=== PATIENT | female | born 1935 | race Caucasian/White ===

== ENCOUNTER → 2018-01-28 17:01 | Outpatient (REF) | payer SELFPAY | DX: R50.9 Fever, unspecified (principal); R05 Cough; R53.83 Other fatigue | CPT/HCPCS: 87804 ==

== ENCOUNTER → 2018-05-12 14:31 | Outpatient (REF) | payer SELFPAY | PROVIDERS: Visit Provider Family Medicine | DX: R19.7 Diarrhea, unspecified (principal) | CPT/HCPCS: 87177; 87209 ==

== ENCOUNTER → 2018-05-22 09:10 | Outpatient (REF) | payer SELFPAY ==
[2018-05-22 11:59] LABS: Color, Urine Yellow (Yellow); Glucose, Dipstick Normal (Normal); Ketone-Dipstick 5 mg/dl (Negative); Leukocyte Esterase-Dipstick 25 /ul (Negative); Nitrite-Dipstick Negative (Negative); Occult Blood-Urine Negative /ul (Negative); Protein-Dipstick 30 mg/dl (Negative); Urine Bilirubin Dipstick Negative (Negative); Urine Clarity Sl. Cloudy (Clear); Urine Urobilinogen Normal (Normal)
== END ==
PROVIDERS: Visit Provider Family Medicine
DX: N39.0 Urinary tract infection, site not specified (principal)
CPT/HCPCS: 81002; 87086; 87088

== ENCOUNTER → 2018-06-14 08:56 | Outpatient (CLI) | payer MEDICARE, SELFPAY ==
--- NOTE | 2018-06-14 09:01 | CT_ITS ---
STUDY: CT ABDOMEN AND PELVIS WITHOUT CONTRAST REASON FOR EXAM: Female, 82 years old. Urinary incontinence, which is worsening. History of kidney stones, urinary frequency, left breast cancer treated with lumpectomy and radiation therapy, hypertension, KIMBERLY/BSO. RADIATION DOSAGE (If Supplied By Facility): CTDIvol = ( 8.62 ) mGy, DLP = ( 357.58 ) mGycm TECHNIQUE: Transaxial images were obtained from the dome of the diaphragm to the symphysis pubis without oral contrast, and without intravenous contrast. Sagittal and coronal images were reconstructed. Individualized dose optimization techniques were used for this CT. COMPARISON: None. FINDINGS: There is a calcified pulmonary granuloma in the visualized right middle lobe. The visualized portions of the heart are within normal limits. There are calcified granulomas in the liver. There were a few small liver cysts. Normal gallbladder and extrahepatic biliary system. There calcified granulomas spleen. There is mild splenomegaly. Normal pancreas. Normal bilateral adrenal glands. Normal right kidney. There is a 6 cm left upper pole renal cyst as well as smaller cysts. Otherwise normal left kidney. Normal visualized stomach. Normal small intestine. There are multiple colonic diverticula consistent with diverticulosis. The appendix is visualized on axial images 94-110 and it appears normal.. There is diffuse atherosclerotic calcification of the abdominal aorta with elongation and tortuosity, but without a demonstrated aneurysm. Normal inferior vena cava. Normal retroperitoneum. Normal urinary bladder. Urinary bladder was nearly empty at the time of this exam. There is absence of the uterus consistent with a prior hysterectomy. Normal abdominal wall. There are diffuse degenerative changes of the visualized lumbar spine as well as levoscoliosis.. CT/Abdomen/Pelvis without Cont IMPRESSION: Colonic diverticulosis, without evidence for acute diverticulitis. Mild splenomegaly. Old granulomatous disease. Cysts in the left kidney and in the liver. Atherosclerosis. Previous hysterectomy. No evidence for acute pathology. No demonstrated urinary calculi or hydronephrosis. Electronically Signed: Ernesto Rajan MD at 4:01 EDT , Service support ,
== END ==
PROVIDERS: Family Provider Family Medicine; PCP Family Medicine; Visit Provider Nurse Practitioner Adult Health
DX: R35.0 Frequency of micturition (principal); R39.15 Urgency of urination; Z87.442 Personal history of urinary calculi
CPT/HCPCS: 74176

== ENCOUNTER 2018-10-04 01:42 | Inpatient (IN) | payer MEDICARE, SELFPAY ==
[2018-10-04] VITALS (15 sets, daily range): BP systolic 133–216; BP diastolic 55–118; PULSE 71–83; RESP 16–18; TEMP 36.6–37.6; O2SAT 92–99; BMI 29.0; BMI 26.2; BMI 26.6
--- NOTE | 2018-10-04 02:21 | CT_ITS ---
STUDY: CT ABDOMEN AND PELVIS WITHOUT CONTRAST REASON FOR EXAM: Female, 83 years old. Abdominal pain RADIATION DOSAGE (If Supplied By Facility): CTDIvol = ( 19.23 ) mGy, DLP = ( 965.83 ) mGycm TECHNIQUE: Transaxial images were obtained from the dome of the diaphragm to the symphysis pubis without oral contrast, and without intravenous contrast. Sagittal and coronal images were reconstructed. Individualized dose optimization techniques were used for this CT. COMPARISON: None. FINDINGS: Chronic changes in the lung bases.2 The liver is normal. No dilated intrahepatic biliary radicles. The gallbladder is normal with no calcifications within it. There is no pericholecystic fluid collection or streakiness A single benign calcification in the spleen The pancreas is normal. Both adrenals are normal. A 5.3 cm cyst in the upper pole of the left kidney. No hydronephrosis and no abnormal calcifications in both kidneys. The stomach is normal. There is no bowel distention, acute appendicitis or diverticulitis. No constricting lesions are seen in large bowel. The abdominal wall is intact with no hernias. There is no ascites or any free intraperitoneal air. No indication of epiploic appendagitis The vascular structures in the retroperitoneum are normal. There is no retrocrural, retroperitoneal or mesenteric adenopathy. There is a lumbar scoliosis with convexity to the left. There are also multilevel degenerative changes of the lumbosacral spine. The urinary bladder is normal.--. There is no inguinal or pelvic adenopathy. There is no inguinal hernia. . CT/Abdomen/Pelvis without Cont IMPRESSION: No acute findings in the abdomen and pelvis. Specifically there is no acute appendicitis or diverticulitis. A large 5.3 cm left renal cyst. Degenerative changes of the lumbosacral spine. A lumbar scoliosis with convexity to the left Electronically Signed: Ilia Moreno MD at 5:07 EST Tel , Service support ,
--- NOTE | 2018-10-04 02:30 | ED.RN ---
IN TO TAKE PATIENT OFF OF BED SNEED AND PATIENT APHASIC AND INCOHERENT. UNABLE TO SPEAK IN SENTENCES. DR. CHANDLER AWARE AND AT BEDSIDE TO ASSESS PATIENT. WILL CONTINUE TO MONITOR.
[2018-10-04] MEDS: Ondansetron 4 MG/2 ML Vial IV (02:38)
[2018-10-04] MEDS: 0.9% Normal Saline 1,000 ML 125 ML IV (02:38)
[2018-10-04 02:42] LABS: Absolute Lymphocyte Count 0.96 X10^3/ul (0.83-4.51); Absolute Neutrophil Count 9.4 X10^3/uL (2.0-7.7); Basophil# 0.03 X10^3/uL; Basophil% 0.3 % (0-1); Eosinophil# 0.02 X10^3/uL; Eosinophils% 0.2 % (0-5); Hematocrit 41.9 % (37-47); Hemoglobin 14.2 g/dl (12.0-15.0); Lymphocyte # 0.96 X10^3/ul (4.0); Lymphocyte % 8.8 % (19-41); Mean Corp Hgb Conc 33.9 g/gl (32-36); Mean Corpuscular Hgb 28.6 pg (27.0-32.0); Mean Corpuscular Volume 84.3 fL (81-99); Mean Platelet Vol. 9.6 fl (6.2-12.0); Monocyte# 0.41 X10^3/uL; Monocyte% 3.8 % (0-10); Neutrophil # 9.44 X10^3/uL (2.7-7.7); Neutrophil % 86.8 % (47-70); POSITIVE COUNT NO; POSITIVE DIFFERENTIAL NO; POSITIVE MORPHOLOGY NO; Platelet Count 169 K/mm3 (150-450); RBC Distribution Width CV 12.7 % (11.6-14.6); RBC Distribution Width SD 38.5 fl (35.1-43.9); Red Blood Count 4.97 M/mm3 (4.2-5.4); White Blood Count 10.9 K/mm3 (4.4-11.0)
[2018-10-04] MEDS: fentaNYL 100 MCG/2 ML Ampul 50 MCG IV (02:42)
[2018-10-04 02:54] LABS: ALB/GLOB Ratio 1.3 RATIO (0.9-2.4); AST(SGOT) 13 U/L (15-37); Alanine Aminotransfer ALT/SGPT 15 U/L (13-56); Albumin, Serum 4.2 g/dL (3.2-5.0); Alkaline Phosphatase 116 U/L (45-117); Anion Gap 9 (5-15); BUN 13 mg/dL (7-18); BUN/Creat Ratio 18.1 RATIO (10-20); Bilirubin, Direct 0.15 mg/dL (0.00-0.30); Calcium,Total 8.9 mg/dL (8.5-10.1); Chloride 100 mmol/L (98-107); Creatinine, Serum 0.72 mg/dL (0.55-1.02); EST Glomerular Filtration Rate 83 mL/min (>60); Est Glom Filt Rate - Afr Amer 100 mL/min (>60); Globulin 3.2 g/dL (2.2-4.2); Glucose 141 mg/dL (74-106); Potassium 3.2 mmol/L (3.5-5.1); Protein, Total 7.4 g/dL (6.4-8.2); Sodium Level 138 mmol/L (136-145)
--- NOTE | 2018-10-04 02:55 | ED.VIS.GEN ---
History of Present Illness Chief Complaint: Abd Pain Informant: Patient Onset: Hours - 3 Context: Sudden Onset Timing: Continuous Quality: pain, followed by vomiting Location: epigastric Current Severity: Moderate Maximum Severity: Moderate Worsened by: vomiting Relieved by: nothing Associated Symptoms: nonbilious nonbloody emesis Narrative: Patient has never had this before. Pain does not radiate into her back or up into her chest, denies any thoracic symptoms. Had remote total hysterectomy but no other abdominal surgeries. States she has bowel movements that wavered between loose and constipation, and that has been unchanged. She urinates frequently because of difficulty with bladder control and states that has been no different and denies any other urinary symptoms. No fevers or recent illness or recent travel. No suspicious food ingestions such as raw seafood or undercooked meats. No sick contacts that she knows of. States that she was anaphylactic to codeine, but does not remember how it was given to her and does not remember if she has taken morphine or not in the past. - Past Medical History (1) Breast cancer Status: Chronic (2) HTN (hypertension) Status: Chronic Past Medical History - Allergies and Home Meds Allergies/Adverse Reactions: Allergies amlodipine Allergy (Verified 10/04/18 01:52) Anaphylaxis codeine Allergy (Verified 10/04/18 01:52) Anaphylaxis fentanyl Allergy (Verified 10/04/18 06:48) Other gabapentin Allergy (Verified 10/04/18 01:52) Anaphylaxis lisinopril Allergy (Verified 10/04/18 01:52) Anaphylaxis niacin Allergy (Verified 10/04/18 01:52) Anaphylaxis primidone Allergy (Verified 10/04/18 01:52) Anaphylaxis proparacaine Allergy (Verified 10/04/18 01:52) Anaphylaxis tamoxifen Allergy (Verified 10/04/18 01:52) Anaphylaxis Past Medical History: - - cannot remember all her problems right now Surgical History: hysterectomy, tonsillectomy, - - breast Smoking Status: Never smoker Alcohol: None - Family History Maternal Family History: Family History (Last Updated 10/04/18 @ 06:33 by Maxx Hanks MD) Mother Hypertension CVA (cerebral vascular accident) Review of Systems General: Reports: Malaise. Denies: Chills, Fever, Sweats Eyes: Denies: Visual changes - bilaterally, Diplopia ENT: Denies: Sore throat Cardiovascular: Denies: Chest pain, Palpitations Respiratory: Denies: Dyspnea, Cough, Dyspnea on exertion Gastrointestinal: Reports: Abdominal pain, Nausea, Vomiting, Diarrhea. Denies: Melena, Hematochezia Genitourinary: Reports: Frequency. Denies: Dysuria, Hematuria Musculoskeletal: Denies: Back pain, Swelling, Extremity Pain Skin: Denies: Rash, Abscess Neurological: Denies: Headache, Weakness, Numbness Endocrine: Denies: Polyuria, Polydipsia, Heat intolerance, Cold intolerance Physical Exam Vital Signs/Narrative: Vital Signs Temp Pulse Resp BP Pulse Ox 10/04/18 01:43 98.1 F 71 16 202/94 H 93 Inital Vital Signs reviewed: Yes General: Well nourished, Well developed, - - ill-appearing, nad Head: Normocephalic, Atraumatic Eyes: Perrl, EOMI ENT: Moist mucous membranes, No rhinorrhea Neck: Supple, Nontender Cardiovascular: Regular rate, Regular rhythm, No murmurs Respiratory: No distress, CTA bilaterally, Chest nontender Abdomen: Soft, Tender - diffusely mildly, but moderately tender LLQ and suprapubic areas; minimally tender upper abd, Hypoactive bowel sounds, - - distended. Negative for: Guarding, Rebound tenderness, Pulsatile mass, Hou's sign Back: Nontender, Normal Inspection. Negative for: CVA tenderness Extremities: Nontender, No edema Skin: Normal color, No rash Neurological: Alert, Oriented x3, Cranial nerves II-XII grossly intact, Normal Strength, Normal Sensation Psychological: Normal affect Diagnostic/Tx/Re-eval Laboratory Tests 10/04/18 10/04/18 10/04/18 Range/Units 03:54 02:30 02:30 WBC 10.9 (4.4-11.0) K/mm3 RBC 4.97 (4.2-5.4) M/mm3 Hgb 14.2 (12.0-15.0) g/dl Hct 41.9 (37-47) % MCV 84.3 (81-99) fL MCH 28.6 (27.0-32.0) pg MCHC 33.9 (32-36) g/gl RDW 12.7 (11.6-14.6) % RDW Differential 38.5 (35.1-43.9) fl Plt Count 169 (150-450) K/mm3 MPV 9.6 (6.2-12.0) fl Immature Gran % (Auto) 0.100 (0.0-0.9) % Neut % (Auto) 86.8 H (47-70) % Lymph % (Auto) 8.8 L (19-41) % [place] % (Auto) 3.8 (0-10) % Eos % (Auto) 0.2 (0-5) % Baso % (Auto) 0.3 (0-1) % Absolute Neuts (auto) 9.4 H (2.0-7.7) X10^3/uL Absolute Lymphs (auto) 0.96 (0.83-4.51) X10^3/ul Total Counted Not Reportable Sodium 138 (136-145) mmol/L Potassium 3.2 L (3.5-5.1) mmol/L Chloride 100 (98-107) mmol/L Carbon Dioxide 29.0 (21.0-32.0) mmol/L Anion Gap 9 (5-15) BUN 13 (7-18) mg/dL Creatinine 0.72 (0.55-1.02) mg/dL Estim Creat Clear Calc 36.50 ml/min Est GFR (MDRD) Af Amer 100 (>60) mL/min Est GFR (MDRD) Non-Af 83 (>60) mL/min BUN/Creatinine Ratio 18.1 (10-20) RATIO Glucose 141 H (74-106) mg/dL Calcium 8.9 (8.5-10.1) mg/dL Total Bilirubin 0.40 (0.20-1.00) mg/dL Direct Bilirubin 0.15 (0.00-0.30) mg/dL AST 13 L (15-37) U/L ALT 15 (13-56) U/L Alkaline Phosphatase 116 (45-117) U/L Total Protein 7.4 (6.4-8.2) g/dL Albumin 4.2 (3.2-5.0) g/dL Globulin 3.2 (2.2-4.2) g/dL Albumin/Globulin Ratio 1.3 (0.9-2.4) RATIO Urine Color Straw (Yellow) Urine Clarity Clear (Clear) Urine pH 8.0 (5.0 - 8.0) Ur Specific [place] 1.010 (1.002-1.030) Urine Protein 100 H (Negative) mg/dl Urine Glucose (UA) Normal (Normal) mg/dl Urine Ketones Negative (Negative) mg/dl Urine Occult Blood Negative (Negative) /ul Urine Nitrite Negative (Negative) Urine Bilirubin Negative (Negative) mg/dL Urine Urobilinogen Normal (Normal) mg/dl Ur Leukocyte Esterase Negative (Negative) /ul Urine RBC 0 SEEN (0-5) /hpf Urine WBC 0 SEEN (0-5) /hpf Ur Squamous Epith Cells 0-5 SEEN (5-10) /hpf Urine Bacteria RARE (None Seen) /hpf Urine Mucus 0 SEEN (<or=2+) /hpf Clinical Impression(s) from Imaging Studies Abdomen/Pelvis CT 10/04/18 02:21 IMPRESSION: No acute findings in the abdomen and pelvis. Specifically there is no acute appendicitis or diverticulitis. A large 5.3 cm left renal cyst. Degenerative changes of the lumbosacral spine. A lumbar scoliosis with convexity to the left Electronically Signed: Ilia Moreno MD at 5:07 EST Tel , Service support , Brain CT 10/04/18 04:29 IMPRESSION: No acute findings in the brain Electronically Signed: Ilia Moreno MD at 5:00 EST Tel , Service support , Chest X-Ray 10/04/18 04:50 IMPRESSION: Mild cardiomegaly with central vascular congestive changes and bibasilar platelike atelectatic change Electronically Signed: Ilia Moreno MD at 5:11 EST Tel , Service support , Head CTA 10/04/18 05:27 IMPRESSION: Normal [place] without a demonstrated aneurysm or hemodynamically significant stenosis. Electronically Signed: Ilia Moreno MD at 7:06 EST Tel , Service support , Neck CTA 10/04/18 05:27 IMPRESSION: No evidence of a hemodynamically significant stenosis in either carotid system. Calcific atherosclerotic changes involving the right carotid bulb. The vertebrobasilar circulation is normal Electronically Signed: Ilia Moreno MD at 7:04 EST Tel , Service support , - Rhythm Strip Rhythm Strip: Sinus Rhythm Rate: 80 Ectopy: None - EKG Initial EKG Interpretation: Sinus Rhythm, No Acute Injury Pattern, Non-Specific ST Changes - laterally, - - long QTc. nml axis. - Medical Decision Making After initial evaluation, workup was ordered including CT abdomen, IV fluids, Zofran, and fentanyl so as to not cause any type of allergic reaction that she might have developed with morphine because of her prior anaphylaxis to codeine, as the patient was in quite a bit of discomfort and we discussed the pain medicine prior to giving it. Sometime after receiving the fentanyl, she became very confused and disoriented, she was unable to follow commands or move her extremities on command. It was presumed this was due to the fentanyl since all of her vitals were unremarkable and unchanged, with the exception of her blood pressure which was over 200 when she got here but during my exam it was 173 systolic and remained similar to that. Daughter states that it is not uncommon for her to spike blood pressures in response to stress. I reevaluated her periodically, and during 1 of my reevaluation's, she suddenly rolled her eyes back in her head and had a tonic-clonic grand mal seizure, that lasted for about a minute, and as it stopped, she did not breathing quickly became cyanotic and her pulse ox dropped to around 75%. The daughter quickly stated that she was DNR but was okay with us giving her rescue breathing, so we quickly set up a bag valve mask, and assisted her own breathing that had started by then. At this time as we were starting to bag her, she became bradycardic in the 30s. This quickly resolved, and she developed a heart rate in the low 100s. We stopped bagging her and gave her blow-by, and as her breathing picked up, she was maintained on a 5 L nasal cannula, keeping her saturations at 95%. She is not gone to CT yet for her abdomen/pelvis, I am adding cardiac testing and a CT head, she will be taken over with a nurse on a monitor. She is postictal at this time. CT images performed, I have reviewed them. She does not appear to have acute cerebral hemorrhage and her abdominal CT shows no free air, AAA, or free fluid. I am ordering nitroprusside, she has a documented allergy to amlodipine, in order to control her blood pressure, since that is more likely to have resulted in the seizure than anything else at this time. I think an acute ischemic stroke is much less likely, given the seizure activity. We will continue to monitor closely, CT results pending. CT head and abdomen/pelvis both resulted fairly quickly, both are negative. Prior to starting any medications, her blood pressure is in the 130s. Nitroprusside is canceled. Clinically, she is alerting to voice, she responds to questions by looking at the person asking, however, she does not follow commands, she is localizing to pain in all 4 extremities, causing her to move all 4 extremities, her toes are downgoing, reflexes normal, there is no clonus. She moans, but does not speak. She does not close her eyes when asked to. I discussed with Dr. Lanier with neurology, he advises CT angiography, which is ordered and pending. CT angiography results are all unremarkable, no aneurysms or stenotic vessels. Discussed again with Dr. Lanier, who does not recommend antiseizure medications at this time, he recommends an MRI, admission, consultation to neurology and further monitoring. Discussed with hospitalist. Procedures Critical care time (excluding procedures): 30-74 minutes - 35 min ED Disposition - Plan for ED Patient: Disposition: Acute Care [facility] Chief Complaint: Abd Pain Diagnosis: Accelerated hypertension, Delirium, Seizure
--- NOTE | 2018-10-04 02:59 | ED.DCSUM_ITS ---
History of Present Illness Chief Complaint: Abd Pain Informant: Patient Onset: Hours - 3 Context: Sudden Onset Timing: Continuous Quality: pain, followed by vomiting Location: epigastric Current Severity: Moderate Maximum Severity: Moderate Worsened by: vomiting Relieved by: nothing Associated Symptoms: nonbilious nonbloody emesis Narrative: Patient has never had this before. Pain does not radiate into her back or up into her chest, denies any thoracic symptoms. Had remote total hysterectomy but no other abdominal surgeries. States she has bowel movements that wavered between loose and constipation, and that has been unchanged. She urinates frequently because of difficulty with bladder control and states that has been no different and denies any other urinary symptoms. No fevers or recent illness or recent travel. No suspicious food ingestions such as raw seafood or undercooked meats. No sick contacts that she knows of. States that she was anaphylactic to codeine, but does not remember how it was given to her and does not remember if she has taken morphine or not in the past. - Past Medical History (1) Breast cancer Status: Chronic (2) HTN (hypertension) Status: Chronic Past Medical History - Allergies and Home Meds Allergies/Adverse Reactions: Allergies amlodipine Allergy (Verified 10/04/18 01:52) Anaphylaxis codeine Allergy (Verified 10/04/18 01:52) Anaphylaxis fentanyl Allergy (Verified 10/04/18 06:48) Other gabapentin Allergy (Verified 10/04/18 01:52) Anaphylaxis lisinopril Allergy (Verified 10/04/18 01:52) Anaphylaxis niacin Allergy (Verified 10/04/18 01:52) Anaphylaxis primidone Allergy (Verified 10/04/18 01:52) Anaphylaxis proparacaine Allergy (Verified 10/04/18 01:52) Anaphylaxis tamoxifen Allergy (Verified 10/04/18 01:52) Anaphylaxis Past Medical History: - - cannot remember all her problems right now Surgical History: hysterectomy, tonsillectomy, - - breast Smoking Status: Never smoker Alcohol: None - Family History Maternal Family History: Family History (Last Updated 10/04/18 @ 06:33 by Maxx Hanks MD) Mother Hypertension CVA (cerebral vascular accident) Review of Systems General: Reports: Malaise. Denies: Chills, Fever, Sweats Eyes: Denies: Visual changes - bilaterally, Diplopia ENT: Denies: Sore throat Cardiovascular: Denies: Chest pain, Palpitations Respiratory: Denies: Dyspnea, Cough, Dyspnea on exertion Gastrointestinal: Reports: Abdominal pain, Nausea, Vomiting, Diarrhea. Denies: Melena, Hematochezia Genitourinary: Reports: Frequency. Denies: Dysuria, Hematuria Musculoskeletal: Denies: Back pain, Swelling, Extremity Pain Skin: Denies: Rash, Abscess Neurological: Denies: Headache, Weakness, Numbness Endocrine: Denies: Polyuria, Polydipsia, Heat intolerance, Cold intolerance Physical Exam Vital Signs/Narrative: Vital Signs Temp Pulse Resp BP Pulse Ox 10/04/18 01:43 98.1 F 71 16 202/94 H 93 Inital Vital Signs reviewed: Yes General: Well nourished, Well developed, - - ill-appearing, nad Head: Normocephalic, Atraumatic Eyes: Perrl, EOMI ENT: Moist mucous membranes, No rhinorrhea Neck: Supple, Nontender Cardiovascular: Regular rate, Regular rhythm, No murmurs Respiratory: No distress, CTA bilaterally, Chest nontender Abdomen: Soft, Tender - diffusely mildly, but moderately tender LLQ and suprapu bic areas; minimally tender upper abd, Hypoactive bowel sounds, - - distended. Negative for: Guarding, Rebound tenderness, Pulsatile mass, Hou's sign Back: Nontender, Normal Inspection. Negative for: CVA tenderness Extremities: Nontender, No edema Skin: Normal color, No rash Neurological: Alert, Oriented x3, Cranial nerves II-XII grossly intact, Normal Strength, Normal Sensation Psychological: Normal affect Diagnostic/Tx/Re-eval Laboratory Tests 10/04/18 10/04/18 10/04/18 Range/Units 03:54 02:30 02:30 WBC 10.9 (4.4-11.0) K/mm3 RBC 4.97 (4.2-5.4) M/mm3 Hgb 14.2 (12.0-15.0) g/dl Hct 41.9 (37-47) % MCV 84.3 (81-99) fL MCH 28.6 (27.0-32.0) pg MCHC 33.9 (32-36) g/gl RDW 12.7 (11.6-14.6) % RDW Differential 38.5 (35.1-43.9) fl Plt Count 169 (150-450) K/mm3 MPV 9.6 (6.2-12.0) fl Immature Gran % (Auto) 0.100 (0.0-0.9) % Neut % (Auto) 86.8 H (47-70) % Lymph % (Auto) 8.8 L (19-41) % [place] % (Auto) 3.8 (0-10) % Eos % (Auto) 0.2 (0-5) % Baso % (Auto) 0.3 (0-1) % Absolute Neuts (auto) 9.4 H (2.0-7.7) X10^3/uL Absolute Lymphs (auto) 0.96 (0.83-4.51) X10^3/ul Total Counted Not Reportable Sodium 138 (136-145) mmol/L Potassium 3.2 L (3.5-5.1) mmol/L Chloride 100 (98-107) mmol/L Carbon Dioxide 29.0 (21.0-32.0) mmol/L Anion Gap 9 (5-15) BUN 13 (7-18) mg/dL Creatinine 0.72 (0.55-1.02) mg/dL Estim Creat Clear Calc 36.50 ml/min Est GFR (MDRD) Af Amer 100 (>60) mL/min Est GFR (MDRD) Non-Af 83 (>60) mL/min BUN/Creatinine Ratio 18.1 (10-20) RATIO Glucose 141 H (74-106) mg/dL Calcium 8.9 (8.5-10.1) mg/dL Total Bilirubin 0.40 (0.20-1.00) mg/dL Direct Bilirubin 0.15 (0.00-0.30) mg/dL AST 13 L (15-37) U/L ALT 15 (13-56) U/L Alkaline Phosphatase 116 (45-117) U/L Total Protein 7.4 (6.4-8.2) g/dL Albumin 4.2 (3.2-5.0) g/dL Globulin 3.2 (2.2-4.2) g/dL Albumin/Globulin Ratio 1.3 (0.9-2.4) RATIO Urine Color Straw (Yellow) Urine Clarity Clear (Clear) Urine pH 8.0 (5.0 - 8.0) Ur Specific [place] 1.010 (1.002-1.030) Urine Protein 100 H (Negative) mg/dl Urine Glucose (UA) Normal (Normal) mg/dl Urine Ketones Negative (Negative) mg/dl Urine Occult Blood Negative (Negative) /ul Urine Nitrite Negative (Negative) Urine Bilirubin Negative (Negative) mg/dL Urine Urobilinogen Normal (Normal) mg/dl Ur Leukocyte Esterase Negative (Negative) /ul Urine RBC 0 SEEN (0-5) /hpf Urine WBC 0 SEEN (0-5) /hpf Ur Squamous Epith Cells 0-5 SEEN (5-10) /hpf Urine Bacteria RARE (None Seen) /hpf Urine Mucus 0 SEEN (<or=2+) /hpf Clinical Impression(s) from Imaging Studies Abdomen/Pelvis CT 10/04/18 02:21 IMPRESSION: No acute findings in the abdomen and pelvis. Specifically there is no acute appendicitis or diverticulitis. A large 5.3 cm left renal cyst. Degenerative changes of the lumbosacral spine. A lumbar scoliosis with convexity to the left Electronically Signed: Ilia Moreno MD at 5:07 EST Tel , Service support , Brain CT 10/04/18 04:29 IMPRESSION: No acute findings in the brain Electronically Signed: Ilia Moreno MD at 5:00 EST Tel , Service support , Chest X-Ray 10/04/18 04:50 IMPRESSION: Mild cardiomegaly with central vascular congestive changes and bibasilar platelike atelectatic change Electronically Signed: Ilia Moreno MD at 5:11 EST Tel , Service support , Head CTA 10/04/18 05:27 IMPRESSION: Normal [place] without a demonstrated aneurysm or hemodynamically significant stenosis. Electronically Signed: Ilia Moreno MD at 7:06 EST Tel , Service support , Neck CTA 10/04/18 05:27 IMPRESSION: No evidence of a hemodynamically significant stenosis in either carotid system. Calcific atherosclerotic changes involving the right carotid bulb. The vertebrobasilar circulation is normal Electronically Signed: Ilia Moreno MD at 7:04 EST Tel , Service support , - Rhythm Strip Rhythm Strip: Sinus Rhythm Rate: 80 Ectopy: None - EKG Initial EKG Interpretation: Sinus Rhythm, No Acute Injury Pattern, Non-Specific ST Changes - laterally, - - long QTc. nml axis. - Medical Decision Making After initial evaluation, workup was ordered including CT abdomen, IV fluids, Zofran, and fentanyl so as to not cause any type of allergic reaction that she might have developed with morphine because of her prior anaphylaxis to codeine, as the patient was in quite a bit of discomfort and we discussed the pain medicine prior to giving it. Sometime after receiving the fentanyl, she became very confused and disoriented, she was unable to follow commands or move her extremities on command. It was presumed this was due to the fentanyl since all of her vitals were unremarkable and unchanged, with the exception of her blood pressure which was over 200 when she got here but during my exam it was 173 systolic and remained similar to that. Daughter states that it is not uncommon for her to spike blood pressures in response to stress. I reevaluated her periodically, and during 1 of my reevaluation's, she suddenly rolled her eyes back in her head and had a tonic-clonic grand mal seizure, that lasted for about a minute, and as it stopped, she did not breathing quickly became cyanotic and her pulse ox dropped to around 75%. The daughter quickly stated that she was DNR but was okay with us giving her rescue breathing, so we quickly set up a bag valve mask, and assisted her own breathing that had started by then. At this time as we were starting to bag her, she became bradycardic in the 30s. This quickly resolved, and she developed a heart rate in the low 100s. We stopped bagging her and gave her blow-by, and as her breathing picked up, she was maintained on a 5 L nasal cannula, keeping her saturations at 95%. She is not gone to CT yet for her abdomen/pelvis, I am adding cardiac testing and a CT head, she will be taken over with a nurse on a monitor. She is postictal at this time. CT images performed, I have reviewed them. She does not appear to have acute cerebral hemorrhage and her abdominal CT shows no free air, AAA, or free fluid. I am ordering nitroprusside, she has a documented allergy to amlodipine, in order to control her blood pressure, since that is more likely to have resulted in the seizure than anything else at this time. I think an acute ischemic stroke is much less likely, given the seizure activity. We will continue to monitor closely, CT results pending. CT head and abdomen/pelvis both resulted fairly quickly, both are negative. Prior to starting any medications, her blood pressure is in the 130s. Nitroprusside is canceled. Clinically, she is alerting to voice, she responds to questions by looking at the person asking, however, she does not follow commands, she is localizing to pain in all 4 extremities, causing her to move all 4 extremities, her toes are downgoing, reflexes normal, there is no clonus. She moans, but does not speak. She does not close her eyes when asked to. I discussed with Dr. Lanier with neurology, he advises CT angiography, which is ordered and pending. CT angiography results are all unremarkable, no aneurysms or stenotic vessels. Discussed again with Dr. Lanier, who does not recommend antiseizure medications at this time, he recommends an MRI, admission, consultation to neurology and further monitoring. Discussed with hospitalist. Procedures Critical care time (excluding procedures): 30-74 minutes - 35 min ED Disposition - Plan for ED Patient: Disposition: Acute Care Hospital [facility] Chief Complaint: Abd Pain Diagnosis: Accelerated hypertension, Delirium, Seizure
[2018-10-04 04:01] LABS: Mucous, Urine 0 SEEN /hpf (<or=2+); Red Blood Cells-Urine 0 SEEN /hpf (0-5); White Blood Cells 0 SEEN /hpf (0-5)
[2018-10-04 04:05] LABS: Color, Urine Straw (Yellow); Glucose, Dipstick Normal (Normal); Ketone-Dipstick Negative (Negative); Leukocyte Esterase-Dipstick Negative /ul (Negative); Nitrite-Dipstick Negative (Negative); Occult Blood-Urine Negative /ul (Negative); Protein-Dipstick 100 mg/dl (Negative); Urine Bilirubin Dipstick Negative (Negative); Urine Clarity Clear (Clear); Urine Urobilinogen Normal (Normal)
[2018-10-04 04:08] LABS: Bacteria RARE /hpf (None Seen); Squamous Epithelial Cells - UA 0-5 SEEN /hpf (5-10)
--- NOTE | 2018-10-04 04:29 | CT_ITS ---
STUDY: CT BRAIN WITHOUT CONTRAST REASON FOR EXAM: Female, 83 years old. Seizure RADIATION DOSAGE (If Supplied By Facility): CTDIvol = ( 44.99 ) mGy, DLP = ( 796.11 ) mGycm TECHNIQUE: Transaxial CT imaging of the brain was performed without administration of intravenous contrast material. Individualized dose optimization techniques were used for this CT. COMPARISON: None. FINDINGS: No scalp hematoma and no calvarial fractures. There is also no intra or extra-axial hemorrhage or tumor mass and no indication of acute infarction. Nonspecific microangiopathic changes in both hemispheres. The ventricles, basal cisterns and cortical sulci are normal. The orbits, paranasal sinuses and mastoid air cells are normal.. CT/Brain/Head without Contrast IMPRESSION: No acute findings in the brain Electronically Signed: Ilia Moreno MD at 5:00 EST Tel , Service support ,
--- NOTE | 2018-10-04 04:30 | EKG12_ITS ---
Test Reason : BRADYCARDIA Blood Pressure : / mmHG Vent. Rate : 088 BPM Atrial Rate : 088 BPM P-R Int : 160 ms QRS Dur : 102 ms QT Int : 408 ms P-R-T Axes : 068 020 229 degrees QTc Int : 493 ms Normal sinus rhythm Possible Left atrial enlargement Left ventricular hypertrophy with repolarization abnormality Prolonged QT Abnormal ECG Confirmed by SHAUNA JONES, PAUL ([id number]), editorial director DOUGLAS HOOKS ([id number] on 10/07/2018 2:05:20 PM Referred By: RAMESH Confirmed By:PAUL VILLATORO MD
--- NOTE | 2018-10-04 04:33 | ED.RN ---
THIS RN AT BEDSIDE WITH PATIENT. SONOROUS RESPIRATIONS BUT VITAL SIGNS STABLE. HR: 88, SPO2: 97%, RR:22, BP: 172/71. DAUGHTER ALSO AT BEDSIDE
--- NOTE | 2018-10-04 04:50 | RAD_ITS ---
STUDY: X-RAY CHEST REASON FOR EXAM: Female, 83 years old. Chest pain TECHNIQUE: 1 view COMPARISON: None. FINDINGS: Mild cardiomegaly with mild central vascular congestion and atelectatic changes in the lung bases. No pleural effusions.. Degenerative changes of the thoracic spine.. Normal visualized ribs, clavicles, and shoulders. There is no demonstrated abnormality of the visualized soft tissue structures of the upper abdomen. RAD/Chest 1 View IMPRESSION: Mild cardiomegaly with central vascular congestive changes and bibasilar platelike atelectatic change Electronically Signed: Ilia Moreno MD at 5:11 EST Tel , Service support ,
--- NOTE | 2018-10-04 05:13 | PCM.HP.STD ---
Problem List (1) Gastritis Status: Acute (2) Seizure Status: Acute (3) Hypertensive emergency Status: Acute History of Present Illness Date of Admission: 10/04/18 Chief Complaint: nausea, vomiting and abdominal pain History was taken from ED doctor and Patient's daughter since patient is lethargic and incoherent. The patient is a 83 year old F with a significant history of IBS; hypertension; breast cancer status post lumpectomy with axillary node dissection and radiation with subsequent anaphylaxis after tamoxifen administration; hyperlipidemia; osteoarthritis; who presented from the assisted intermediate because of nausea, vomiting and abdominal pain. ED doctor reported that patient's pain was at the epigastric region but patient was tender in the lower abdominal region. At my examination the characteristics of patient's pain could not be obtained since patient is lethargic and incoherent. Her daughter reported that she had a conversation with patient at the intermediate at about 10pm the day before patient's admission. Patient reported same symptoms stated above to her daughter during the phone conversation. At that time, daughter reported that patient was coherent. Moreover at about 7pm of the day before her admission; her daughter and her son-in-law (same daughter's ) went to a care meeting at the [facility] where patient lives. Patient was coherent when daughter and son in law was at the intermediate. When patient was brought to the emergency department patient was given IV fluids, Zofran and 50 mg of fentanyl. Because of multiple anaphylactic reactions to medications, the emergency department doctor avoided morphine and other narcotics and chose fentanyl because of less tendency of getting advice reaction from fentanyl. Of note her daughter reports that patient has hyperemesis from codeine. Of note patient had extremely elevated blood at the emergency department. Her highest documented systolic blood pressure was 218. The highest documented diastolic blood pressure was 118. After patient received IV fluids, Zofran and fentanyl, ED doctor reported that patient became incoherent and very lethargic. Her daughter confirmed that she talked to patient over the phone at 1 AM while patient was at the emergency department and patient sounded incoherent. Patient had a precipitous drop in her oxygen saturation and although she was a DNR and her daughter who was present and allowed Ambu bag him. She responded to the antibiotic with increase in her oxygen saturation and was maintained on nasal cannula oxygenation. Later at emergency department' her daughter witnessed patient having a tonic clonic seizure. CT of patient abdomen/pelvis as well as CT of the head was unremarkable. ED doctor talked to neurologist Dr. Lanier. Per Dr. Lanier's recommendation oCTA of patient's head and neck was ordered by the ED doctor. Past Medical History Past Medical History (Chronic Problems): Chronic Problems Breast cancer (Chronic) HTN (hypertension) (Chronic) Allergies amlodipine Allergy (Verified 10/04/18 01:52) Anaphylaxis codeine Allergy (Verified 10/04/18 01:52) Anaphylaxis gabapentin Allergy (Verified 10/04/18 01:52) Anaphylaxis lisinopril Allergy (Verified 10/04/18 01:52) Anaphylaxis niacin Allergy (Verified 10/04/18 01:52) Anaphylaxis primidone Allergy (Verified 10/04/18 01:52) Anaphylaxis proparacaine Allergy (Verified 10/04/18 01:52) Anaphylaxis tamoxifen Allergy (Verified 10/04/18 01:52) Anaphylaxis Home Medications: Ambulatory Orders Medication Instructions Recorded Acetaminophen 650 mg PO Q4H PRN PRN 10/04/18 Aspirin 81 mg PO DAILY 10/04/18 Biotin 5,000 mcg PO DAILY 10/04/18 Calcium Carbonate [Tums] 1,000 mg PO Q4H PRN PRN 10/04/18 Cholecalciferol (Vitamin D3) 1,000 unit PO DAILY 10/04/18 [Vitamin D3] Cyanocobalamin (Vitamin B-12) 1,000 mcg PO DAILY 10/04/18 [Vitamin B-12] Dicyclomine HCl 10 mg PO ACHS 10/04/18 Guaifenesin/Dextromethorphan 1 each PO Q12H PRN PRN 10/04/18 [Mucinex Dm ER 600-30 mg Tablet] Hydroxyzine HCl 25 mg PO Q6H PRN PRN 10/04/18 Lactobacillus Acidophilus 1 each PO DAILY 10/04/18 [Acidophilus] Levothyroxine [Synthroid] 25 mcg PO DAILY 10/04/18 Lorazepam [Ativan] 0.5 mg PO DAILY PRN 10/04/18 Magnesium 250 mg PO DAILY 10/04/18 Metoprolol Tartrate 25 mg PO BID 10/04/18 Mirabegron [Myrbetriq] 50 mg PO DAILY 10/04/18 Nystatin Powder [Mycostatin Powder] 1 applic TOPICAL DAILY 10/04/18 Omeprazole [Prilosec] 20 mg PO BID 10/04/18 Psyllium Husk [Metamucil] 0.52 gm PO DAILY 10/04/18 Rosuvastatin Calcium 5 mg PO DAILY 10/04/18 Vit C/E/Zn/Coppr/Lutein/Zeaxan 1 each PO BID 10/04/18 [Preservision Areds 2 Softgel] traZODone [Desyrel] 25 mg PO QHS 10/04/18 Surgical History: hysterectomy, tonsillectomy, - - lumpectomy with axillary nodes dissection; Facial surgery after facial laceration post fall Lives: Intermediate Smoking Status: Never smoker Alcohol: None - *Family History Maternal Family History: Family History (Last Updated 10/04/18 @ 06:33 by Maxx Hanks MD) Mother Hypertension CVA (cerebral vascular accident) Review of Systems Unable to obtain accurate/complete ROS d/t: altered mental status after observed seizure. VTE Information - Inpt Only VTE Present on Admission: No VTE Mechan Device Prophylaxis: SCD's VTE Pharm Prophylaxis ordered?: No Patient Problems: Active and Suspected Problems Hypertensive emergency (Acute) Gastritis (Acute) Seizure (Acute) Hypertensive emergency (Acute) - Physical Exam General: Lethargic HEENT: Atraumatic, Normocephalic Neck: Trachea Midline Lungs: Clear to auscultation, Normal air movement Cardiovascular: Regular rate, No murmurs Abdomen: Bowel Sounds Present, Tender Extremities: No edema, Capillary Refill Less than 3 Seconds Skin: No rashes, No breakdown Musculoskeletal: No Muscle Wasting Neurological: - - Patient is lethargic and not following many commands. She mentioned her name sluggishly. Psych/Mental Status: - - Patient is lethargic. Vital Signs Temp Pulse Resp BP Pulse Ox 98.1 F 80 16 134/70 H 96 10/04/18 01:43 10/04/18 05:05 10/04/18 05:05 10/04/18 05:05 10/04/18 05:05 Oxygen Flow Rate (L/min) 2 Oxygen Delivery Method Nasal Cannula Weight: 74.2 kg Body Mass Index (BMI) 29.0 Laboratory Tests Past 24 Hrs 10/04/18 10/04/18 10/04/18 02:30 02:30 03:54 WBC 10.9 RBC 4.97 Hgb 14.2 Hct 41.9 MCV 84.3 MCH 28.6 MCHC 33.9 RDW 12.7 RDW Differential 38.5 Plt Count 169 MPV 9.6 Immature Gran % (Auto) 0.100 Neut % (Auto) 86.8 H Lymph % (Auto) 8.8 L [place] % (Auto) 3.8 Eos % (Auto) 0.2 Baso % (Auto) 0.3 Absolute Neuts (auto) 9.4 H Absolute Lymphs (auto) 0.96 Total Counted Not Reportable Sodium 138 Potassium 3.2 L Chloride 100 Carbon Dioxide 29.0 Anion Gap 9 BUN 13 Creatinine 0.72 Estim Creat Clear Calc 36.50 Est GFR (MDRD) Af Amer 100 Est GFR (MDRD) Non-Af 83 BUN/Creatinine Ratio 18.1 Glucose 141 H Calcium 8.9 Total Bilirubin 0.40 Direct Bilirubin 0.15 AST 13 L ALT 15 Alkaline Phosphatase 116 Troponin I Total Protein 7.4 Albumin 4.2 Globulin 3.2 Albumin/Globulin Ratio 1.3 Urine Color Straw Urine Clarity Clear Urine pH 8.0 Ur Specific [place] 1.010 Urine Protein 100 H Urine Glucose (UA) Normal Urine Ketones Negative Urine Occult Blood Negative Urine Nitrite Negative Urine Bilirubin Negative Urine Urobilinogen Normal Ur Leukocyte Esterase Negative Urine RBC 0 SEEN Urine WBC 0 SEEN Ur Squamous Epith Cells 0-5 SEEN Urine Bacteria RARE Urine Mucus 0 SEEN 10/04/18 05:00 WBC RBC Hgb Hct MCV MCH MCHC RDW RDW Differential Plt Count MPV Immature Gran % (Auto) Neut % (Auto) Lymph % (Auto) [place] % (Auto) Eos % (Auto) Baso % (Auto) Absolute Neuts (auto) Absolute Lymphs (auto) Total Counted Sodium Potassium Chloride Carbon Dioxide Anion Gap BUN Creatinine Estim Creat Clear Calc Est GFR (MDRD) Af Amer Est GFR (MDRD) Non-Af BUN/Creatinine Ratio Glucose Calcium Total Bilirubin Direct Bilirubin AST ALT Alkaline Phosphatase Troponin I Pending Total Protein Albumin Globulin Albumin/Globulin Ratio Urine Color Urine Clarity Urine pH Ur Specific [place] Urine Protein Urine Glucose (UA) Urine Ketones Urine Occult Blood Urine Nitrite Urine Bilirubin Urine Urobilinogen Ur Leukocyte Esterase Urine RBC Urine WBC Ur Squamous Epith Cells Urine Bacteria Urine Mucus Assessment/Plan All Active Problems Hypertensive emergency (Acute) Gastritis (Acute) Seizure (Acute) Hypertensive emergency (Acute) The patient is a 83 year old F with a significant history of IBS; hypertension; breast cancer status post lumpectomy with axillary node dissection and radiation with subsequent anaphylaxis after tamoxifen administration; hyperlipidemia; osteoarthritis; who presented from the assisted intermediate because of nausea, vomiting and abdominal pain; and found to have severely elevated blood pressure; and also had a witnessed seizure at the emergency department after administration of IV fluids; Zofran and fentanyl. Seizure Examination patient appeared lethargic; and answered only a few questions representing likely post ictal stage. Etiology of her seizures includes adverse medication reaction from likely fentanyl; hypertensive emergency or other CT of head unremarkable CT of head and neck unremarkable. MRI of brain ordered. EEG ordered. Ativan as needed for seizures Seizure precautions ordered. Probable hypertensive emergency. Patient with systolic blood pressure of 218; and diastolic blood pressure of 118. Etiology of anesthesia was from adverse reaction from fentanyl; or hypertensive emergency as stated above. Patient has allergy to amlodipine, Cardene not ordered at this time. Patient has anaphylactic reaction to e proparacaine; same ingredients in labetalol and hydralazine Hydralazine as needed ordered. Home metoprolol p.o. not ordered because patient is lethargic and at risk of aspiration. IV metoprolol as needed ordered. Gastritis With her symptoms of nausea, abdominal pain and vomiting patient likely has inflammation of her stomach. No reported diarrhea. Of note patient has a history of IBS. Likely viral in etiology. Supportive treatment with IV fluids; IV antiemetics; and IV Toradol. Of note patient has allergy reaction to narcotics. Her daughter reports that patient can take Vicodin. Vicodin not ordered because patient is lethargic and likely cannot tolerate p.o. DVT prophylaxis SCD ordered. Heparin not ordered because of e proparacaine ingredient. Code Status Patient is a DNR CC. At the emergency department patient was back. However this time her daughter who is the POA states that patient is a DNR-CC with no chest compression; pressors or bagging. Code Visit Inpatient E&M: 95949 Init Hosp L3
--- NOTE | 2018-10-04 05:27 | CT_ITS ---
STUDY: CTA OF THE NECK REASON FOR EXAM: Female, 83 years old. Altered mental status. RADIATION DOSAGE (If Supplied By Facility): CTDIvol = ( 20.97 ) mGy, DLP = ( 612.59 ) mGycm TECHNIQUE: CT angiography was performed with a multi-detector CT scanner. Data acquisition was obtained from the skull base through the vertex following intravenous administration of ml of . MIP images were reconstructed from the axial data set. Post-processing of the angiographic images was performed, with multiplanar reformation and 3D reconstruction. Individualized dose optimization techniques were used for this CT. COMPARISON: None. FINDINGS: Normal takeoff of the left subclavian artery, left common carotid artery and brachiocephalic artery from the arch of aorta. The left common carotid artery, the left carotid bulb and the left internal and external carotid arteries are normal and demonstrate no hemodynamically significant stenosis. The right common carotid artery is normal. There is focal calcific atherosclerotic changes involving the right carotid bulb but no demonstration of a hemodynamically significant stenosis. The right internal and external carotid arteries are normal. The vertebrobasilar circulation is normal. CT/CTA Neck W/WO Contrast IMPRESSION: No evidence of a hemodynamically significant stenosis in either carotid system. Calcific atherosclerotic changes involving the right carotid bulb. The vertebrobasilar circulation is normal Electronically Signed: Ilia Moreno MD at 7:04 EST Tel , Service support ,
--- NOTE | 2018-10-04 05:27 | CT_ITS ---
STUDY: CTA OF THE BRAIN REASON FOR EXAM: Female, 83 years old. Altered mental status. RADIATION DOSAGE (If Supplied By Facility): CTDIvol = ( 20.97 ) mGy, DLP = ( 612.59 ) mGycm TECHNIQUE: CT angiography was performed with a multi-detector CT scanner. Data acquisition was obtained from the skull base through the vertex following intravenous administration of ml of . MIP images were reconstructed from the axial data set. Post-processing of the angiographic images was performed, with multiplanar reformation and 3D reconstruction. Individualized dose optimization techniques were used for this CT. COMPARISON: None. FINDINGS: Normal bilateral petrous carotid arteries. Normal right cavernous carotid artery with a normal supraclinoid bifurcation. Normal left cavernous carotid artery with a normal supraclinoid bifurcation. Normal right A1 segments of the anterior cerebral artery. Normal left A1 segments of the anterior cerebral artery. Normal intact anterior communicating artery (ACOM). Normal bilateral A2 segments of the anterior cerebral arteries. Normal right M1 and M2 segments of the middle cerebral arteries, with a normal M1 bifurcation. Normal left M1 and M2 segments of the middle cerebral arteries, with a normal M1 bifurcation. Normal right posterior communicating artery (PCOM). Normal left posterior communicating artery (PCOM). Normal bilateral vertebral arteries. Normal basilar artery with a normal basilar bifurcation. The visualized bilateral superior cerebellar (SCA) arteries are normal. Normal bilateral P1, P2 and visualized P3 segments of the posterior cerebral arteries. There is no demonstrated aneurysm of the [place] of [place]. There is no demonstrated abnormality of the visualized brain. CT/CTA Head W/WO Contrast IMPRESSION: Normal [place] of [place] without a demonstrated aneurysm or hemodynamically significant stenosis. Electronically Signed: Ilia Moreno MD at 7:06 EST Tel , Service support ,
--- NOTE | 2018-10-04 06:59 | ED.RN ---
PATIENT TALKING. ALERT AND ORIENTED TO SELF. PATIENT REMEMBERS CONVERSATIONS FROM EARLIER IN THE EVENING AND REMEMBERS SHE CAME IN FOR NAUSEA AND VOMITING. WILL CONTINUE TO MONITOR.
[2018-10-04] MEDS: 0.9% Normal Saline 1,000 ML 75 ML IV (08:00)
--- NOTE | 2018-10-04 08:14 | MRI_ITS ---
STUDY: MRI BRAIN WITH AND WITHOUT CONTRAST REASON FOR EXAM: Female, 83 years old. new onset seizure. TECHNIQUE: Standardized multiplanar fat and water weighted pulse sequences were obtained. 7 ml of Gadavist contrast material was administered intravenously for the contrast portion of the examination. COMPARISON: October 04, 2018 FINDINGS: There is mild cerebral atrophy with widening of the extra-axial spaces and ventricular dilatation. There are multiple white matter hyperintensities, distributed throughout the deep white matter tracts of the cerebral hemispheres, consistent with moderate chronic white matter ischemic changes. Normal bilateral basal ganglia. Normal thalami. There is no extra-axial fluid accumulation. Normal flow voids within the major intracranial circulation suggesting patency by spin echo criteria. Normal venous enhancement. There is no enhancing intra-axial or extra-axial abnormality. Normal sella turcica, pituitary gland, infundibular stalk, optic chiasm and hypothalamus. Normal tectal plate and pineal gland. Normal midbrain, radha and medulla. Normal cerebellum. Normal basal cisterns. Normal bilateral temporal bones. Normal bilateral internal auditory canals. MRI/Brain W/WO Contrast IMPRESSION: No acute intracranial abnormality. Moderate chronic microvascular ischemic changes. Electronically Signed: Kavya Lopez MD at 12:26 EST Tel , Service support ,
--- NOTE | 2018-10-04 08:20 | PN_ITS ---
Progress Note 83-year-old female with past medical history of IBS, hypertension, resident in a half-way who comes in with complaints of nausea, vomiting, abdominal pain. Patient was seen in the ED, medicated with IV fentanyl because of multiple allergies. She has subsequently had a seizure disorder associated with disorientation soon after being given fentanyl. CT scan of the brain as well as CT of the head and neck was negative for any acute intracranial process. Daughter, who is a power of divorce attorney for healthcare was at the bedside. Patient is easily arousable, oriented to self place and time. She complains of mild abdominal discomfort mostly in the lower abdomen Vitals were reviewed: Current temperature is 97.9 F, heart rate is 83, blood pressure is 167/88, respiratory 16, SPO2 is 96% on room air Physical exam: GEN: Alert oriented x3, not pale, no jaundice, comfortable, lying in bed CVS:HS 1 and 2, present, normal, no murmurs RESP: Clinically clear to auscultation ABD: There is a very low abdominal wall in the left lower quadrant, with mild guarding, no rebound tenderness, bowel sounds present EXT: No bilateral pedal edema PHYSICIAN COMPENSATION ANALYST: Grossly intact a/p: 1. Seizure disorder, likely medication related, in seizure precautions, MRI of the brain pending, neurology consulted 2. Hypertensive emergency, blood pressure better 3. Gastritis 4. Hypokalemia 5. IBS 6. DVT PPX- SCDs Gentle IV fluids Follow-up on MRI PT/OT/ST evaluations Replace potassium, recheck in am PPI bid
[2018-10-04] MEDS: Metoprolol Tartrate 5 MG/5 ML Vial IV (08:25)
[2018-10-04] MEDS: Ketorolac 15 MG/ML Vial IV (11:05)
--- NOTE | 2018-10-04 12:10 | CASEMGMT ---
JOSELUIS spoke w/pt and daughter in room in regard to discharge plan. Pt states is not feeling well today. Daughter and pt confirm that pt is at [place], and the plan is for pt to return when ready. Daughter states pt has been there since December and is thriving. Daughter states pt walks two miles/day, does her own laundry, does alterations. Pt is independent w/ADL's, though does have the AL organize her medications. Pt's PCP is Dr. Richardson, gets scripts through [facility]. Pt uses no DME. It is anticipated pt will be able to return to [place] at discharge. Daughter states as long as pt is able to get into the car, she would take pt back to [place] at discharge. Daughter confirmed is POA and had POA papers, SW copied and placed a copy on the chart. JOSELUIS called [facility], spoke w/RN, updates faxed. JOSELUIS placed green sheet on the chart in the event pt can go back to [place] on the weekend. PATTI Britton, BUMPER AND PAINTER
--- NOTE | 2018-10-04 12:34 | CASEMGMT ---
Daughter had POA papers, SW copied and placed copy on chart. PATTI Britton, THRESHER [employer]CORN
--- NOTE | 2018-10-04 21:59 | EEG ---
- Electroencephalogram Date of service 10/04/2018 History EEG is being done in this 83 yr F to rule out seizures EEG Description: This is an 18 channel EEG with 10-20 lead placement system. Bipolar montages, Referential and Circumferential montages were reviewed. Photic stimulation and Hyperventilation were performed. The posterior dominant rhythm is 8-9 HZ synchronous, symmetric, reacting to eye opening and closing. Photo stimulation elicited normal driving response but no abnormal photoparoxysmal response, Hyperventilation did not elicit any abnormal photoparoxysmal response. Sleep was identified. There is no abnormal background slowing noted. There was no epileptiform discharges or electrographic seizures noted during this recording. EEG Interpretation This is a normal awake and asleep EEG. There is no epileptiform discharges or electrographic seizures noted during the record.
--- NOTE | 2018-10-04 22:03 | PCM.CONS.GEN ---
Problem List (1) Hypertensive emergency Status: Acute (2) Seizure Status: Acute Reason for Consult Date of Consultation: 10/04/18 Reason for Consultation: Seizure History of Present Illness: The patient is a 83 year old CF with PMH HTN, HLD, hypothyroidism, H/O breast cancer admitted with abdominal pain and vomiting. History is obtained from medical records and documentation. Due to multiple allergies she was given fentanyl in the ED, following which she became confused and developed AMS, later had witnessed GTCs lasting for about a min per ED documentation, patient was unaware of the event, denies any tongue bite, had urinary incontinence, on admission her SBP was > 200, per patient she lives in an assisted living, does not use cane or walker to ambulate, does not drive, denies any falls. Denies any H/O seizures in the past, at present is alert and oriented and denies any ROGER, visual disturbances, speech disturbances, focal motor weakness or sensory loss. MRI brain done on admission reported nothing acute. CTA head/neck was done to rule out posterior circulation event on admission which did not report any hemodynamically significant stenosis or occlusion. EEG was normal following the event. On admission K+ was 3.2, UA was negative. [] Past Medical History Past Medical History (Chronic Problems): Chronic Problems Breast cancer (Chronic) HTN (hypertension) (Chronic) Allergies amlodipine Allergy (Verified 10/04/18 01:52) Anaphylaxis codeine Allergy (Verified 10/04/18 01:52) Anaphylaxis fentanyl Allergy (Verified 10/04/18 06:48) Other gabapentin Allergy (Verified 10/04/18 01:52) Anaphylaxis lisinopril Allergy (Verified 10/04/18 01:52) Anaphylaxis niacin Allergy (Verified 10/04/18 01:52) Anaphylaxis primidone Allergy (Verified 10/04/18 01:52) Anaphylaxis proparacaine Allergy (Verified 10/04/18 01:52) Anaphylaxis tamoxifen Allergy (Verified 10/04/18 01:52) Anaphylaxis Home Medications: Ambulatory Orders Medication Instructions Recorded Acetaminophen 650 mg PO Q4H PRN PRN 10/04/18 Aspirin 81 mg PO DAILY 10/04/18 Biotin 5,000 mcg PO DAILY 10/04/18 Calcium Carbonate [Tums] 1,000 mg PO Q4H PRN PRN 10/04/18 Cholecalciferol (Vitamin D3) 1,000 unit PO DAILY 10/04/18 [Vitamin D3] Cyanocobalamin (Vitamin B-12) 1,000 mcg PO DAILY 10/04/18 [Vitamin B-12] Dicyclomine HCl 10 mg PO ACHS 10/04/18 Guaifenesin/Dextromethorphan 1 each PO Q12H PRN PRN 10/04/18 [Mucinex Dm ER 600-30 mg Tablet] Hydroxyzine HCl 25 mg PO Q6H PRN PRN 10/04/18 Levothyroxine [Synthroid] 25 mcg PO DAILY 10/04/18 Lorazepam [Ativan] 0.5 mg PO DAILY PRN 10/04/18 Magnesium 250 mg PO DAILY 10/04/18 Metoprolol Tartrate 25 mg PO BID 10/04/18 Mirabegron [Myrbetriq] 50 mg PO DAILY 10/04/18 Nystatin Powder [Mycostatin Powder] 1 applic TOPICAL DAILY 10/04/18 Omeprazole [Prilosec] 20 mg PO BID 10/04/18 Psyllium Husk [Metamucil] 0.52 gm PO DAILY 10/04/18 Rosuvastatin Calcium 5 mg PO DAILY 10/04/18 Vit C/E/Zn/Coppr/Lutein/Zeaxan 1 each PO BID 10/04/18 [Preservision Areds 2 Softgel] traZODone [Desyrel] 25 mg PO QHS 10/04/18 Surgical History: hysterectomy, tonsillectomy, - - lumpectomy with axillary nodes dissection; Facial surgery after facial laceration post fall Lives: - - Lives in Assisted living per patient. Smoking Status: Never smoker Alcohol: None - *Family History Maternal Family History: Family History (Last Updated 10/04/18 @ 06:33 by Maxx Hanks MD) Mother Hypertension CVA (cerebral vascular accident) Review of Systems Constitutional: Reports: - - complete ROS negative except as documented in HPI Patient Problems: Active and Suspected Problems Hypertensive emergency (Acute) Gastritis (Acute) Seizure (Acute) Hypertensive emergency (Acute) - Physical Exam General: Alert, Oriented x3 HEENT: Normocephalic Neck: Supple Lungs: Normal air movement Cardiovascular: Normal S1, Normal S2 Abdomen: Bowel Sounds Present Extremities: No cyanosis Neurological: - - consious, alert, AoAx3, CN 2-12 grossly intact at present, power 5/5 all 4 extremities, no sensory loss, no cerebellar signs, Reflexes + B/L B/S/T/K/A, gait deferred Psych/Mental Status: Normal Affect Vital Signs Temp Pulse Resp BP Pulse Ox 99.5 F H 76 16 133/55 H 94 10/04/18 19:52 10/04/18 19:52 10/04/18 19:52 10/04/18 19:52 10/04/18 19:52 Oxygen Flow Rate (L/min) 2 Oxygen Delivery Method Room Air Weight: 67 kg Body Mass Index (BMI) 26.2 Intake and Output for Last 24 Hours 10/02/18 10/03/18 10/04/18 23:59 23:59 23:59 Intake Total 1219.4 / 1219.4 Output Total 225 / 225 Balance 994.4 / 994.4 Laboratory Tests Past 24 Hrs 10/04/18 10/04/18 10/04/18 02:30 02:30 03:54 WBC 10.9 RBC 4.97 Hgb 14.2 Hct 41.9 MCV 84.3 MCH 28.6 MCHC 33.9 RDW 12.7 RDW Differential 38.5 Plt Count 169 MPV 9.6 Immature Gran % (Auto) 0.100 Neut % (Auto) 86.8 H Lymph % (Auto) 8.8 L [place] % (Auto) 3.8 Eos % (Auto) 0.2 Baso % (Auto) 0.3 Absolute Neuts (auto) 9.4 H Absolute Lymphs (auto) 0.96 Total Counted Not Reportable Sodium 138 Potassium 3.2 L Chloride 100 Carbon Dioxide 29.0 Anion Gap 9 BUN 13 Creatinine 0.72 Estim Creat Clear Calc 36.50 Est GFR (MDRD) Af Amer 100 Est GFR (MDRD) Non-Af 83 BUN/Creatinine Ratio 18.1 Glucose 141 H Calcium 8.9 Total Bilirubin 0.40 Direct Bilirubin 0.15 AST 13 L ALT 15 Alkaline Phosphatase 116 Troponin I Total Protein 7.4 Albumin 4.2 Globulin 3.2 Albumin/Globulin Ratio 1.3 Urine Color Straw Urine Clarity Clear Urine pH 8.0 Ur Specific [place] 1.010 Urine Protein 100 H Urine Glucose (UA) Normal Urine Ketones Negative Urine Occult Blood Negative Urine Nitrite Negative Urine Bilirubin Negative Urine Urobilinogen Normal Ur Leukocyte Esterase Negative Urine RBC 0 SEEN Urine WBC 0 SEEN Ur Squamous Epith Cells 0-5 SEEN Urine Bacteria RARE Urine Mucus 0 SEEN 10/04/18 05:00 WBC RBC Hgb Hct MCV MCH MCHC RDW RDW Differential Plt Count MPV Immature Gran % (Auto) Neut % (Auto) Lymph % (Auto) [place] % (Auto) Eos % (Auto) Baso % (Auto) Absolute Neuts (auto) Absolute Lymphs (auto) Total Counted Sodium Potassium Chloride Carbon Dioxide Anion Gap BUN Creatinine Estim Creat Clear Calc Est GFR (MDRD) Af Amer Est GFR (MDRD) Non-Af BUN/Creatinine Ratio Glucose Calcium Total Bilirubin Direct Bilirubin AST ALT Alkaline Phosphatase Troponin I < 0.015 Total Protein Albumin Globulin Albumin/Globulin Ratio Urine Color Urine Clarity Urine pH Ur Specific [place] Urine Protein Urine Glucose (UA) Urine Ketones Urine Occult Blood Urine Nitrite Urine Bilirubin Urine Urobilinogen Ur Leukocyte Esterase Urine RBC Urine WBC Ur Squamous Epith Cells Urine Bacteria Urine Mucus Assessment/Plan All Active Problems Hypertensive emergency (Acute) Gastritis (Acute) Seizure (Acute) Hypertensive emergency (Acute) The patient is a 83 year old CF with PMH HTN, HLD, hypothyroidism, H/O breast cancer admitted with abdominal pain and vomiting. History is obtained from medical records and documentation. Due to multiple allergies she was given fentanyl in the ED, following which she became confused and developed AMS, later had witnessed GTCs lasting for about a min per ED documentation, patient was unaware of the event, denies any tongue bite, had urinary incontinence, on admission her SBP was > 200, per patient she lives in an assisted living, does not use cane or walker to ambulate, does not drive, denies any falls. Denies any H/O seizures in the past, at present is alert and oriented and denies any ROGER, visual disturbances, speech disturbances, focal motor weakness or sensory loss. MRI brain done on admission reported nothing acute. CTA head/neck was done to rule out posterior circulation event on admission which did not report any hemodynamically significant stenosis or occlusion. EEG was normal following the event. On admission K+ was 3.2, UA was negative. Impression Hypertensive emergency Seizure-only one time event- likely medication induced vs secondary to Hypertensive urgency vs hypokalemia Plan -MRI brain and CTA head/neck reviewed -Patient is on ASA and Rosuvastatin at baseline, will defer restarting home medications to primary team -EEG normal -At present given this is a first time event, will hold off on AEDs, with normal MRI brain and EEG. and since the event happened after giving pain medication fentanyl, patient presented with SBP > 200 and had hypokalemia on admission with K=3.2. May need AED if has recurrent episode. -Seizure precautions discussed in detail. Patient counseled not to drive for 6 months but per patient she does not drive at baseline -PT/OT -GI/DVT prophylaxis -Further medical management per primary team. -Fall precautions -Better BP control, goal < 130/80 mmHg, will defer to primary team. Patient counseled to keep a BP log -Follow up with Neurology as outpatient in 6 weeks -Please call with questions if any -Thank you for allowing us to participate in patient's care and management Code Visit Inpatient E&M: 31005 Init Hosp L3
[2018-10-05] VITALS (11 sets, daily range): BP systolic 151–175; BP diastolic 71–82; PULSE 62–85; RESP 16–18; TEMP 36.5–36.9; O2SAT 93–98
[2018-10-05] MEDS: 0.9% NaCl Peripheral Flush Adult/Peds IV (00:09)
[2018-10-05] MEDS: Metoprolol Tartrate 5 MG/5 ML Vial IV (00:09)
[2018-10-05 06:03] LABS: Albumin, Serum 3.3 g/dL (3.2-5.0); BUN 13 mg/dL (7-18); BUN/Creat Ratio 13.9 RATIO (10-20); Calcium,Total 8.8 mg/dL (8.5-10.1); Chloride 105 mmol/L (98-107); Creatinine, Serum 0.93 mg/dL (0.55-1.02); EST Glomerular Filtration Rate 61 mL/min (>60); Est Glom Filt Rate - Afr Amer 74 mL/min (>60); Estimated Creatinine Clearance 39.25 ml/min; Glucose 88 mg/dL (74-106); Phosphorus 3.9 mg/dL (2.5-4.9); Potassium 4.1 mmol/L (3.5-5.1); Sodium Level 141 mmol/L (136-145)
--- NOTE | 2018-10-05 07:39 | PCM.PN.HOSP ---
Patient Problems: Active and Suspected Problems Hypertensive emergency (Acute) Gastritis (Acute) Seizure (Acute) Hypertensive emergency (Acute) Vitals/I&O's: Vital Signs Temp Pulse Resp BP Pulse Ox 97.7 F L 62 16 151/71 H 98 10/05/18 07:28 10/05/18 07:28 10/05/18 07:28 10/05/18 07:28 10/05/18 07:28 Oxygen Flow Rate (L/min) 2 Oxygen Delivery Method Room Air Weight: 67 kg Body Mass Index (BMI) 26.2 Intake and Output for Last 24 Hours 10/03/18 10/04/18 10/05/18 23:59 23:59 23:59 Intake Total 1469.4 / 1469.4 Output Total 325 / 325 50 / 50 Balance 1144.4 / 1144.4 -50 / -50 Laboratory Results 10/05/18 04:50: Sodium 141, Potassium 4.1, Chloride 105, Carbon Dioxide 29.0, BUN 13, Creatinine 0.93, Estim Creat Clear Calc 39.25, Est GFR (MDRD) Af Amer 74, Est GFR (MDRD) Non-Af 61, BUN/Creatinine Ratio 13.9, Glucose 88, Calcium 8.8, Phosphorus 3.9, Albumin 3.3 Current Medications Pantoprazole Sodium 40 mg/ (Sodium Chloride) 110 mls @ 330 mls/hr IV Q12 ISABELLA Last Admin: 10/04/18 20:59 Dose: 330 mls/hr Ketorolac Tromethamine (Toradol) 15 mg IV Q6H PRN PRN PRN Reason: PAIN Stop: 10/09/18 08:14 Last Admin: 10/04/18 11:05 Dose: 15 mg Lorazepam (Ativan) 1 mg IV PRN PRN PRN Reason: SEIZURE ACTIVITY Magnesium Hydroxide (Milk Of Magnesia) 30 ml PO DAILY PRN PRN Reason: Constipation Metoprolol Tartrate (Lopressor (Beta Vu)) 5 mg IV Q6H PRN PRN PRN Reason: SBP > 160 Last Admin: 10/05/18 00:09 Dose: 5 mg Nystatin (Mycostatin Powder) 1 applic TOPICAL DAILY ISABELLA; Protocol Last Admin: 10/04/18 08:25 Dose: Not Given Ondansetron HCl (Zofran) 4 mg IV Q6H PRN PRN PRN Reason: NAUSEA/VOMITING Sodium Chloride () 5 - 15 ml IV UD PRN PRN Reason: SALINE FLUSH Last Admin: 10/05/18 00:09 Dose: 10 ml Medical Necessity - Tobacco Use Smoking Status: Never smoker Assessment/Plan All Active Problems Hypertensive emergency (Acute) Gastritis (Acute) Seizure (Acute) Hypertensive emergency (Acute)
--- NOTE | 2018-10-05 11:12 | DCINST_ITS ---
- Discharge Diagnoses Current Active Problems: Current Active and Chronic Problems Breast cancer (Chronic) HTN (hypertension) (Chronic) Hypertensive emergency (Acute) Gastritis (Acute) Seizure (Acute) Hypertensive emergency (Acute) Reason(s) for Visit for Discharge Instructions: Abdominal pain You will use the following diet at home:: Cardiac Your food should be the consistency of: Regular, Soft (bite-sized & easy to chew/swallow) Discharge Activity: Return to Normal Activity Additional Instructions: Keep a log of your blood pressure. Continue on all your medications. Allergies/Adverse Reactions: Allergies amlodipine Allergy (Verified 10/04/18 01:52) Anaphylaxis codeine Allergy (Verified 10/04/18 01:52) Anaphylaxis fentanyl Allergy (Verified 10/04/18 06:48) Other gabapentin Allergy (Verified 10/04/18 01:52) Anaphylaxis lisinopril Allergy (Verified 10/04/18 01:52) Anaphylaxis niacin Allergy (Verified 10/04/18 01:52) Anaphylaxis primidone Allergy (Verified 10/04/18 01:52) Anaphylaxis proparacaine Allergy (Verified 10/04/18 01:52) Anaphylaxis tamoxifen Allergy (Verified 10/04/18 01:52) Anaphylaxis Medications to take at Discharge Acetaminophen 650 mg PO Q4H PRN PRN 10/04/18 Aspirin 81 mg PO DAILY 10/04/18 Biotin 5,000 mcg PO DAILY 10/04/18 Calcium Carbonate [Tums] 1,000 mg PO Q4H PRN PRN 10/04/18 Cholecalciferol (Vitamin D3) [Vitamin D3] 1,000 unit PO DAILY 10/04/18 Cyanocobalamin (Vitamin B-12) [Vitamin B-12] 1,000 mcg PO DAILY 10/04/18 Dicyclomine HCl 10 mg PO ACHS 10/04/18 Guaifenesin/Dextromethorphan [Mucinex Dm ER 600-30 mg Tablet] 1 each PO Q12H PRN PRN 10/04/18 Hydroxyzine HCl 25 mg PO Q6H PRN PRN 10/04/18 Levothyroxine [Synthroid] 25 mcg PO DAILY 10/04/18 Lorazepam [Ativan] 0.5 mg PO DAILY PRN 10/04/18 Magnesium 250 mg PO DAILY 10/04/18 Metoprolol Tartrate 25 mg PO BID 10/04/18 Mirabegron [Myrbetriq] 50 mg PO DAILY 10/04/18 Nystatin Powder [Mycostatin Powder] 1 applic TOPICAL DAILY 10/04/18 Omeprazole [Prilosec] 20 mg PO BID 10/04/18 Psyllium Husk [Metamucil] 0.52 gm PO DAILY 10/04/18 Rosuvastatin Calcium 5 mg PO DAILY 10/04/18 Vit C/E/Zn/Coppr/Lutein/Zeaxan [Preservision Areds 2 Softgel] 1 each PO BID 10/04/18 traZODone [Desyrel] 25 mg PO QHS 10/04/18 proCHLORPERazine suppository [Compazine suppository] 25 mg RECTAL BID PRN PRN #10 suppos. 10/05/18 Orders to be completed after discharge: Basic Metabolic Profile (BMP) Time Frame: 1 Week, Location: Laboratory Primary Care Physician: Gianni Richardson MD [Primary Care Provider] - Please follow up with your Primary Care Physician in: within 1-2 weeks Test Results: Test results from this visit will be discussed in further detail at your follow- up appointment, if applicable. Proposed Discharge Date: 10/05/18
--- NOTE | 2018-10-05 11:26 | PCM.DC.SUM ---
Discharge Date and Diagnosis Date of Admission: 10/04/18 Date of Discharge: 10/05/18 - Primary Discharge Diagnosis Active and Suspected Problems Hypertensive emergency (Acute) Gastritis (Acute) Seizure (Acute) Hypertensive emergency (Acute) Hypokalemia - Secondary Discharge Diagnosis Chronic Problems Breast cancer (Chronic) HTN (hypertension) (Chronic) Hospital Course and Treatment Imaging Results: Clinical Impression(s) from Imaging Studies Abdomen/Pelvis CT 10/04/18 02:21 IMPRESSION: No acute findings in the abdomen and pelvis. Specifically there is no acute appendicitis or diverticulitis. A large 5.3 cm left renal cyst. Degenerative changes of the lumbosacral spine. A lumbar scoliosis with convexity to the left Electronically Signed: Ilia Moreno MD at 5:07 EST Tel , Service support , Brain CT 10/04/18 04:29 IMPRESSION: No acute findings in the brain Electronically Signed: Ilia Moreno MD at 5:00 EST Tel , Service support , Chest X-Ray 10/04/18 04:50 IMPRESSION: Mild cardiomegaly with central vascular congestive changes and bibasilar platelike atelectatic change Electronically Signed: Ilia Moreno MD at 5:11 EST Tel , Service support , Head CTA 10/04/18 05:27 IMPRESSION: Normal [place] without a demonstrated aneurysm or hemodynamically significant stenosis. Electronically Signed: Ilia Moreno MD at 7:06 EST Tel , Service support , Neck CTA 10/04/18 05:27 IMPRESSION: No evidence of a hemodynamically significant stenosis in either carotid system. Calcific atherosclerotic changes involving the right carotid bulb. The vertebrobasilar circulation is normal Electronically Signed: Ilia Moreno MD at 7:04 EST Tel , Service support , Brain MRI 10/04/18 08:14 IMPRESSION: No acute intracranial abnormality. Moderate chronic microvascular ischemic changes. Electronically Signed: Kavya Lopez MD at 12:26 EST Tel , Service support , Neurology Summary of Care Provided: 83-year-old female with past medical history of IBS, hypertension, resident in a [facility] who comes in with complaints of nausea, vomiting, abdominal pain. Patient was brought to the ED, was found to be in pain, her SBP>200. She was medicated with IV fentanyl because of history of multiple allergies. Soon after she was given the IV fentanyl, she had a generalised tonic clonic seizure associated with disorientation. CT scan of the brain, CTA of the head and neck and subsequently MRI of brain were negative for any acute intracranial process. Her blood work was significant for hypokalemia which was replaced. Patient was admitted to a monitored bed, monitored on telemetry with no acute events. She was kept on gentle IV fluids and IV PPI for gastritis. She was seen by neurology and speech therapy. She did not require anti-seizure meds because it was a single episode. Patient passed her dysphagia screen. She was back to her baseline the next morning without any issues. She was discharged back to the assisted living in a stable improved state. Subjective: On the day of discharge, patient was awake, alert, oriented x 3. Denied any abdominal pain, nausea, vomiting. Objective: Physical exam: GEN: Alert oriented x3, not pale, no jaundice, comfortable, sitting in a chair CVS:HS 1 and II, present, normal, no murmurs RESP: Clinically clear to auscultation ABD: BS present and normal, soft, nontender, no rebound tenderness. 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 - Physical Exam Vital Signs Temp Pulse Resp BP Pulse Ox 97.7 F L 66 16 151/71 H 98 10/05/18 07:28 10/05/18 11:07 10/05/18 07:28 10/05/18 07:28 10/05/18 07:28 Oxygen Flow Rate (L/min) 2 Oxygen Delivery Method Room Air Weight: 67 kg Body Mass Index (BMI) 26.2 Intake and Output for Last 24 Hours 10/03/18 10/04/18 10/05/18 23:59 23:59 23:59 Intake Total 1469.4 / 1469.4 Output Total 325 / 325 50 / 50 Balance 1144.4 / 1144.4 -50 / -50 Laboratory Tests Past 24 Hrs 10/05/18 04:50 Sodium 141 Potassium 4.1 Chloride 105 Carbon Dioxide 29.0 BUN 13 Creatinine 0.93 Estim Creat Clear Calc 39.25 Est GFR (MDRD) Af Amer 74 Est GFR (MDRD) Non-Af 61 BUN/Creatinine Ratio 13.9 Glucose 88 Calcium 8.8 Phosphorus 3.9 Albumin 3.3 Discharge Diet: Low fat/ Low Cholesterol, 2000 mg Sodium Diet Discharge Activity: Return to Normal Activity Home Medications: Medications to take at Discharge Acetaminophen 650 mg PO Q4H PRN PRN 10/04/18 Aspirin 81 mg PO DAILY 10/04/18 Biotin 5,000 mcg PO DAILY 10/04/18 Calcium Carbonate [Tums] 1,000 mg PO Q4H PRN PRN 10/04/18 Cholecalciferol (Vitamin D3) [Vitamin D3] 1,000 unit PO DAILY 10/04/18 Cyanocobalamin (Vitamin B-12) [Vitamin B-12] 1,000 mcg PO DAILY 10/04/18 Dicyclomine HCl 10 mg PO ACHS 10/04/18 Guaifenesin/Dextromethorphan [Mucinex Dm ER 600-30 mg Tablet] 1 each PO Q12H PRN PRN 10/04/18 Hydroxyzine HCl 25 mg PO Q6H PRN PRN 10/04/18 Levothyroxine [Synthroid] 25 mcg PO DAILY 10/04/18 Lorazepam [Ativan] 0.5 mg PO DAILY PRN 10/04/18 Magnesium 250 mg PO DAILY 10/04/18 Metoprolol Tartrate 25 mg PO BID 10/04/18 Mirabegron [Myrbetriq] 50 mg PO DAILY 10/04/18 Nystatin Powder [Mycostatin Powder] 1 applic TOPICAL DAILY 10/04/18 Omeprazole [Prilosec] 20 mg PO BID 10/04/18 Psyllium Husk [Metamucil] 0.52 gm PO DAILY 10/04/18 Rosuvastatin Calcium 5 mg PO DAILY 10/04/18 Vit C/E/Zn/Coppr/Lutein/Zeaxan [Preservision Areds 2 Softgel] 1 each PO BID 10/04/18 traZODone [Desyrel] 25 mg PO QHS 10/04/18 proCHLORPERazine suppository [Compazine suppository] 25 mg RECTAL BID PRN PRN #10 suppos. 10/05/18 Following Prescrptions Were Given to Patient: proCHLORPERazine suppository [Compazine suppository] 25 mg RECTAL BID PRN PRN #10 suppos. PRN Reason: Nausea/Vomiting Other Amb Orders: Basic Metabolic Profile (BMP) Time Frame: 1 Week, Location: Laboratory Primary Care Physician: Gianni Richardson MD [Primary Care Provider] - Please follow up with your Primary Care Physician in: within 1-2 weeks Please Follow Up With: Ngozi Lanier MD When: in 6 weeks Disposition: [facility] Minutes spent on discharge:: 40 Patient Condition:: Stable Medical Necessity - Tobacco Use Smoking Status: Never smoker Tobacco Use: Non-smoker Meaningful Use Info Meaningful Use Diagnoses (Choose all that apply): None applicable Code Visit Inpatient E&M: 47244 Disch Hosp
--- NOTE | 2018-10-05 12:37 | NURSING ---
Report called to Jessie HOBSON; Report given to Nadine GONZALES.
[2018-10-05] MEDS: Metoprolol Tartrate 25 MG Tablet PO (13:09)
[2018-10-05] MEDS: Levothyroxine 25 MCG TABLET PO (13:09)
[2018-10-05] MEDS: Cyanocobalamin 500 MCG Tablet 1000 MCG PO (13:09)
[2018-10-05] MEDS: Aspirin 81 MG TAB.CHEW PO (13:09)
--- NOTE | 2018-10-05 13:17 | NURSING ---
Reviewed and agreed on all charting with Julienne Montoya RN
--- OUTSIDE RECORDS SUMMARY | 2018-11-28 18:11 | XMS RPT_ITS ---
:1935 Author Organization OH[facility] Care Team Providers Name Role Phone Win Ying Attending Unavailable PROVIDER, UNKNOWN Referring Unavailable Win Ying Primary Care Unavailable Win Ying Attending Unavailable PROVIDER, UNKNOWN Referring Unavailable Win Ying Primary Care Unavailable PROVIDER, UNKNOWN Referring Unavailable Win Ying Primary Care Unavailable Lorenzo Nelson Attending Unavailable Win Ying Attending Unavailable [facility] Attending Unavailable Win Ying Attending Unavailable Win Ying Attending Unavailable Susan Ballesteros Attending Unavailable Win Ying Primary Care Unavailable Susan Ballesteros Referring Unavailable Win Ying Primary Care Unavailable Maxx Hanks Admitting Unavailable Gonzales, Risingsun Attending Unavailable Ngozi Lanier Consulting Unavailable Maxx Hanks Admitting Unavailable Maxx Hanks Attending Unavailable Stepan Win Primary Care Unavailable Paintsil, Risingsun Consulting Unavailable Maxx Hanks Admitting Unavailable Paintsil, Risings[place] Attending Unavailable Stepan, Win Primary Care Unavailable Ngozi Lanier Consulting Unavailable Paintsil, [place]ings[place] Consulting Unavailable Stepan Win Attending Unavailable PROBLEMS PROBLEMS DATE TYPE CONDITION / CODE ATTENDING STATUS SOURCE 2018 Unknown R35.0 - Frequency of Lesli, Active Winnie micturition / Susan [facility] R35.0(ICD-10) Hospital Repository 07/11/2018 Unknown N39.0 - Urinary Stepan, Active Winnie tract infection, [facility] site not specified / Hospital N39.0(ICD-10) Repository 07/16/2018 Unknown R19.7 - Diarrhea, Stepan, Active Barnhart unspecified / [facility] R19.7(ICD-10) Hospital Repository 12/27/2017 Admitting Other signs and [facility] [employer] [facility] Diagnosis symptoms in breast / System N64.59(ICD-10) Repository 12/27/2017 Admitting Gastro-esophageal [facility] Diagnosis reflux disease System without esophagitis Repository / K21.9(ICD-10) 12/27/2017 Admitting Soto's esophagus [facility] Diagnosis without dysplasia / System K22.70(ICD-10) Repository 12/27/2017 Admitting Unspecified chronic [facility] [employer] [facility] Diagnosis gastritis without System bleeding / Repository K29.50(ICD-10) 12/27/2017 Admitting Abnormal weight loss [facility] [employer] [facility] Diagnosis / R63.4(ICD-10) System Repository 12/27/2017 Ad[facility] encephalopathy / System G93.41(ICD-10) Repository 12/27/2017 Admitting Oth disorders of [facility] Diagnosis electrolyte and System fluid balance, NEC / Repository E87.8(ICD-10) 12/27/2017 Admitting Essential (primary) [facility] [employer] [facility] Diagnosis hypertension / System I10(ICD-10) Repository 12/27/2017 Admitting 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 / System D12.0(ICD-10) Repository 12/27/2017 Admitting Diaphragmatic hernia [employer] Diagnosis without obstruction System or gangrene / Repository K44.9(ICD-10) 12/27/2017 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 w/o bleeding Repository / K57.30(ICD-10) 12/27/2017 Admitting Noninfective [employer] Diagnosis gastroenteritis and System colitis, unspecified Repository / K52.9(ICD-10) 12/27/2017 Admitting Hyperlipidemia, [employer] Diagnosis unspecified / System E78.5(ICD-10) Repository 12/27/2017 Admitting Unspecified [employer] Diagnosis osteoarthritis, System unspecified site / Repository M19.90(ICD-10) 12/27/2017 Admitting Unspecified urinary [employer] Diagnosis incontinence / System R32(ICD-10) Repository 12/27/2017 Admitting Dorsalgia, [employer] Diagnosis unspecified / System M54.9(ICD-10) Repository 12/27/2017 Admitting Other chronic pain / [employer] Diagnosis G89.29(ICD-10) System Repository 12/27/2017 Admitting Unspecified injury [employer] Diagnosis of face, initial System encounter / Repository S09.93XA(ICD-10) 12/27/2017 Admitting Neuralgia and [employer] Diagnosis neuritis, System unspecified / Repository M79.2(ICD-10) 12/27/2017 Admitting Other muscle spasm / [employer] Diagnosis M62.838(ICD-10) System Repository 12/27/2017 Admitting Other fatigue / [employer] Diagnosis R53.83(ICD-10) System Repository 12/27/2017 Admitting Nausea with [employer] Diagnosis vomiting, System unspecified / Repository R11.2(ICD-10) 12/27/2017 Admitting Anxiety disorder, [employer] Diagnosis unspecified / System F41.9(ICD-10) Repository 12/27/2017 Admitting Major depressive [employer] Diagnosis disorder, single System episode, unspecified Repository / F32.9(ICD-10) 12/27/2017 Admitting Disorientation, Lorenzo Nelson Active [facility] Diagnosis unspecified / System R41.0(ICD-10) Repository 12/27/2017 Admitting Personal history of Lorenzo Nelson Active [facility] 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 breast / Repository Z86.000(ICD-10) 12/27/2017 Admitting Unspecified fall, Lorenzo Nelson Active [facility] Diagnosis initial encounter / System W19.XXXA(ICD-10) Repository 12/27/2017 Admitting Encounter for Lorenzo Nelson Active [facility] Diagnosis immunization / System Z23(ICD-10) Repository 12/27/2017 Admitting Altered mental Lorenzo Nelson Active [facility] [employer] Diagnosis status, unspecified System / R41.82(ICD-10) Repository 12/26/2017 Admitting Other diseases of Stepan, Active [facility] Diagnosis spleen / Win System D73.89(ICD-10) Repository 12/26/2017 Admitting Liver disease, Stepan, Active [facility] Diagnosis unspecified / Win System K76.9(ICD-10) Repository 11/14/2017 Admitting Personal history of Stepan, Active [facility] Diagnosis malignant neoplasm Win System of breast / Repository Z85.3(ICD-10) 11/14/2017 Admitting Asymptomatic Stepan, Active [facility] Diagnosis menopausal state / Win System Z78.0(ICD-10) Repository PROCEDURES PROCEDURES No Procedure Records FoundRESULTS RESULTS ELECTROENCEPHALOGRAM Observed: 10/21/2018 Status: F Source: [place] 1:04 PM [facility] REPOSITORY [facility] Pulmonary Services/Neurology [address] [place] [address] MR#: [id number] Acct: [id number] Name: JAYCEE CAUSEY Rep #: [id number] : 1935 83 From: Ngozi Lanier MD Referring Dr: Maryana Rolon MD Status: DIS IN Ordering Dr: Date: Location: [facility] [id number] Sex: F C - Electroencephalogram Date of service 10/04/2018 History EEG is being done in this 83 yr F to rule out seizures EEG Description: This is an 18 channel EEG with 10-20 lead placement system. Bipolar montages, Referential and Circumferential montages were reviewed. Photic stimulation and Hyperventilation were performed. The posterior dominant rhythm is 8-9 HZ synchronous, symmetric, reacting to eye opening and closing. Photo stimulation elicited normal driving response but no abnormal photoparoxysmal response, Hyperventilation did not elicit any abnormal photoparoxysmal response. Sleep was identified. There is no abnormal background slowing noted. There was no epileptiform discharges or electrographic seizures noted during this recording. EEG Interpretation This is a normal awake and asleep EEG. There is no epileptiform discharges or electrographic seizures noted during the record. 10/21/18 1304 <Electronically signed by Ngozi Lanier MD> Date Ngozi Lanier MD CC: Nathan Lanier MD; Maryana Rolon MD; Win Ying MD Date Dictated: 10/04/182158 Date Transcribed: 10/04/182158 Nursing Center Tutor: RSR Signed CONSULTATION Observed: 10/21/2018 Status: F Source: [place] 1:04 PM [facility] REPOSITORY [facility] Medical Records Department [address] [place] [id number] Consultation 10/04/182202 MR#: [id number] Acct: [id number] Name: JAYCEE CAUSEY Rep #: [id number] : 1935 83 From: Ngozi Lanier MD PCP: Win Ying MD Status: DIS IN Y Location: [facility] [id number] Problem List (1) Hypertensive emergency Status: Acute (2) Seizure Status: Acute Reason for Consult Date of Consultation: 10/04/18 Reason for Consultation: Seizure History of Present Illness: The patient is a 83 year old CF with PMH HTN, HLD, hypothyroidism, H/O breast cancer admitted with abdominal pain and vomiting. History is obtained from medical records and documentation. Due to multiple allergies she was given fentanyl in the ED, following which she became confused and developed AMS, later had witnessed GTCs lasting for about a min per ED documentation, patient was unaware of the event, denies any tongue bite, had urinary incontinence, on admission her SBP was > 200, per patient she lives in an assisted living, does not use cane or walker to ambulate, does not drive, denies any falls. Denies any H/O seizures in the past, at present is alert and oriented and denies any ROGER, visual disturbances, speech disturbances, focal motor weakness or sensory loss. MRI brain done on admission reported nothing acute. CTA head/neck was done to rule out posterior circulation event on admission which did not report any hemodynamically significant stenosis or occlusion. EEG was normal following the event. On admission K+ was 3.2, UA was negative. [] Past Medical History Past Medical History (Chronic Problems): Chronic Problems Breast cancer (Chronic) HTN (hypertension) (Chronic) Allergies amlodipine Allergy (Verified 10/04/18 01:52) Anaphylaxis codeine Allergy (Verified 10/04/18 01:52) Anaphylaxis fentanyl Allergy (Verified 10/04/18 06:48) Other gabapentin Allergy (Verified 10/04/18 01:52) Anaphylaxis lisinopril Allergy (Verified 10/04/18 01:52) Anaphylaxis niacin Allergy (Verified 10/04/18 01:52) Anaphylaxis primidone Allergy (Verified 10/04/18 01:52) Anaphylaxis proparacaine Allergy (Verified 10/04/18 01:52) Anaphylaxis tamoxifen Allergy (Verified 10/04/18 01:52) Anaphylaxis Home Medications: Ambulatory Orders Medication Instructions Recorded Acetaminophen 650 mg PO Q4H PRN PRN 10/04/18 Aspirin 81 mg PO DAILY 10/04/18 Biotin 5,000 mcg PO DAILY 10/04/18 Surgical History: hysterectomy, tonsillectomy, - - lumpectomy with axillary nodes dissection; Facial surgery after facial laceration post fall Lives: - - Lives in Assisted living per patient. Smoking Status: Never smoker Alcohol: None - *Family History Maternal Family History: Family History (Last Updated 10/04/18 @ 06:33 by Maxx Hanks MD) Mother Hypertension CVA (cerebral vascular accident) Review of Systems Constitutional: Reports: - - complete ROS negative except as documented in HPI Patient Problems: Active and Suspected Problems Hypertensive emergency (Acute) Gastritis (Acute) Seizure (Acute) Hypertensive emergency (Acute) - Physical Exam General: Alert, Oriented x3 HEENT: Normocephalic Neck: Supple Lungs: Normal air movement Cardiovascular: Normal S1, Normal S2 Abdomen: Bowel Sounds Present Extremities: No cyanosis Neurological: - - consious, alert, AoAx3, CN 2-12 grossly intact at present, power 5/5 all 4 extremities, no sensory loss, no cerebellar signs, Reflexes + B/L B/S/T/K/A, gait deferred Psych/Mental Status: Normal Affect Vital Signs Temp Pulse Resp BP Pulse Ox 99.5 F H 76 16 133/55 H 94 10/04/18 19:52 10/04/18 19:52 10/04/18 19:52 10/04/18 19:52 10/04/18 19:52 Oxygen Flow Rate (L/min) 2 Oxygen Delivery Method Room Air Weight: 67 kg Body Mass Index (BMI) 26.2 Intake and Output for Last 24 Hours Intake Total 1219.4 / 1219.4 Output Total 225 / 225 Balance 994.4 / 994.4 Laboratory Tests Past 24 Hrs WBC 10.9 WBC RBC Hgb Hct MCV MCH MCHC RDW RDW Differential Plt Count MPV Immature Gran % (Auto) Neut % (Auto) Lymph % (Auto) [place] % (Auto) Assessment/Plan All Active Problems Hypertensive emergency (Acute) Gastritis (Acute) Seizure (Acute) Hypertensive emergency (Acute) The patient is a 83 year old CF with PMH HTN, HLD, hypothyroidism, H/O breast cancer admitted with abdominal pain and vomiting. History is obtained from medical records and documentation. Due to multiple allergies she was given fentanyl in the ED, following which she became confused and developed AMS, later had witnessed GTCs lasting for about a min per ED documentation, patient was unaware of the event, denies any tongue bite, had urinary incontinence, on admission her SBP was > 200, per patient she lives in an assisted living, does not use cane or walker to ambulate, does not drive, denies any falls. Denies any H/O seizures in the past, at present is alert and oriented and denies any ROGER, visual disturbances, speech disturbances, focal motor weakness or sensory loss. MRI brain done on admission reported nothing acute. CTA head/neck was done to rule out posterior circulation event on admission which did not report any hemodynamically significant stenosis or occlusion. EEG was normal following the event. On admission K+ was 3.2, UA was negative. Impression Hypertensive emergency Seizure-only one time event- likely medication induced vs secondary to Hypertensive urgency vs hypokalemia Plan -MRI brain and CTA head/neck reviewed -Patient is on ASA and Rosuvastatin at baseline, will defer restarting home medications to primary team -EEG normal -At present given this is a first time event, will hold off on AEDs, with normal MRI brain and EEG. and since the event happened after giving pain medication fentanyl, patient presented with SBP > 200 and had hypokalemia on admission with K=3.2. May need AED if has recurrent episode. -Seizure precautions discussed in detail. Patient counseled not to drive for 6 months but per patient she does not drive at baseline -PT/OT -GI/DVT prophylaxis -Further medical management per primary team. -Fall precautions -Better BP control, goal < 130/80 mmHg, will defer to primary team. Patient counseled to keep a BP log -Follow up with Neurology as outpatient in 6 weeks -Please call with questions if any -Thank you for allowing us to participate in patient's care and management Code Visit Inpatient E AND M: [id number] Init Hosp L3 10/21/18 1304 <Electronically signed by Ngozi Lanier MD> Date Ngozi Lanier MD Cosigner Signature (if applicable): Date CC: Nathan Lanier MD; Win Ying MD Signed CBC-COMPLETE BLOOD CNT Collected: 10/21/2018 Status: F Source: [place] NO DIFF 10:20 AM [facility] REPOSITORY Order Comment: 202 TYPE CODE TESTS RESULT OUT OF RANGE REFERENCE UNITS LAB L100.1000 4.4-11.0 K/mm3 Normal WBC 7.5 LAB L100.1200 4.2-5.4 M/mm3 Normal RBC 5.19 LAB L100.1300 12.0-15.0 g/dl High HGB 15.2 LAB L100.1400 37-47 % Normal HCT 43.9 LAB L100.1500 81-99 fL Normal MCV 84.6 LAB L100.1600 27.0-32.0 pg Normal MCH 29.3 LAB L100.1700 32-36 g/gl Normal MCHC 34.6 LAB L100.1810 11.6-14.6 % Normal RDW CV 12.8 LAB L100.1820 35.1-43.9 fl Normal RDW SD 38.9 LAB L100.1900 150-450 K/mm3 Normal PLT 174 LAB L100.2000 6.2-12.0 fl Normal MPV 10.7 Performed By: #### L100.0500 #### [facility] [address] [place], [address] BASIC METABOLIC Collected: 10/21/2018 Status: F Source: [place] PROFILE (BMP) 10:20 AM [facility] REPOSITORY Order Comment: 202 TYPE CODE TESTS RESULT OUT OF RANGE REFERENCE UNITS LAB L501.0100 74-106 mg/dL High GLU 148 Result Comment: Fasting Glucose result greater than or equal to 126 mg/dL suggests DIABETES MELLITUS per A.D.A. criteria. Please note revised GLUCOSE reference range effective 2017. LAB L501.1000 7-18 mg/dL Normal BUN 15 LAB L501.1100 0.55-1.02 mg/dL Normal CREAT,SERUM 0.77 Result Comment: The validity of the calculated GFR AND GFRAA in patients over 70 years has not been determined. Clinical correlation is essential. LAB L501.1110 >60 mL/min Normal EST GFR 76 Result Comment: Non- GFR Calc LAB L501.1115 >60 mL/min Normal EST GFR - AA 92 Result Comment: GFR Calc LAB L501.1300 10-20 RATIO Normal BUN/CRE 19.4 LAB L501.2200 8.5-10.1 mg/dL CA Normal 8.5 LAB L501.5300 136-145 mmol/L Low NA 132 LAB L501.5600 3.5-5.1 mmol/L Low K 3.4 Result Comment: Slight Hemolysis, Result may be falsely increased. LAB L501.5900 98-107 mmol/L Low CL 95 LAB L501.6100 21.0-32.0 mmol/L Normal CO2 26.0 LAB L501.6200 5-15 Normal GAP 11 Performed By: #### L500.2500 #### [facility] [address], [address] BASIC METABOLIC Collected: 10/13/2018 Status: F Source: [place] PROFILE (BMP) 12:10 PM [facility] REPOSITORY Order Comment: 201 TYPE CODE TESTS RESULT OUT OF RANGE REFERENCE UNITS LAB L501.0100 74-106 mg/dL High GLU 139 Result Comment: Fasting Glucose result greater than or equal to 126 mg/dL suggests DIABETES MELLITUS per A.D.A. criteria. Please note revised GLUCOSE reference range effective 2017. LAB L501.1000 7-18 mg/dL Normal BUN 11 LAB L501.1100 0.55-1.02 mg/dL Normal CREAT,SERUM 0.73 Result Comment: The validity of the calculated GFR AND GFRAA in patients over 70 years has not been determined. Clinical correlation is essential. LAB L501.1110 >60 mL/min Normal EST GFR 82 Result Comment: Non- GFR Calc LAB L501.1115 >60 mL/min Normal EST GFR - AA 99 Result Comment: GFR Calc LAB L501.1300 10-20 RATIO Normal BUN/CRE 15.1 LAB L501.2200 8.5-10.1 mg/dL Low CA 8.3 LAB L501.5300 136-145 mmol/L NA Normal 137 LAB L501.5600 3.5-5.1 mmol/L K Normal 3.6 LAB L501.5900 98-107 mmol/L CL Normal 100 LAB L501.6100 21.0-32.0 mmol/L Normal CO2 32.0 LAB L501.6200 5-15 Normal GAP 5 Performed By: #### L500.2500 #### [facility] [address], [address] 12 LEAD ELECTROCARDIOGRAM Observed: 10/07/2018 Status: F Source: [place] 2:05 PM [facility] REPOSITORY [facility] Cardiovascular Services [address] [address] 12 Lead EKG 10/04/18 0451 MR#: [id number] Acct: [id number] Name: JAYCEE CAUSEY Rep #: [id number] : 1935 83 From: Qasim Mistry MD Attending Dr: Maryana Rolon MD Status: DIS IN Ordering Dr: Khalida Chandler MD Date: 10/04/18 Location: [facility] Sex: F C Admitted: 10/04/18 Test Reason : BRADYCARDIA Blood Pressure : / mmHG Vent. Rate : 088 BPM Atrial Rate : 088 BPM P-R Int : 160 ms QRS Dur : 102 ms QT Int : 408 ms P-R-T Axes : 068 020 229 degrees QTc Int : 493 ms Normal sinus rhythm Possible Left atrial enlargement Left ventricular hypertrophy with repolarization abnormality Prolonged QT Abnormal ECG Confirmed by SHAUNA JONES, QASIM ([id number]), publishing editor DOUGLAS HOOKS ([id number]) on 10/07/2018 2:05:20 PM Referred By: RAMESH Confirmed By:QASIM MISTRY MD 10/07/18 1405 Date Qasim Mistry MD CC: Maryana Rolon MD; KHALIDA CHANDLER MD; Win Ying MD Signed DISCHARGE SUMMARY Observed: 10/07/2018 Status: F Source: [place] 12:47 PM [facility] REPOSITORY [facility] Medical Records Department [address] [place] [address] Discharge Summary 10/05/18 1126 MR#: [id number] Acct: [id number] Name: JAYCEE CAUSEY Rep #: [id number] : 1935 83 From: Maryana Rolon MD PCP: Win Ying MD Status: DIS IN Y Location: [place] [address] Discharge Date and Diagnosis Date of Admission: 10/04/18 Date of Discharge: 10/05/18 - Primary Discharge Diagnosis Active and Suspected Problems Hypertensive emergency (Acute) Gastritis (Acute) Seizure (Acute) Hypertensive emergency (Acute) Hypokalemia - Secondary Discharge Diagnosis Chronic Problems Breast cancer (Chronic) HTN (hypertension) (Chronic) Hospital Course and Treatment Imaging Results: Clinical Impression(s) from Imaging Studies Abdomen/Pelvis CT 10/04/18 02:21 IMPRESSION: No acute findings in the abdomen and pelvis. Specifically there is no acute appendicitis or diverticulitis. A large 5.3 cm left renal cyst. Degenerative changes of the lumbosacral spine. A lumbar scoliosis with convexity to the left Electronically Signed: Ilia Moreno MD at 5:07 EST Tel , Service support , Brain CT 10/04/18 04:29 IMPRESSION: No acute findings in the brain Electronically Signed: Ilia Moreno MD at 5:00 EST Tel , Service support , Chest X-Ray 10/04/18 04:50 IMPRESSION: Mild cardiomegaly with central vascular congestive changes and bibasilar platelike atelectatic change Electronically Signed: Ilia Moreno MD at 5:11 EST Tel , Service support , Head CTA 10/04/18 05:27 IMPRESSION: Normal resighini of [place] without a demonstrated aneurysm or hemodynamically significant stenosis. Electronically Signed: Ilia Moreno MD at 7:06 EST Tel , Service support , Neck CTA 10/04/18 05:27 IMPRESSION: No evidence of a hemodynamically significant stenosis in either carotid system. Calcific atherosclerotic changes involving the right carotid bulb. The vertebrobasilar circulation is normal Electronically Signed: Ilia Moreno MD at 7:04 EST Tel , Service support , Brain MRI 10/04/18 08:14 IMPRESSION: No acute intracranial abnormality. Moderate chronic microvascular ischemic changes. Electronically Signed: Kavya Lopez MD at 12:26 EST Tel , Service support , Neurology Summary of Care Provided: 83-year-old female with past medical history of IBS, hypertension, resident in a senior living who comes in with complaints of nausea, vomiting, abdominal pain. Patient was brought to the ED, was found to be in pain, her SBP>200. She was medicated with IV fentanyl because of history of multiple allergies. Soon after she was given the IV fentanyl, she had a generalised tonic clonic seizure associated with disorientation. CT scan of the brain, CTA of the head and neck and subsequently MRI of brain were negative for any acute intracranial process. Her blood work was significant for hypokalemia which was replaced. Patient was admitted to a monitored bed, monitored on telemetry with no acute events. She was kept on gentle IV fluids and IV PPI for gastritis. She was seen by neurology and speech therapy. She did not require anti-seizure meds because it was a single episode. Patient passed her dysphagia screen. She was back to her baseline the next morning without any issues. She was discharged back to the assisted living in a stable improved state. Subjective: On the day of discharge, patient was awake, alert, oriented x 3. Denied any abdominal pain, nausea, vomiting. Objective: Physical exam: GEN: Alert oriented x3, not pale, no jaundice, comfortable, sitting in a chair CVS:HS 1 and II, present, normal, no murmurs RESP: Clinically clear to auscultation ABD: BS present and normal, soft, nontender, no rebound tenderness. EXT: No bilateral pedal edema PROCESS CONTROL OPERATOR: Grossly intact - Physical Exam Vital Signs Temp Pulse Resp BP Pulse Ox 97.7 F L 66 16 151/71 H 98 10/05/18 07:28 10/05/18 11:07 10/05/18 07:28 10/05/18 07:28 10/05/18 07:28 Oxygen Flow Rate (L/min) 2 Oxygen Delivery Method Room Air Weight: 67 kg Body Mass Index (BMI) 26.2 Intake and Output for Last 24 Hours Intake Total 1469.4 / 1469.4 Output Total 325 / 325 50 / 50 Balance 1144.4 / 1144.4 -50 / -50 Laboratory Tests Past 24 Hrs Sodium 141 Potassium 4.1 Chloride 105 Carbon Dioxide 29.0 BUN 13 Discharge Diet: Low fat/ Low Cholesterol, 2000 mg Sodium Diet Discharge Activity: Return to Normal Activity Home Medications: Medications to take at Discharge Acetaminophen 650 mg PO Q4H PRN PRN 10/04/18 Aspirin 81 mg PO DAILY 10/04/18 Biotin 5,000 mcg PO DAILY 10/04/18 Calcium Carbonate [Tums] 1,000 mg PO Q4H PRN PRN 10/04/18 Cholecalciferol (Vitamin D3) [Vitamin D3] 1,000 unit PO DAILY 10/04/18 Cyanocobalamin (Vitamin B-12) [Vitamin B-12] 1,000 mcg PO DAILY 10/04/18 Dicyclomine HCl 10 mg PO ACHS 10/04/18 Guaifenesin/Dextromethorphan [Mucinex Dm ER 600-30 mg Tablet] 1 each PO Q12H PRN PRN 10/04/18 Hydroxyzine HCl 25 mg PO Q6H PRN PRN 10/04/18 Levothyroxine [Synthroid] 25 mcg PO DAILY 10/04/18 Lorazepam [Ativan] 0.5 mg PO DAILY PRN 10/04/18 Magnesium 250 mg PO DAILY 10/04/18 Metoprolol Tartrate 25 mg PO BID 10/04/18 Mirabegron [Myrbetriq] 50 mg PO DAILY 10/04/18 Nystatin Powder [Mycostatin Powder] 1 applic TOPICAL DAILY 10/04/18 Omeprazole [Prilosec] 20 mg PO BID 10/04/18 Psyllium Husk [Metamucil] 0.52 gm PO DAILY 10/04/18 Rosuvastatin Calcium 5 mg PO DAILY 10/04/18 Vit C/E/Zn/Coppr/Lutein/Zeaxan [Preservision Areds 2 Softgel] 1 each PO BID 10/04/18 traZODone [Desyrel] 25 mg PO QHS 10/04/18 proCHLORPERazine suppository [Compazine suppository] 25 mg RECTAL BID PRN PRN #10 suppos. 10/05/18 Following Prescrptions Were Given to Patient: proCHLORPERazine suppository [Compazine suppository] 25 mg RECTAL BID PRN PRN #10 suppos. PRN Reason: Nausea/Vomiting Other Amb Orders: Basic Metabolic Profile (BMP) Time Frame: 1 Week, Location: Laboratory Primary Care Physician: Win Ying MD [Primary Care Provider] - Please follow up with your Primary Care Physician in: within 1-2 weeks Please Follow Up With: Ngozi Lanier MD When: in 6 weeks Disposition: Asstd Living/Non-Skill NH Minutes spent on discharge:: 40 Patient Condition:: Stable Medical Necessity - Tobacco Use Smoking Status: Never smoker Tobacco Use: Non-smoker Meaningful Use Info Meaningful Use Diagnoses (Choose all that apply): None applicable Code Visit Inpatient E AND M: [id number] Disch Hosp 10/07/18 1247 <Electronically signed by Maryana Rolon MD> Date Maryana Rolon MD Cosigner Signature (if applicable): Date CC: Maryana Rolon MD; Win Ying MD Signed DISCHARGE INSTRUCTION Observed: 10/05/2018 Status: F Source: [facility] 11:26 [facility] REPOSITORY [facility] Medical Records Department [address] [place] [id number] Instructions for Home/Discharge Instructions 10/05/18 1112 MR#: [id number] Acct: [id number] Name: JAYCEE CAUSEY Rep #: [id number] : 1935 83 From: Maryana Rolon MD PCP: Win Ying MD Status: ADM IN - Discharge Diagnoses Current Active Problems: Current Active and Chronic Problems Breast cancer (Chronic) HTN (hypertension) (Chronic) Hypertensive emergency (Acute) Gastritis (Acute) Seizure (Acute) Hypertensive emergency (Acute) Reason(s) for Visit for Discharge Instructions: Abdominal pain You will use the following diet at home:: Cardiac Your food should be the consistency of: Regular, Soft (bite- sized AND easy to chew/swallow) Discharge Activity: Return to Normal Activity Additional Instructions: Keep a log of your blood pressure. Continue on all your medications. Allergies/Adverse Reactions: Allergies amlodipine Allergy (Verified 10/04/18 01:52) Anaphylaxis codeine Allergy (Verified 10/04/18 01:52) Anaphylaxis fentanyl Allergy (Verified 10/04/18 06:48) Other gabapentin Allergy (Verified 10/04/18 01:52) Anaphylaxis lisinopril Allergy (Verified 10/04/18 01:52) Anaphylaxis niacin Allergy (Verified 10/04/18 01:52) Anaphylaxis primidone Allergy (Verified 10/04/18 01:52) Anaphylaxis proparacaine Allergy (Verified 10/04/18 01:52) Anaphylaxis tamoxifen Allergy (Verified 10/04/18 01:52) Anaphylaxis Medications to take at Discharge Acetaminophen 650 mg PO Q4H PRN PRN 10/04/18 Aspirin 81 mg PO DAILY 10/04/18 Biotin 5,000 mcg PO DAILY 10/04/18 Calcium Carbonate [Tums] 1,000 mg PO Q4H PRN PRN 10/04/18 Cholecalciferol (Vitamin D3) [Vitamin D3] 1,000 unit PO DAILY 10/04/18 Cyanocobalamin (Vitamin B-12) [Vitamin B-12] 1,000 mcg PO DAILY 10/04/18 Dicyclomine HCl 10 mg PO ACHS 10/04/18 Guaifenesin/Dextromethorphan [Mucinex Dm ER 600-30 mg Tablet] 1 each PO Q12H PRN PRN 10/04/18 Hydroxyzine HCl 25 mg PO Q6H PRN PRN 10/04/18 Levothyroxine [Synthroid] 25 mcg PO DAILY 10/04/18 Lorazepam [Ativan] 0.5 mg PO DAILY PRN 10/04/18 Magnesium 250 mg PO DAILY 10/04/18 Metoprolol Tartrate 25 mg PO BID 10/04/18 Mirabegron [Myrbetriq] 50 mg PO DAILY 10/04/18 Nystatin Powder [Mycostatin Powder] 1 applic TOPICAL DAILY 10/04/18 Omeprazole [Prilosec] 20 mg PO BID 10/04/18 Psyllium Husk [Metamucil] 0.52 gm PO DAILY 10/04/18 Rosuvastatin Calcium 5 mg PO DAILY 10/04/18 Vit C/E/Zn/Coppr/Lutein/Zeaxan [Preservision Areds 2 Softgel] 1 each PO BID 10/04/18 traZODone [Desyrel] 25 mg PO QHS 10/04/18 proCHLORPERazine suppository [Compazine suppository] 25 mg RECTAL BID PRN PRN #10 suppos. 10/05/18 Orders to be completed after discharge: Basic Metabolic Profile (BMP) Time Frame: 1 Week, Location: Laboratory Primary Care Physician: Win Ying MD [Primary Care Provider] - Please follow up with your Primary Care Physician in: within 1-2 weeks Test Results: Test results from this visit will be discussed in further detail at your follow-up appointment, if applicable. Proposed Discharge Date: 10/05/18 10/05/18 1126 <Electronically signed by Maryana Rolon MD> Date Maryana Rolon MD CC: Nathan Lanier MD; Win Ying MD RENAL PROFILE Collected: 10/05/2018 Status: F Source: [facility] 4:50 AM [facility] REPOSITORY TYPE CODE TESTS RESULT OUT OF RANGE REFERENCE UNITS LAB L501.0100 74-106 mg/dL Normal GLU 88 Result Comment: Please note revised GLUCOSE reference range effective 2017. LAB L501.1000 7-18 mg/dL Normal BUN 13 LAB L501.1100 0.55-1.02 mg/dL Normal CREAT,SERUM 0.93 Result Comment: The validity of the calculated GFR AND GFRAA in patients over 70 years has not been determined. Clinical correlation is essential. LAB L501.1110 >60 mL/min Normal EST GFR 61 Result Comment: Non- GFR Calc LAB L501.1115 >60 mL/min Normal EST GFR - AA 74 Result Comment: GFR Calc LAB L501.1255 ml/min Normal Estimated CRCL 39.25 LAB L501.1300 10-20 RATIO Normal BUN/CRE 13.9 LAB L501.1800 3.2-5. g/dL Normal 0 ALB 3.3 LAB L501.2200 8.5-10 mg/dL Normal .1 CA 8.8 LAB L501.2300 2.5-4. mg/dL Normal 9 PHOS 3.9 LAB L501.5300 136-14 mmol/L Normal 5 NA 141 LAB L501.5600 3.5-5. mmol/L Normal 1 K 4.1 LAB L501.5900 98-107 mmol/L Normal CL 105 LAB L501.6100 21.0-3 mmol/L Normal 2.0 CO2 29.0 Performed By: #### L500.3600 #### [facility] [address] [place], [address] HISTORY AND PHYSICAL Observed: 10/04/2018 Status: F Source: [facility] EXAM 8:15 AM [facility] REPOSITORY [facility] Medical Records Department [address] [place] [address] History and Physical 10/04/18 0513 MR#: [id number] Acct: [id number] Name: JAYCEE CAUSEY Rep #: [id number] : 1935 83 From: Maxx Hanks MD PCP: Win Ying MD Status: ADM IN Y Location: [place] [address] Problem List (1) Gastritis Status: Acute (2) Seizure Status: Acute (3) Hypertensive emergency Status: Acute History of Present Illness Date of Admission: 10/04/18 Chief Complaint: nausea, vomiting and abdominal pain History was taken from ED doctor and Patient's daughter since patient is lethargic and incoherent. The patient is a 83 year old F with a significant history of IBS; hypertension; breast cancer status post lumpectomy with axillary node dissection and radiation with subsequent anaphylaxis after tamoxifen administration; hyperlipidemia; osteoarthritis; who presented from the assisted senior living because of nausea, vomiting and abdominal pain. ED doctor reported that patient's pain was at the epigastric region but patient was tender in the lower abdominal region. At my examination the characteristics of patient's pain could not be obtained since patient is lethargic and incoherent. Her daughter reported that she had a conversation with patient at the senior living at about 10pm the day before patient's admission. Patient reported same symptoms stated above to her daughter during the phone conversation. At that time, daughter reported that patient was coherent. Moreover at about 7pm of the day before her admission; her daughter and her son-in-law (same daughter's ) went to a care meeting at the assisted living where patient lives. Patient was coherent when daughter and son in law was at the senior living. When patient was brought to the emergency department patient was given IV fluids, Zofran and 50 mg of fentanyl. Because of multiple anaphylactic reactions to medications, the emergency department doctor avoided morphine and other narcotics and chose fentanyl because of less tendency of getting advice reaction from fentanyl. Of note her daughter reports that patient has hyperemesis from codeine. Of note patient had extremely elevated blood at the emergency department. Her highest documented systolic blood pressure was 218. The highest documented diastolic blood pressure was 118. After patient received IV fluids, Zofran and fentanyl, ED doctor reported that patient became incoherent and very lethargic. Her daughter confirmed that she talked to patient over the phone at 1 AM while patient was at the emergency department and patient sounded incoherent. Patient had a precipitous drop in her oxygen saturation and although she was a DNR and her daughter who was present and allowed Ambu bag him. She responded to the antibiotic with increase in her oxygen saturation and was maintained on nasal cannula oxygenation. Later at emergency department' her daughter witnessed patient having a tonic clonic seizure. CT of patient abdomen/pelvis as well as CT of the head was unremarkable. ED doctor talked to neurologist Dr. Lanier. Per Dr. Lanier's recommendation oCTA of patient's head and neck was ordered by the ED doctor. Past Medical History Past Medical History (Chronic Problems): Chronic Problems Breast cancer (Chronic) HTN (hypertension) (Chronic) Allergies amlodipine Allergy (Verified 10/04/18 01:52) Anaphylaxis codeine Allergy (Verified 10/04/18 01:52) Anaphylaxis gabapentin Allergy (Verified 10/04/18 01:52) Anaphylaxis lisinopril Allergy (Verified 10/04/18 01:52) Anaphylaxis niacin Allergy (Verified 10/04/18 01:52) Anaphylaxis primidone Allergy (Verified 10/04/18 01:52) Anaphylaxis proparacaine Allergy (Verified 10/04/18 01:52) Anaphylaxis tamoxifen Allergy (Verified 10/04/18 01:52) Anaphylaxis Home Medications: Ambulatory Orders Medication Instructions Recorded Surgical History: hysterectomy, tonsillectomy, - - lumpectomy with axillary nodes dissection; Facial surgery after facial laceration post fall Lives: Long-Term Smoking Status: Never smoker Alcohol: None - *Family History Maternal Family History: Family History (Last Updated 10/04/18 @ 06:33 by Maxx Hanks MD) Mother Hypertension CVA (cerebral vascular accident) Review of Systems Unable to obtain accurate/complete ROS d/t: altered mental status after observed seizure. VTE Information - Inpt Only VTE Present on Admission: No VTE Mechan Device Prophylaxis: SCD's VTE Pharm Prophylaxis ordered?: No Patient Problems: Active and Suspected Problems Hypertensive emergency (Acute) Gastritis (Acute) Seizure (Acute) Hypertensive emergency (Acute) - Physical Exam General: Lethargic HEENT: Atraumatic, Normocephalic Neck: Trachea Midline Lungs: Clear to auscultation, Normal air movement Cardiovascular: Regular rate, No murmurs Abdomen: Bowel Sounds Present, Tender Extremities: No edema, Capillary Refill Less than 3 Seconds Skin: No rashes, No breakdown Musculoskeletal: No Muscle Wasting Neurological: - - Patient is lethargic and not following many commands. She mentioned her name sluggishly. Psych/Mental Status: - - Patient is lethargic. Vital Signs Temp Pulse Resp BP Pulse Ox 98.1 F 80 16 134/70 H 96 10/04/18 01:43 10/04/18 05:05 10/04/18 05:05 10/04/18 05:05 10/04/18 05:05 Oxygen Flow Rate (L/min) 2 Oxygen Delivery Method Nasal Cannula Weight: 74.2 kg Body Mass Index (BMI) 29.0 Laboratory Tests Past 24 Hrs WBC 10.9 WBC RBC Hgb Hct MCV MCH MCHC RDW RDW Differential Plt Count MPV Immature Gran % (Auto) Neut % (Auto) Lymph % (Auto) [place] % (Auto) Assessment/Plan All Active Problems Hypertensive emergency (Acute) Gastritis (Acute) Seizure (Acute) Hypertensive emergency (Acute) The patient is a 83 year old F with a significant history of IBS; hypertension; breast cancer status post lumpectomy with axillary node dissection and radiation with subsequent anaphylaxis after tamoxifen administration; hyperlipidemia; osteoarthritis; who presented from the assisted senior living because of nausea, vomiting and abdominal pain; and found to have severely elevated blood pressure; and also had a witnessed seizure at the emergency department after administration of IV fluids; Zofran and fentanyl. Seizure Examination patient appeared lethargic; and answered only a few questions representing likely post ictal stage. Etiology of her seizures includes adverse medication reaction from likely fentanyl; hypertensive emergency or other CT of head unremarkable CT of head and neck unremarkable. MRI of brain ordered. EEG ordered. Ativan as needed for seizures Seizure precautions ordered. Probable hypertensive emergency. Patient with systolic blood pressure of 218; and diastolic blood pressure of 118. Etiology of anesthesia was from adverse reaction from fentanyl; or hypertensive emergency as stated above. Patient has allergy to amlodipine, Cardene not ordered at this time. Patient has anaphylactic reaction to e proparacaine; same ingredients in labetalol and hydralazine Hydralazine as needed ordered. Home metoprolol p.o. not ordered because patient is lethargic and at risk of aspiration. IV metoprolol as needed ordered. Gastritis With her symptoms of nausea, abdominal pain and vomiting patient likely has inflammation of her stomach. No reported diarrhea. Of note patient has a history of IBS. Likely viral in etiology. Supportive treatment with IV fluids; IV antiemetics; and IV Toradol. Of note patient has allergy reaction to narcotics. Her daughter reports that patient can take Vicodin. Vicodin not ordered because patient is lethargic and likely cannot tolerate p.o. DVT prophylaxis SCD ordered. Heparin not ordered because of e proparacaine ingredient. Code Status Patient is a DNR CC. At the emergency department patient was back. However this time her daughter who is the POA states that patient is a DNR-CC with no chest compression; pressors or bagging. Code Visit Inpatient E AND M: [id number] Init Hosp 10/04/18 0815 <Electronically signed by Maxx Hanks MD> Date Maxx Hanks MD Cosigner Signature: Date (if applicable) CC: Win Ying MD; Maxx Hanks MD Signed BRAIN W/WO CONTRAST Observed: 10/04/2018 Status: F Source: [facility] 8:14 AM [facility] REPOSITORY [facility] Imaging Services [address] [address] Brain W/WO Contrast MR#: [id number] Acct: [id number] Name: JAYCEE CAUSEY Rep #: [id number] : 1935 F 83 From: Kavya Lopez PCP: Win Ying MD Status: ADM IN Study: Brain W/WO Contrast Date of Exam: 10/04/18 Exam# [id number] Ordering Dr: Maxx Hanks MD STUDY: MRI BRAIN WITH AND WITHOUT CONTRAST REASON FOR EXAM: Female, 83 years old. new onset seizure. TECHNIQUE: Standardized multiplanar fat and water weighted pulse sequences were obtained. 7 ml of Gadavist contrast material was administered intravenously for the contrast portion of the examination. COMPARISON: October 04, 2018 FINDINGS: There is mild cerebral atrophy with widening of the extra- axial spaces and ventricular dilatation. There are multiple white matter hyperintensities, distributed throughout the deep white matter tracts of the cerebral hemispheres, consistent with moderate chronic white matter ischemic changes. Normal bilateral basal ganglia. Normal thalami. There is no extra-axial fluid accumulation. Normal flow voids within the major intracranial circulation suggesting patency by spin echo criteria. Normal venous enhancement. There is no enhancing intra-axial or extra-axial abnormality. Normal sella turcica, pituitary gland, infundibular stalk, optic chiasm and hypothalamus. Normal tectal plate and pineal gland. Normal midbrain, radha and medulla. Normal cerebellum. Normal basal cisterns. Normal bilateral temporal bones. Normal bilateral internal auditory canals. MRI/Brain W/WO Contrast IMPRESSION: No acute intracranial abnormality. Moderate chronic microvascular ischemic changes. Electronically Signed: Kavya Lopez MD at 12:26 EST Tel , Service support , CC: Win Ying MD; Maxx Hanks MD Nursing Center Tutor: Signed EMERGENCY DEPARTMENT Observed: 10/04/2018 Status: F Source: [facility] SUMMARY 7:42 AM [facility] REPOSITORY [facility] Medical Records Department [address] [place] [address] Emergency Department Summary 10/04/18 0255 MR#: [id number] Acct: [id number] Name: JAYCEE CAUSEY Rep #: [id number] : 1935 83 From: Khalida Chandler MD PCP: Win Ying MD Status: ADM IN History of Present Illness Chief Complaint: Abd Pain Informant: Patient Onset: Hours - 3 Context: Sudden Onset Timing: Continuous Quality: pain, followed by vomiting Location: epigastric Current Severity: Moderate Maximum Severity: Moderate Worsened by: vomiting Relieved by: nothing Associated Symptoms: nonbilious nonbloody emesis Narrative: Patient has never had this before. Pain does not radiate into her back or up into her chest, denies any thoracic symptoms. Had remote total hysterectomy but no other abdominal surgeries. States she has bowel movements that wavered between loose and constipation, and that has been unchanged. She urinates frequently because of difficulty with bladder control and states that has been no different and denies any other urinary symptoms. No fevers or recent illness or recent travel. No suspicious food ingestions such as raw seafood or undercooked meats. No sick contacts that she knows of. States that she was anaphylactic to codeine, but does not remember how it was given to her and does not remember if she has taken morphine or not in the past. - Past Medical History (1) Breast cancer Status: Chronic (2) HTN (hypertension) Status: Chronic Past Medical History - Allergies and Home Meds Allergies/Adverse Reactions: Allergies amlodipine Allergy (Verified 10/04/18 01:52) Anaphylaxis codeine Allergy (Verified 10/04/18 01:52) Anaphylaxis fentanyl Allergy (Verified 10/04/18 06:48) Other gabapentin Allergy (Verified 10/04/18 01:52) Anaphylaxis lisinopril Allergy (Verified 10/04/18 01:52) Anaphylaxis niacin Allergy (Verified 10/04/18 01:52) Anaphylaxis primidone Allergy (Verified 10/04/18 01:52) Anaphylaxis proparacaine Allergy (Verified 10/04/18 01:52) Anaphylaxis tamoxifen Allergy (Verified 10/04/18 01:52) Anaphylaxis Past Medical History: - - cannot remember all her problems right now Surgical History: hysterectomy, tonsillectomy, - - breast Smoking Status: Never smoker Alcohol: None - Family History Maternal Family History: Family History (Last Updated 10/04/18 @ 06:33 by aMxx Hanks MD) Mother Hypertension CVA (cerebral vascular accident) Review of Systems General: Reports: Malaise. Denies: Chills, Fever, Sweats Eyes: Denies: Visual changes - bilaterally, Diplopia ENT: Denies: Sore throat Cardiovascular: Denies: Chest pain, Palpitations Respiratory: Denies: Dyspnea, Cough, Dyspnea on exertion Gastrointestinal: Reports: Abdominal pain, Nausea, Vomiting, Diarrhea. Denies: Melena, Hematochezia Genitourinary: Reports: Frequency. Denies: Dysuria, Hematuria Musculoskeletal: Denies: Back pain, Swelling, Extremity Pain Skin: Denies: Rash, Abscess Neurological: Denies: Headache, Weakness, Numbness Endocrine: Denies: Polyuria, Polydipsia, Heat intolerance, Cold intolerance Physical Exam Vital Signs/Narrative: Vital Signs 10/04/18 01:43 98.1 F 71 16 202/94 H 93 Inital Vital Signs reviewed: Yes General: Well nourished, Well developed, - - ill-appearing, nad Head: Normocephalic, Atraumatic Eyes: Perrl, EOMI ENT: Moist mucous membranes, No rhinorrhea Neck: Supple, Nontender Cardiovascular: Regular rate, Regular rhythm, No murmurs Respiratory: No distress, CTA bilaterally, Chest nontender Abdomen: Soft, Tender - diffusely mildly, but moderately tender LLQ and suprapubic areas; minimally tender upper abd, Hypoactive bowel sounds, - - distended. Negative for: Guarding, Rebound tenderness, Pulsatile mass, Hou's sign Back: Nontender, Normal Inspection. Negative for: CVA tenderness Extremities: Nontender, No edema Skin: Normal color, No rash Neurological: Alert, Oriented x3, Cranial nerves II-XII grossly intact, Normal Strength, Normal Sensation Psychological: Normal affect Diagnostic/Tx/Re-eval Laboratory Tests WBC 10.9 (4.4-11.0) K/mm3 RBC 4.97 (4.2-5.4) M/mm3 Hgb 14.2 (12.0-15.0) g/dl Hct 41.9 (37-47) % Clinical Impression(s) from Imaging Studies Abdomen/Pelvis CT 10/04/18 02:21 IMPRESSION: No acute findings in the abdomen and pelvis. Specifically there is no acute appendicitis or diverticulitis. A large 5.3 cm left renal cyst. Degenerative changes of the lumbosacral spine. A lumbar scoliosis with convexity to the left Electronically Signed: Ilia Moreno MD at 5:07 EST Tel , Service support , Brain CT 10/04/18 04:29 IMPRESSION: No acute findings in the brain Electronically Signed: Ilia Moreno MD at 5:00 EST Tel , Service support , Chest X-Ray 10/04/18 04:50 IMPRESSION: Mild cardiomegaly with central vascular congestive changes and bibasilar platelike atelectatic change Electronically Signed: Ilia Moreno MD at 5:11 EST Tel , Service support , Head CTA 10/04/18 05:27 IMPRESSION: Normal resighini of [place] without a demonstrated aneurysm or hemodynamically significant stenosis. Electronically Signed: Ilia Moreno MD at 7:06 EST Tel , Service support , Neck CTA 10/04/18 05:27 IMPRESSION: No evidence of a hemodynamically significant stenosis in either carotid system. Calcific atherosclerotic changes involving the right carotid bulb. The vertebrobasilar circulation is normal Electronically Signed: Ilia Moreno MD at 7:04 EST Tel , Service support , - Rhythm Strip Rhythm Strip: Sinus Rhythm Rate: 80 Ectopy: None - EKG Initial EKG Interpretation: Sinus Rhythm, No Acute Injury Pattern, Non- Specific ST Changes - laterally, - - long QTc. nml axis. - Medical Decision Making After initial evaluation, workup was ordered including CT abdomen, IV fluids, Zofran, and fentanyl so as to not cause any type of allergic reaction that she might have developed with morphine because of her prior anaphylaxis to codeine, as the patient was in quite a bit of discomfort and we discussed the pain medicine prior to giving it. Sometime after receiving the fentanyl, she became very confused and disoriented, she was unable to follow commands or move her extremities on command. It was presumed this was due to the fentanyl since all of her vitals were unremarkable and unchanged, with the exception of her blood pressure which was over 200 when she got here but during my exam it was 173 systolic and remained similar to that. Daughter states that it is not uncommon for her to spike blood pressures in response to stress. I reevaluated her periodically, and during 1 of my reevaluation's, she suddenly rolled her eyes back in her head and had a tonic-clonic grand mal seizure, that lasted for about a minute, and as it stopped, she did not breathing quickly became cyanotic and her pulse ox dropped to around 75%. The daughter quickly stated that she was DNR but was okay with us giving her rescue breathing, so we quickly set up a bag valve mask, and assisted her own breathing that had started by then. At this time as we were starting to bag her, she became bradycardic in the 30s. This quickly resolved, and she developed a heart rate in the low 100s. We stopped bagging her and gave her blow-by, and as her breathing picked up, she was maintained on a 5 L nasal cannula, keeping her saturations at 95%. She is not gone to CT yet for her abdomen/pelvis, I am adding cardiac testing and a CT head, she will be taken over with a nurse on a monitor. She is postictal at this time. CT images performed, I have reviewed them. She does not appear to have acute cerebral hemorrhage and her abdominal CT shows no free air, AAA, or free fluid. I am ordering nitroprusside, she has a documented allergy to amlodipine, in order to control her blood pressure, since that is more likely to have resulted in the seizure than anything else at this time. I think an acute ischemic stroke is much less likely, given the seizure activity. We will continue to monitor closely, CT results pending. CT head and abdomen/pelvis both resulted fairly quickly, both are negative. Prior to starting any medications, her blood pressure is in the 130s. Nitroprusside is canceled. Clinically, she is alerting to voice, she responds to questions by looking at the person asking, however, she does not follow commands, she is localizing to pain in all 4 extremities, causing her to move all 4 extremities, her toes are downgoing, reflexes normal, there is no clonus. She moans, but does not speak. She does not close her eyes when asked to. I discussed with Dr. Lanier with neurology, he advises CT angiography, which is ordered and pending. CT angiography results are all unremarkable, no aneurysms or stenotic vessels. Discussed again with Dr. Lanier, who does not recommend antiseizure medications at this time, he recommends an MRI, admission, consultation to neurology and further monitoring. Discussed with hospitalist. Procedures Critical care time (excluding procedures): 30-74 minutes - 35 min ED Disposition - Plan for ED Patient: Disposition: Acute Care Hospital [facility] Chief Complaint: Abd Pain Diagnosis: Accelerated hypertension, Delirium, Seizure What to do if you have Problems For any increased pain, shortness of breath, bleeding, nausea or vomiting, chest pain, or any unexpected problems, contact your Primary Care Provider. Call [facility] ([phone]) or report to the closest Emergency Room. Call 911 if necessary. 10/04/18 0742 <Electronically signed by Khalida Chandler MD> Date Khalida Chandler MD Cosigner Signature (If Indicated): Date CC: Win Ying MD CTA NECK W/WO Observed: 10/04/2018 Status: F Source: [place] CONTRAST 5:29 AM [facility] REPOSITORY [facility] Imaging Services [address] [place] [address] CTA Neck W/WO Contrast MR#: [id number] Acct: [id number] Name: JAYCEE CAUSEY Rep #: [id number] : 1935 F 83 From: Ilia Moreno MD PCP: Win Ying MD Status: ADM IN Study: CTA Neck W/WO Contrast Date of Exam: 10/04/18 Exam# [id number] Ordering Dr: Khalida Chandler MD STUDY: CTA OF THE NECK REASON FOR EXAM: Female, 83 years old. Altered mental status. RADIATION DOSAGE (If Supplied By Facility): CTDIvol = ( 20.97 ) mGy, DLP = ( 612.59 ) mGycm TECHNIQUE: CT angiography was performed with a multi-detector CT scanner. Data acquisition was obtained from the skull base through the vertex following intravenous administration of ml of . MIP images were reconstructed from the axial data set. Post-processing of the angiographic images was performed, with multiplanar reformation and 3D reconstruction. Individualized dose optimization techniques were used for this CT. COMPARISON: None. FINDINGS: Normal takeoff of the left subclavian artery, left common carotid artery and brachiocephalic artery from the arch of aorta. The left common carotid artery, the left carotid bulb and the left internal and external carotid arteries are normal and demonstrate no hemodynamically significant stenosis. The right common carotid artery is normal. There is focal calcific atherosclerotic changes involving the right carotid bulb but no demonstration of a hemodynamically significant stenosis. The right internal and external carotid arteries are normal. The vertebrobasilar circulation is normal. CT/CTA Neck W/WO Contrast IMPRESSION: No evidence of a hemodynamically significant stenosis in either carotid system. Calcific atherosclerotic changes involving the right carotid bulb. The vertebrobasilar circulation is normal Electronically Signed: Ilia Moreno MD at 7:04 EST Tel , Service support , CC: KHALIDA CHANDLER MD; Win Ying MD [facility] Tutor: Signed CTA HEAD W/WO Observed: 10/04/2018 Status: F Source: [place] CONTRAST 5:29 AM [facility] REPOSITORY [facility] Imaging Services [address] [place] [address] CTA Head W/WO Contrast MR#: [id number] Acct: [id number] Name: JAYCEE CAUSEY Rep #: [id number] : 1935 F 83 From: Ilia Moreno MD PCP: Win Ying MD Status: ADM IN Study: CTA Head W/WO Contrast Date of Exam: 10/04/18 Exam# [id number] Ordering Dr: Khalida Chandler MD STUDY: CTA OF THE BRAIN REASON FOR EXAM: Female, 83 years old. Altered mental status. RADIATION DOSAGE (If Supplied By Facility): CTDIvol = ( 20.97 ) mGy, DLP = ( 612.59 ) mGycm TECHNIQUE: CT angiography was performed with a multi-detector CT scanner. Data acquisition was obtained from the skull base through the vertex following intravenous administration of ml of . MIP images were reconstructed from the axial data set. Post-processing of the angiographic images was performed, with multiplanar reformation and 3D reconstruction. Individualized dose optimization techniques were used for this CT. COMPARISON: None. FINDINGS: Normal bilateral petrous carotid arteries. Normal right cavernous carotid artery with a normal supraclinoid bifurcation. Normal left cavernous carotid artery with a normal supraclinoid bifurcation. Normal right A1 segments of the anterior cerebral artery. Normal left A1 segments of the anterior cerebral artery. Normal intact anterior communicating artery (ACOM). Normal bilateral A2 segments of the anterior cerebral arteries. Normal right M1 and M2 segments of the middle cerebral arteries, with a normal M1 bifurcation. Normal left M1 and M2 segments of the middle cerebral arteries, with a normal M1 bifurcation. Normal right posterior communicating artery (PCOM). Normal left posterior communicating artery (PCOM). Normal bilateral vertebral arteries. Normal basilar artery with a normal basilar bifurcation. The visualized bilateral superior cerebellar (SCA) arteries are normal. Normal bilateral P1, P2 and visualized P3 segments of the posterior cerebral arteries. There is no demonstrated aneurysm of the resighini of Pollock. There is no demonstrated abnormality of the visualized brain. CT/CTA Head W/WO Contrast IMPRESSION: Normal resighini of Pollock without a demonstrated aneurysm or hemodynamically significant stenosis. Electronically Signed: Ilia Moreno MD at 7:06 EST Tel , Service support , CC: KHALIDA CHANDLER MD; Win Ying MD [facility] Tutor: Signed TROPONIN-I Collected: 10/04/2018 Status: F Source: [place] 5:00 AM [facility] REPOSITORY Order Comment: 'TROP' Serial specimen #1, #2 or #3: 1 TYPE CODE TESTS RESULT OUT OF RANGE REFERENCE UNITS LAB L501.4010 <0.045 ng/mL Normal < 0.015 TROPONIN-I Result Comment: TROPONIN-I EXPECTED VALUES <0.045 Negative 0.045 - 0.590 Consistent with Cardiac Damage > OR = 0.600 Critical Value Not every elevated troponin is indicative of NE. These values should be used with clinical judgement in examining the patient's clinical picture for diagnosis. To establish a diagnosis of NE versus myocardial injury, there must be a demonstrated rise and/or fall in the troponin values, in addition to ischemic symptoms, EKG changes, new regional wall motion abnormality, and/or angiographical evidence. PLEASE NOTE: REFERENCE RANGES EDITED 18 Performed By: #### L501.4010 #### [facility] [address] [place], [address] CHEST 1 VIEW Observed: 10/04/2018 Status: F Source: [place] 4:37 AM [facility] Imaging Services [address] [place] [address] Chest 1 View MR#: [id number] Acct: [id number] Name: JAYCEE CAUSEY Rep #: [id number] : 1935 F 83 From: Ilia Moreno MD PCP: Win Ying MD Status: REG ER Study: Chest 1 View Date of Exam: 10/04/18 Exam# [id number] Ordering Dr: Khalida Chandelr MD STUDY: X-RAY CHEST REASON FOR EXAM: Female, 83 years old. Chest pain TECHNIQUE: 1 view COMPARISON: None. FINDINGS: Mild cardiomegaly with mild central vascular congestion and atelectatic changes in the lung bases. No pleural effusions.. Degenerative changes of the thoracic spine.. Normal visualized ribs, clavicles, and shoulders. There is no demonstrated abnormality of the visualized soft tissue structures of the upper abdomen. RAD/Chest 1 View IMPRESSION: Mild cardiomegaly with central vascular congestive changes and bibasilar platelike atelectatic change Electronically Signed: Ilia Moreno MD at 5:11 EST Tel , Service support , CC: KHALIDA CHANDLER MD; Win Ying MD [facility] Tutor: Signed BRAIN/HEAD WITHOUT Observed: 10/04/2018 Status: F Source: [place] CONTRAST 4:30 AM [facility] REPOSITORY [facility] Imaging Services [address] [place] [address] Brain/Head without Contrast MR#: [id number] Acct: [id number] Name: JAYCEE CAUSEY Rep #: [id number] : 1935 F 83 From: Ilia Moreno MD PCP: Win Ying MD Status: REG ER Study: Brain/Head without Contrast Date of Exam: 10/04/18 Exam# [id number] Ordering Dr: Khalida Chandler MD STUDY: CT BRAIN WITHOUT CONTRAST REASON FOR EXAM: Female, 83 years old. Seizure RADIATION DOSAGE (If Supplied By Facility): CTDIvol = ( 44.99 ) mGy, DLP = ( 796.11 ) mGycm TECHNIQUE: Transaxial CT imaging of the brain was performed without administration of intravenous contrast material. Individualized dose optimization techniques were used for this CT. COMPARISON: None. FINDINGS: No scalp hematoma and no calvarial fractures. There is also no intra or extra-axial hemorrhage or tumor mass and no indication of acute infarction. Nonspecific microangiopathic changes in both hemispheres. The ventricles, basal cisterns and cortical sulci are normal. The orbits, paranasal sinuses and mastoid air cells are normal.. CT/Brain/Head without Contrast IMPRESSION: No acute findings in the brain Electronically Signed: Ilia Moreno MD at 5:00 EST Tel , Service support , CC: KHALIDA CHANDLER MD; Win Ying MD [facility] Tutor: Signed URINALYSIS, COMPLETE Collected: 10/04/2018 Status: F Source: [place] 3:54 AM [facility] REPOSITORY Order Comment: Order Date: 10/04/18 How was Urine Obtained? NET FINISHER TO SPECIFY TYPE CODE TESTS RESULT OUT OF RANGE REFERENCE UNITS LAB L400.3000 Yellow COLOR Normal Straw LAB L400.3050 Clear Normal CLARITY Clear LAB L400.3200 Normal mg/dl Normal GLUCOSE, UR Normal LAB L400.3300 Negative mg/dL Normal BILIRUBIN URINE Negative LAB L400.3400 Negative mg/dl Normal KETONE UR Negative LAB L400.3465 1.002-1.030 Normal SP.GR. DIPSTX 1.010 LAB L400.3550 5.0 - 8.0 pH UR Normal 8.0 LAB L400.3600 Negative mg/dl High PROT DIPSTX 100 LAB L400.3700 Normal mg/dl Normal UROBILI Normal LAB L400.3750 Negative Normal NITRITE UR Negative LAB L400.3780 Negative /ul Normal OCCULT BLOOD-UR Negative LAB L400.3800 Negative /ul LEUK Normal ESTERASE Negative LAB L400.4050 0-5 /hpf WBC 0 Normal SEEN LAB L400.4100 0-5 /hpf 0 Normal RBC-UA SEEN LAB L400.4150 5-10 /hpf SQUAM Normal EPI 0-5 SEEN LAB L400.4300 None Seen /hpf Normal BACTERIA RARE LAB L400.4350 <or=2+ /hpf 0 Normal MUCUS, URINE SEEN Performed By: #### L400.0001 #### [facility] [address] [place], [place], [address] CBC W/DIFF, AUTOMATED Collected: 10/04/2018 Status: F Source: [place] 2:30 AM [facility] REPOSITORY TYPE CODE TESTS RESULT OUT OF RANGE REFERENCE UNITS LAB L100.1000 4.4-11.0 K/mm3 Normal WBC 10.9 LAB L100.1200 4.2-5.4 M/mm3 Normal RBC 4.97 LAB L100.1300 12.0-15.0 g/dl Normal HGB 14.2 LAB L100.1400 37-47 % Normal HCT 41.9 LAB L100.1500 81-99 fL Normal MCV 84.3 LAB L100.1600 27.0-32.0 pg Normal MCH 28.6 LAB L100.1700 32-36 g/gl Normal MCHC 33.9 LAB L100.1810 11.6-14.6 % Normal RDW CV 12.7 LAB L100.1820 35.1-43.9 fl Normal RDW SD 38.5 LAB L100.1900 150-450 K/mm3 Normal PLT 169 LAB L100.2000 6.2-12.0 fl Normal MPV 9.6 LAB L100.2100 47-70 % High NEUT% 86.8 LAB L100.2200 19-41 % Low LY% 8.8 LAB L100.2300 0-10 % Normal MONO% 3.8 LAB L100.2400 0-5 % Normal EO% 0.2 LAB L100.2500 0-1 % Normal BASO% 0.3 LAB L100.2550 0.0-0.9 % Normal IM GRAN % 0.100 Result Comment: IG% - Immature Granulocytes (promyelocytes, myelocytes and metamyelocytes) > 1% indicates that a LEFT SHIFT is Present. LAB L100.2620 2.0-7.7 X10 3/uL High Absolute Neut 9.4 LAB L100.2720 0.83-4.51 X10 3/ul Normal Absolute Lymph 0.96 Performed By: #### L100.0100 #### [facility] [address] [place], [address] LIVER PROFILE Collected: 10/04/2018 Status: F Source: [place] 2:30 AM [facility] REPOSITORY TYPE CODE TESTS RESULT OUT OF RANGE REFERENCE UNITS LAB L501.1500 6.4-8.2 g/dL Normal T PROT 7.4 LAB L501.1800 3.2-5.0 g/dL Normal ALB 4.2 LAB L501.1950 2.2-4.2 g/dL Normal GLOB 3.2 LAB L501.4100 15-37 U/L Low AST 13 LAB L501.4305 45-117 U/L Normal ALK P 116 LAB L501.4405 13-56 U/L Normal ALT 15 LAB L501.4600 0.20-1.00 mg/dL Normal T BILI 0.40 LAB L501.4700 0.00-0.30 mg/dL Normal D BILI 0.15 Performed By: #### L500.3400, L500.4050 #### [facility] [address] [place], [address] COMPREHENSIVE METABOLIC Collected: 10/04/2018 Status: F Source: [facility] 2:30 AM [facility] REPOSITORY TYPE CODE TESTS RESULT OUT OF RANGE REFERENCE UNITS LAB L501.0100 74-106 mg/dL High GLU 141 Result Comment: Fasting Glucose result greater than or equal to 126 mg/dL suggests DIABETES MELLITUS per A.D.A. criteria. Please note revised GLUCOSE reference range effective 2017. LAB L501.1000 7-18 mg/dL Normal BUN 13 LAB L501.1100 0.55-1.02 mg/dL Normal CREAT,SERUM 0.72 Result Comment: The validity of the calculated GFR AND GFRAA in patients over 70 years has not been determined. Clinical correlation is essential. LAB L501.1110 >60 mL/min Normal EST GFR 83 Result Comment: Non- GFR Calc LAB L501.1115 >60 mL/min Normal EST GFR - AA 100 Result Comment: GFR Calc LAB L501.1255 ml/min Normal Estimated CRCL 36.50 LAB L501.1300 10-20 RATIO Normal BUN/CRE 18.1 LAB L501.2000 0.9-2. RATIO Normal 4 A/G 1.3 LAB L501.2200 8.5-10 mg/dL Normal .1 CA 8.9 LAB L501.5300 136-14 mmol/L Normal 5 NA 138 LAB L501.5600 3.5-5. mmol/L Low 1 K 3.2 LAB L501.5900 98-107 mmol/L Normal CL 100 LAB L501.6100 21.0-3 mmol/L Normal 2.0 CO2 29.0 LAB L501.6200 5-15 Normal GAP 9 Performed By: #### L500.3400, L500.4050 #### [facility] [address] [place], [address] ABDOMEN/PELVIS WITHOUT Observed: 10/04/2018 Status: F Source: [place] CONT 2:23 AM [facility] REPOSITORY [facility] Imaging Services [address] [place] [address] Abdomen/Pelvis without Cont MR#: [id number] Acct: [id number] Name: JAYCEE CAUSEY Rep #: [id number] : 1935 F 83 From: Ilia Moreno MD PCP: Win Ying MD Status: REG ER Study: Abdomen/Pelvis without Cont Date of Exam: 10/04/18 Exam# [id number] Ordering Dr: Khalida Chandler MD STUDY: CT ABDOMEN AND PELVIS WITHOUT CONTRAST REASON FOR EXAM: Female, 83 years old. Abdominal pain RADIATION DOSAGE (If Supplied By Facility): CTDIvol = ( 19.23 ) mGy, DLP = ( 965.83 ) mGycm TECHNIQUE: Transaxial images were obtained from the dome of the diaphragm to the symphysis pubis without oral contrast, and without intravenous contrast. Sagittal and coronal images were reconstructed. Individualized dose optimization techniques were used for this CT. COMPARISON: None. FINDINGS: Chronic changes in the lung bases.2 The liver is normal. No dilated intrahepatic biliary radicles. The gallbladder is normal with no calcifications within it. There is no pericholecystic fluid collection or streakiness A single benign calcification in the spleen The pancreas is normal. Both adrenals are normal. A 5.3 cm cyst in the upper pole of the left kidney. No hydronephrosis and no abnormal calcifications in both kidneys. The stomach is normal. There is no bowel distention, acute appendicitis or diverticulitis. No constricting lesions are seen in large bowel. The abdominal wall is intact with no hernias. There is no ascites or any free intraperitoneal air. No indication of epiploic appendagitis The vascular structures in the retroperitoneum are normal. There is no retrocrural, retroperitoneal or mesenteric adenopathy. There is a lumbar scoliosis with convexity to the left. There are also multilevel degenerative changes of the lumbosacral spine. The urinary bladder is normal.--. There is no inguinal or pelvic adenopathy. There is no inguinal hernia. . CT/Abdomen/Pelvis without Cont IMPRESSION: No acute findings in the abdomen and pelvis. Specifically there is no acute appendicitis or diverticulitis. A large 5.3 cm left renal cyst. Degenerative changes of the lumbosacral spine. A lumbar scoliosis with convexity to the left Electronically Signed: Ilia Moreno MD at 5:07 EST Tel , Service support , CC: KHALIDA CHANDLER MD; Win Ying MD [facility] Tutor: Signed ABDOMEN/PELVIS WITHOUT Observed: 06/14/2018 Status: F Source: [place] CONT 9:01 AM [facility] REPOSITORY [facility] Imaging Services [address] [place] [address] Abdomen/Pelvis without Cont MR#: [id number] Acct: [id number] Name: JAYCEE CAUSEY Rep #: [id number] : 1935 F 82 From: Ernesto Rajan MD PCP: Win Ying MD Status: REG CLI Study: Abdomen/Pelvis without Cont Date of Exam: 06/14/18 Exam# [id number] Ordering Dr: Susan Ballesteros [employer]-C STUDY: CT ABDOMEN AND PELVIS WITHOUT CONTRAST REASON FOR EXAM: Female, 82 years old. Urinary incontinence, which is worsening. History of kidney stones, urinary frequency, left breast cancer treated with lumpectomy and radiation therapy, hypertension, KIMBERLY/BSO. RADIATION DOSAGE (If Supplied By Facility): CTDIvol = ( 8.62 ) mGy, DLP = ( 357.58 ) mGycm TECHNIQUE: Transaxial images were obtained from the dome of the diaphragm to the symphysis pubis without oral contrast, and without intravenous contrast. Sagittal and coronal images were reconstructed. Individualized dose optimization techniques were used for this CT. COMPARISON: None. FINDINGS: There is a calcified pulmonary granuloma in the visualized right middle lobe. The visualized portions of the heart are within normal limits. There are calcified granulomas in the liver. There were a few small liver cysts. Normal gallbladder and extrahepatic biliary system. There calcified granulomas spleen. There is mild splenomegaly. Normal pancreas. Normal bilateral adrenal glands. Normal right kidney. There is a 6 cm left upper pole renal cyst as well as smaller cysts. Otherwise normal left kidney. Normal visualized stomach. Normal small intestine. There are multiple colonic diverticula consistent with diverticulosis. The appendix is visualized on axial images 94-110 and it appears normal.. There is diffuse atherosclerotic calcification of the abdominal aorta with elongation and tortuosity, but without a demonstrated aneurysm. Normal inferior vena cava. Normal retroperitoneum. Normal urinary bladder. Urinary bladder was nearly empty at the time of this exam. There is absence of the uterus consistent with a prior hysterectomy. Normal abdominal wall. There are diffuse degenerative changes of the visualized lumbar spine as well as levoscoliosis.. CT/Abdomen/Pelvis without Cont IMPRESSION: Colonic diverticulosis, without evidence for acute diverticulitis. Mild splenomegaly. Old granulomatous disease. Cysts in the left kidney and in the liver. Atherosclerosis. Previous hysterectomy. No evidence for acute pathology. No demonstrated urinary calculi or hydronephrosis. Electronically Signed: Ernesto Rajan MD at 4:01 EDT , Service support , CC: Win Ying MD; Susan Ballesteros NP Nursing Center Tutor: Signed URINALYSIS, ROUTINE Collected: 05/22/2018 Status: F Source: [place] (DIPSTICK) 9:10 AM [facility] REPOSITORY Order Comment: How was Urine Obtained? Urine, Random TYPE CODE TESTS RESULT OUT OF RANGE REFERENCE UNITS LAB L400.3000 Yellow COLOR Normal Yellow LAB L400.3050 Clear Normal CLARITY Sl. Cloudy LAB L400.3200 Normal mg/dl Normal GLUCOSE, UR Normal LAB L400.3300 Negative mg/dL Normal BILIRUBIN URINE Negative LAB L400.3400 Negative mg/dl High 5 KETONE UR LAB L400.3465 1.002-1.030 Normal SP.GR. DIPSTX 1.020 LAB L400.3550 5.0 - 8.0 pH UR Normal 6.0 LAB L400.3600 Negative mg/dl High PROT 30 DIPSTX LAB L400.3700 Normal mg/dl Normal UROBILI Normal LAB L400.3750 Negative Normal NITRITE UR Negative LAB L400.3780 Negative /ul Normal OCCULT BLOOD-UR Negative LAB L400.3800 Negative /ul High LEUK 25 ESTERASE Performed By: #### L400.2010 #### [facility] [address] [place], [address] Observed: 05/22/2018 Status: F Source: [place] CULTURE, URINE 9:10 AM [facility] REPOSITORY Urine Culture Below infection level. ORGANISM 1: Mixed Gram Pos AND Gram Neg Org Stanford Count 1000-10,000 Performed By: #### M100.0650 #### [facility] [address] [place] [address]. [place], [address] Observed: 05/12/2018 Status: F Source: [place] OVA AND PARASITES 2:31 PM [facility] REPOSITORY O + P OVA AND PARASITES EXAM, ROUTINE These results were obtained using wet preparation(s) and trichrome stained smear. This test does not include testing for Crytosporidium parvum, Cyclospora, or Microsporidia. TESTING PERFORMED AT [facility]. ORIGINAL REPORT ON FILE IN LAB CONTAINS ADDITIONAL TEST SITE INFORMATION. Ova/Parasite Exam NO OVA, CYSTS, OR PARASITES FOUND. Performed By: #### M600.5000 #### [facility] [address] [place] [address]. [place], [place], [address] Observed: 01/28/2018 Status: F Source: [place] INFLUENZA A+B (RAPID 12:00 AM [facility]) REPOSITORY FLU A/B Rapid Negative test results should be confirmed by culture. Order Rapid Viral Culture for Influenzae A+B (318786) if clinically indicated. Influenza Ag, Direct Presumptive NEGATIVE for Influenza A/B Antigen (See Note) Performed By: #### M101.0101 #### [facility] [address] [place], [place], [address] CT HEAD OR BRAIN W/O Observed: 12/27/2017 Status: F Source: [facility] CONTRAST 11:25 AM SYSTEM REPOSITORY Patient Name: JAYCEE CAUSEY CT Exam Date/Time 12/27/2017 11:23:[address] Head or Brain w/o Contrast Ordering Physician DO NELSON GEORGE E Accession Number [id number] CPT4 Codes 81550 () Reason For Exam mental status change Report CLINICAL INDICATION: mental status change COMPARISON: None Technique: Unenhanced [address] images were obtained from skull base to vertex. Images were reformatted in coronal and sagittal projections. Findings: Ventricles: Appropriate in size for the patient's age. Brain Parenchyma There is no CT evidence of an acute intracranial hemorrhage, territorial infarction, midline shift, mass effect, or extra-axial collection. The arroyo-white differentiation remains preserved and the basal cisterns are patent. Periventricular hypoattenuation is present consistent with severe chronic small vessel ischemic disease. Bones: The osseous structures are unremarkable without evidence of a fracture. The paranasal sinuses and mastoid air cells remain well aerated. IMPRESSION: No acute intracranial abnormality. Severe chronic small vessel ischemic disease. Report Dictated on Final Dictating Physician: MD MICHAEL, MICHELLE COLVIN Signed Date and Time: 12/27/2017 11:30 am Signed by: MD RODRIGUEZ YUN ROBERT Transcribed Date and Time: 12/27/2017 11:31 CT ABDOMEN/PELVIS W/ Observed: 12/27/2017 Status: F Source: [employer] CONTRAST 6:15 AM SYSTEM REPOSITORY Patient Name: JYACEE CAUSEY CT Exam Date/Time 12/27/2017 05:51:[address] Abdomen/Pelvis w/ IV Contrast (IV Onl Ordering Physician MD ACEVEDO DEVINA D. Accession Number [id number] CPT4 Codes 44291 (CT Abdomen/Pelvis w/ IV Contrast (IV Onl), Q9967 () Reason For Exam abdominal pain, vomiting, tender throughout. Report Clinical indications: Abdominal pain and vomiting, diffuse tenderness Technique: A multislice, volume acquisition was obtained from the hemidiaphragms to the proximal femurs, with images reconstructed in 3 mm intervals. 75 cc of Optiray 350 were utilized for IV contrast. Oral contrast was not administered for the exam. FINDINGS: Comparison is made with a previous study from 04/06/2014. There are chronic fibrotic changes in the lung bases and atherosclerosis of the thoracic aorta is noted. The liver contains small granulomata and several circumscribed low- attenuation lesions under a centimeter. There is one larger lesion in the left lobe measuring approximately 1.3 x 0.7 cm. These are not changed in the interval between exams. The larger lesion likely represents an incidental cyst. The smaller lesions are too small to further characterize. There is no intrahepatic biliary duct dilation. The gallbladder is within normal limits. The adrenal glands and pancreas are also unremarkable. The spleen contains multiple granulomata but is otherwise within normal limits. A large cyst is again identified arising from the superior pole of the left kidney, unchanged. A small lateral cortical cyst arising from the midpole left kidney is redemonstrated on series 2, image 57. It now measures approximately 1.2 cm in diameter where it previously measured 0.7 cm. The right kidney remains unremarkable. The retroperitoneal and mesenteric fat are normal in appearance. There is moderately extensive aortoiliac and visceral atherosclerosis. No aneurysm or dissection is appreciated. Large and small bowel are difficult to evaluate due to lack of enteric contrast, but show no definite acute findings. There are scattered sigmoid diverticula. The appendix and terminal ileum are visualized and appear normal. In the pelvis, the bladder and rectum are unremarkable. The uterus and adnexa are surgically absent. IMPRESSION: There is colonic diverticulosis without evidence of diverticulitis. Extensive atherosclerosis as noted above. Two left renal cysts are redemonstrated. The smaller of the two cysts has increased slightly in size compared to the prior exam, as detailed above. Multiple low-attenuation lesions are again noted in the liver, unchanged and likely to represent incidental cysts. Report Dictated on Workstation: [id number] Final Dictating Physician: MD MCDOWELL RUSSELL Signed Date and Time: 12/27/2017 6:23 am Signed by: MD MCDOWELL RUSSELL Transcribed Date and Time: 12/27/2017 6:24 CR CHEST PORTABLE Observed: 12/27/2017 Status: F Source: [facility] 4:23 AM SYSTEM REPOSITORY Patient Name: JAYCEE CAUSEY Diagnostic Radiology Exam Date/Time 12/27/2017 04:18:23 EST Exam CR Chest Portable Ordering Physician MD ACEVEDO DEVINA D. Accession Number [id number] CPT4 Codes 26319 () Reason For Exam altered Report Clinical Indications: Views: 1 Comparisons: none Heart: Size within normal limits. Mediastinum: Unremarkable. Lungs: No evidence of infiltrate, effusion or acute interstitial process. Osseous and soft tissue structures: Generally intact. Impression: No radiographic evidence of active cardiopulmonary process. . Report Dictated on Workstation: [email or web address] Final Dictating Physician: MD MCDOWELL RUSSELL Signed Date and Time: 12/27/2017 4:24 am Signed by: MD MCDOWELL RUSSELL Transcribed Date and Time: 12/27/2017 4:25 US ABDOMEN COMPLETE Observed: 12/26/2017 Status: F Source: [facility] 3:31 PM SYSTEM REPOSITORY Patient Name: JAYCEE CAUSEY Ultrasound Exam Date/Time 12/26/2017 13:10:00 EST Exam US Abdomen Complete Ordering Physician MD YING DARRELL LEROY Accession Number [id number] CPT4 Codes 96501 () Reason For Exam chronic nausea Report ULTRASOUND ABDOMEN COMPLETE EXAM DATE AND TIME: 12/26/2017 1:10 PM EST INDICATION: 82 years Female with nausea COMPARISON: 11/14/2015 TECHNIQUE: Complete ultrasound of abdomen FINDINGS: Liver: Normal echogenicity, size and contours. Small calcifications are seen in both hepatic lobes. No other liver lesion is seen.. Gallbladder: Normal. Per the rad technologist, the sonographic Hou's sign was negative. Bile ducts: No intrahepatic and extrahepatic biliary dilatation Common bile duct: 5 mm \X09\\X09\ Pancreas: The visualized portions of the pancreatic head and body are unremarkable. The remainder of the pancreas is obscured by bowel gas Right kidney: Normal size measuring 9.7 cm. Normal parenchymal echogenicity without solid mass or hydronephrosis. . Left kidney: Normal size measuring 11.6 cm. Normal parenchymal echogenicity without solid mass or hydronephrosis. Two cysts are seen, the larger is in the superior pole measuring 5.7 cm. Spleen: Normal size measuring 13.8 x 4.6 x 6.7 cm. Normal echogenicity. Small calcifications are seen. Aorta and Inferior vena cava: Visualized portions are normal Ascites: None IMPRESSION: 1. No acute process. 2. 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 Report Dictated on Final Dictating Physician: MD MATAMOROS NICHOLAS Signed Date and Time: 12/26/2017 3:33 pm Signed by: MD MATAMOROS NICHOLAS Transcribed Date and Time: 12/26/2017 3:34 MG BREAST TOMOSYNTHESIS Observed: 11/14/2017 Status: F Source: [facility] 12:00 AM SYSTEM REPOSITORY Patient Name: JAYCEE CAUSEY Mammography Exam Date/Time 11/14/2017 14:18:05 EST Exam MG Breast Tomosynthesis BI Ordering Physician MD STEPAN, WIN MIMS Accession Number [id number] CPT4 Codes 00750 (MG Breast Tomosynthesis BI), 29104 (MG MAMMO 2D DIAG BILAT) Reason For Exam Inversion of nipple N64.59, 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 Family history of breast cancer at age 90 in maternal aunt. Malignant lumpectomy of the left breast, 1986. Radiation therapy of the left breast, 1986. Took estrogen for 7 years beginning at age 44. Patient has never smoked. Patient's BMI is 26.6. TIME SINCE LAST MAMMOGRAM: Last mammogram was performed 5 years ago. REASON FOR EXAM: clinical finding. INDICATED PROBLEM: Indicated problem(s): left breast nipple abnormality for 1 weeks. PROCEDURE: MG BREAST TOMOSYNTHESIS BL: NOVEMBER 14, 2017 - 2D/3D Procedure 3D Bilateral CC and MLO view(s) were taken. 2D Bilateral CC and MLO view(s) were taken. Prior study comparison: November 28, 2012, bilateral screening mammogram, performed at [facility]. November 27, 2011, bilateral screening mammogram, performed at [facility]. There are scattered fibroglandular densities. This is an 82-year-old who presents with left nipple inversion for a one week timeframe. The patient was diagnosed with left breast malignancy in 1986 and is status post malignant left breast lumpectomy with radiation therapy at that time. The last bilateral mammogram was performed in 2012. Today's exam coincides with the patient's bilateral annual exam. DIAGNOSTIC BILATERAL BREAST MAMMOGRAM: Stable left breast postsurgical scarring is present in the deep central lateral aspect with an overlying linear scar marker. Bilateral vascular calcifications are present. No discrete mass or parenchymal distortion present posterior to the left nipple. The left nipple appears flattened compared to the contralateral side. No mammographic evidence of malignancy in either breast. TARGETED LEFT BREAST ULTRASOUND: A targeted left breast ultrasound was performed of the retroareolar aspect to further evaluate for the left nipple inversion. Imaging of the retroareolar aspect demonstrates no suspicious mass and no intraductal mass. The nipple appears flattened. Markings on images: BB's = Nipples; skin lesions Open resighini = Palpable Line = Scar US BREAST LIMITED LEFT: NOVEMBER 14, 2017 - 2D digital mammography and tomosynthesis imaging were performed and reviewed with CAD. ASSESSMENT: Category 2 Benign (Overall) MG Abner Diag-Bl: . 1. No mammographic evidence of malignancy in either breast. 2. No targeted sonographic evidence of malignancy in the left breast. 3. There is no imaging finding to explain the patient's left nipple inversion/flattening. Clinical correlation is recommended. RECOMMENDATION: Clinical correlation of the left breast. Routine screening mammogram of both breasts in 1 year. Final Signed Date and Time: 11/14/2017 3:12 pm Signed by: MD GALVAN JENNIFER R US BREAST LIMITED Observed: 11/14/2017 Status: F Source: [facility] 12:00 AM SYSTEM REPOSITORY Patient Name: JAYCEE CAUSEY Ultrasound Exam Date/Time 11/14/2017 14:31:29 EST Exam US Breast Limited Left Ordering Physician MD STEPAN, WIN MIMS Accession Number [id number] CPT4 Codes 57243 () Reason For Exam inversion of left nipple Report PATIENT HISTORY: Patient is postmenopausal and has history of cancer in the left breast at age 51. Family history of breast cancer at age 90 in maternal aunt. Malignant lumpectomy of the left breast, 1986. Radiation therapy of the left breast, 1986. Took estrogen for 7 years beginning at age 44. Patient has never smoked. Patient's BMI is 26.6. TIME SINCE LAST MAMMOGRAM: Last mammogram was performed 5 years ago. REASON FOR EXAM: clinical finding. INDICATED PROBLEM: Indicated problem(s): left breast nipple abnormality for 1 weeks. PROCEDURE: MG BREAST TOMOSYNTHESIS BL: NOVEMBER 14, 2017 - 2D/3D Procedure 3D Bilateral CC and MLO view(s) were taken. 2D Bilateral CC and MLO view(s) were taken. Prior study comparison: November 28, 2012, bilateral screening mammogram, performed at [facility]. November 27, 2011, bilateral screening mammogram, performed at [facility]. There are scattered fibroglandular densities. This is an 82-year-old who presents with left nipple inversion for a one week timeframe. The patient was diagnosed with left breast malignancy in 1986 and is status post malignant left breast lumpectomy with radiation therapy at that time. The last bilateral mammogram was performed in 2012. Today's exam coincides with the patient's bilateral annual exam. DIAGNOSTIC BILATERAL BREAST MAMMOGRAM: Stable left breast postsurgical scarring is present in the deep central lateral aspect with an overlying linear scar marker. Bilateral vascular calcifications are present. No discrete mass or parenchymal distortion present posterior to the left nipple. The left nipple appears flattened compared to the contralateral side. No mammographic evidence of malignancy in either breast. TARGETED LEFT BREAST ULTRASOUND: A targeted left breast ultrasound was performed of the retroareolar aspect to further evaluate for the left nipple inversion. Imaging of the retroareolar aspect demonstrates no suspicious mass and no intraductal mass. The nipple appears flattened. Markings on images: BB's = Nipples; skin lesions Open resighini = Palpable Line = Scar US BREAST LIMITED LEFT: NOVEMBER 14, 2017 - 2D digital mammography and tomosynthesis imaging were performed and reviewed with CAD. ASSESSMENT: Category 2 Benign (Overall) MG Abner Diag-Bl: . 1. No mammographic evidence of malignancy in either breast. 2. No targeted sonographic evidence of malignancy in the left breast. 3. There is no imaging finding to explain the patient's left nipple inversion/flattening. Clinical correlation is recommended. RECOMMENDATION: Clinical correlation of the left breast. Routine screening mammogram of both breasts in 1 year. Final Signed Date and Time: 11/14/2017 3:12 pm Signed by: MD GALVAN JENNIFER R ALLERGIES ALLERGIES DATE TYPE / CODE NAME / CODE REACTION SEVERITY SOURCE 10/04/2018 Drug lisinopril/ Anaphylaxis Unknown [facility]160 [id number]( Hospital 06959(SNOMED RXNORM) Repository CT) 10/04/2018 Drug niacin/F006 Anaphylaxis Unknown [facility]/4160 398198(RXNO Hospital 18055(SNOMED RM) Repository CT) 10/04/2018 Drug codeine/F00 Anaphylaxis Unknown [facility]/4160 4820930(RXN Hospital 01430(SNOMED ORM) Repository CT) 10/04/2018 Drug primidone/F Anaphylaxis Unknown [facility] All[facility]/4160 [id number](R Hospital 75636(SNOMED XNORM) Repository CT) 10/04/2018 Drug fentanyl/F0 Other Unknown [facility] Allergy/4160 32219964(RX Hospital 21093(SNOMED NORM) Repository CT) 10/04/2018 Drug amlodipine/ Anaphylaxis Unknown [facility] Allergy/4160 [id number]( Hospital [facility](SNOMED RXNORM) Repository CT) 10/04/2018 Drug gabapentin/ Anaphylaxis Unknown [facility] Allergy/4160 [id number]( Hospital 11962(SNOMED RXNORM) Repository CT) 10/04/2018 Drug proparacain Anaphylaxis Unknown [facility] Allergy/4160 e/[id number] Hospital [facility](SNOMED 2(RXNORM) Repository CT) 10/04/2018 Drug tamoxifen/F Anaphylaxis Unknown [facility] Allergy/4160 [id number](R Hospital [facility](SNOMED XNORM) Repository CT) ENCOUNTERS ENCOUNTERS ADMIT/DISCHARGE ACCOUNT NUMBER ADMITTING ENCOUNTER LOCATION SOURCE CLASS 10/21/2018 [id number] Ambulatory [facility] ding:OLS.BRO Repository [place] 10/13/2018 [id number] Ambulatory [facility] ding:OLS.BRO Repository [place] 10/04/2018/10/05/20 [id number] Agyepong, Inpatient Winnie Winnie 18 Maxx Encounter [facility] ding:PCURoom Repository : JOP247Khu: 1 10/04/2018 [id number] Agyepong, Ambulatory BMSBuilding: [facility]x [facility] Repository 10/04/2018 [id number] Agyepong, Ambulatory BMSBuilding: [facility] BMS.[facility] Repository 06/14/2018 [id number] Ambulatory [facility] ding:CT Repository 05/22/2018 [id number] Ambulatory [facility] ding:ABRIL.BRO Repository [place] 05/12/2018 [id number] Ambulatory [facility] ding:OLS.BRO Repository [place] 01/28/2018 [id number] Ambulatory [facility] ding:OLS.BRO Repository [place] 12/27/2017 [id number] [address]ulatory [facility] [address] System [id number]: Repository [id number] 12/26/[id number] [facility] Repository 11/14/[id number] [facility] Repository PAYERS PAYERS ENCOUNTER GUARANTOR PAYER SUBSCRIBER SOURCE 10/21/2018 JAYCEE Savage Primary JAYCEE E [place]ie [id number] [place] Insurance:[facility] HOFACREDOB: [place] [id number] Hospital [address]Nxg: (330) Number: Repository [phone] [id number] Date:[id number] [address]MJ: 10/21/2018 Secondary NOT GIVENUNK Winnie Insurance:SELF PAY [facility] Number: Effective Repository Date:2018-10-21 10/13/2018 JAYCEE Savage Primary JAYCEE E [place] [id number] [place] Insurance:[facility] HOFACREDOB: [place] MED[place] [id number] Hospital [address]Leo: (330) Number: Repository [phone] () [id number] Date:3675-25-50VG [address] [facility] [address]DB: 10/13/2018 Secondary NOT GIVENUNK [place] Insurance:SELF PAY [facility] Number: Effective Repository Date:2018-10-13 10/04/2018 JAYCEE E Primary JAYCEE E [place] [id number] [place] Insurance:[facility] HOFACREDOB: [place] [id number] Hospital [address]Eiw: (330) Number: Repository [phone] () [id number] Date:[id number] [address] [place] [address]PO: 10/04/2018 Secondary NOT GIVENUNK [place] Insurance:SELF PAY [facility] Number: Effective Repository Date:2018-10-04 10/04/2018 JAYCEE E Primary JAYCEE E Winn[place] [id number] [place] Insurance:[facility] HOFACREDOB: [place] [id number] Hospital [address]Nhj: (330) Number: Repository [phone] () [id number] Date:2737-32-92DQ [address] [place] [address]US: 10/04/2018 Secondary NOT GIVENUNK Winn[place] Insurance:SELF PAY [facility] Number: Effective Repository Date:2018-10-04 10/04/2018 JAYCEE E Primary JAYCEE E [place] [id number] [place] Insurance:[facility] [place]FACREDOB: [place] [id number] Hospital [address]Pgk: (330) Number: Repository [phone] () [id number] Date:[id number] [address] [place] [address]HX: 10/04/2018 Secondary NOT GIVENUNK [place] Insurance:SELF PAY [facility] Number: Effective Repository Date:2018-10-04 06/14/2018 JAYCEE E Primary JAYCEE E [place] [id number] [place] Insurance:[facility] [employer] HOFACREDOB: [place] [id number] Hospital [address]Pkz: (330) Number: Repository [phone] (HP) [id number] Date:[id number] [address]VY: 06/14/2018 Secondary NOT GIVENUNK [place] Insurance:SELF PAY [facility] Number: Effective Repository Date:2018-06-09 05/22/2018 JAYCEE E Primary NOT GIVENUNK [place] [id number] [place] Insurance:SELF PAY [facility] [address]Sju: (330) Number: Effective Repository [phone] () Date:2018-05-22 05/12/2018 JAYCEE E Primary NOT GIVENUNK [place] [id number] [place] Insurance:SELF PAY [facility] [address]Gcn: (330) Number: Effective Repository [phone] () Date:2018-05-12 01/28/2018 Jaycee Primary NOT GIVENUNK Winnie [id number] Insurance:SELF PAY [facility] [address] Number: Effective Repository SENIOR Date:2018-01-28 [place], [place] [address]Kxu: (HP) 12/27/2017 Jaycee E [facility] [place] System licy Number: [id number] Repository [place] Effective Date: [place], [place] [address]Tdr: (HP) 12/26/2017 Jaycee E Primary [facility] [place]: System licy Number: [id number] Repository [place] Effective Date: [place], [place] [address]Msw: () 11/14/2017 [facility] [id number] licy Number: [id number] Repository [place] Effective Date: [place], [place] [address]Tux: ()
== END 2018-10-05 13:17 | disposition home or self-care (01) | DRG 101 ==
LOC: ED 04:35 → PCU 06:23
PROVIDERS: Admitting Provider Hospitalist; Emergency Provider Emergency Medicine; Family Provider Family Medicine; PCP Family Medicine; Visit Provider Internal Medicine
DX: R56.9 Unspecified convulsions (principal); I16.1 Hypertensive emergency; E87.6 Hypokalemia; K58.9 Irritable bowel syndrome, unspecified; E03.9 Hypothyroidism, unspecified; E78.5 Hyperlipidemia, unspecified; Z66 Do not resuscitate; Z85.3 Personal history of malignant neoplasm of breast; I10 Essential (primary) hypertension; K29.70 Gastritis, unspecified, without bleeding
CPT/HCPCS: 36415; 70450; 70496; 70498; 70553; 71045; 74176; 80053; 80069; 80076; 81001; 84484; 85025; 92526; 93005; 95819; 99251; 99284; A9585; J7030; J7040; Q9967; A4216; G0463; J2405

== ENCOUNTER → 2018-10-13 11:30 | Outpatient (REF) | payer MEDICARE, SELFPAY ==
[2018-10-04 07:57] VITALS: BMI 26.2
[2018-10-13 12:51] LABS: Anion Gap 5 (5-15); BUN 11 mg/dL (7-18); BUN/Creat Ratio 15.1 RATIO (10-20); Calcium,Total 8.3 mg/dL (8.5-10.1); Chloride 100 mmol/L (98-107); Creatinine, Serum 0.73 mg/dL (0.55-1.02); EST Glomerular Filtration Rate 82 mL/min (>60); Est Glom Filt Rate - Afr Amer 99 mL/min (>60); Glucose 139 mg/dL (74-106); Potassium 3.6 mmol/L (3.5-5.1); Sodium Level 137 mmol/L (136-145)
== END ==
PROVIDERS: Visit Provider Family Medicine
DX: Z79.899 Other long term (current) drug therapy (principal); E87.6 Hypokalemia
CPT/HCPCS: 36415; 80048

== ENCOUNTER → 2018-10-21 10:00 | Outpatient (REF) | payer MEDICARE, SELFPAY ==
[2018-10-04 07:57] VITALS: BMI 26.2
[2018-10-21 12:05] LABS: Hematocrit 43.9 % (37-47); Hemoglobin 15.2 g/dl (12.0-15.0); Mean Corp Hgb Conc 34.6 g/gl (32-36); Mean Corpuscular Hgb 29.3 pg (27.0-32.0); Mean Corpuscular Volume 84.6 fL (81-99); Mean Platelet Vol. 10.7 fl (6.2-12.0); Platelet Count 174 K/mm3 (150-450); RBC Distribution Width CV 12.8 % (11.6-14.6); RBC Distribution Width SD 38.9 fl (35.1-43.9); Red Blood Count 5.19 M/mm3 (4.2-5.4); White Blood Count 7.5 K/mm3 (4.4-11.0)
[2018-10-21 12:06] LABS: Scan Indicated on CBC? Y/N NO
[2018-10-21 12:09] LABS: Anion Gap 11 (5-15); BUN 15 mg/dL (7-18); BUN/Creat Ratio 19.4 RATIO (10-20); Calcium,Total 8.5 mg/dL (8.5-10.1); Chloride 95 mmol/L (98-107); Creatinine, Serum 0.77 mg/dL (0.55-1.02); EST Glomerular Filtration Rate 76 mL/min (>60); Est Glom Filt Rate - Afr Amer 92 mL/min (>60); Glucose 148 mg/dL (74-106); Potassium 3.4 mmol/L (3.5-5.1); Sodium Level 132 mmol/L (136-145)
--- OUTSIDE RECORDS SUMMARY | 2019-01-22 15:50 | XMS RPT_ITS ---
:1935 Author Organization OHIP Support Name Relationship Address Phone R Unavailable Unavailable Unavailable ROSENBURG, SHELLI Unavailable [address] + [place] [address] R Unavailable Unavailable Unavailable ROSENBURG, SHELLI Unavailable [address] + [place] [address] R Unavailable Unavailable Unavailable ROSENBURG, SHELLI Unavailable [address] + [place] [address] R Unavailable Unavailable Unavailable ROSENBURG, SHELLI Unavailable [address] + [place] [address] R Unavailable Unavailable Unavailable ROSENBURG, SHELLI Unavailable [address] + [place] [address] R Unavailable Unavailable Unavailable Rosenburg, Shelli Unavailable [address] + [place] [address] R Unavailable Unavailable Unavailable Rosenburg, Shelli Unavailable [address] + [place] [address] R Unavailable Unavailable Unavailable Rosenburg, Shelli Unavailable [address] + [place] [address] R Unavailable Unavailable Unavailable ROSENBURG, SHELLI Unavailable [address] + [place] [address] R Unavailable Unavailable Unavailable ROSENBURG, SHELLI Unavailable [address] + [place] [address] R Unavailable Unavailable Unavailable ROSENBURG, SHELLI Unavailable [address] + [place] [address] R Unavailable Unavailable Unavailable ROSENBURG, SHELLI Unavailable Unavailable + [place] [address] R Unavailable Unavailable Unavailable R Unavailable Unavailable Unavailable Rosenburg, Shelli Unavailable Unavailable + Rosenburg, Shelli Unavailable Unavailable + Care Team Providers Name Role Phone Stepan, Win Attending Unavailable PROVIDER, UNKNOWN Referring Unavailable Stepan, Win Primary Care Unavailable PROVIDER, UNKNOWN Referring Unavailable Stepan, Win Primary Care Unavailable Lorenzo Nelson Attending Unavailable Stepan, Win Attending Unavailable Stepan, Win Attending Unavailable Stepan, Win Attending Unavailable Stepan, Win Primary Care Unavailable Wilfredo Pitt Admitting Unavailable Brenna, Josh Consulting Unavailable Tereletsky, Mehdi Attending Unavailable Pitt, Wilfredo Attending Unavailable Stepan, Win Primary Care Unavailable Wilfredo Pitt Admitting Unavailable Tereletsky, Mehdi Attending Unavailable Stepan, Win Primary Care Unavailable Brenna, Josh Consulting Unavailable Tereletsky, Mehdi Consulting Unavailable [facility], Jessie Attending Unavailable Stepan, Win Attending Unavailable Stepan, Win Attending Unavailable Susan Ballesteros Attending Unavailable Stepan, Win Primary Care Unavailable Susan Ballesteros Referring Unavailable Stepan, Win Primary Care Unavailable [employer] woo Admitting Unavailable [place], [place] Attending Unavailable Yannick, Ngozi S. Consulting Unavailable [employer] woo Admitting Unavailable [employer] Attending Unavailable Stepan, Win Primary Care Unavailable [place], [place] Consulting Unavailable [employer] Admitting Unavailable [place], [place] Attending Unavailable Stepan, Win Primary Care Unavailable Yannick, Ngozi S. Consulting Unavailable [place], [place] Consulting Unavailable Wilfredo [place] Admitting Unavailable Tereletsky, Mehdi Attending Unavailable Stepan, Win Primary Care Unavailable Brenna, Josh Consulting Unavailable Tereletsky, Mehdi Consulting Unavailable Stepan, Win Attending Unavailable PROBLEMS PROBLEMS DATE TYPE CONDITION / CODE ATTENDING STATUS SOURCE 11/24/2018 Unknown R11.2 - Nausea with Stepan, Active [place] vomiting, [facility] unspecified / Hospital R11.2(ICD-10) Repository 11/06/2018 Unknown Z79.899 - Other long Stepan, Active [place] term (current) drug [facility] therapy / Hospital Z79.899(ICD-10) Repository 11/06/2018 Unknown I50.9 - Heart Stepan, Active [place] failure, unspecified [facility] / I50.9(ICD-10) Hospital Repository 10/29/2018 Unknown E87.6 - Hypokalemia Stepan, Active [place] / E87.6(ICD-10) [facility] Hospital Repository 2018 Unknown R35.0 - Frequency of Lesli, Active [place] micturition / [facility] R35.0(ICD-10) Hospital Repository 07/11/2018 Unknown N39.0 - Urinary Stepan, Active [place] tract infection, [facility] site not specified / Hospital N39.0(ICD-10) Repository 07/16/2018 Unknown R19.7 - Diarrhea, Stepan, Active [place] unspecified / [facility] R19.7(ICD-10) Hospital Repository 12/27/2017 Admitting Gastro-esophageal [employer], [employer] [facility] Diagnosis reflux disease System without esophagitis Repository / K21.9(ICD-10) 12/27/2017 Admitting Soto's esophagus [employer], [employer] [address] [facility] Diagnosis without dysplasia / System K22.70(ICD-10) Repository 12/27/2017 Admitting Unspecified chronic [employer]sh[employer], [employer] [address] [facility] Diagnosis gastritis without System bleeding / Repository K29.50(ICD-10) 12/27/2017 Admitting Abnormal weight loss 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 / System D12.0(ICD-10) Repository 12/27/2017 Admitting Diaphragmatic hernia [employer] [address] [facility] Diagnosis without obstruction System or gangrene / Repository K44.9(ICD-10) 12/27/2017 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[employer], [employer] [address] [facility] Diagnosis w/o perforation or System abscess w/o bleeding Repository / K57.30(ICD-10) 12/27/2017 Admitting Noninfective [employer] [address] [facility] Diagnosis gastroenteritis and System colitis, unspecified Repository / K52.9(ICD-10) 12/27/2017 Admitting Hyperlipidemia, [employer]deep [employer] [facility] Diagnosis unspecified / System E78.5(ICD-10) Repository 12/27/2017 Admitting Unspecified [employer] [employer] [facility] Diagnosis osteoarthritis, System unspecified site / Repository M19.90(ICD-10) 12/27/2017 Admitting Unspecified urinary [employer] Diagnosis incontinence / System R32(ICD-10) Repository 12/27/2017 Admitting Dorsalgia, [employer]deep [employer] [facility] Diagnosis unspecified / System M54.9(ICD-10) Repository 12/27/2017 Admitting Other chronic pain / [employer] Diagnosis G89.29(ICD-10) System Repository 12/27/2017 Admitting Unspecified injury [employer] Diagnosis of face, initial System encounter / Repository S09.93XA(ICD-10) 12/27/2017 Admitting Neuralgia and [employer] Diagnosis neuritis, System unspecified / Repository M79.2(ICD-10) 12/27/2017 Admitting Other muscle spasm / [employer] Diagnosis M62.838(ICD-10) System Repository 12/27/2017 Admitting Other fatigue / [employer] Diagnosis R53.83(ICD-10) System Repository 12/27/2017 Admitting Other signs and [employer] Diagnosis symptoms in breast / System N64.59(ICD-10) Repository 12/27/2017 Admitting Nausea with [employer] [facility] Diagnosis vomiting, System unspecified / Repository R11.2(ICD-10) 12/27/2017 Admitting Anxiety disorder, [employer] Diagnosis unspecified / System F41.9(ICD-10) Repository 12/27/2017 Admitting Major depressive [employer] Diagnosis disorder, single System episode, unspecified Repository / F32.9(ICD-10) 12/27/2017 Admitting Disorientation, [employer] Diagnosis unspecified / System R41.0(ICD-10) Repository 12/27/2017 Admitting Personal history of [employer] 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 breast / Repository Z86.000(ICD-10) 12/27/2017 Admitting Unspecified fall, Lorenzo Nelson [employer] [facility] Diagnosis initial encounter / System W19.XXXA(ICD-10) Repository 12/27/2017 Admitting Encounter for Lorenzo Nelson [facility] Diagnosis immunization / System Z23(ICD-10) Repository 12/27/2017 Admitting Altered mental Lorenzo Nelson [employer] [facility] Diagnosis status, unspecified System / R41.82(ICD-10) Repository 12/26/2017 Admitting Other diseases of [facility] Diagnosis spleen / Win System D73.89(ICD-10) Repository 12/26/2017 Admitting Liver disease, Stepan Active [facility] [employer] [facility] Diagnosis unspecified / Win System K76.9(ICD-10) Repository PROCEDURES PROCEDURES No Procedure Records FoundRESULTS RESULTS DISCHARGE SUMMARY Observed: 11/19/2018 Status: F Source: [place] 9:33 PM [facility] REPOSITORY [facility] Medical Records Department [address] [place] [address] Discharge Summary 11/19/182127 MR#: [id number] Acct: [id number] Name: JAYCEE CAUSEY Rep #: [id number] : 1935 83 From: Mehdi Rodriguez DO PCP: Win Richardson MD Status: DIS ALFIE Y Location: [place] [address]-1 Discharge Date and Diagnosis Date of Admission: 11/17/18 Date of Discharge: 11/19/18 - Primary Discharge Diagnosis 1 Abdominal pain with nausea and vomiting-secondary to gastritis and duodenitis #2 gastritis #3 duodenitis #4 uncontrolled hypertension- #5 Hypokalemia- #6 debility #7 major depression - Secondary Discharge Diagnosis Chronic Problems Breast cancer (Chronic) HTN (hypertension) (Chronic) Hospital Course and Treatment Operations: None Procedures: EGD Summary of Care Provided: The patient is a 83 year old F who was seen in the emergency room at [facility] with chief complaint of generalized pain. She recently had a workup for nausea vomiting and diarrhea by her PCP who did a stool sample which was positive for H. pylori, she was started on a Prevpac but she was unable to tolerate the antibiotics and the Prevpac secondary to nausea. Workup in the emergency room included a CBC which was unremarkable, chemistry showed a potassium of 3, liver enzymes were unremarkable, lipase was 289. CT of the abdomen and pelvis showed no acute process, patient was placed and observation status on MedSurg 3 and given IV fluids and potassium replacement, she was also given antiemetics. She was seen in consultation by general surgery who performed an EGD which showed gastritis and duodenitis. Biopsy for H. pylori was noted to be negative. Patient appeared fatigued and lethargic the afternoon of the EGD and she was felt to need a PT and OT evaluation before she returned to assisted living. Conversation was carried out with the patient's daughter who stated the patient had recently been placed on antidepressant. PT and OT saw the patient the following day and the patient appeared stable for discharge back to her assisted living facility. On 11/19/18, patient was seen and examined: On examination she appeared in good health and spirits. Vital signs as documented. Skin warm and dry and without overt rashes. Neck without JVD. Lungs clear. Heart exam notable for regular rhythm, normal sounds and absence of murmurs, rubs or gallops. Abdomen unremarkable and without evidence of organomegaly, masses, or abdominal aortic enlargement. Extremities nonedematous. Neuro: Cranial nerves II through XII are grossly intact, no focal motor deficits were noted, sensation to light touch and pinprick is intact. Psych: Patient is alert and oriented x3, she appears to have a flat affect and be depressed On 11/19/18, patient was seen and examined and felt to be in stable condition for transfer back to assisted living. - Physical Exam Vital Signs Temp Pulse Resp BP Pulse Ox 97.6 F L 66 18 194/83 H 95 11/19/18 13:34 11/19/18 13:34 11/19/18 13:34 11/19/18 13:34 11/19/18 13:34 Oxygen Delivery Method Room Air Weight: 63.7 kg Body Mass Index (BMI) 24.8 Intake and Output for Last 24 Hours Intake Total 178 / 178 3076 / 3076 1451 / 1451 Balance 178 / 178 3076 / 3076 1451 / 1451 Discharge Activity: Return to Normal Activity Weight Bearing Status: Full weight bearing Home Medications: Medications to take at Discharge Acetaminophen 650 mg PO Q4H PRN PRN 10/04/18 Aspirin 81 mg PO DAILY 10/04/18 Levothyroxine [Synthroid] 25 mcg PO DAILY 10/04/18 Nystatin Powder [Mycostatin Powder] 1 applic TOPICAL BID PRN PRN 10/04/18 Rosuvastatin Calcium 5 mg PO DAILY 10/04/18 Vit C/E/Zn/Coppr/Lutein/Zeaxan [Preservision Areds 2 Softgel] 1 each PO BID 10/04/18 Loperamide HCl [Anti-Diarrhea] 2 mg PO PRN PRN 11/18/18 Methyl Salicylate/Menthol [Icy Hot Cream] 35.4 gm TP Q6H PRN PRN 11/18/18 Metoprolol Tartrate 50 mg PO BID 11/18/18 Oxybutynin Chloride [Oxybutynin Chloride ER] 15 mg PO DAILY 11/18/18 Peg 400/Hypromellose/Glycerin [Artificial Tears] 15 ml OP PRN PRN 11/18/18 Pantoprazole Sodium [Protonix] 40 mg PO BID #60 tab 11/19/18 Sertraline HCl [Zoloft] 50 mg PO DAILY #60 tab 11/19/18 Valsartan [Diovan] 320 mg PO DAILY #30 tab 11/19/18 Following Prescrptions Were Given to Patient: Sertraline HCl [Zoloft] 50 mg PO DAILY #60 tab Valsartan [Diovan] 320 mg PO DAILY #30 tab Pantoprazole Sodium [Protonix] 40 mg PO BID #60 tab Primary Care Physician: Win Richardson MD [Primary Care Provider] - Please follow up with your Primary Care Physician in: in 2 weeks Disposition: Asstd Living/Non-Skill [place] Minutes spent on discharge:: 32 Patient Condition:: Stable Medical Necessity - Tobacco Use Smoking Status: Never smoker Meaningful Use Info Meaningful Use Diagnoses (Choose all that apply): None applicable Code Visit OBSV E AND M: 42831 Observation care discharge 11/19/182132 <Electronically signed by Mehdi Rodriguez DO> Date Mehdi Rodriguez DO Cosigner Signature (if applicable): Date CC: Win Richardson MD; Mehdi Rodriguez DO Signed PROGRESS Observed: 11/19/2018 Status: COMPLETED Source: [place] 7:03 PM [facility] REPOSITORY HNO ID: [id number] Author: Josh Cervantes Service: (none) Author Type: Physician Type: Progress Notes Filed: 11/19/2018 7:06 PM Note Text: OPERATIVE NOTATION FOR [facility] SURGICAL PROCEDURE. November 18, 2018 Jaycee Causey 1935 [id number] female PROCEDURE: EGD WITH BIOPSY - [id number] SURGEON: Angel Cervantes M.D. FACS GEOSPATIAL ENGINEER: None DEPT: W PROVIDER: [id number] Cervantes MD POS: [id number] DIAGNOSIS: (R10.13) Epigastric pain (primary encounter diagnosis) ASA CLASS: 3 - Severe FINDINGS: gastric ulcer COMPLICATIONS: None PMHx - PAST MEDICAL HISTORY Diagnosis Date - Breast cancer surgery and RT - now cured - 1987 - HTN (hypertension) - Hyperlipidemia COMORBIDITIES - HTN Post Op Occurrences - None Wound Classification - Clean Contaminated Operative note dictated in the [facility] dictation system. Josh Cervantes MD DISCHARGE INSTRUCTION Observed: 11/19/2018 Status: F Source: [place] 11:16 AM [facility] REPOSITORY [facility] Medical Records Department [address] [place] [address] Instructions for Home/Discharge Instructions 11/19/18 1113 MR#: [id number] Acct: [id number] Name: JAYCEE CAUSEY Rep #: [id number] : 1935 83 From: Mehdi Rodriguez DO PCP: Win Richardson MD Status: ADM ALFIE ADDENDUM by Mehdi Rodriguez DO on 11/19/18 at 1116 additional medicine: Diovan 320 mg daily 11/19/18 1116 Date Mehdi Rodriguez DO cc: Win Richardson MD; Josh Cervantes MD * Signed - Discharge Diagnoses Current Active Problems: Current Active and Chronic Problems Intractable nausea and vomiting (Acute) You will use the following diet at home:: No restrictions Your food should be the consistency of: Regular Your liquids should be the consistency of: Regular/Thin Discharge Activity: Return to Normal Activity Weight Bearing Status: Full weight bearing Allergies/Adverse Reactions: Allergies fentanyl Allergy (Verified 11/17/18 15:51) Other tamoxifen Allergy (Verified 11/17/18 15:51) Anaphylaxis amlodipine Adverse Reaction (Verified 11/17/18 15:51) Upset Stomach codeine Adverse Reaction (Verified 11/17/18 15:51) Upset Stomach gabapentin Adverse Reaction (Verified 11/17/18 15:51) Upset Stomach lisinopril Adverse Reaction (Verified 11/17/18 15:51) Upset Stomach niacin Adverse Reaction (Verified 11/17/18 15:51) Upset Stomach primidone Adverse Reaction (Verified 11/17/18 15:51) Upset Stomach proparacaine Adverse Reaction (Verified 11/17/18 15:51) Upset Stomach Medications to take at Discharge Acetaminophen 650 mg PO Q4H PRN PRN 10/04/18 Aspirin 81 mg PO DAILY 10/04/18 Levothyroxine [Synthroid] 25 mcg PO DAILY 10/04/18 Nystatin Powder [Mycostatin Powder] 1 applic TOPICAL BID PRN PRN 10/04/18 Rosuvastatin Calcium 5 mg PO DAILY 10/04/18 Vit C/E/Zn/Coppr/Lutein/Zeaxan [Preservision Areds 2 Softgel] 1 each PO BID 10/04/18 Loperamide HCl [Anti-Diarrhea] 2 mg PO PRN PRN 11/18/18 Methyl Salicylate/Menthol [Icy Hot Cream] 35.4 gm TP Q6H PRN PRN 11/18/18 Metoprolol Tartrate 50 mg PO BID 11/18/18 Oxybutynin Chloride [Oxybutynin Chloride ER] 15 mg PO DAILY 11/18/18 Peg 400/Hypromellose/Glycerin [Artificial Tears] 15 ml OP PRN PRN 11/18/18 Pantoprazole Sodium [Protonix] 40 mg PO BID #60 tab 11/19/18 Sertraline HCl [Zoloft] 50 mg PO DAILY #60 tab 11/19/18 The following prescriptions were given: Sertraline HCl [Zoloft] 50 mg PO DAILY #60 tab Pantoprazole Sodium [Protonix] 40 mg PO BID #60 tab Primary Care Physician: Win Richardson MD [Primary Care Provider] - Please follow up with your Primary Care Physician in: in 2 weeks Test Results: Test results from this visit will be discussed in further detail at your follow-up appointment, if applicable. 11/19/18 1113 <Electronically signed by Mehdi Rodriguez DO> Date Mehdi Rodriguez DO CC: Win Richardson MD; Josh Cervantes MD Signed OPERATIVE REPORT - Observed: 11/18/2018 Status: F Source: [place] [facility] 11:53 AM [facility] Medical Records Department [address] [place] [address] Operative Report - Endoscopy MR#: [id number] Acct: [id number] Name: JAYCEE CAUSEY Rep #: [id number] : 1935 83 From: Josh Cervantes MD PCP: Win Richardson MD Status: ADM ALFIE Patient Name: Jaycee Causey Procedure Date: 11/18/2018 11:17 AM Date of : 1935 Age: 83 Procedure: Upper GI endoscopy Indications: Epigastric abdominal pain, Nausea with vomiting Providers: Josh Cervantes MD Medicines: Monitored Anesthesia Care Patient Profile: This is an 83 year old female. Refer to note in patient chart for documentation of history and physical. Complications: No immediate complications. Procedure: Pre-Anesthesia Assessment: - Prior to the procedure, a History and Physical was performed, and patient medications and allergies were reviewed. The patient is competent. The risks and benefits of the procedure and the sedation options and risks were discussed with the patient. All questions were answered and informed consent was obtained. Patient identification and proposed procedure were verified by the physician, the nurse and the sales review clerk in the procedure room. Mental Status Examination: alert and oriented. Airway Examination: normal oropharyngeal airway and neck mobility. Respiratory Examination: clear to auscultation. CV Examination: normal. Prophylactic Antibiotics: The patient does not require prophylactic antibiotics. Prior Anticoagulants: The patient has taken no previous anticoagulant or antiplatelet agents. ASA Grade Assessment: III - A patient with severe systemic disease. After reviewing the risks and benefits, the patient was deemed in satisfactory condition to undergo the procedure. The anesthesia plan was to use monitored anesthesia care (MAC). Immediately prior to administration of medications, the patient was re-assessed for adequacy to receive sedatives. The heart rate, respiratory rate, oxygen saturations, blood pressure, adequacy of pulmonary ventilation, and response to care were monitored throughout the procedure. The physical status of the patient was re-assessed after the procedure. After obtaining informed consent, the endoscope was passed under direct vision. Throughout the procedure, the patient's blood pressure, pulse, and oxygen saturations were monitored continuously. The gastroscope was introduced through the mouth, and advanced to the jejunum. The upper GI endoscopy was accomplished without difficulty. The patient tolerated the procedure well. Scope In: 11:42:09 AM Scope Out: 11:48:18 AM Total Procedure Duration Time 0 hours 6 minutes 9 seconds Findings: The examined jejunum was normal. Biopsies for histology were taken with a cold forceps for evaluation of celiac disease. Patchy mildly erythematous mucosa without active bleeding and with no stigmata of bleeding was found in the duodenal bulb. Biopsies were taken with a cold forceps for histology. Scattered mild inflammation characterized by erosions, erythema and friability was found in the gastric antrum. Biopsies were taken with a cold forceps for Helicobacter pylori testing using PyloriTek test. Biopsies were taken with a cold forceps for histology. A single papule (nodule) with no bleeding and stigmata of recent bleeding was found on the greater curvature of the stomach. Biopsies were taken with a cold forceps for histology. A small hiatal hernia was present. The lower third of the esophagus was normal. Biopsies were taken with a cold forceps for histology. The middle third of the esophagus was normal. Biopsies were taken with a cold forceps for histology. Impression: - Normal examined jejunum. Biopsied. - Erythematous duodenopathy. Biopsied. - Gastritis. Biopsied. - A single papule (nodule) found in the stomach. Biopsied. - Small hiatal hernia. - Normal lower third of esophagus. Biopsied. - Normal middle third of esophagus. Biopsied. Recommendation: - Await pathology results. - Return patient to [facility] for [facility] care. - Continue present medications. Procedure Code(s): --- Professional --- 88163, Esophagogastroduodenoscopy, flexible, transoral; with biopsy, single or multiple CPT copyright 2017 [employer]. All rights reserved. The codes documented in this report are preliminary and upon cultured marble products maker review may be revised to meet current compliance requirements. Josh Cervantes MD 11/18/2018 11:52:42 AM This report has been signed electronically. Number of Addenda: 0 Note Initiated On: 11/18/2018 11:17 AM 11/18/18 1152 Date Josh Cervantes MD Cosigner Signature: Date (if indicated) CC: Win Richardson MD; Mehdi Rodriguez DO; Josh Cervantes MD Date Dictated: 11/18/181116 Date Transcribed: Federal Mediation Commissioner: [place] Signed IMMUNOHISTOCHEMISTRY Observed: 11/18/2018 Status: F Source: [place] 11:15 AM [facility] REPOSITORY Patient: JAYCEE CAUSEY : 1935 (83/F) Acct Num: [id number] Phys: Mehdi Rodriguez DO Unit Num: [id number] Loc: MS3 [id number] Specimen: [id number] Received: 11/18/18 - 1534 Spec Type: IMMUNO TISSUES 1 TISSUES: C. Stomach, NOS SPECIMEN INFORMATION: Tissue Source: C - Gastric antrum biopsy, D - Healing ulcer greater curvature, biopsy Clinical Info: Abdominal pain; stool test positive for H. pylori; gastritis with vomiting Specimen Number: [id number] C AND D CPT code: 28670 x2 METHODOLOGY: Deparaffinized sections of prefer/formalin-fixed tissue or PAP/DQ stained slides are incubated with monoclonal/polyclonal antibodies/oligonucleotide probes. Localization is made via biotin free immunoperoxidase method. Appropriate controls are performed and reacted as expected. Results on target cell population are indicated in the following table: RESULTS: ANTIBODY / CLONE RESULT Block C H Pylori (polyclonal) negative Block D H Pylori (polyclonal) negative These tests were developed and their performance characteristics determined by [facility]. They may not have been cleared or approved by the U.S. Food and Drug Administration. The FDA has determined that such clearance or approval is not necessary. INTERPRETATION: C. Gastric antrum, biopsy: Negative for Helicobacter pylori organisms. D. Healing ulcer greater curvature, biopsy: Negative for Helicobacter pylori organisms. SJ:balbina 11/19/18 PHYSICIAN AND INSTITUTION [address] [address] Signed Ed Medina MD 11/19/18 <signature on file> Performed By: #### PIMM #### [facility] [address] [place] [address]. [place], [address] CONSULTATION Observed: 11/18/2018 Status: F Source: [place] 10:40 AM [facility] REPOSITORY [facility] Medical Records Department [address] [place] [address] Consultation 11/18/18 1038 MR#: [id number] Acct: [id number] Name: JACYEE CAUSEY Rep #: [id number] : 1935 83 From: Josh Cervantes MD PCP: Win Richardson MD Status: ADM ALFIE Y Location: [place] [address] Reason for Consult Date of Consultation: 11/18/18 History of Present Illness: The patient is a 83 year old F with a one-month complaint of upper abdominal pain. She had 2 emergency department visits for these complaints. The patient has not had previous upper endoscopy. she did have a stool test which was positive for H. pylori. She had presumed gastritis as the cause of her symptomatology. The patient was started on antibiotic eradication and has been vomiting ever since. The patient denies blood in her vomitus. She was admitted for IV antibiotic treatment for her presumed H. pylori infection and vomiting. I was consulted due to vomiting for upper endoscopy. The patient denies previous upper or lower endoscopy. Past Medical History Past Medical History (Chronic Problems): Chronic Problems Breast cancer (Chronic) HTN (hypertension) (Chronic) Allergies fentanyl Allergy (Verified 11/17/18 15:51) Other tamoxifen Allergy (Verified 11/17/18 15:51) Anaphylaxis amlodipine Adverse Reaction (Verified 11/17/18 15:51) Upset Stomach codeine Adverse Reaction (Verified 11/17/18 15:51) Upset Stomach gabapentin Adverse Reaction (Verified 11/17/18 15:51) Upset Stomach lisinopril Adverse Reaction (Verified 11/17/18 15:51) Upset Stomach niacin Adverse Reaction (Verified 11/17/18 15:51) Upset Stomach primidone Adverse Reaction (Verified 11/17/18 15:51) Upset Stomach proparacaine Adverse Reaction (Verified 11/17/18 15:51) Upset Stomach Home Medications: Ambulatory Orders Medication Instructions Recorded Acetaminophen 650 mg PO Q4H PRN PRN 10/04/18 Aspirin 81 mg PO DAILY 10/04/18 Guaifenesin/Dextromethorphan 1 each PO Q12H PRN PRN 10/04/18 Surgical History: hysterectomy, tonsillectomy, - - lumpectomy with axillary nodes dissection; Facial surgery after facial laceration post fall Smoking Status: Never smoker - *Family History Maternal Family History: Family History (Last Updated 10/04/18 @ 06:33 by Maxx Hanks MD) Mother Hypertension CVA (cerebral vascular accident) History Items: No pertinent history Review of Systems Constitutional: Reports: Fatigue. Denies: Chills, Fever, Weight Change HEENT: Reports: Sore Throat. Denies: Head Aches, Sinus Congestion, Sinus Drainage Cardiovascular: Denies: Chest Pain, Palpitations Respiratory: Denies: Cough, Shortness of breath at rest, Sputum production Gastrointestinal: Reports: Nausea, Vomiting. Denies: Abdominal Pain Genitourinary: Denies: Dysuria Musculoskeletal: Denies: Joint Pain, Joint Tenderness Skin: Denies: Rash, Wounds Neurological: Denies: Numbness, Tingling, Focal weakness Psychiatric: Denies: Anxiety, Depression, Homicidal Ideations, Suicidal Ideations Hematologic/ Lymphatic: Denies: Easy Bruising, Easy Bleeding Patient Problems: Active and Suspected Problems Intractable nausea and vomiting (Acute) - Physical Exam General: Alert, Oriented x3, Cooperative HEENT: Atraumatic, PERRLA, EOMI, Normocephalic Neck: Supple, No JVD, Negative Carotid Bruits Lungs: Clear to auscultation, Normal air movement Cardiovascular: Regular rate, No murmurs Abdomen: Bowel Sounds Present, Soft, Non Tender Extremities: No edema, Capillary Refill Less than 3 Seconds Skin: No rashes, No breakdown Musculoskeletal: No Tenderness to Palpation of Joints or Extremities Neurological: Cranial nerves II-XII grossly intact Psych/Mental Status: Normal Affect, Appropriate Vital Signs Temp Pulse Resp BP Pulse Ox 98.0 F 70 18 161/82 H 97 11/18/18 09:15 11/18/18 09:15 11/18/18 09:15 11/18/18 09:15 11/18/18 09:15 Oxygen Delivery Method Room Air Weight: 63.7 kg Body Mass Index (BMI) 24.8 Intake and Output for Last 24 Hours Intake Total 178 / 178 632 / 632 Balance 178 / 178 632 / 632 Laboratory Tests Past 24 Hrs WBC 7.4 RBC 4.67 Hgb 13.7 Hct 39.8 MCV 85.2 Assessment/Plan All Active Problems Hypertensive emergency (Acute) Gastritis (Acute) Seizure (Acute) Hypertensive emergency (Acute) Intractable nausea and vomiting (Acute) epigastric pain for 1 month, presumed H. pylori infection. Now vomiting I plan to perform upper endoscopy. The patient stands the risks, benefits, complications and possible alternatives to endoscopy and consents to the procedure. 11/18/18 1040 <Electronically signed by Josh Cervantes MD> Date Josh Cervantes MD Cosigner Signature (if applicable): Date CC: Win Richardson MD; Josh Cervantes MD Signed CBC W/DIFF, AUTOMATED Collected: 11/18/2018 Status: F Source: [place] 5:18 AM [facility] REPOSITORY TYPE CODE TESTS RESULT OUT OF RANGE REFERENCE UNITS LAB L100.1000 4.4-11.0 K/mm3 Normal WBC 7.4 LAB L100.1200 4.2-5.4 M/mm3 Normal RBC 4.67 LAB L100.1300 12.0-15.0 g/dl Normal HGB 13.7 LAB L100.1400 37-47 % Normal HCT 39.8 LAB L100.1500 81-99 fL Normal MCV 85.2 LAB L100.1600 27.0-32.0 pg Normal MCH 29.3 LAB L100.1700 32-36 g/gl Normal MCHC 34.4 LAB L100.1810 11.6-14.6 % Normal RDW CV 13.3 LAB L100.1820 35.1-43.9 fl Normal RDW SD 40.9 LAB L100.1900 150-450 K/mm3 Normal PLT 155 LAB L100.2000 6.2-12.0 fl Normal MPV 10.8 LAB L100.2100 47-70 % Normal NEUT% 60.4 LAB L100.2200 19-41 % Normal LY% 26.9 LAB L100.2300 0-10 % High MONO% 10.6 LAB L100.2400 0-5 % Normal EO% 1.1 LAB L100.2500 0-1 % Normal BASO% 0.7 LAB L100.2550 0.0-0.9 % Normal IM GRAN % 0.300 Result Comment: IG% - Immature Granulocytes (promyelocytes, myelocytes and metamyelocytes) > 1% indicates that a LEFT SHIFT is Present. LAB L100.2620 2.0-7.7 X10 3/uL Normal Absolute Neut 4.5 LAB L100.2720 0.83-4.51 X10 3/ul Normal Absolute Lymph 1.99 Performed By: #### L100.0100 #### [facility] [address] [place], [place], [address] COMPREHENSIVE METABOLIC Collected: 11/18/2018 Status: F Source: [facility] 5:18 AM [facility] REPOSITORY TYPE CODE TESTS RESULT OUT OF RANGE REFERENCE UNITS LAB L501.0100 74-106 mg/dL High GLU 118 Result Comment: Fasting Glucose result from 100 to 125 mg/dL suggests IMPAIRED HOMEOSTASIS per A.D.A. criteria. Please note revised GLUCOSE reference range effective 2017. LAB L501.1000 7-18 mg/dL Normal BUN 8 LAB L501.1100 0.55-1.02 mg/dL Normal CREAT,SERUM 0.66 Result Comment: The validity of the calculated GFR AND GFRAA in patients over 70 years has not been determined. Clinical correlation is essential. LAB L501.1110 >60 mL/min Normal EST GFR 91 Result Comment: Non- GFR Calc LAB L501.1115 >60 mL/min Normal EST GFR - AA 110 Result Comment: GFR Calc LAB L501.1255 ml/min Normal Estimated CRCL 36.50 LAB L501.1300 10-20 RATIO Normal BUN/CRE 12.1 LAB L501.1500 6.4-8. g/dL Low 2 T PROT 5.9 LAB L501.1800 3.2-5. g/dL Normal 0 ALB 3.3 LAB L501.1950 2.2-4. g/dL Normal 2 GLOB 2.6 LAB L501.2000 0.9-2. RATIO Normal 4 A/G 1.3 LAB L501.2200 8.5-10 mg/dL Low .1 CA 8.3 LAB L501.4100 15-37 U/L Low AST 14 LAB L501.4305 45-117 U/L Normal ALK P 83 LAB L501.4405 13-56 U/L Normal ALT 15 LAB L501.4600 0.20-1 mg/dL Normal .00 T BILI 0.40 LAB L501.5300 136-14 mmol/L Normal 5 NA 142 LAB L501.5600 3.5-5. mmol/L Low 1 K 3.2 LAB L501.5900 98-107 mmol/L Normal CL 105 LAB L501.6100 21.0-3 mmol/L Normal 2.0 CO2 28.0 LAB L501.6200 5-15 Normal GAP 9 Performed By: #### L500.4050 #### [facility] [address] [place], [place], [address] THYROID STIM HORMONE Collected: 11/18/2018 Status: F Source: [place] ([facility]) 5:18 AM [facility] REPOSITORY Order Comment: Comments: pre op TYPE CODE TESTS RESULT OUT OF RANGE REFERENCE UNITS LAB L501.9520 0.358-3.74 uIU/mL Normal TSH 3.68 Performed By: #### L501.9520 #### [facility] [address] [place], [address] EMERGENCY DEPARTMENT Observed: 11/18/2018 Status: F Source: [place] SUMMARY 1:31 AM [facility] REPOSITORY [facility] Medical Records Department [address] [place] [address] Emergency Department Summary 11/17/18 1616 MR#: [id number] Acct: [id number] Name: JAYCEE CAUSEY Rep #: [id number] : 1935 83 From: Fara Carter MD PCP: Win Richardson MD Status: ADM ALFIE - ER Visit Summary Date of Service: 11/17/18 Chief Complaint: Abdominal pain History of Present Illness: The patient is a 83 F presenting with abdominal pain. Patient has been having problems with abdominal pain for the past month. She was admitted in October. During that admission she had a reaction to fentanyl and experienced a seizure. She had a negative workup after the seizure. Family states she was doing well for 2 weeks after her discharge. She then again started having abdominal pain, generalized weakness. She has been having nausea, vomiting, diarrhea with intermittent constipation. Denies blood in her stool. Denies chest pain or shortness of breath. She was diagnosed with H. pylori a week ago. She was started on antibiotics. She is unable to tolerate these antibiotics secondary to nausea. She was taken off of Zofran secondary to prolonged QT. She was seen by her primary care physician today and was sent to the ED for concern of right lower quadrant pain. Physical Examination: Vitals are stable. Patient is afebrile. Alert no acute distress. HEENT exam dry mucous membranes Neck is supple. Lungs are clear and equal bilaterally. Heart is regular rate and rhythm. Abdomen is soft diffuse tenderness with no rebound or guarding Extremities are unremarkable. Skin is warm and dry. No focal neurologic deficit. Remainder of exam is unremarkable. Emergency Department Course and Treatment: Patient given IV fluids, Phenergan. CBC unremarkable. Chemistries show potassium 3.0. Liver enzymes are unremarkable. Lipase 289. CT abdomen pelvis shows no acute process. Patient continues to have nausea and abdominal pain in the ED. Discussed with the hospitalist for observation. Disposition: Observation Impression: Abdominal pain, intractable nausea This note was generated with [employer] dictation software. It may contain incorrect words, spelling, and punctuation that were not noted in review of the chart prior to signing ED Disposition - Plan for ED Patient: Disposition: Acute Care Hospital [facility] Chief Complaint: Abd Pain What to do if you have Problems For any increased pain, shortness of breath, bleeding, nausea or vomiting, chest pain, or any unexpected problems, contact your Primary Care Provider. Call [facility] ([phone]) or report to the closest Emergency Room. Call 911 if necessary. 11/18/18 0131 <Electronically signed by Fara Carter MD> Date Fara Carter MD Cosigner Signature (If Indicated): Date CC: Win Richardson MD CNOP Observed: 11/18/2018 Status: COMPLETED Source: [place] 12:00 AM [facility] REPOSITORY Operative Note (Enc) (GENSWS) Progress Notes: Josh Cervantes MD 11/19/2018 7:06 PM Signed OPERATIVE NOTATION FOR [facility] SURGICAL PROCEDURE. November 18, 2018 Jaycee Causey 1935 [id number] female PROCEDURE: EGD WITH BIOPSY - [id number] SURGEON: Angel Cervantes M.D. FACS GEOSPATIAL ENGINEER: None DEPT: W PROVIDER: [id number] Cervantes MD POS: [id number] DIAGNOSIS: (R10.13) Epigastric pain (primary encounter diagnosis) ASA CLASS: 3 - Severe FINDINGS: gastric ulcer COMPLICATIONS: None PMHx - PAST MEDICAL HISTORY Diagnosis Date - Breast cancer surgery and RT - now cured - 1987 - HTN (hypertension) - Hyperlipidemia COMORBIDITIES - HTN Post Op Occurrences - None Wound Classification - Clean Contaminated Operative note dictated in the [facility] dictation system. Josh Cervantes MD Encounter Status:Closed by JOSH CERVANTES MD on 11/19/18 EGD ([facility] S[facility]) Observed: 11/18/2018 Status: F Source: [place] 12:00 AM [facility] REPOSITORY Patient: JAYCEE CAUSEY : 1935 (83/F) Acct Num: [id number] Phys: Mehdi Rodriguez DO Unit Num: [id number] Loc: MS3 [id number] Specimen: [id number] Received: 11/18/18 - 1332 Spec Type: EGD BIOPSY TISSUES 1 TISSUES: A. Jejunum, NOS B. Duodenum, NOS C. Gastric mucous membrane D. Gastric mucous membrane E. Gastric mucous membrane F. Esophagus, NOS COMMENT C. The results of immunohistochemistry for Helicobacter pylori will be reported separately ([id number]). D. The results of immunohistochemistry for Helicobacter pylori will be reported separately ([id number]). GROSS DESCRIPTION A - Received in fixative is one container labeled with the patient's name and designated biopsy jejunum. The specimen consists of one irregular fragment of light mcgraw soft tissue that measures 0.4 x 0.3 x 0.1 cm. The specimen is totally submitted in one cassette. B - Received in fixative is one container labeled with the patient's name and designated biopsy duodenum. The specimen consists of one irregular fragment of light mcgraw soft tissue that measures 0.3 x 0.2 x 0.1 cm. The specimen is totally submitted in one cassette. C - Received in fixative is one container labeled with the patient's name and designated biopsy gastric antrum. The specimen consists of one irregular fragment of light mcgraw soft tissue that measures 0.7 x 0.2 x 0.1 cm. The specimen is totally submitted in one cassette. D - Received in fixative is one container labeled with the patient's name and designated biopsy ulcer greater curvature. The specimen consists of one irregular fragment of light mcgraw soft tissue that measures 0.3 x 0.3 x 0.1 cm. The specimen is totally submitted in one cassette. E - Received in fixative is one container labeled with the patient's name and designated biopsy GE junction. The specimen consists of multiple irregular fragments of light mcgraw soft tissue that in aggregate measure 0.5 x 0.3 x 0.1 cm. The specimen is totally submitted in one cassette. F - Received in fixative is one container labeled with the patient's name and designated biopsy mid esophagus. The specimen consists of one irregular fragment of light mcgraw soft tissue that measures 0.3 x 0.3 x 0.1 cm. The specimen is totally submitted in one cassette. / MEEK:balbina 11/18/18 TC: CPT: 98669 x6, 97165 x2 HEADER OPERATION: [place] PRE-OP DIAGNOSIS: Abdominal pain; stool test positive for H. pylori; gastritis with vomiting TISSUE SUBMITTED: A - Biopsy jejunum, B - Biopsy duodenum, C - Biopsy gastric antrum, H. pylori and path, D - Biopsy healing ulcer greater curvature, E - Biopsy GE junction, F - Biopsy mid esophagus MICROSCOPIC DESCRIPTION Slides are reviewed. C. The specimen shows fragments of gastric mucosa with chronic inflammatory cell infiltrates in the lamina propria consisting of lymphocytes and plasma cells, consistent with mild chronic gastritis. MICROSCOPIC DIAGNOSIS A. Jejunum, biopsy: A fragment of small intestinal mucosa, no pathologic diagnosis. B. Duodenum, biopsy: A fragment of duodenal mucosa, no pathologic diagnosis. C. Gastric antrum, biopsy: Mild gastritis. See microscopic description and comment. D. Healing ulcer greater curvature, biopsy: A fragment of gastric mucosa with ulceration and associated acute and chronic inflammation. Reactive epithelial changes. See comment. E. Gastroesophageal junction, biopsy: Fragments of squamous epithelium with changes consistent with gastroesophageal reflux disease and acute and chronic inflammation. Special stain for fungi is negative for organisms; matched control is appropriate. F. Mid esophagus, biopsy: Fragments of squamous epithelium with changes consistent with gastroesophageal reflux disease and acute and chronic inflammation. Special stain for fungi is negative for organisms; matched control is appropriate. SJ:balbina 11/19/18 Signed Ed Medina MD 11/19/18 <signature on file> Performed By: #### PEGValeri #### [facility] [address] [place], [address] HISTORY AND PHYSICAL Observed: 11/17/2018 Status: F Source: [place] EXAM 8:04 PM [facility] REPOSITORY [facility] Medical Records Department [address] [place] [address] History and Physical 11/17/181952 MR#: [id number] Acct: [id number] Name: JAYCEE CAUSEY Rep #: [id number] : 1935 83 From: Wilfredo Pitt MD PCP: Win Richardson MD Status: REG ER Y Location: ED Problem List (1) Intractable nausea and vomiting Status: Acute (2) HTN (hypertension) Status: Chronic (3) Gastritis Status: Acute Qualifiers: Gastritis type: unspecified gastritis Chronicity: acute Gastritis bleeding: presence of bleeding unspecified Qualified Code(s): K29.00 - Acute gastritis without bleeding History of Present Illness Date of Admission: 11/17/18 Chief Complaint: abdominal pain , nausea and vomiting The patient is a 83 year old female patient with a history of hypertension and mild cognitive impairment presents to the ER with abdominal pain. This is her second visit in one month for the same complaint. At previous visit she received fentanyl and subsequently had altered mental status and a seizure. She was diagnosed positive for H. Pylori by fecal sample. Since then she was unable to tolerate her antibiotic treatment (daughter unable to tell me at this time which medication that was). She was discontinued on Zofran and Trazodone for concern of QT prolongation after an episode of slow heart beat during physical therapy. A nurse practitioner stared her on liquid Zofran at 40mg PO q day started 3 days ago for concern of depressive symptoms. Today her abdominal pain is worse and she has little if any PO intake along with nausea and vomiting. She will be admitted for observation and Dr Cervantes has agreed to do inpatient EGD. Past Medical History Past Medical History (Chronic Problems): Chronic Problems Breast cancer (Chronic) HTN (hypertension) (Chronic) Allergies fentanyl Allergy (Verified 11/17/18 15:51) Other tamoxifen Allergy (Verified 11/17/18 15:51) Anaphylaxis amlodipine Adverse Reaction (Verified 11/17/18 15:51) Upset Stomach codeine Adverse Reaction (Verified 11/17/18 15:51) Upset Stomach gabapentin Adverse Reaction (Verified 11/17/18 15:51) Upset Stomach lisinopril Adverse Reaction (Verified 11/17/18 15:51) Upset Stomach niacin Adverse Reaction (Verified 11/17/18 15:51) Upset Stomach primidone Adverse Reaction (Verified 11/17/18 15:51) Upset Stomach proparacaine Adverse Reaction (Verified 11/17/18 15:51) Upset Stomach Home Medications: Ambulatory Orders Medication Instructions Recorded Acetaminophen 650 mg PO Q4H PRN PRN 10/04/18 Surgical History: hysterectomy, tonsillectomy, - - lumpectomy with axillary nodes dissection; Facial surgery after facial laceration post fall Smoking Status: Never smoker - *Family History Maternal Family History: Family History (Last Updated 10/04/18 @ 06:33 by Maxx Hanks MD) Mother Hypertension CVA (cerebral vascular accident) History Items: No pertinent history Review of Systems Constitutional: Denies: Chills, Fever, Weight Change HEENT: Denies: Head Aches, Sinus Congestion, Sinus Drainage Cardiovascular: Denies: Chest Pain, Palpitations Respiratory: Denies: Cough, Shortness of breath at rest, Sputum production Gastrointestinal: Reports: Abdominal Pain, Nausea, Vomiting Genitourinary: Denies: Dysuria Musculoskeletal: Denies: Joint Pain, Joint Tenderness Skin: Denies: Rash, Wounds Neurological: Denies: Numbness, Tingling, Focal weakness Psychiatric: Reports: Depression. Denies: Anxiety, Homicidal Ideations, Suicidal Ideations Hematologic/ Lymphatic: Denies: Easy Bruising, Easy Bleeding VTE Information - Inpt Only VTE Present on Admission: No VTE Mechan Device Prophylaxis: None VTE Pharm Prophylaxis ordered?: Yes Patient Problems: Active and Suspected Problems Intractable nausea and vomiting (Acute) - Physical Exam General: Alert, Cooperative, Confused HEENT: Atraumatic, Normocephalic Neck: Supple Lungs: Clear to auscultation, Normal air movement, No rhonchi, No wheeze, No rales Cardiovascular: Regular rate, Regular Rhythm, Normal S1, Normal S2, No murmurs Abdomen: Bowel Sounds Present, Rebound Tenderness, Tender Extremities: No edema Skin: No rashes Musculoskeletal: No Tenderness to Palpation of Joints or Extremities Neurological: Neuro grossly intact Psych/Mental Status: Normal Affect, Appropriate Vital Signs Temp Pulse Resp BP Pulse Ox 97.8 F 72 18 159/89 H 93 11/17/18 17:50 11/17/18 19:22 11/17/18 19:22 11/17/18 19:22 11/17/18 19:22 Oxygen Delivery Method Room Air Weight: 150 lb Body Mass Index (BMI) 26.5 Laboratory Tests Past 24 Hrs Assessment/Plan All Active Problems Hypertensive emergency (Acute) Gastritis (Acute) Seizure (Acute) Hypertensive emergency (Acute) Intractable nausea and vomiting (Acute) Plan 1. Abdominal Pain / Nausea and Vomiting- admit to general medical floor for observation. D51/2NS with 20meq of KCl at 100cc/hour, morphine 1-2mg IV q 2 hrs prn pain, Phenergan 12.5 mg IV q 6hrs prn nausea. CBC, CMP in am. Consult Dr Cervantes. NPO at midnight pending EGD. 2. Depression - SSRI has been started continue at discharge 3.DVT prophylaxis- LMWH Hold other routine medications at this time. To be re-evaluated in AM following EGD workup. Code Visit OBSV E AND M: 11184 Initial observation care L2 11/17/182003 <Electronically signed by Wilfredo Pitt MD> Date Wilfredo Pitt MD Cosigner Signature: Date (if applicable) CC: Win Richardson MD; Wilfredo Pitt MD Signed URINALYSIS, COMPLETE Collected: 11/17/2018 Status: F Source: [place] 5:40 PM [facility] REPOSITORY Order Comment: How was Urine Obtained? CLEAN CATCH TYPE CODE TESTS RESULT OUT OF RANGE REFERENCE UNITS LAB L400.3000 Yellow COLOR Normal Straw LAB L400.3050 Clear Normal CLARITY Clear LAB L400.3200 Normal mg/dl Normal GLUCOSE, UR Normal LAB L400.3300 Negative mg/dL Normal BILIRUBIN URINE Negative LAB L400.3400 Negative mg/dl Normal KETONE UR Negative LAB L400.3465 1.002-1.030 Normal SP.GR. DIPSTX 1.010 LAB L400.3550 5.0 - 8.0 pH UR Normal 7.0 LAB L400.3600 Negative mg/dl PROT Normal DIPSTX Negative LAB L400.3700 Normal mg/dl Normal UROBILI Normal LAB L400.3750 Negative Normal NITRITE UR Negative LAB L400.3780 Negative /ul Normal OCCULT BLOOD-UR Negative LAB L400.3800 Negative /ul LEUK Normal ESTERASE Negative LAB L400.4050 0-5 /hpf WBC Normal 0-5 SEEN LAB L400.4100 0-5 /hpf 0 Normal RBC-UA SEEN LAB L400.4150 5-10 /hpf SQUAM Normal EPI 0-5 SEEN LAB L400.4300 None Seen /hpf 0 Normal BACTERIA SEEN LAB L400.4350 <or=2+ /hpf 0 Normal MUCUS, URINE SEEN Performed By: #### L400.0001 #### [facility] [address] [place], [address] CBC W/DIFF, AUTOMATED Collected: 11/17/2018 Status: F Source: [place] 4:23 PM [facility] REPOSITORY TYPE CODE TESTS RESULT OUT OF RANGE REFERENCE UNITS LAB L100.1000 4.4-11.0 K/mm3 Normal WBC 8.5 LAB L100.1200 4.2-5.4 M/mm3 Normal RBC 5.35 LAB L100.1300 12.0-15.0 g/dl High HGB 15.7 LAB L100.1400 37-47 % Normal HCT 45.4 LAB L100.1500 81-99 fL Normal MCV 84.9 LAB L100.1600 27.0-32.0 pg Normal MCH 29.3 LAB L100.1700 32-36 g/gl Normal MCHC 34.6 LAB L100.1810 11.6-14.6 % Normal RDW CV 13.3 LAB L100.1820 35.1-43.9 fl Normal RDW SD 40.5 LAB L100.1900 150-450 K/mm3 Normal PLT 152 LAB L100.2000 6.2-12.0 fl Normal MPV 10.5 LAB L100.2100 47-70 % High NEUT% 73.6 LAB L100.2200 19-41 % Low LY% 17.5 LAB L100.2300 0-10 % Normal MONO% 7.8 LAB L100.2400 0-5 % Normal EO% 0.6 LAB L100.2500 0-1 % Normal BASO% 0.4 LAB L100.2550 0.0-0.9 % Normal IM GRAN % 0.100 Result Comment: IG% - Immature Granulocytes (promyelocytes, myelocytes and metamyelocytes) > 1% indicates that a LEFT SHIFT is Present. LAB L100.2620 2.0-7.7 X10 3/uL Normal Absolute Neut 6.3 LAB L100.2720 0.83-4.51 X10 3/ul Normal Absolute Lymph 1.48 Performed By: #### L100.0100 #### [facility] [address] [place], [address] COMPREHENSIVE METABOLIC Collected: 11/17/2018 Status: F Source: [facility] 4:23 PM [facility] REPOSITORY TYPE CODE TESTS RESULT OUT OF RANGE REFERENCE UNITS LAB L501.0100 74-106 mg/dL Normal GLU 95 Result Comment: Please note revised GLUCOSE reference range effective 2017. LAB L501.1000 7-18 mg/dL Normal BUN 9 LAB L501.1100 0.55-1.02 mg/dL Normal CREAT,SERUM 0.70 Result Comment: The validity of the calculated GFR AND GFRAA in patients over 70 years has not been determined. Clinical correlation is essential. LAB L501.1110 >60 mL/min Normal EST GFR 85 Result Comment: Non- GFR Calc LAB L501.1115 >60 mL/min Normal EST GFR - AA 103 Result Comment: GFR Calc LAB L501.1255 ml/min Normal Estimated CRCL 36.50 LAB L501.1300 10-20 RATIO Normal BUN/CRE 12.8 LAB L501.1500 6.4-8. g/dL Normal 2 T PROT 7.0 LAB L501.1800 3.2-5. g/dL Normal 0 ALB 3.9 LAB L501.1950 2.2-4. g/dL Normal 2 GLOB 3.1 LAB L501.2000 0.9-2. RATIO Normal 4 A/G 1.3 LAB L501.2200 8.5-10 mg/dL Normal .1 CA 8.8 LAB L501.4100 15-37 U/L Low AST 14 LAB L501.4305 45-117 U/L Normal ALK P 102 LAB L501.4405 13-56 U/L Normal ALT 15 LAB L501.4600 0.20-1 mg/dL Normal .00 T BILI 0.70 LAB L501.5300 136-14 mmol/L Normal 5 NA 138 LAB L501.5600 3.5-5. mmol/L Low 1 K 3.0 LAB L501.5900 98-107 mmol/L Normal CL 102 LAB L501.6100 21.0-3 mmol/L Normal 2.0 CO2 27.0 LAB L501.6200 5-15 Normal GAP 9 Performed By: #### L500.4050, L501.2450 #### [facility] [address] [facility] [place], [address] LIPASE Collected: 11/17/2018 Status: F Source: [place] 4:23 PM [facility] REPOSITORY TYPE CODE TESTS RESULT OUT OF RANGE REFERENCE UNITS LAB 01.2450 73-393 U/L Normal LIPASE 289 Performed By: #### L500.4050, L501.2450 #### [facility] [address] [facility] [place], [address] ABDOMEN/PELVIS WITH Observed: 11/17/2018 Status: F Source: [place] CONTRAST 4:13 PM [facility] REPOSITORY [facility] Imaging Services [address] [place] [address] Abdomen/Pelvis WITH Contrast MR#: [id number] Acct: [id number] Name: JAYCEE CAUSEY Rep #: [id number] : 1935 F 83 From: Melanie Ashraf MD PCP: Win Richardson MD Status: REG ER Study: Abdomen/Pelvis WITH Contrast Date of Exam: 11/17/18 Exam# [id number] Ordering Dr: Fara Carter MD STUDY: CT ABDOMEN AND PELVIS WITH CONTRAST REASON FOR EXAM: Female, 83 years old. Abdominal pain. History of breast CA. Kidney stones. RADIATION DOSAGE (If Supplied By Facility): CTDIvol = ( 16.28 ) mGy, DLP = ( 770.38 ) mGycm TECHNIQUE: Transaxial images were obtained from the dome of the diaphragm to the symphysis pubis without oral contrast. 100ml ml of Isovue 300 contrast was administered. Sagittal and coronal images were reconstructed. Individualized dose optimization techniques were used for this CT. COMPARISON: 10/04/2018, 06/14/2018.. FINDINGS: Calcified granuloma is noted in the right middle lobe. Visualized heart is normal. There is a well-circumscribed low-attenuation lesion in the lateral segment of the liver measuring 1.[address] density measures 26 Hounsfield units. This is not consistent with a simple cyst, but is stable in size compared to prior studies. Additional low attenuation lesions in the liver are too small to characterize. Calcifications in the spleen are consistent with old granulomatous disease. The pancreas is unremarkable. The gallbladder is unremarkable. The adrenal glands are normal. There is a 5.7 cm upper pole left renal cyst. There is a 1.3 cm mid pole left renal cyst. Lesions show no significant change in size compared to June 2018. There is no evidence of solid renal mass, stones or hydronephrosis. The aorta is normal in caliber. There is no free fluid, free air, or organized collection. No bowel obstruction or inflammatory change. Is diverticulosis is noted, with no evidence of acute diverticulitis. Stool burden is low. Urinary bladder is unremarkable. Normal abdominal wall. There is a mild lumbar levoscoliosis. Moderate degenerative changes of the lumbar spine are noted. CT/Abdomen/Pelvis WITH Contrast IMPRESSION: 1. No acute process. 2. Stable 1.2 cm hepatic lesion. Additional lesions are too small to characterize. 3. Left renal cysts. 4. Additional chronic changes are detailed above. Electronically Signed: Melanie Ashraf MD at 18:54 EST Tel , Service support , CC: Fara Carter MD; Win Richardson MD Federal Mediation Commissioner: Signed H. PYLORI STOOL AG Collected: 11/07/2018 Status: F Source: [place] 3:00 AM [facility] REPOSITORY TYPE CODE TESTS RESULT OUT OF REFERENCE UNITS RANGE LAB L3100.1950 Negative High H PYLORI Positive STL AG Result Comment: Performed at: - [facility] [address] [id number] Dean Of Graduate Studies: Lori Randle MD, Phone: [phone] Performed By: #### L3100.1950 #### [facility] (refer to report for specific site) refer to report for address and phone number CBC W/DIFF, AUTOMATED Collected: 10/24/2018 Status: F Source: [place] 2:15 PM [facility] REPOSITORY TYPE CODE TESTS RESULT OUT OF RANGE REFERENCE UNITS LAB L100.1000 4.4-11.0 K/mm3 Normal WBC 7.5 LAB L100.1200 4.2-5.4 M/mm3 Normal RBC 5.18 LAB L100.1300 12.0-15.0 g/dl Normal HGB 14.8 LAB L100.1400 37-47 % Normal HCT 44.5 LAB L100.1500 81-99 fL Normal MCV 85.9 LAB L100.1600 27.0-32.0 pg Normal MCH 28.6 LAB L100.1700 32-36 g/gl Normal MCHC 33.3 LAB L100.1810 11.6-14.6 % Normal RDW CV 12.9 LAB L100.1820 35.1-43.9 fl Normal RDW SD 40.5 LAB L100.1900 150-450 K/mm3 Normal PLT 162 LAB L100.2000 6.2-12.0 fl Normal MPV 10.0 LAB L100.2100 47-70 % Normal NEUT% 67.4 LAB L100.2200 19-41 % Normal LY% 23.9 LAB L100.2300 0-10 % Normal MONO% 7.1 LAB L100.2400 0-5 % Normal EO% 1.1 LAB L100.2500 0-1 % Normal BASO% 0.4 LAB L100.2550 0.0-0.9 % Normal IM GRAN % 0.100 Result Comment: IG% - Immature Granulocytes (promyelocytes, myelocytes and metamyelocytes) > 1% indicates that a LEFT SHIFT is Present. LAB L100.2620 2.0-7.7 X10 3/uL Normal Absolute Neut 5.1 LAB L100.2720 0.83-4.51 X10 3/ul Normal Absolute Lymph 1.79 Performed By: #### L100.0100 #### [facility] [address] [place], [address] COMPREHENSIVE METABOLIC Collected: 10/24/2018 Status: F Source: [place] [facility] 2:15 PM [facility] REPOSITORY TYPE CODE TESTS RESULT OUT OF RANGE REFERENCE UNITS LAB L501.0100 74-106 mg/dL High GLU 125 Result Comment: Fasting Glucose result from 100 to 125 mg/dL suggests IMPAIRED HOMEOSTASIS per A.D.A. criteria. Please note revised GLUCOSE reference range effective 2017. LAB L501.1000 7-18 mg/dL Normal BUN 12 LAB L501.1100 0.55-1.02 mg/dL Normal CREAT,SERUM 0.81 Result Comment: The validity of the calculated GFR AND GFRAA in patients over 70 years has not been determined. Clinical correlation is essential. LAB L501.1110 >60 mL/min Normal EST GFR 72 Result Comment: Non- GFR Calc LAB L501.1115 >60 mL/min Normal EST GFR - AA 87 Result Comment: GFR Calc LAB L501.1300 10-20 RATIO Normal BUN/CRE 14.7 LAB L501.1500 6.4-8.2 g/dL T Normal PROT 6.4 LAB L501.1800 3.2-5.0 g/dL Normal ALB 3.5 LAB L501.1950 2.2-4.2 g/dL Normal GLOB 2.9 LAB L501.2000 0.9-2.4 RATIO Normal A/G 1.2 LAB L501.2200 8.5-10.1 mg/dL CA Normal 8.5 LAB L501.4100 15-37 U/L Low AST 12 LAB L501.4305 45-117 U/L Normal ALK P 104 LAB L501.4405 13-56 U/L Normal ALT 14 LAB L501.4600 0.20-1.00 mg/dL T Normal BILI 0.40 LAB L501.5300 136-145 mmol/L NA Normal 138 LAB L501.5600 3.5-5.1 mmol/L Low K 3.0 LAB L501.5900 98-107 mmol/L CL Normal 101 LAB L501.6100 21.0-32.0 mmol/L Normal CO2 29.0 LAB L501.6200 5-15 Normal GAP 8 Performed By: #### L500.4050, L501.5200 #### [facility] [address] [place], [address] MAGNESIUM Collected: 10/24/2018 Status: F Source: [place] 2:15 PM [facility] REPOSITORY TYPE CODE TESTS RESULT OUT OF RANGE REFERENCE UNITS LAB L501.5200 1.6-2.6 mg/dL Normal MG 1.9 Performed By: #### L500.4050, L501.5200 #### [facility] [address] [place], [address] BNP,B-TYPE NATRIURETIC Collected: 10/24/2018 Status: F Source: [place] 2:15 PM [facility] REPOSITORY TYPE CODE TESTS RESULT OUT OF RANGE REFERENCE UNITS LAB L503.6620 0-100 pg/mL Normal B-TYPE 54.6 ARON PEP Performed By: #### L503.6620 #### [facility] [address] [facility] [place], [address] ELECTROENCEPHALOGRAM Observed: 10/21/2018 Status: F Source: [place] 1:04 PM [facility] REPOSITORY [facility] Pulmonary Services/Neurology [address] [place] [address] MR#: [id number] Acct: [id number] Name: JAYCEE CAUSEY Rep #: [id number] : 1935 83 From: Ngozi Lanier MD Referring Dr: Maryana Rolon MD Status: DIS IN Ordering Dr: Date: Location: [place] [id number] Sex: F C - Electroencephalogram Date of [...] Nathan Lanier MD; Maryana Rolon MD; Win Richardson MD Date Dictated: 10/04/182158 Date Transcribed: 10/04/182158 Federal Mediation Commissioner: RSR Signed CONSULTATION Observed: 10/21/2018 Status: F Source: [place] 1:04 PM [facility] REPOSITORY [facility] Medical Records Department [address] [place] [address] Consultation 10/04/182202 MR#: [id number] Acct: [id number] Name: JAYCEE CAUSEY Rep #: [id number] : 1935 83 From: Ngozi Lanier MD PCP: Win Richardson MD Status: DIS IN Y [id number] Problem List (1) Hypertensive emergency Status: Acute [...] (Auto) Neut % (Auto) Lymph % (Auto) [place] % (Auto) Assessment/Plan All Active Problems Hypertensive [...] management Code Visit Inpatient E AND M: 68985 Init Hosp L3 10/21/18 1304 <Electronically signed by Ngozi Lanier MD> Date Ngozi Lanier MD Cosigner Signature (if applicable): Date CC: Nathan Lanier MD; Win Richardson MD Signed CBC-COMPLETE BLOOD CNT Collected: 10/21/2018 Status: F Source: [place] NO DIFF 10:20 AM [facility] REPOSITORY Order Comment: 202 TYPE CODE [...] MPV 10.7 Performed By: #### L100.0500 #### [facility] [address] [place], [place], [address] BASIC METABOLIC Collected: 10/21/2018 Status: F Source: [place] PROFILE (BMP) 10:20 AM [facility] REPOSITORY Order Comment: 202 TYPE CODE [...] GAP 11 Performed By: #### L500.2500 #### [facility] [address] [facility] [place], [address] BASIC METABOLIC Collected: 10/13/2018 Status: F Source: [place] PROFILE (BMP) 12:10 PM [facility] REPOSITORY Order Comment: 201 TYPE CODE [...] GAP 5 Performed By: #### L500.2500 #### [facility] [address] [facility] [place], [address] 12 LEAD ELECTROCARDIOGRAM Observed: 10/07/2018 Status: F Source: [place] 2:05 PM [facility] REPOSITORY [facility] Cardiovascular Services [address] [address] 12 Lead EKG 10/04/18 0451 MR#: [id number] Acct: [id number] Name: JAYCEE CAUSEY Rep #: [id number] : 1935 83 From: Qasim Mistry MD Attending Dr: Maryana Rolon MD Status: DIS IN Ordering Dr: Khalida Chandler MD Date: 10/04/18 Location: [facility] Sex: F C Admitted: 10/04/18 Test [...] abnormality Prolonged QT Abnormal ECG Confirmed by QASIM MISTRY MD ([id number]), acquisitions editor DOUGLAS HOOKS ([id number]) on 10/07/2018 2:05:20 PM Referred By: RAMESH Confirmed By:QASIM MISTRY MD 10/07/18 1405 Date Qasim Mistry MD CC: Maryana Rolon MD; KHALIDA CHANDLER MD; Win Richardson MD Signed DISCHARGE SUMMARY Observed: 10/07/2018 Status: F Source: [place] 12:47 PM [facility] REPOSITORY [facility] Medical Records Department [address] [place] [address] Discharge Summary 10/05/18 1126 MR#: [id number] Acct: [id number] Name: JAYCEE CAUSEY Rep #: [id number] : 1935 83 From: Maryana Rolon MD PCP: Win Richardson MD Status: DIS IN Y Location: [place] [address] Discharge Date and Diagnosis Date of Admission: [...] , Head CTA 10/04/18 05:27 IMPRESSION: Normal [place] without a demonstrated aneurysm or hemodynamically significant [...] history of IBS, hypertension, resident in a halfway who comes in with complaints of nausea, [...] rebound tenderness. 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: Grossly intact - Physical Exam Vital Signs [...] Week, Location: Laboratory Primary Care Physician: Win Richardson MD [Primary Care Provider] - Please follow [...] applicable Code Visit Inpatient E AND M: 88939 Disch Hosp 10/07/18 1247 <Electronically signed by Maryana Rolon MD> Date Maryana Rolon MD Cosigner Signature (if applicable): Date CC: Maryana Rolon MD; Win Richardson MD Signed DISCHARGE INSTRUCTION Observed: 10/05/2018 Status: F Source: [place] 11:26 [facility] REPOSITORY [facility] Medical Records Department [address] [place] [address] Instructions for Home/Discharge Instructions 10/05/18 1112 MR#: [id number] Acct: [id number] Name: JAYCEE CAUSEY Rep #: [id number] : 1935 83 From: Maryana Rolon MD PCP: Win Richardson MD Status: ADM IN - Discharge Diagnoses [...] Week, Location: Laboratory Primary Care Physician: Win Richardson MD [Primary Care Provider] - Please follow up with your Primary Care Physician in: within 1-2 weeks Test Results: Test results from this visit will be discussed in further detail at your follow-up appointment, if applicable. Proposed Discharge Date: 10/05/18 10/05/18 1126 <Electronically signed by Maryana Rolon MD> Date Maryana Rolon MD CC: Nathan Lanier MD; Win Richardson MD RENAL PROFILE Collected: 10/05/2018 Status: F Source: [place] 4:50 AM [facility] REPOSITORY TYPE CODE TESTS RESULT OUT [...] CO2 29.0 Performed By: #### L500.3600 #### [facility] [address] [facility] [place], [address] HISTORY AND PHYSICAL Observed: 10/04/2018 Status: F Source: [place] EXAM 8:15 AM [facility] REPOSITORY [facility] Medical Records Department [address] [place] [address] History and Physical 10/04/18 0513 MR#: [id number] Acct: [id number] Name: JAYCEE CAUSEY Rep #: [id number] : 1935 83 From: Maxx Hanks MD PCP: Win Richardson MD Status: ADM IN Y Location: [place] [address] Problem List (1) Gastritis Status: Acute (2) [...] hyperlipidemia; osteoarthritis; who presented from the assisted halfway because of nausea, vomiting and abdominal pain. ED doctor reported that patient's pain was at the epigastric region but patient was tender in the lower abdominal region. At my examination the characteristics of patient's pain could not be obtained since patient is lethargic and incoherent. Her daughter reported that she had a conversation with patient at the halfway at about 10pm the day before patient's [...] and son in law was at the halfway. When patient was brought to the emergency [...] surgery after facial laceration post fall Lives: Retirement Smoking Status: Never smoker Alcohol: None - [...] (Auto) Neut % (Auto) Lymph % (Auto) [place] % (Auto) Assessment/Plan All Active Problems Hypertensive emergency (Acute) Gastritis (Acute) Seizure (Acute) Hypertensive emergency (Acute) The patient is a 83 year old F with a significant history of IBS; hypertension; breast cancer status post lumpectomy with axillary node dissection and radiation with subsequent anaphylaxis after tamoxifen administration; hyperlipidemia; osteoarthritis; who presented from the assisted halfway because of nausea, vomiting and abdominal pain; [...] bagging. Code Visit Inpatient E AND M: 92964 Init Hosp 10/04/18 0815 <Electronically signed by Maxx Hanks MD> Date Maxx Hanks MD Cosigner Signature: Date (if applicable) CC: Win Richardson MD; Maxx Hanks MD Signed BRAIN W/WO CONTRAST Observed: 10/04/2018 Status: F Source: [place] 8:14 AM [facility] REPOSITORY [facility] Imaging Services [address] [place] [address] Brain W/WO Contrast MR#: [id number] Acct: [id number] Name: JAYCEE CAUSEY Rep #: [id number] : 1935 F 83 From: Kavya Lopez PCP: Win Richardson MD Status: ADM IN Study: Brain W/WO Contrast Date of Exam: 10/04/18 Exam# [id number] Ordering Dr: Maxx Hanks MD STUDY: MRI [...] Tel , Service support , CC: Win Richardson MD; Maxx Hanks MD Federal Mediation Commissioner: Signed EMERGENCY DEPARTMENT Observed: 10/04/2018 Status: F Source: [place] SUMMARY 7:42 AM [facility] REPOSITORY [facility] Medical Records Department [address] [place] [address] Emergency Department Summary 10/04/18 0255 MR#: [id number] Acct: [id number] Name: JAYCEE CAUSEY Rep #: [id number] : 1935 83 From: Khalida Chandler MD PCP: Win Richardson MD Status: ADM IN History of Present [...] , Head CTA 10/04/18 05:27 IMPRESSION: Normal [place] without a demonstrated aneurysm or hemodynamically significant stenosis. Electronically Signed: Iila Moreno MD at 7:06 EST Tel , [...] for ED Patient: Disposition: Acute Care Hospital [facility] Chief Complaint: Abd Pain Diagnosis: Accelerated hypertension, Delirium, Seizure What to do if you have Problems For any increased pain, shortness of breath, bleeding, nausea or vomiting, chest pain, or any unexpected problems, contact your Primary Care Provider. Call [facility] ([phone]) or report to the closest Emergency Room. Call 911 if necessary. 10/04/18 0742 <Electronically signed by Khalida Chandler MD> Date Khalida Chandler MD Cosigner Signature (If Indicated): Date CC: Win Richardson MD CTA NECK W/WO Observed: 10/04/2018 Status: F Source: [place] CONTRAST 5:29 AM [facility] REPOSITORY [facility] Imaging Services [address] [address] CTA Neck W/WO Contrast MR#: [id number] Acct: [id number] Name: JAYCEE CAUSEY Rep #: [id number] : 1935 F 83 From: Ilia Moreno MD PCP: Win Richardson MD Status: ADM IN Study: CTA Neck W/WO Contrast Date of Exam: 10/04/18 Exam# [id number] Ordering Dr: Khalida Chandler MD STUDY: CTA [...] EST Tel , Service support , CC: KHALIAD CHANDLER MD; Win Richardson MD Federal Mediation Commissioner: Signed CTA HEAD W/WO Observed: 10/04/2018 Status: F Source: [place] CONTRAST 5:29 AM [facility] REPOSITORY [facility] Imaging Services [address] [place] [address] CTA Head W/WO Contrast MR#: [id number] Acct: [id number] Name: JAYCEE CAUSEY Rep #: [id number] : 1935 F 83 From: Ilia Moreno MD PCP: Win Richardson MD Status: ADM IN Study: CTA Head W/WO Contrast Date of Exam: 10/04/18 Exam# [id number] Ordering Dr: Khalida Chandler MD STUDY: CTA [...] There is no demonstrated aneurysm of the [place]. There is no demonstrated abnormality of the visualized brain. CT/CTA Head W/WO Contrast IMPRESSION: Normal [place] without a demonstrated aneurysm or hemodynamically significant stenosis. Electronically Signed: Ilia Moreno MD at 7:06 EST Tel , Service support , CC: KHALIDA CHANDLER MD; Win Richardson MD Federal Mediation Commissioner: Signed TROPONIN-I Collected: 10/04/2018 Status: F Source: [place] 5:00 AM [facility] REPOSITORY Order Comment: 'TROP' Serial specimen #1, #2 or #3: 1 TYPE CODE TESTS RESULT OUT OF RANGE REFERENCE UNITS LAB L501.4010 <0.045 ng/mL Normal < 0.015 TROPONIN-I Result Comment: TROPONIN-I EXPECTED VALUES <0.045 Negative 0.045 - 0.590 Consistent with Cardiac Damage > OR = 0.600 Critical Value Not every elevated troponin is indicative of ME. These values should be used with clinical judgement in examining the patient's clinical picture for diagnosis. To establish a diagnosis of ME versus myocardial injury, there must be a demonstrated rise and/or fall in the troponin values, in addition to ischemic symptoms, EKG changes, new regional wall motion abnormality, and/or angiographical evidence. PLEASE NOTE: REFERENCE RANGES EDITED 18 Performed By: #### L501.4010 #### [facility] [place], [address] CHEST 1 VIEW Observed: 10/04/2018 Status: F Source: [place] 4:37 AM [facility] REPOSITORY [facility] Imaging Services [address] [place] [address] Chest 1 View MR#: [id number] Acct: [id number] Name: JAYCEE CAUSEY Rep #: [id number] : 1935 F 83 From: Ilia Moreno MD PCP: Win Richardson MD Status: REG ER Study: Chest 1 View Date of Exam: 10/04/18 Exam# [id number] Ordering Dr: Khalida Chandler MD STUDY: X-RAY CHEST REASON FOR EXAM: [...] support , CC: KHALIDA CHANDLER MD; Win Richardson MD Federal Mediation Commissioner: Signed BRAIN/HEAD WITHOUT Observed: 10/04/2018 Status: F Source: [place] CONTRAST 4:30 AM [facility] REPOSITORY [facility] Imaging Services [address] [place] [address] Brain/Head without Contrast MR#: [id number] Acct: [id number] Name: JAYCEE CAUSEY Rep #: [id number] : 1935 F 83 From: Ilia Moreno MD PCP: Win Richardson MD Status: REG ER Study: Brain/Head without Contrast Date of Exam: 10/04/18 Exam# [id number] Ordering Dr: Khalida Chandler MD STUDY: CT [...] support , CC: KHALIDA CHANDLER MD; Win Richardson MD Federal Mediation Commissioner: Signed URINALYSIS, COMPLETE Collected: 10/04/2018 Status: F Source: [place] 3:54 AM [facility] REPOSITORY Order Comment: Order Date: 10/04/18 How was Urine Obtained? SAP PPM CONSULTANT TO SPECIFY TYPE CODE TESTS RESULT OUT [...] URINE SEEN Performed By: #### L400.0001 #### [facility] [address] [place], [address] CBC W/DIFF, AUTOMATED Collected: 10/04/2018 Status: F Source: [place] 2:30 AM [facility] REPOSITORY TYPE CODE TESTS RESULT OUT [...] Lymph 0.96 Performed By: #### L100.0100 #### [facility] [address] [place], [place], [address] LIVER PROFILE Collected: 10/04/2018 Status: F Source: [place] 2:30 AM [facility] REPOSITORY TYPE CODE TESTS RESULT OUT [...] 0.15 Performed By: #### L500.3400, L500.4050 #### [facility] [address] [place], [address] COMPREHENSIVE METABOLIC Collected: 10/04/2018 Status: F [facility] REPOSITORY TYPE CODE TESTS RESULT OUT [...] 9 Performed By: #### L500.3400, L500.4050 #### [facility] [address] [facility] [place], [address] ABDOMEN/PELVIS WITHOUT Observed: 10/04/2018 Status: F Source: [place] CONT 2:23 AM [facility] REPOSITORY [facility] Imaging Services [address] [place] [address] Abdomen/Pelvis without Cont MR#: [id number] Acct: [id number] Name: JAYCEE CAUSEY Rep #: [id number] : 1935 F 83 From: Ilia Moreno MD PCP: Win Richardson MD Status: REG ER Study: Abdomen/Pelvis without Cont Date of Exam: 10/04/18 Exam# [id number] Ordering Dr: Khalida Chandler MD STUDY: CT [...] support , CC: KHALIDA CHANDLER MD; Win Richardson MD Federal Mediation Commissioner: Signed ABDOMEN/PELVIS WITHOUT Observed: 06/14/2018 Status: F Source: [place] CONT 9:01 AM [facility] REPOSITORY [facility] Imaging Services [address] [place] [address] Abdomen/Pelvis without Cont MR#: [id number] Acct: [id number] Name: JAYCEE CAUSEY Rep #: [id number] : 1935 F 82 From: Ernesto Rajan MD PCP: Win Richardson MD Status: REG CLI Study: Abdomen/Pelvis without Cont Date of Exam: 06/14/18 Exam# [id number] Ordering Dr: Susan Ballesteros PICKER BOX OPERATOR-C STUDY: CT ABDOMEN AND PELVIS WITHOUT CONTRAST [...] EDT , Service support , CC: Win Richardson MD; Susan Ballesteros NP Federal Mediation Commissioner: Signed URINALYSIS, ROUTINE Collected: 05/22/2018 Status: F Source: WINNIE (DIPSTICK) 9:10 AM [facility] REPOSITORY Order Comment: How was Urine [...] 25 ESTERASE Performed By: #### L400.2010 #### [facility] [address] [place], [address] Observed: 05/22/2018 Status: F Source: WINNIE CULTURE, URINE 9:10 AM [facility] REPOSITORY Urine Culture Below infection level. ORGANISM 1: Mixed Gram Pos AND Gram Neg Org [place] Count 1000-10,000 Performed By: #### M100.0650 #### [facility] [address] [place] [address]. [place], [address] Observed: 05/12/2018 Status: F Source: WINNIE OVA AND PARASITES 2:31 PM [facility] REPOSITORY O + P OVA AND PARASITES EXAM, ROUTINE These results were obtained using wet preparation(s) and trichrome stained smear. This test does not include testing for Crytosporidium parvum, Cyclospora, or Microsporidia. TESTING PERFORMED AT [facility]. ORIGINAL REPORT ON FILE IN LAB CONTAINS ADDITIONAL TEST SITE INFORMATION. Ova/Parasite Exam NO OVA, CYSTS, OR PARASITES FOUND. Performed By: #### M600.5000 #### [facility] [address] [place] [address]. [place], [place], [id number] Observed: 01/28/2018 Status: F Source: WINNIE INFLUENZA A+B (RAPID 12:00 AM [facility]) REPOSITORY FLU A/B Rapid Negative test results should be confirmed by culture. Order Rapid Viral Culture for Influenzae A+B ([id number]) if clinically indicated. Influenza Ag, Direct Presumptive NEGATIVE for Influenza A/B Antigen (See Note) Performed By: #### M101.0101 #### [facility] [address] [place] [address]. [place], [place], [id number] CT HEAD OR BRAIN W/O Observed: 12/27/2017 Status: F Source: [employer] CONTRAST 11:25 AM [facility] REPOSITORY Patient Name: JAYCEE CAUSEY CT Exam Date/Time 12/27/2017 11:23:[address] Head or Brain w/o Contrast Ordering Physician DO NELSON GEORGE E Accession Number [id number] CPT4 Codes 14290 () Reason For Exam mental status change [...] Report Dictated on Final Dictating Physician: MD RODRIGUEZ YUN ROBERT Signed Date and Time: 12/27/2017 11:30 am Signed by: MD RODRIGUEZ YUN ROBERT Transcribed Date and Time: 12/27/2017 11:31 CT ABDOMEN/PELVIS W/ Observed: 12/27/2017 Status: F Source: [employer] CONTRAST 6:15 AM [facility] REPOSITORY Patient Name: JAYCEE CAUSEY CT Exam Date/Time 12/27/2017 05:51:[address] Abdomen/Pelvis w/ IV Contrast (IV Onl Ordering Physician MD ACEVEDO DEVINA D. Accession Number [id number] CPT4 Codes 81900 (CT Abdomen/Pelvis w/ IV Contrast (IV Onl), [...] CHEST PORTABLE Observed: 12/27/2017 Status: F Source: [employer] 4:23 AM [facility] REPOSITORY Patient Name: JAYCEE CAUSEY Diagnostic Radiology Exam Date/Time 12/27/2017 04:18:23 EST Exam CR Chest Portable Ordering Physician MD KRISTINA, MARY ANN Santiago Accession Number [id number] CPT4 Codes 09445 () Reason For Exam altered Report Clinical Indications: Views: 1 Comparisons: none Heart: Size within normal limits. Mediastinum: Unremarkable. Lungs: No evidence of infiltrate, effusion or acute interstitial process. Osseous and soft tissue structures: Generally intact. Impression: No radiographic evidence of active cardiopulmonary process. . Report Dictated on Workstation: [id number] Final Dictating Physician: MD MCDOWELL RUSSELL Signed Date and Time: 12/27/2017 4:24 am Signed by: MD MCDOWELL RUSSELL Transcribed Date and Time: 12/27/2017 4:25 US ABDOMEN COMPLETE Observed: 12/26/2017 Status: F Source: [employer] 3:31 PM SYSTEM REPOSITORY Patient Name: JAYCEE CAUSEY Ultrasound Exam Date/Time 12/26/2017 13:10:00 EST Exam US Abdomen Complete Ordering Physician MD STEPAN, WIN MIMS Accession Number [id number] CPT4 Codes 24586 () Reason For Exam chronic nausea Report ULTRASOUND ABDOMEN COMPLETE EXAM DATE AND TIME: 12/26/2017 1:10 PM EST INDICATION: 82 years Female with nausea COMPARISON: 11/14/2015 TECHNIQUE: Complete ultrasound of abdomen FINDINGS: Liver: Normal echogenicity, size and contours. Small calcifications are seen in both hepatic lobes. No other liver lesion is seen.. Gallbladder: Normal. Per the radiological technologist, the sonographic Hou's sign was negative. [...] NICHOLAS Transcribed Date and Time: 12/26/2017 3:34 ALLERGIES ALLERGIES DATE TYPE / CODE NAME / CODE REACTION SEVERITY SOURCE 11/17/2018 Drug lisinopril/ Upset Stomach Unknown [place] [facility] Allergy/4160 [id number]( [facility](SNOMED RXNORM) Repository CT) 11/17/2018 Drug niacin/F006 Upset Stomach Unknown [place] [facility] Allergy/4160 [id number](RXNO [facility](SNOMED RM) Repository CT) 11/17/2018 Drug codeine/F00 Upset Stomach Unknown [place] [facility] Allergy/4160 [id number](RXN [facility](SNOMED ORM) Repository CT) 11/17/2018 Drug primidone/F Upset Stomach Unknown [place] [facility] Allergy/4160 [id number](R [facility](SNOMED XNORM) Repository CT) 11/17/2018 Drug fentanyl/F0 Other Unknown [facility] Allergy/4160 [id number](RX [facility](SNOMED NORM) Repository CT) 11/17/2018 Drug amlodipine/ Upset Stomach Unknown [facility] Allergy/4160 [id number]( [facility](SNOMED RXNORM) Repository CT) 11/17/2018 Drug gabapentin/ Upset Stomach Unknown [facility] Allergy/4160 [id number]( [facility](SNOMED RXNORM) Repository CT) 11/17/2018 Drug proparacain Upset Stomach Unknown [facility] Allergy/4160 e/[id number] [facility](SNOMED 2(RXNORM) Repository CT) 11/17/2018 Drug tamoxifen/F Anaphylaxis Unknown [facility] Allergy/4160 [id number](R [facility](SNOMED XNORM) Repository CT) ENCOUNTERS ENCOUNTERS ADMIT/DISCHARGE ACCOUNT NUMBER ADMITTING ENCOUNTER LOCATION SOURCE CLASS 11/17/2018/11/19/19 [id number] Yoandy, Ambulatory [place] ding:[id number] Repository : [id number]: 1 11/17/2018 [id number] Yoandy, Ambulatory BMSBuilding: [place] Wilfredo BMS.[facility] Repository 11/17/2018 [id number] Yoandy, Ambulatory BMSBuilding: [place] Wilfredo BMS.[facility] Repository 11/17/2018 [id number] Ambulatory BMSBuilding: [place] BMS.[facility] Repository 11/07/2018 [id number] Ambulatory [facility] ding:OLS.BRO Repository OKA 10/24/2018 [id number] Ambulatory [facility] ding:OLS.BRO Repository [place] 10/21/2018 [id number] Ambulatory [facility] ding:OLS.BRO Repository [place] 10/13/2018 [id number] Ambulatory [facility] ding:OLS.BRO Repository [place] 10/04/2018/10/05/20 [id number] Agyepong, Inpatient [place] [facility] ding:PCURoom Repository : NOP301Vey: 1 10/04/2018 [id number] Agyepong, Ambulatory BMSBuilding: [place] Maxx BMS.[facility] Repository 10/04/2018 [id number] Agyepong, Ambulatory BMSBuilding: [place] Maxx BMS.[facility] Repository 06/14/2018 [id number] Ambulatory [facility] ding:CT Repository 05/22/2018 [id number] Ambulatory [facility] ding:OLS.BRO Repository [place] 05/12/2018 [id number] Ambulatory [facility] ding:OLS.BRO Repository [place] 01/28/2018 [id number] Ambulatory [facility] ding:OLS.BRO Repository [place] 12/27/2017 [id number] [address] [place] [address] 1ERoom: System [id number]: Repository [id number] 12/26/2017 [id number] [facility] Repository PAYERS PAYERS ENCOUNTER GUARANTOR PAYER SUBSCRIBER SOURCE 11/17/2018 JAYCEE Savage Primary JAYCEE E [place] [id number] [place] Insurance:[facility] HOFACREDOB: [place]IC[place] [id number] Hospital 64679Yvf: (330) Number: Repository [phone] () [id number] Date:4371-97-81KL [address] [place] [address] 54595YS: 11/17/2018 Secondary NOT GIVENUNK [place] Insurance:SELF PAY [facility] Number: Effective Repository Date:2018-11-17 11/17/2018 JAYCEE Savage Primary JAYCEE E [place] [id number] [place] Insurance:[facility] CARE HOFACREDOB: [place] MED[place] [id number] Hospital 97157Wcr: (330) Number: Repository [phone] () [id number] Date:6120-47-87SF [address] [place] [address] 50963WR: 11/17/2018 Secondary NOT GIVENUNK [place] Insurance:SELF PAY [facility] Number: Effective Repository Date:2018-11-17 11/17/2018 JAYCEE Savage Primary JAYCEE E [place] [id number] [place] [facility] HO[facility]CREDOB: [place] [id number] Hospital 43963Wrj: (330) Number: Repository [phone] () [id number] Date:1896-92-31PV [address] [place] [address] 61867FG: 11/17/2018 Secondary NOT GIVENUNK [place] Insurance:SELF PAY [facility] Number: Effective Repository Date:2018-11-17 11/17/2018 JAYCEE Savage Primary JAYCEE E [place] [id number] [place] Insurance:[facility] CARE HOFACREDOB: [place] [id number] Hospital 37641Obf: (330) Number: Repository [phone] () [id number] Date:0587-02-63QQ [address] [place] [address] 09584RQ: 11/17/2018 Secondary NOT GIVENUNK [place] Insurance:SELF PAY [facility] Number: Effective Repository Date:2018-11-17 11/07/2018 JAYCEE E Primary JAYCEE E [place] [id number] [place] Insurance:[facility] [employer] HOFACREDOB: [place] [id number] Hospital 29673Xij: (330) Number: Repository [phone] () [id number] Date:7274-42-63HA [address] [address]LS: 11/07/2018 Secondary NOT GIVENUNK [place] Insurance:SELF PAY [facility] Number: Effective Repository Date:2018-11-07 10/24/2018 JAYCEE E Primary JAYCEE E [place] [id number] [place] Insurance:[employer] HOFACREDOB: [place] [id number] Hospital 40349Zil: (330) Number: Repository [phone] () [id number] Date:8283-07-09UR [address] [address]VV: 10/24/2018 Secondary NOT GIVENUNK [place] Insurance:SELF PAY [facility] Number: Effective Repository Date:2018-10-24 10/21/2018 JAYCEE E Primary JAYCEE E [place] [id number] [place] Insurance:[facility] [employer] HOFACREDOB: [place] [id number] Hospital 56642Oyc: (330) Number: Repository [phone] () [id number] Date:7868-31-66SW [address] [place] [address] 378[address]UJ: 10/21/2018 Secondary NOT GIVENUNK [place] Insurance:SELF PAY [facility] Number: Effective Repository Date:2018-10-21 10/13/2018 JAYCEE E Primary JAYCEE E [place] [id number] [place] Insurance:[employer] HOFACREDOB: [place] [id number] Hospital 40083Bsl: (330) Number: Repository [phone] () [id number] Date:8361-16-87DA [address] [facility] [place] [address]HW: 10/13/2018 Secondary NOT GIVENUNK [place] Insurance:SELF PAY [facility] Number: Effective Repository Date:2018-10-13 10/04/2018 JAYCEE E Primary JAYCEE E [place] [id number] [place] Insurance:[employer] HOFACREDOB: [place] [id number] Hospital 22990Cah: (330) Number: Repository [phone] () [id number] Date:2995-32-19UW [address] [place] [address]48[address]TG: 10/04/2018 Secondary NOT GIVENUNK [place] Insurance:SELF PAY [facility] Number: Effective Repository Date:2018-10-04 10/04/2018 JAYCEE E Primary JAYCEE E [place] [id number] [place] Insurance:[employer] HOFACREDOB: [place] [id number] Hospital 08437Ydq: (330) Number: Repository [phone] () [id number] Date:4344-21-52XG [address] [place] [address] 800[address]UH: 10/04/2018 Secondary NOT GIVENUNK [place] Insurance:SELF PAY [facility] Number: Effective Repository Date:2018-10-04 10/04/2018 JAYCEE E Primary JAYCEE E [place] [id number] [place] Insurance:[facility] [employer] HOFACREDOB: [place] [id number] Hospital 73083Ggs: (330) Number: Repository [phone] () [id number] Date:4176-33-51BW [address] [place] [address] 36320LK: 10/04/2018 Secondary NOT GIVENUNK [place] Insurance:SELF PAY [facility] Number: Effective Repository Date:2018-10-04 06/14/2018 JAYCEE E Primary JAYCEE E [place] [id number] [place] Insurance:[employer] HOFACREDOB: [place] [id number] Hospital 02176Jzu: (345) Number: Repository [phone] () [id number] Date:[id number] [address]GR: 06/14/2018 Secondary NOT GIVENUNK [place] Insurance:SELF PAY [facility] Number: Effective Repository Date:2018-06-09 05/22/2018 JAYCEE E Primary NOT GIVENUNK [place] [id number] [place] Insurance:SELF PAY [facility] 38609Csr: (600) Number: Effective Repository [phone] () Date:2018-05-22 05/12/2018 JAYCEE E Primary NOT GIVENUNK [place] [id number] [place] Insurance:SELF PAY [facility] [address]287Grq: (671) Number: Effective Repository [phone] () Date:2018-05-12 01/28/2018 Jaycee Primary NOT GIVENUNK [place] [id number] Insurance:SELF PAY [facility] [address] Number: Effective Repository SENIOR Date:2018-01-28 [place], [place] [address]Jeh: (HP) 12/27/2017 Jaycee E [facility] [place]: System licy Number: [id number] Repository [place] Effective Date: [place], [place] [address]Nlv: (HP) 12/26/2017 Jaycee E Primary [facility] [place]: System licy Number: [id number] Repository Runer Effective Date: [place], [place] [address]Fny: ()
== END ==
PROVIDERS: Visit Provider Family Medicine
DX: R11.2 Nausea with vomiting, unspecified (principal); Z79.899 Other long term (current) drug therapy
CPT/HCPCS: 36415; 80048; 85027

== ENCOUNTER → 2018-10-24 14:15 | Outpatient (REF) | payer MEDICARE, SELFPAY ==
[2018-10-04 07:57] VITALS: BMI 26.2
[2018-10-24 14:36] LABS: Absolute Lymphocyte Count 1.79 X10^3/ul (0.83-4.51); Absolute Neutrophil Count 5.1 X10^3/uL (2.0-7.7); Basophil# 0.03 X10^3/uL; Basophil% 0.4 % (0-1); Eosinophil# 0.08 X10^3/uL; Eosinophils% 1.1 % (0-5); Hematocrit 44.5 % (37-47); Hemoglobin 14.8 g/dl (12.0-15.0); Lymphocyte # 1.79 X10^3/ul (4.0); Lymphocyte % 23.9 % (19-41); Mean Corp Hgb Conc 33.3 g/gl (32-36); Mean Corpuscular Hgb 28.6 pg (27.0-32.0); Mean Corpuscular Volume 85.9 fL (81-99); Monocyte# 0.53 X10^3/uL; Monocyte% 7.1 % (0-10); Neutrophil # 5.05 X10^3/uL (2.7-7.7); Neutrophil % 67.4 % (47-70); Platelet Count 162 K/mm3 (150-450); RBC Distribution Width CV 12.9 % (11.6-14.6); RBC Distribution Width SD 40.5 fl (35.1-43.9); Red Blood Count 5.18 M/mm3 (4.2-5.4); White Blood Count 7.5 K/mm3 (4.4-11.0)
[2018-10-24 14:37] LABS: POSITIVE COUNT NO; POSITIVE DIFFERENTIAL NO; POSITIVE MORPHOLOGY NO
[2018-10-24 15:07] LABS: ALB/GLOB Ratio 1.2 RATIO (0.9-2.4); AST(SGOT) 12 U/L (15-37); Alanine Aminotransfer ALT/SGPT 14 U/L (13-56); Albumin, Serum 3.5 g/dL (3.2-5.0); Alkaline Phosphatase 104 U/L (45-117); Anion Gap 8 (5-15); BUN 12 mg/dL (7-18); BUN/Creat Ratio 14.7 RATIO (10-20); Calcium,Total 8.5 mg/dL (8.5-10.1); Chloride 101 mmol/L (98-107); Creatinine, Serum 0.81 mg/dL (0.55-1.02); EST Glomerular Filtration Rate 72 mL/min (>60); Est Glom Filt Rate - Afr Amer 87 mL/min (>60); Globulin 2.9 g/dL (2.2-4.2); Glucose 125 mg/dL (74-106); Magnesium 1.9 mg/dL (1.6-2.6); Protein, Total 6.4 g/dL (6.4-8.2); Sodium Level 138 mmol/L (136-145)
[2018-10-24 15:14] LABS: BNP,B-Type NATRIURETIC PEPTIDE 54.6 pg/mL (0-100)
== END ==
PROVIDERS: Visit Provider Family Medicine
DX: I50.9 Heart failure, unspecified (principal); I49.9 Cardiac arrhythmia, unspecified; Z79.899 Other long term (current) drug therapy
CPT/HCPCS: 36415; 80053; 83735; 83880; 85025

== ENCOUNTER → 2018-11-07 03:00 | Outpatient (REF) | payer MEDICARE, SELFPAY ==
[2018-10-04 07:57] VITALS: BMI 26.2
[2018-11-10 09:46] LABS: H. PYLORI STOOL AG Positive (Negative)
== END ==
PROVIDERS: Visit Provider Family Medicine
DX: R11.2 Nausea with vomiting, unspecified (principal)

== ENCOUNTER 2018-11-17 15:49 | Observation (INO) | payer MEDICARE, SELFPAY ==
[2018-10-04 07:57] VITALS: BMI 26.2
[2018-11-17 15:52] VITALS: BP 150/103; PULSE 67; RESP 17; TEMP 36.7; O2SAT 96; BMI 26.5
--- NOTE | 2018-11-17 16:11 | CT_ITS ---
STUDY: CT ABDOMEN AND PELVIS WITH CONTRAST REASON FOR EXAM: Female, 83 years old. Abdominal pain. History of breast CA. Kidney stones. RADIATION DOSAGE (If Supplied By Facility): CTDIvol = ( 16.28 ) mGy, DLP = ( 770.38 ) mGycm TECHNIQUE: Transaxial images were obtained from the dome of the diaphragm to the symphysis pubis without oral contrast. 100ml ml of Isovue 300 contrast was administered. Sagittal and coronal images were reconstructed. Individualized dose optimization techniques were used for this CT. COMPARISON: 10/04/2018, 06/14/2018.. FINDINGS: Calcified granuloma is noted in the right middle lobe. Visualized heart is normal. There is a well-circumscribed low-attenuation lesion in the lateral segment of the liver measuring 1.[address] density measures 26 Hounsfield units. This is not consistent with a simple cyst, but is stable in size compared to prior studies. Additional low attenuation lesions in the liver are too small to characterize. Calcifications in the spleen are consistent with old granulomatous disease. The pancreas is unremarkable. The gallbladder is unremarkable. The adrenal glands are normal. There is a 5.7 cm upper pole left renal cyst. There is a 1.3 cm mid pole left renal cyst. Lesions show no significant change in size compared to June 2018. There is no evidence of solid renal mass, stones or hydronephrosis. The aorta is normal in caliber. There is no free fluid, free air, or organized collection. No bowel obstruction or inflammatory change. Is diverticulosis is noted, with no evidence of acute diverticulitis. Stool burden is low. Urinary bladder is unremarkable. Normal abdominal wall. There is a mild lumbar levoscoliosis. Moderate degenerative changes of the lumbar spine are noted. CT/Abdomen/Pelvis WITH Contrast IMPRESSION: 1. No acute process. 2. Stable 1.2 cm hepatic lesion. Additional lesions are too small to characterize. 3. Left renal cysts. 4. Additional chronic changes are detailed above. Electronically Signed: Melanie Ashraf MD at 18:54 EST Tel , Service support ,
--- NOTE | 2018-11-17 16:16 | ED.VISSUMM ---
- ER Visit Summary Date of Service: 11/17/18 Chief Complaint: Abdominal pain History of Present Illness: The patient is a 83 F presenting with abdominal pain. Patient has been having problems with abdominal pain for the past month. She was admitted in October. During that admission she had a reaction to fentanyl and experienced a seizure. She had a negative workup after the seizure. Family states she was doing well for 2 weeks after her discharge. She then again started having abdominal pain, generalized weakness. She has been having nausea, vomiting, diarrhea with intermittent constipation. Denies blood in her stool. Denies chest pain or shortness of breath. She was diagnosed with H. pylori a week ago. She was started on antibiotics. She is unable to tolerate these antibiotics secondary to nausea. She was taken off of Zofran secondary to prolonged QT. She was seen by her primary care physician today and was sent to the ED for concern of right lower quadrant pain. Physical Examination: Vitals are stable. Patient is afebrile. Alert no acute distress. HEENT exam dry mucous membranes Neck is supple. Lungs are clear and equal bilaterally. Heart is regular rate and rhythm. Abdomen is soft diffuse tenderness with no rebound or guarding Extremities are unremarkable. Skin is warm and dry. No focal neurologic deficit. Remainder of exam is unremarkable. Emergency Department Course and Treatment: Patient given IV fluids, Phenergan. CBC unremarkable. Chemistries show potassium 3.0. Liver enzymes are unremarkable. Lipase 289. CT abdomen pelvis shows no acute process. Patient continues to have nausea and abdominal pain in the ED. Discussed with the hospitalist for observation. Disposition: Observation Impression: Abdominal pain, intractable nausea This note was generated with Story[employer]ender dictation software. It may contain incorrect words, spelling, and punctuation that were not noted in review of the chart prior to signing ED Disposition - Plan for ED Patient: Disposition: Acute Care Hospital [facility] Chief Complaint: Abd Pain
--- NOTE | 2018-11-17 16:19 | ED.DCSUM_ITS ---
- ER Visit Summary Date of Service: 11/17/18 Chief Complaint: Abdominal pain History of Present Illness: The patient is a 83 F presenting with abdominal pain. Patient has been having problems with abdominal pain for the past month. She was admitted in October. During that admission she had a reaction to fentanyl and experienced a seizure. She had a negative workup after the seizure. Family states she was doing well for 2 weeks after her discharge. She then again started having abdominal pain, generalized weakness. She has been having nausea, vomiting, diarrhea with intermittent constipation. Denies blood in her stool. Denies chest pain or shortness of breath. She was diagnosed with H. pylori a week ago. She was started on antibiotics. She is unable to tolerate these antibiotics secondary to nausea. She was taken off of Zofran secondary to prolonged QT. She was seen by her primary care physician today and was sent to the ED for concern of right lower quadrant pain. Physical Examination: Vitals are stable. Patient is afebrile. Alert no acute distress. HEENT exam dry mucous membranes Neck is supple. Lungs are clear and equal bilaterally. Heart is regular rate and rhythm. Abdomen is soft diffuse tenderness with no rebound or guarding Extremities are unremarkable. Skin is warm and dry. No focal neurologic deficit. Remainder of exam is unremarkable. Emergency Department Course and Treatment: Patient given IV fluids, Phenergan. CBC unremarkable. Chemistries show potassium 3.0. Liver enzymes are unremarkable. Lipase 289. CT abdomen pelvis shows no acute process. Patient continues to have nausea and abdominal pain in the ED. Discussed with the hospitalist for observation. Disposition: Observation Impression: Abdominal pain, intractable nausea This note was generated with Aml[employer] dictation software. It may contain incorrect words, spelling, and punctuation that were not noted in review of the chart prior to signing ED Disposition - Plan for ED Patient: Disposition: Acute Care Hospital [facility] Chief Complaint: Abd Pain
[2018-11-17] MEDS: proMETHazine 25 MG/ML Syringe 6.25 MG IV (16:26)
[2018-11-17] MEDS: 0.9% Normal Saline 1,000 ML 1000 ML IV (16:26)
[2018-11-17 16:49] LABS: Absolute Lymphocyte Count 1.48 X10^3/ul (0.83-4.51); Absolute Neutrophil Count 6.3 X10^3/uL (2.0-7.7); Basophil# 0.03 X10^3/uL; Basophil% 0.4 % (0-1); Eosinophil# 0.05 X10^3/uL; Eosinophils% 0.6 % (0-5); Hematocrit 45.4 % (37-47); Hemoglobin 15.7 g/dl (12.0-15.0); Lymphocyte # 1.48 X10^3/ul (4.0); Lymphocyte % 17.5 % (19-41); Mean Corp Hgb Conc 34.6 g/gl (32-36); Mean Corpuscular Hgb 29.3 pg (27.0-32.0); Mean Corpuscular Volume 84.9 fL (81-99); Mean Platelet Vol. 10.5 fl (6.2-12.0); Monocyte# 0.66 X10^3/uL; Monocyte% 7.8 % (0-10); Neutrophil # 6.25 X10^3/uL (2.7-7.7); Neutrophil % 73.6 % (47-70); Platelet Count 152 K/mm3 (150-450); RBC Distribution Width CV 13.3 % (11.6-14.6); RBC Distribution Width SD 40.5 fl (35.1-43.9); Red Blood Count 5.35 M/mm3 (4.2-5.4); White Blood Count 8.5 K/mm3 (4.4-11.0)
[2018-11-17 16:52] LABS: POSITIVE COUNT NO; POSITIVE DIFFERENTIAL NO; POSITIVE MORPHOLOGY NO
[2018-11-17 16:56] LABS: ALB/GLOB Ratio 1.3 RATIO (0.9-2.4); AST(SGOT) 14 U/L (15-37); Alanine Aminotransfer ALT/SGPT 15 U/L (13-56); Albumin, Serum 3.9 g/dL (3.2-5.0); Alkaline Phosphatase 102 U/L (45-117); Anion Gap 9 (5-15); BUN 9 mg/dL (7-18); BUN/Creat Ratio 12.8 RATIO (10-20); Calcium,Total 8.8 mg/dL (8.5-10.1); Chloride 102 mmol/L (98-107); EST Glomerular Filtration Rate 85 mL/min (>60); Est Glom Filt Rate - Afr Amer 103 mL/min (>60); Globulin 3.1 g/dL (2.2-4.2); Glucose 95 mg/dL (74-106); Lipase 289 U/L (73-393); Sodium Level 138 mmol/L (136-145)
[2018-11-17 17:46] LABS: Bacteria 0 SEEN /hpf (None Seen); Mucous, Urine 0 SEEN /hpf (<or=2+); Red Blood Cells-Urine 0 SEEN /hpf (0-5)
[2018-11-17 17:47] LABS: Color, Urine Straw (Yellow); Glucose, Dipstick Normal (Normal); Ketone-Dipstick Negative (Negative); Leukocyte Esterase-Dipstick Negative /ul (Negative); Nitrite-Dipstick Negative (Negative); Occult Blood-Urine Negative /ul (Negative); Protein-Dipstick Negative (Negative); Urine Bilirubin Dipstick Negative (Negative); Urine Clarity Clear (Clear); Urine Urobilinogen Normal (Normal)
[2018-11-17 17:50] VITALS: RESP 18; TEMP 36.6
[2018-11-17 18:54] LABS: Squamous Epithelial Cells - UA 0-5 SEEN /hpf (5-10)
[2018-11-17 18:55] LABS: White Blood Cells 0-5 SEEN /hpf (0-5)
[2018-11-17 19:22] VITALS: BP 159/89; PULSE 72; RESP 18; O2SAT 93
--- NOTE | 2018-11-17 20:00 | HP.PCM_ITS ---
Problem List (1) Intractable nausea and vomiting Status: Acute (2) HTN (hypertension) Status: Chronic (3) Gastritis Status: Acute Qualifiers: Gastritis type: unspecified gastritis Chronicity: acute Gastritis bleeding: presence of bleeding unspecified Qualified Code(s): K29.00 - Acute gastritis without bleeding History of Present Illness Date of Admission: 11/17/18 Chief Complaint: abdominal pain , nausea and vomiting The patient is a 83 year old female patient with a history of hypertension and mild cognitive impairment presents to the ER with abdominal pain. This is her second visit in one month for the same complaint. At previous visit she received fentanyl and subsequently had altered mental status and a seizure. She was diagnosed positive for H. Pylori by fecal sample. Since then she was unable to tolerate her antibiotic treatment (daughter unable to tell me at this time which medication that was). She was discontinued on Zofran and Trazodone for concern of QT prolongation after an episode of slow heart beat during physical therapy. A nurse practitioner stared her on liquid Zofran at 40mg PO q day started 3 days ago for concern of depressive symptoms. Today her abdominal pain is worse and she has little if any PO intake along with nausea and vomiting. She will be admitted for observation and Dr Ceja has agreed to do inpatient EGD. Past Medical History Past Medical History (Chronic Problems): Chronic Problems Breast cancer (Chronic) HTN (hypertension) (Chronic) Allergies fentanyl Allergy (Verified 11/17/18 15:51) Other tamoxifen Allergy (Verified 11/17/18 15:51) Anaphylaxis amlodipine Adverse Reaction (Verified 11/17/18 15:51) Upset Stomach codeine Adverse Reaction (Verified 11/17/18 15:51) Upset Stomach gabapentin Adverse Reaction (Verified 11/17/18 15:51) Upset Stomach lisinopril Adverse Reaction (Verified 11/17/18 15:51) Upset Stomach niacin Adverse Reaction (Verified 11/17/18 15:51) Upset Stomach primidone Adverse Reaction (Verified 11/17/18 15:51) Upset Stomach proparacaine Adverse Reaction (Verified 11/17/18 15:51) Upset Stomach Home Medications: Ambulatory Orders Medication Instructions Recorded Acetaminophen 650 mg PO Q4H PRN PRN 10/04/18 Aspirin 81 mg PO DAILY 10/04/18 Biotin 5,000 mcg PO DAILY 10/04/18 Calcium Carbonate [Tums] 1,000 mg PO Q4H PRN PRN 10/04/18 Cholecalciferol (Vitamin D3) 1,000 unit PO DAILY 10/04/18 [Vitamin D3] Cyanocobalamin (Vitamin B-12) 1,000 mcg PO DAILY 10/04/18 [Vitamin B-12] Dicyclomine HCl 10 mg PO ACHS 10/04/18 Guaifenesin/Dextromethorphan 1 each PO Q12H PRN PRN 10/04/18 [Mucinex Dm ER 600-30 mg Tablet] Hydroxyzine HCl 25 mg PO Q6H PRN PRN 10/04/18 Levothyroxine [Synthroid] 25 mcg PO DAILY 10/04/18 Lorazepam [Ativan] 0.5 mg PO DAILY PRN 10/04/18 Magnesium 250 mg PO DAILY 10/04/18 Metoprolol Tartrate 25 mg PO BID 10/04/18 Mirabegron [Myrbetriq] 50 mg PO DAILY 10/04/18 Nystatin Powder [Mycostatin Powder] 1 applic TOPICAL DAILY 10/04/18 Omeprazole [Prilosec] 20 mg PO BID 10/04/18 Psyllium Husk [Metamucil] 0.52 gm PO DAILY 10/04/18 Rosuvastatin Calcium 5 mg PO DAILY 10/04/18 Vit C/E/Zn/Coppr/Lutein/Zeaxan 1 each PO BID 10/04/18 [Preservision Areds 2 Softgel] traZODone [Desyrel] 25 mg PO QHS 10/04/18 proCHLORPERazine suppository 25 mg RECTAL BID PRN PRN #10 10/05/18 [Compazine suppository] suppos. Surgical History: hysterectomy, tonsillectomy, - - lumpectomy with axillary nodes dissection; Facial surgery after facial laceration post fall Smoking Status: Never smoker - *Family History Maternal Family History: Family History (Last Updated 10/04/18 @ 06:33 by Maxx Hanks MD) Mother Hypertension CVA (cerebral vascular accident) History Items: No pertinent history Review of Systems Constitutional: Denies: Chills, Fever, Weight Change HEENT: Denies: Head Aches, Sinus Congestion, Sinus Drainage Cardiovascular: Denies: Chest Pain, Palpitations Respiratory: Denies: Cough, Shortness of breath at rest, Sputum production Gastrointestinal: Reports: Abdominal Pain, Nausea, Vomiting Genitourinary: Denies: Dysuria Musculoskeletal: Denies: Joint Pain, Joint Tenderness Skin: Denies: Rash, Wounds Neurological: Denies: Numbness, Tingling, Focal weakness Psychiatric: Reports: Depression. Denies: Anxiety, Homicidal Ideations, Suici elder Ideations Hematologic/ Lymphatic: Denies: Easy Bruising, Easy Bleeding VTE Information - Inpt Only VTE Present on Admission: No VTE Mechan Device Prophylaxis: None VTE Pharm Prophylaxis ordered?: Yes Patient Problems: Active and Suspected Problems Intractable nausea and vomiting (Acute) - Physical Exam General: Alert, Cooperative, Confused HEENT: Atraumatic, Normocephalic Neck: Supple Lungs: Clear to auscultation, Normal air movement, No rhonchi, No wheeze, No rales Cardiovascular: Regular rate, Regular Rhythm, Normal S1, Normal S2, No murmurs Abdomen: Bowel Sounds Present, Rebound Tenderness, Tender Extremities: No edema Skin: No rashes Musculoskeletal: No Tenderness to Palpation of Joints or Extremities Neurological: Neuro grossly intact Psych/Mental Status: Normal Affect, Appropriate Vital Signs Temp Pulse Resp BP Pulse Ox 97.8 F 72 18 159/89 H 93 11/17/18 17:50 11/17/18 19:22 11/17/18 19:22 11/17/18 19:22 11/17/18 19:22 Oxygen Delivery Method Room Air Weight: 150 lb Body Mass Index (BMI) 26.5 Laboratory Tests Past 24 Hrs 11/17/18 11/17/18 11/17/18 16:23 16:23 17:40 WBC 8.5 RBC 5.35 Hgb 15.7 H Hct 45.4 MCV 84.9 MCH 29.3 MCHC 34.6 RDW 13.3 RDW Differential 40.5 Plt Count 152 MPV 10.5 Immature Gran % (Auto) 0.100 Neut % (Auto) 73.6 H Lymph % (Auto) 17.5 L [place] % (Auto) 7.8 Eos % (Auto) 0.6 Baso % (Auto) 0.4 Absolute Neuts (auto) 6.3 Absolute Lymphs (auto) 1.48 Total Counted Not Reportable Sodium 138 Potassium 3.0 L Chloride 102 Carbon Dioxide 27.0 Anion Gap 9 BUN 9 Creatinine 0.70 Estim Creat Clear Calc 36.50 Est GFR (MDRD) Af Amer 103 Est GFR (MDRD) Non-Af 85 BUN/Creatinine Ratio 12.8 Glucose 95 Calcium 8.8 Total Bilirubin 0.70 AST 14 L ALT 15 Alkaline Phosphatase 102 Total Protein 7.0 Albumin 3.9 Globulin 3.1 Albumin/Globulin Ratio 1.3 Lipase 289 Urine Color Straw Urine Clarity Clear Urine pH 7.0 Ur Specific [place] 1.010 Urine Protein Negative Urine Glucose (UA) Normal Urine Ketones Negative Urine Occult Blood Negative Urine Nitrite Negative Urine Bilirubin Negative Urine Urobilinogen Normal Ur Leukocyte Esterase Negative Urine RBC 0 SEEN Urine WBC 0-5 SEEN Ur Squamous Epith Cells 0-5 SEEN Urine Bacteria 0 SEEN Urine Mucus 0 SEEN Assessment/Plan All Active Problems Hypertensive emergency (Acute) Gastritis (Acute) Seizure (Acute) Hypertensive emergency (Acute) Intractable nausea and vomiting (Acute) Plan 1. Abdominal Pain / Nausea and Vomiting- admit to general medical floor for observation. D51/2NS with 20meq of KCl at 100cc/hour, morphine 1-2mg IV q 2 hrs prn pain, Phenergan 12.5 mg IV q 6hrs prn nausea. CBC, CMP in am. Consult Dr Mario lopez. NPO at midnight pending EGD. 2. Depression - SSRI has been started continue at discharge 3.DVT prophylaxis- LMWH Hold other routine medications at this time. To be re-evaluated in AM following EGD workup. Code Visit OBSV E&M: 26566 Initial observation care L2
[2018-11-17 21:20] VITALS: BMI 24.8
[2018-11-17 21:28] VITALS: BP 172/89; PULSE 68; RESP 16; TEMP 36.7; O2SAT 94
[2018-11-17 21:32] VITALS: BMI 24.9
[2018-11-17] MEDS: Morphine 2 MG/ML Syringe IV ×2 (21:42→23:48)
--- NOTE | 2018-11-17 23:40 | NURSING ---
Call received from ED RN. States that RN at [facility] had returned call about med list. Stated they were unable to come up with med list at this time and patient has not been taking her meds routinely anyway.
[2018-11-18] VITALS (13 sets, daily range): BP systolic 124–194; BP diastolic 75–112; PULSE 67–111; RESP 16–18; TEMP 36.3–36.8; O2SAT 92–98; BMI 24.8
--- NOTE | 2018-11-18 | EGD_PTH ---
PATIENT: EMA AYALA LOC: MS3 U#:[id number] AGE/SX: 83/F ROOM: MS308 RE11/17/[address]: Dr. Mehdi Rodriguez DO : 1935 BED: 1 DIS: 11/19/2018 SPEC #: [id number] RECD: 11/18/18 13:33 STATUS: WENCESLAO REQ #: [id number] [place]: 11/18/18 00:[address]: Josh Ceja DEPT: SURGICAL PATHOLOGY RECD BY: Evangelist Chavarria ENTERED: 11/18/18 13:34 SP TYPE: EGD BIOPSY OTHR DR: MD Dr. Mehdi Gleason DO Dr. Paul Nielsen, MD Dr. Richard Guttman, MD Tissues: A - Jejunum, NOS B - Duodenum, NOS C - Gastric mucous membrane D - Gastric mucous membrane E - Gastric mucous membrane F - Esophagus, NOS Procedures: Special Stain Group I Surgery Specimen Level IV GMS Stain (control) Comments: @ Ordering doctor for SUIV edited from to @ by ADILENE at 11/19/18 0800 @ Submitting doctor edited from to DR.RGUTTM Montalvo by ADILENE at 11/19/18 0800 HEADER OPERATION[place] [place] DIAGNOSIS: Abdominal pain; stool test positive for H. pylori; gastritis with vomiting TISSUE SUBMITTED: A - Biopsy jejunum, B - Biopsy duodenum, C - Biopsy gastric antrum, H. pylori and path, D - Biopsy healing ulcer greater curvature, E - Biopsy GE junction, F - Biopsy mid esophagus MICROSCOPIC DIAGNOSIS A. Jejunum, biopsy: A fragment of small intestinal mucosa, no pathologic diagnosis. B. Duodenum, biopsy: A fragment of duodenal mucosa, no pathologic diagnosis. C. Gastric antrum, biopsy: Mild gastritis. See microscopic description and comment. D. Healing ulcer greater curvature, biopsy: A fragment of gastric mucosa with ulceration and associated acute and chronic inflammation. Reactive epithelial changes. See comment. E. Gastroesophageal junction, biopsy: Fragments of squamous epithelium with changes consistent with gastroesophageal reflux disease and acute and chronic inflammation. Special stain for fungi is negative for organisms; matched control is appropriate. F. Mid esophagus, biopsy: Fragments of squamous epithelium with changes consistent with gastroesophageal reflux disease and acute and chronic inflammation. Special stain for fungi is negative for organisms; matched control is appropriate. SJ:balbina 11/19/18 COMMENT C. The results of immunohistochemistry for Helicobacter pylori will be reported separately ([id number]). D. The results of immunohistochemistry for Helicobacter pylori will be reported separately ([id number]). MICROSCOPIC DESCRIPTION Slides are reviewed. C. The specimen shows fragments of gastric mucosa with chronic inflammatory cell infiltrates in the lamina propria consisting of lymphocytes and plasma cells, consistent with mild chronic gastritis. GROSS DESCRIPTION A - Received in fixative is one container labeled with the patient's name and designated biopsy jejunum. The specimen consists of one irregular fragment of light mcgraw soft tissue that measures 0.4 x 0.3 x 0.1 cm. The specimen is totally submitted in one cassette. B - Received in fixative is one container labeled with the patient's name and designated biopsy duodenum. The specimen consists of one irregular fragment of light mcgraw soft tissue that measures 0.3 x 0.2 x 0.1 cm. The specimen is totally submitted in one cassette. C - Received in fixative is one container labeled with the patient's name and designated biopsy gastric antrum. The specimen consists of one irregular fragment of light mcgraw soft tissue that measures 0.7 x 0.2 x 0.1 cm. The specimen is totally submitted in one cassette. D - Received in fixative is one container labeled with the patient's name and designated biopsy ulcer greater curvature. The specimen consists of one irregular fragment of light mcgraw soft tissue that measures 0.3 x 0.3 x 0.1 cm. The specimen is totally submitted in one cassette. E - Received in fixative is one container labeled with the patient's name and designated biopsy GE junction. The specimen consists of multiple irregular fragments of light mcgraw soft tissue that in aggregate measure 0.5 x 0.3 x 0.1 cm. The specimen is totally submitted in one cassette. F - Received in fixative is one container labeled with the patient's name and designated biopsy mid esophagus. The specimen consists of one irregular fragment of light mcgraw soft tissue that measures 0.3 x 0.3 x 0.1 cm. The specimen is totally submitted in one cassette. / SJ:balbina 11/18/18 TC: CPT: 46728 x6, 39335 x2
[2018-11-18] MEDS: Acetaminophen 325 MG Tablet 650 MG PO (03:22)
[2018-11-18 05:55] LABS: Absolute Lymphocyte Count 1.99 X10^3/ul (0.83-4.51); Absolute Neutrophil Count 4.5 X10^3/uL (2.0-7.7); Basophil# 0.05 X10^3/uL; Basophil% 0.7 % (0-1); Eosinophil# 0.08 X10^3/uL; Eosinophils% 1.1 % (0-5); Hematocrit 39.8 % (37-47); Hemoglobin 13.7 g/dl (12.0-15.0); Lymphocyte # 1.99 X10^3/ul (4.0); Lymphocyte % 26.9 % (19-41); Mean Corp Hgb Conc 34.4 g/gl (32-36); Mean Corpuscular Hgb 29.3 pg (27.0-32.0); Mean Corpuscular Volume 85.2 fL (81-99); Mean Platelet Vol. 10.8 fl (6.2-12.0); Monocyte# 0.78 X10^3/uL; Monocyte% 10.6 % (0-10); Neutrophil # 4.47 X10^3/uL (2.7-7.7); Neutrophil % 60.4 % (47-70); Platelet Count 155 K/mm3 (150-450); RBC Distribution Width CV 13.3 % (11.6-14.6); RBC Distribution Width SD 40.9 fl (35.1-43.9); Red Blood Count 4.67 M/mm3 (4.2-5.4); White Blood Count 7.4 K/mm3 (4.4-11.0)
[2018-11-18 05:56] LABS: POSITIVE COUNT NO; POSITIVE DIFFERENTIAL NO; POSITIVE MORPHOLOGY NO
[2018-11-18 06:13] LABS: ALB/GLOB Ratio 1.3 RATIO (0.9-2.4); AST(SGOT) 14 U/L (15-37); Alanine Aminotransfer ALT/SGPT 15 U/L (13-56); Albumin, Serum 3.3 g/dL (3.2-5.0); Alkaline Phosphatase 83 U/L (45-117); Anion Gap 9 (5-15); BUN 8 mg/dL (7-18); BUN/Creat Ratio 12.1 RATIO (10-20); Calcium,Total 8.3 mg/dL (8.5-10.1); Chloride 105 mmol/L (98-107); Creatinine, Serum 0.66 mg/dL (0.55-1.02); EST Glomerular Filtration Rate 91 mL/min (>60); Est Glom Filt Rate - Afr Amer 110 mL/min (>60); Globulin 2.6 g/dL (2.2-4.2); Glucose 118 mg/dL (74-106); Potassium 3.2 mmol/L (3.5-5.1); Protein, Total 5.9 g/dL (6.4-8.2); Sodium Level 142 mmol/L (136-145)
[2018-11-18 06:30] LABS: Thyroid Stim Hormone (TSH) 3.68 uIU/mL (0.358-3.74)
--- NOTE | 2018-11-18 10:40 | CON.PCM_ITS ---
Reason for Consult Date of Consultation: 11/18/18 History of Present Illness: The patient is a 83 year old F with a one-month complaint of upper abdominal pain. She had 2 emergency department visits for these complaints. The patient has not had previous upper endoscopy. she did have a stool test which was positive for H. pylori. She had presumed gastritis as the cause of her symptomatology. The patient was started on antibiotic eradication and has been vomiting ever since. The patient denies blood in her vomitus. She was admitted for IV antibiotic treatment for her presumed H. pylori infection and vomiting. I was consulted due to vomiting for upper endoscopy. The patient denies previous upper or lower endoscopy. Past Medical History Past Medical History (Chronic Problems): Chronic Problems Breast cancer (Chronic) HTN (hypertension) (Chronic) Allergies fentanyl Allergy (Verified 11/17/18 15:51) Other tamoxifen Allergy (Verified 11/17/18 15:51) Anaphylaxis amlodipine Adverse Reaction (Verified 11/17/18 15:51) Upset Stomach codeine Adverse Reaction (Verified 11/17/18 15:51) Upset Stomach gabapentin Adverse Reaction (Verified 11/17/18 15:51) Upset Stomach lisinopril Adverse Reaction (Verified 11/17/18 15:51) Upset Stomach niacin Adverse Reaction (Verified 11/17/18 15:51) Upset Stomach primidone Adverse Reaction (Verified 11/17/18 15:51) Upset Stomach proparacaine Adverse Reaction (Verified 11/17/18 15:51) Upset Stomach Home Medications: Ambulatory Orders Medication Instructions Recorded Acetaminophen 650 mg PO Q4H PRN PRN 10/04/18 Aspirin 81 mg PO DAILY 10/04/18 Guaifenesin/Dextromethorphan 1 each PO Q12H PRN PRN 10/04/18 [Mucinex Dm ER 600-30 mg Tablet] Levothyroxine [Synthroid] 25 mcg PO DAILY 10/04/18 Lorazepam [Ativan] 0.5 mg PO DAILY PRN 10/04/18 Nystatin Powder [Mycostatin Powder] 1 applic TOPICAL BID PRN PRN 10/04/18 Rosuvastatin Calcium 5 mg PO DAILY 10/04/18 Vit C/E/Zn/Coppr/Lutein/Zeaxan 1 each PO BID 10/04/18 [Preservision Areds 2 Softgel] Ampicillin Trihydrate 1,000 mg PO BID 11/18/18 Clarithromycin 500 mg PO BID 11/18/18 Lansoprazole 30 mg PO BID 11/18/18 Loperamide HCl [Anti-Diarrhea] 2 mg PO PRN PRN 11/18/18 Meclizine HCl 25 mg PO Q6H PRN PRN 11/18/18 Methyl Salicylate/Menthol [Icy Hot 35.4 gm TP Q6H PRN PRN 11/18/18 Cream] Metoprolol Tartrate 50 mg PO BID 11/18/18 Naproxen Sodium 220 mg PO BID PRN PRN 11/18/18 Oxybutynin Chloride [Oxybutynin 15 mg PO DAILY 11/18/18 Chloride ER] Peg 400/Hypromellose/Glycerin 15 ml OP PRN PRN 11/18/18 [Artificial Tears] Sertraline HCl 40 mg PO DAILY 11/18/18 Surgical History: hysterectomy, tonsillectomy, - - lumpectomy with axillary nodes dissection; Facial surgery after facial laceration post fall Smoking Status: Never smoker - *Family History Maternal Family History: Family History (Last Updated 10/04/18 @ 06:33 by Maxx Hanks MD) Mother Hypertension CVA (cerebral vascular accident) History Items: No pertinent history Review of Systems Constitutional: Reports: Fatigue. Denies: Chills, Fever, Weight Change HEENT: Reports: Sore Throat. Denies: Head Aches, Sinus Congestion, Sinus Drainage Cardiovascular: Denies: Chest Pain, Palpitations Respiratory: Denies: Cough, Shortness of breath at rest, Sputum production Gastrointestinal: Reports: Nausea, Vomiting. Denies: Abdominal Pain Genitourinary: Denies: Dysuria Musculoskeletal: Denies: Joint Pain, Joint Tenderness Skin: Denies: Rash, Wounds Neurological: Denies: Numbness, Tingling, Focal weakness Psychiatric: Denies: Anxiety, Depression, Homicidal Ideations, Suicidal Ideations Hematologic/ Lymphatic: Denies: Easy Bruising, Easy Bleeding Patient Problems: Active and Suspected Problems Intractable nausea and vomiting (Acute) - Physical Exam General: Alert, Oriented x3, Cooperative HEENT: Atraumatic, PERRLA, EOMI, Normocephalic Neck: Supple, No JVD, Negative Carotid Bruits Lungs: Clear to auscultation, Normal air movement Cardiovascular: Regular rate, No murmurs Abdomen: Bowel Sounds Present, Soft, Non Tender Extremities: No edema, Capillary Refill Less than 3 Seconds Skin: No rashes, No breakdown Musculoskeletal: No Tenderness to Palpation of Joints or Extremities Neurological: Cranial nerves II-XII grossly intact Psych/Mental Status: Normal Affect, Appropriate Vital Signs Temp Pulse Resp BP Pulse Ox 98.0 F 70 18 161/82 H 97 11/18/18 09:15 11/18/18 09:15 11/18/18 09:15 11/18/18 09:15 11/18/18 09:15 Oxygen Delivery Method Room Air Weight: 63.7 kg Body Mass Index (BMI) 24.8 Intake and Output for Last 24 Hours 11/16/18 11/17/18 11/18/18 23:59 23:59 23:59 Intake Total 178 / 178 632 / 632 Balance 178 / 178 632 / 632 Laboratory Tests Past 24 Hrs 11/17/18 11/17/18 11/17/18 16:23 16:23 17:40 WBC 8.5 RBC 5.35 Hgb 15.7 H Hct 45.4 MCV 84.9 MCH 29.3 MCHC 34.6 RDW 13.3 RDW Differential 40.5 Plt Count 152 MPV 10.5 Immature Gran % (Auto) 0.100 Neut % (Auto) 73.6 H Lymph % (Auto) 17.5 L [place] % (Auto) 7.8 Eos % (Auto) 0.6 Baso % (Auto) 0.4 Absolute Neuts (auto) 6.3 Absolute Lymphs (auto) 1.48 Total Counted Not Reportable Sodium 138 Potassium 3.0 L Chloride 102 Carbon Dioxide 27.0 Anion Gap 9 BUN 9 Creatinine 0.70 Estim Creat Clear Calc 36.50 Est GFR (MDRD) Af Amer 103 Est GFR (MDRD) Non-Af 85 BUN/Creatinine Ratio 12.8 Glucose 95 Calcium 8.8 Total Bilirubin 0.70 AST 14 L ALT 15 Alkaline Phosphatase 102 Total Protein 7.0 Albumin 3.9 Globulin 3.1 Albumin/Globulin Ratio 1.3 Lipase 289 TSH Urine Color Straw Urine Clarity Clear Urine pH 7.0 Ur Specific [place] 1.010 Urine Protein Negative Urine Glucose (UA) Normal Urine Ketones Negative Urine Occult Blood Negative Urine Nitrite Negative Urine Bilirubin Negative Urine Urobilinogen Normal Ur Leukocyte Esterase Negative Urine RBC 0 SEEN Urine WBC 0-5 SEEN Ur Squamous Epith Cells 0-5 SEEN Urine Bacteria 0 SEEN Urine Mucus 0 SEEN 11/18/18 11/18/18 11/18/18 05:18 05:18 05:18 WBC 7.4 RBC 4.67 Hgb 13.7 Hct 39.8 MCV 85.2 MCH 29.3 MCHC 34.4 RDW 13.3 RDW Differential 40.9 Plt Count 155 MPV 10.8 Immature Gran % (Auto) 0.300 Neut % (Auto) 60.4 Lymph % (Auto) 26.9 [place] % (Auto) 10.6 H Eos % (Auto) 1.1 Baso % (Auto) 0.7 Absolute Neuts (auto) 4.5 Absolute Lymphs (auto) 1.99 Total Counted Not Reportable Sodium 142 Potassium 3.2 L Chloride 105 Carbon Dioxide 28.0 Anion Gap 9 BUN 8 Creatinine 0.66 Estim Creat Clear Calc 36.50 Est GFR (MDRD) Af Amer 110 Est GFR (MDRD) Non-Af 91 BUN/Creatinine Ratio 12.1 Glucose 118 H Calcium 8.3 L Total Bilirubin 0.40 AST 14 L ALT 15 Alkaline Phosphatase 83 Total Protein 5.9 L Albumin 3.3 Globulin 2.6 Albumin/Globulin Ratio 1.3 Lipase TSH 3.68 Urine Color Urine Clarity Urine pH Ur Specific [place] Urine Protein Urine Glucose (UA) Urine Ketones Urine Occult Blood Urine Nitrite Urine Bilirubin Urine Urobilinogen Ur Leukocyte Esterase Urine RBC Urine WBC Ur Squamous Epith Cells Urine Bacteria Urine Mucus Assessment/Plan All Active Problems Hypertensive emergency (Acute) Gastritis (Acute) Seizure (Acute) Hypertensive emergency (Acute) Intractable nausea and vomiting (Acute) epigastric pain for 1 month, presumed H. pylori infection. Now vomiting I plan to perform upper endoscopy. The patient stands the risks, benefits, complications and possible alternatives to endoscopy and consents to the procedure.
--- NOTE | 2018-11-18 11:15 | IMM_PTH ---
PATIENT: EMA AYALA LOC: MS3 U#:[id number] AGE/SX: 83/F ROOM: MS308 RE11/17/[address]: Dr. Mehdi Rodriguez DO : 1935 BED: 1 DIS: 11/19/2018 SPEC #: [id number] RECD: 11/18/18 15:34 STATUS: WENCESLAO REQ #: [id number] [place]: 11/18/18 11:[address]: Josh Ceja DEPT: IMMUNOHISTOCHEMISTRY RECD BY: Cristina Reyes ENTERED: 11/18/18 15:35 SP TYPE: IMMUNO OTHR DR: MD Dr. Mehdi Gleason DO Dr. Paul Nielsen, MD Tissues: C - Stomach, NOS Procedures: H Pylori (initial) PHYSICIAN & INSTITUTION [place] [id number] SPECIMEN INFORMATION: Tissue Source: C - Gastric antrum biopsy, D - Healing ulcer greater curvature, biopsy Clinical Info: Abdominal pain; stool test positive for H. pylori; gastritis with vomiting Specimen Number: [id number] C & D CPT code: 72318 x2 METHODOLOGY: Deparaffinized sections of prefer/formalin-fixed tissue or PAP/DQ stained slides are incubated with monoclonal/polyclonal antibodies/oligonucleotide probes. Localization is made via biotin free immunoperoxidase method. Appropriate controls are performed and reacted as expected. Results on target cell population are indicated in the following table: RESULTS: ANTIBODY / CLONE RESULT Block C H Pylori (polyclonal) negative Block D H Pylori (polyclonal) negative These tests were developed and their performance characteristics determined by [facility]. They may not have been cleared or approved by the U.S. Food and Drug Administration. The FDA has determined that such clearance or approval is not necessary. INTERPRETATION: C. Gastric antrum, biopsy: Negative for Helicobacter pylori organisms. D. Healing ulcer greater curvature, biopsy: Negative for Helicobacter pylori organisms. SJ:balbina 11/19/18
--- NOTE | 2018-11-18 11:35 | PCA ---
pt off floor
--- NOTE | 2018-11-18 11:53 | OP.ENDO_ITS ---
Patient Name: Jaycee Causey Procedure Date: 11/18/2018 11:17 AM Date of : 1935 Age: 83 Procedure: Upper GI endoscopy Indications: Epigastric abdominal pain, Nausea with vomiting Providers: Josh Ceja MD Medicines: Monitored Anesthesia Care Patient Profile: This is an 83 year old female. Refer to note in patient chart for documentation of history and physical. Complications: No immediate complications. Procedure: Pre-Anesthesia Assessment: - Prior to the procedure, a History and Physical was performed, and patient medications and allergies were reviewed. The patient is competent. The risks and benefits of the procedure and the sedation options and risks were discussed with the patient. All questions were answered and informed consent was obtained. Patient identification and proposed procedure were verified by the physician, the nurse and the carton filler in the procedure room. Mental Status Examination: alert and oriented. Airway Examination: normal oropharyngeal airway and neck mobility. Respiratory Examination: clear to auscultation. CV Examination: normal. Prophylactic Antibiotics: The patient does not require prophylactic antibiotics. Prior Anticoagulants: The patient has taken no previous anticoagulant or antiplatelet agents. ASA Grade Assessment: III - A patient with severe systemic disease. After reviewing the risks and benefits, the patient was deemed in satisfactory condition to undergo the procedure. The anesthesia plan was to use monitored anesthesia care (MAC). Immediately prior to administration of medications, the patient was re-assessed for adequacy to receive sedatives. The heart rate, respiratory rate, oxygen saturations, blood pressure, adequacy of pulmonary ventilation, and response to care were monitored throughout the procedure. The physical status of the patient was re-assessed after the procedure. After obtaining informed consent, the endoscope was passed under direct vision. Throughout the procedure, the patient's blood pressure, pulse, and oxygen saturations were monitored continuously. The gastroscope was introduced through the mouth, and advanced to the jejunum. The upper GI endoscopy was accomplished without difficulty. The patient tolerated the procedure well. Scope In: 11:42:09 AM Scope Out: 11:48:18 AM Total Procedure Duration Time 0 hours 6 minutes 9 seconds Findings: The examined jejunum was normal. Biopsies for histology were taken with a cold forceps for evaluation of celiac disease. Patchy mildly erythematous mucosa without active bleeding and with no stigmata of bleeding was found in the duodenal bulb. Biopsies were taken with a cold forceps for histology. Scattered mild inflammation characterized by erosions, erythema and friability was found in the gastric antrum. Biopsies were taken with a cold forceps for Helicobacter pylori testing using PyloriTek test. Biopsies were taken with a cold forceps for histology. A single papule (nodule) with no bleeding and stigmata of recent bleeding was found on the greater curvature of the stomach. Biopsies were taken with a cold forceps for histology. A small hiatal hernia was present. The lower third of the esophagus was normal. Biopsies were taken with a cold forceps for histology. The middle third of the esophagus was normal. Biopsies were taken with a cold forceps for histology. Impression: - Normal examined jejunum. Biopsied. - Erythematous duodenopathy. Biopsied. - Gastritis. Biopsied. - A single papule (nodule) found in the stomach. Biopsied. - Small hiatal hernia. - Normal lower third of esophagus. Biopsied. - Normal middle third of esophagus. Biopsied. Recommendation: - Await pathology results. - Return patient to [facility] for [facility] care. - Continue present medications. Procedure Code(s): --- Professional --- 95192, Esophagogastroduodenoscopy, flexible, transoral; with biopsy, single or multiple CPT copyright 2017 [employer]. All rights reserved. The codes documented in this report are preliminary and upon car icer review may be revised to meet current compliance requirements. Josh Ceja MD 11/18/2018 11:52:42 AM This report has been signed electronically. Number of Addenda: 0 Note Initiated On: 11/18/2018 11:17 AM
--- NOTE | 2018-11-18 13:08 | CASEMGMT ---
Addendum entered by Codi Lay 11/18/18 14:18: Per physician pt may be able to discharge today. Green sheet placed on pt's chart. Original Note: Social Work Note RN updated this worker that pt may be discharged on IV antibiotics but that pt's daughter has already informed [facility] that pt may need IV antibiotics and [facility] is checking to see if they could manage IV antibiotics. SW in to meet with pt. SW introduced self and role at [facility]. Pt is alert and orientated. Pt's daughter present in room and gave this worker permission to speak to her in front of her guest. Pt and pt's daughter confirm that pt is from [place] and the plan will be for pt to return there at discharge. Pt's daughter states she should be able to transport pt back to [place]. Plan: [facility] once medically cleared Codi Lay ASSOCIATE PROFESSOR OF KINESIOLOGY, REMEDIAL PROJECT MANAGER
--- NOTE | 2018-11-18 14:37 | CHAPLAIN ---
patient and bed were out of room; left calling card
--- NOTE | 2018-11-18 14:40 | CASEMGMT ---
Social Work Note Per physician pt is not needed IV antibiotics and pt may discharge later today. JOSELUIS placed a call to [facility] and spoke with CHRISTIAN Holcomb and updated that pt won't be discharged on IV antibiotics and pt may discharge today. JOSELUIS faxed clinicals to [facility]. Plan: Return to [facility] once medically cleared Codi Lay COMMERCIAL LINES ACCOUNT EXECUTIVE, BEHAVIORAL SPECIALIST
--- NOTE | 2018-11-18 14:49 | CASEMGMT ---
Social Work Note Per admissions questions pt has completed LW but has not provided copy to [facility]. HCPOA has been completed and on [employer]. SW printed HCPOA and placed on pt's chart. Codi Lay MSW, PUBLIC HOUSING INTERVIEWER
[2018-11-18] MEDS: BENZOCAINE/MENTHOL 1 LOZENGE MUCOUS MEM ×2 (15:51→19:58)
[2018-11-18] MEDS: Enoxaparin 40 MG/0.4 ML Syringe SC (15:53)
--- NOTE | 2018-11-18 16:00 | CASEMGMT ---
Social Work Note SW spoke with Christopher Martin, Home Health Coordinator through [place]. Per Christopher pt is active with [facility] through [place]. Codi Lay IMPROVEMENT LEAD, TOOLER
--- NOTE | 2018-11-18 17:21 | PCM.PROGNOTE ---
Patient Problems: Active and Suspected Problems Intractable nausea and vomiting (Acute) Subjective: Patient seen and examined today, she had an EGD today which showed duodenitis and gastritis. Her H. pylori test was negative. I talked to the patient's daughter about the patient going back today, I checked on the patient later on this afternoon and she appeared weak and I did not trust her to go back to assisted living without PT and OT seeing her in doing evaluation. Patient's blood pressure was also elevated and I had to make changes in her blood pressure regimen. For now, patient will be placed on a PPI and resume some of her home medications and I will have PT and OT see her tomorrow to see if she is stable to go back to assisted living. - Physical Exam General: Alert, Oriented x3, Cooperative, No apparent distress, Well developed, Lethargic HEENT: Atraumatic, PERRLA, EOMI, Normocephalic Oral: Moist Mucosa Neck: Supple, No Nuchal Rigidity, Trachea Midline, Thyroid Normal Size and Texture Lungs: Clear to auscultation, Normal air movement, No rhonchi, No wheeze, No rales Cardiovascular: Regular rate, Regular Rhythm, Normal S1, Normal S2, No murmurs, No Ectopic Activity, PMI Normal, No rub noted, No Gallop Abdomen: Bowel Sounds Present, Soft, Non Tender, Non-Distended, No hernias noted Extremities: No clubbing, No cyanosis, No edema, Capillary Refill Less than 3 Seconds Skin: No rashes, No breakdown Musculoskeletal: No Tenderness to Palpation of Joints or Extremities Neurological: Cranial nerves II-XII grossly intact, Neuro grossly intact, Sensory exam intact to light touch and pain, Coordination normal Psych/Mental Status: Normal Affect, Appropriate, Alert and oriented to time, place, person, mood and affect Vital Signs Temp Pulse Resp BP Pulse Ox 98.2 F 111 H 18 193/106 H 96 11/18/18 15:50 11/18/18 15:50 11/18/18 15:50 11/18/18 15:50 11/18/18 15:50 Oxygen Delivery Method Room Air Weight: 63.7 kg Body Mass Index (BMI) 24.8 Intake and Output for Last 24 Hours 11/16/18 11/17/18 11/18/18 23:59 23:59 23:59 Intake Total 178 / 178 1489 / 1489 Balance 178 / 178 1489 / 1489 Laboratory Tests Past 24 Hrs 11/17/18 11/18/18 11/18/18 17:40 05:18 05:18 WBC 7.4 RBC 4.67 Hgb 13.7 Hct 39.8 MCV 85.2 MCH 29.3 MCHC 34.4 RDW 13.3 RDW Differential 40.9 Plt Count 155 MPV 10.8 Immature Gran % (Auto) 0.300 Neut % (Auto) 60.4 Lymph % (Auto) 26.9 Prentiss % (Auto) 10.6 H Eos % (Auto) 1.1 Baso % (Auto) 0.7 Absolute Neuts (auto) 4.5 Absolute Lymphs (auto) 1.99 Total Counted Not Reportable Sodium 142 Potassium 3.2 L Chloride 105 Carbon Dioxide 28.0 Anion Gap 9 BUN 8 Creatinine 0.66 Estim Creat Clear Calc 36.50 Est GFR (MDRD) Af Amer 110 Est GFR (MDRD) Non-Af 91 BUN/Creatinine Ratio 12.1 Glucose 118 H Calcium 8.3 L Total Bilirubin 0.40 AST 14 L ALT 15 Alkaline Phosphatase 83 Total Protein 5.9 L Albumin 3.3 Globulin 2.6 Albumin/Globulin Ratio 1.3 TSH Urine Color Straw Urine Clarity Clear Urine pH 7.0 Ur Specific [place] 1.010 Urine Protein Negative Urine Glucose (UA) Normal Urine Ketones Negative Urine Occult Blood Negative Urine Nitrite Negative Urine Bilirubin Negative Urine Urobilinogen Normal Ur Leukocyte Esterase Negative Urine RBC 0 SEEN Urine WBC 0-5 SEEN Ur Squamous Epith Cells 0-5 SEEN Urine Bacteria 0 SEEN Urine Mucus 0 SEEN 11/18/18 05:18 WBC RBC Hgb Hct MCV MCH MCHC RDW RDW Differential Plt Count MPV Immature Gran % (Auto) Neut % (Auto) Lymph % (Auto) Prentiss % (Auto) Eos % (Auto) Baso % (Auto) Absolute Neuts (auto) Absolute Lymphs (auto) Total Counted Sodium Potassium Chloride Carbon Dioxide Anion Gap BUN Creatinine Estim Creat Clear Calc Est GFR (MDRD) Af Amer Est GFR (MDRD) Non-Af BUN/Creatinine Ratio Glucose Calcium Total Bilirubin AST ALT Alkaline Phosphatase Total Protein Albumin Globulin Albumin/Globulin Ratio TSH 3.68 Urine Color Urine Clarity Urine pH Ur Specific [place] Urine Protein Urine Glucose (UA) Urine Ketones Urine Occult Blood Urine Nitrite Urine Bilirubin Urine Urobilinogen Ur Leukocyte Esterase Urine RBC Urine WBC Ur Squamous Epith Cells Urine Bacteria Urine Mucus Medical Necessity - Tobacco Use Smoking Status: Never smoker Assessment/Plan All Active Problems Hypertensive emergency (Resolved) Gastritis (Acute) Seizure (Resolved) Hypertensive emergency (Resolved) Intractable nausea and vomiting (Acute) #1 Abdominal pain with nausea and vomiting-secondary to gastritis and duodenitis-patient was put back on a regular diet, she will be placed on Protonix 40 mg p.o. twice daily, I will continue IV fluids and she will be reevaluated in the morning #2 gastritis-patient will be on Protonix #3 duodenitis-patient will be on Protonix #4 uncontrolled hypertension-I have placed the patient on metoprolol 50 mg twice daily and Diovan 160 mg daily, blood pressure will be monitored. #5 Hypokalemia-patient is receiving potassium through her IV, I will repeat her BMP in the morning #6 debility-etiology unclear at this point, PT and OT will see the patient in the morning Code Visit OBSV E&M: 18293 Subsequent observation care L3
[2018-11-18] MEDS: Losartan Potassium 50 MG Tablet PO (17:45)
[2018-11-18] MEDS: Pantoprazole Sodium 40 MG Tablet PO ×2 (17:45→21:23)
[2018-11-18] MEDS: Metoprolol Tartrate 50 MG Tablet PO ×2 (17:45→21:23)
[2018-11-18] MEDS: Morphine 2 MG/ML Syringe IV (18:40)
[2018-11-19 02:10] VITALS: BP 154/107; PULSE 66; RESP 18; TEMP 36.7; O2SAT 95
[2018-11-19 08:10] VITALS: BP 170/87; PULSE 66; RESP 20; TEMP 36.6; O2SAT 98
--- NOTE | 2018-11-19 09:13 | NURSING ---
pt reports that she has been not feeling well since october 04, 2018 - and that is the day she began vomiting. Denies nausea today and is eating regular diet- tolerating well, denies pain.
[2018-11-19 09:15] VITALS: PULSE 66
[2018-11-19] MEDS: Metoprolol Tartrate 50 MG Tablet PO (09:15)
[2018-11-19] MEDS: Pantoprazole Sodium 40 MG Tablet PO (09:15)
[2018-11-19] MEDS: Sertraline 50 MG Tablet PO (09:15)
[2018-11-19] MEDS: Enoxaparin 40 MG/0.4 ML Syringe SC (09:16)
--- NOTE | 2018-11-19 11:13 | DCINST_ITS ---
- Discharge Diagnoses Current Active Problems: Current Active and Chronic Problems Intractable nausea and vomiting (Acute) You will use the following diet at home:: No restrictions Your food should be the consistency of: Regular Your liquids should be the consistency of: Regular/Thin Discharge Activity: Return to Normal Activity Weight Bearing Status: Full weight bearing Allergies/Adverse Reactions: Allergies fentanyl Allergy (Verified 11/17/18 15:51) Other tamoxifen Allergy (Verified 11/17/18 15:51) Anaphylaxis amlodipine Adverse Reaction (Verified 11/17/18 15:51) Upset Stomach codeine Adverse Reaction (Verified 11/17/18 15:51) Upset Stomach gabapentin Adverse Reaction (Verified 11/17/18 15:51) Upset Stomach lisinopril Adverse Reaction (Verified 11/17/18 15:51) Upset Stomach niacin Adverse Reaction (Verified 11/17/18 15:51) Upset Stomach primidone Adverse Reaction (Verified 11/17/18 15:51) Upset Stomach proparacaine Adverse Reaction (Verified 11/17/18 15:51) Upset Stomach Medications to take at Discharge Acetaminophen 650 mg PO Q4H PRN PRN 10/04/18 Aspirin 81 mg PO DAILY 10/04/18 Levothyroxine [Synthroid] 25 mcg PO DAILY 10/04/18 Nystatin Powder [Mycostatin Powder] 1 applic TOPICAL BID PRN PRN 10/04/18 Rosuvastatin Calcium 5 mg PO DAILY 10/04/18 Vit C/E/Zn/Coppr/Lutein/Zeaxan [Preservision Areds 2 Softgel] 1 each PO BID 10/04/18 Loperamide HCl [Anti-Diarrhea] 2 mg PO PRN PRN 11/18/18 Methyl Salicylate/Menthol [Icy Hot Cream] 35.4 gm TP Q6H PRN PRN 11/18/18 Metoprolol Tartrate 50 mg PO BID 11/18/18 Oxybutynin Chloride [Oxybutynin Chloride ER] 15 mg PO DAILY 11/18/18 Peg 400/Hypromellose/Glycerin [Artificial Tears] 15 ml OP PRN PRN 11/18/18 Pantoprazole Sodium [Protonix] 40 mg PO BID #60 tab 11/19/18 Sertraline HCl [Zoloft] 50 mg PO DAILY #60 tab 11/19/18 The following prescriptions were given: Sertraline HCl [Zoloft] 50 mg PO DAILY #60 tab Pantoprazole Sodium [Protonix] 40 mg PO BID #60 tab Primary Care Physician: Gianni Richardson MD [Primary Care Provider] - Please follow up with your Primary Care Physician in: in 2 weeks Test Results: Test results from this visit will be discussed in further detail at your follow- up appointment, if applicable.
--- NOTE | 2018-11-19 11:22 | CASEMGMT ---
Addendum entered by Codi Lay 11/19/18 14:33: JOSELUIS spoke with pt's daughter Shelli who states she will transport pt back to [facility]. Original Note: Social Work Note SW spoke with RN at [facility]. Per RN pt had an order for PT to eval and treat. JOSELUIS faxed resumption of [facility] order and added OT to order to [facility]. JOSELUIS faxed updated medication list to [facility]. Plan: Pt to return to [facility] once medically cleared Codi Lay STAGE SETTING PAINTER APPRENTICE, DEMENTIA PROGRAM DIRECTOR
[2018-11-19] MEDS: Acetaminophen 325 MG Tablet 650 MG PO (13:32)
[2018-11-19 13:34] VITALS: BP 194/83; PULSE 66; RESP 18; TEMP 36.4; O2SAT 95
--- NOTE | 2018-11-19 13:40 | NURSING ---
pastor jackson in speaking with pt= pt became tearful and requested prn pain meds. notified this RN that she was having significant pain 8/10 at this time to upper abdomen/ stomach area. This RN reviewed tests that have been completed with pt- pt verbalized understanding. Tylenol given to pt at this time and immediately calmed down. This RN asked pt if she has anxiety and if she is feeling anxious at this time- pt verbalized that she does and she is. She states she takes ativan at home. Pt now resting with eyes closed. Pt refusing food but states she will take a decaf tea with sweetener. Same to be ordered. Pt was made aware, earlier today, of discharge.
--- NOTE | 2018-11-19 14:05 | CHAPLAIN ---
Type of Pastoral Visit _x__ Initial Visit ___ Follow-up Visit ___ On-call Visit ___ General Patient Visit ___ Spiritual Assessment ___ Family Conference ___ Bereavement ___ Rapid Response ___ Code Blue ___ Other (describe below) Pastoral Care Referral From _x__ Patient ___ Family ___ Nurse ___ Physician ___ Profile Mill Operator Tape Control ___ Mva Reactor Operator ___ Other (describe below) Sacrament/Intervention _x__ Active listening ___ Anointing ___ Sikh ___ Bereavement ___ Communion _x__ Zara exploration ___ ___ Life review _x__ Prayer ___ Reconciliation ___ Sacrament of Sick _x__ Supportive presence ___ Wedding ___ Other (describe below) Pastoral Comments patient speaks very softly and says that she has pain, moans slightly during the visit; offered spiritual support and patient nods her head in agreement; pt welcomes reading of the psalms and prayer; pt reports that she has a daughter and a congregational connection; pt asks about someone that I might know; pt tells me she needs the nurse; nurse is called and this reading professor waits with pt until nurse responds;
--- NOTE | 2018-11-19 14:38 | NURSING ---
On way down to d/c pt- she stated that she had 2 daughters and 1 of them at the age of 27 with ALS. She states that she did a lot of geneology but never found a genetic link. She states that 2 other boys in her grade of same diagnosis.
--- NOTE | 2018-11-19 21:28 | PCM.DC.SUM ---
Discharge Date and Diagnosis Date of Admission: 11/17/18 Date of Discharge: 11/19/18 - Primary Discharge Diagnosis 1 Abdominal pain with nausea and vomiting-secondary to gastritis and duodenitis #2 gastritis #3 duodenitis #4 uncontrolled hypertension- #5 Hypokalemia- #6 debility #7 major depression - Secondary Discharge Diagnosis Chronic Problems Breast cancer (Chronic) HTN (hypertension) (Chronic) Hospital Course and Treatment Operations: None Procedures: EGD Summary of Care Provided: The patient is a 83 year old F who was seen in the emergency room at [facility] with chief complaint of generalized pain. She recently had a workup for nausea vomiting and diarrhea by her PCP who did a stool sample which was positive for H. pylori, she was started on a Prevpac but she was unable to tolerate the antibiotics and the Prevpac secondary to nausea. Workup in the emergency room included a CBC which was unremarkable, chemistry showed a potassium of 3, liver enzymes were unremarkable, lipase was 289. CT of the abdomen and pelvis showed no acute process, patient was placed and observation status on MedSurg 3 and given IV fluids and potassium replacement, she was also given antiemetics. She was seen in consultation by general surgery who performed an EGD which showed gastritis and duodenitis. Biopsy for H. pylori was noted to be negative. Patient appeared fatigued and lethargic the afternoon of the EGD and she was felt to need a PT and OT evaluation before she returned to assisted living. Conversation was carried out with the patient's daughter who stated the patient had recently been placed on antidepressant. PT and OT saw the patient the following day and the patient appeared stable for discharge back to her assisted living facility. On 11/19/18, patient was seen and examined: On examination she appeared in good health and spirits. Vital signs as documented. Skin warm and dry and without overt rashes. Neck without JVD. Lungs clear. Heart exam notable for regular rhythm, normal sounds and absence of murmurs, rubs or gallops. Abdomen unremarkable and without evidence of organomegaly, masses, or abdominal aortic enlargement. Extremities nonedematous. Neuro: Cranial nerves II through XII are grossly intact, no focal motor deficits were noted, sensation to light touch and pinprick is intact. Psych: Patient is alert and oriented x3, she appears to have a flat affect and be depressed On 11/19/18, patient was seen and examined and felt to be in stable condition for transfer back to assisted living. - Physical Exam Vital Signs Temp Pulse Resp BP Pulse Ox 97.6 F L 66 18 194/83 H 95 11/19/18 13:34 11/19/18 13:34 11/19/18 13:34 11/19/18 13:34 11/19/18 13:34 Oxygen Delivery Method Room Air Weight: 63.7 kg Body Mass Index (BMI) 24.8 Intake and Output for Last 24 Hours 11/17/18 11/18/18 11/19/18 23:59 23:59 23:59 Intake Total 178 / 178 3076 / 3076 1451 / 1451 Balance 178 / 178 3076 / 3076 1451 / 1451 Discharge Activity: Return to Normal Activity Weight Bearing Status: Full weight bearing Home Medications: Medications to take at Discharge Acetaminophen 650 mg PO Q4H PRN PRN 10/04/18 Aspirin 81 mg PO DAILY 10/04/18 Levothyroxine [Synthroid] 25 mcg PO DAILY 10/04/18 Nystatin Powder [Mycostatin Powder] 1 applic TOPICAL BID PRN PRN 10/04/18 Rosuvastatin Calcium 5 mg PO DAILY 10/04/18 Vit C/E/Zn/Coppr/Lutein/Zeaxan [Preservision Areds 2 Softgel] 1 each PO BID 10/04/18 Loperamide HCl [Anti-Diarrhea] 2 mg PO PRN PRN 11/18/18 Methyl Salicylate/Menthol [Icy Hot Cream] 35.4 gm TP Q6H PRN PRN 11/18/18 Metoprolol Tartrate 50 mg PO BID 11/18/18 Oxybutynin Chloride [Oxybutynin Chloride ER] 15 mg PO DAILY 11/18/18 Peg 400/Hypromellose/Glycerin [Artificial Tears] 15 ml OP PRN PRN 11/18/18 Pantoprazole Sodium [Protonix] 40 mg PO BID #60 tab 11/19/18 Sertraline HCl [Zoloft] 50 mg PO DAILY #60 tab 11/19/18 Valsartan [Diovan] 320 mg PO DAILY #30 tab 11/19/18 Following Prescrptions Were Given to Patient: Sertraline HCl [Zoloft] 50 mg PO DAILY #60 tab Valsartan [Diovan] 320 mg PO DAILY #30 tab Pantoprazole Sodium [Protonix] 40 mg PO BID #60 tab Primary Care Physician: Gianni Richardson MD [Primary Care Provider] - Please follow up with your Primary Care Physician in: in 2 weeks Disposition: Asstd Living/Non-Skill [facility] Minutes spent on discharge:: 32 Patient Condition:: Stable Medical Necessity - Tobacco Use Smoking Status: Never smoker Meaningful Use Info Meaningful Use Diagnoses (Choose all that apply): None applicable Code Visit OBSV E&M: 84976 Observation care discharge
== END 2018-11-19 14:24 | disposition home or self-care (01) ==
LOC: ED 16:24 → MS3 20:43
PROVIDERS: Anesthesiology; Surgery; Admitting Provider Family Medicine; Emergency Provider Emergency Medicine; Family Provider Family Medicine; PCP Family Medicine; Visit Provider Internal Medicine
PROC: 0DJ08ZZ Inspection of Upper Intestinal Tract, Via Natural or Artificial Opening Endoscopic (ICD-10-PCS; CPT 43235; principal; 2018-11-18 11:10)
DX: K29.00 Acute gastritis without bleeding (principal); K44.9 Diaphragmatic hernia without obstruction or gangrene; Z79.899 Other long term (current) drug therapy; I10 Essential (primary) hypertension; G31.84 Mild cognitive impairment of uncertain or unknown etiology; Z85.3 Personal history of malignant neoplasm of breast; I16.1 Hypertensive emergency; F32.9 Major depressive disorder, single episode, unspecified; Z79.82 Long term (current) use of aspirin; E87.6 Hypokalemia
CPT/HCPCS: 43239; 36415; 74177; 80053; 81001; 83690; 84443; 85025; 88305; 88312; 88342; 96361; 96372; 96374; 96375; 96376; 97162; 97165; 99218; 99282; J7030; Q9967; A4216; G0378

== ENCOUNTER → 2019-11-06 05:00 | Outpatient (REF) | payer MEDICARE, SELFPAY ==
[2018-11-18 09:15] VITALS: BMI 24.8
[2019-11-06 08:00] LABS: ALB/GLOB Ratio 1.1 RATIO (0.9-2.4); AST(SGOT) 17 U/L (15-37); Alanine Aminotransfer ALT/SGPT 17 U/L (13-56); Albumin, Serum 3.7 g/dL (3.2-5.0); Alkaline Phosphatase 81 U/L (45-117); Anion Gap 4 (5-15); BUN 12 mg/dL (7-18); BUN/Creat Ratio 13.7 RATIO (10-20); Calcium,Total 8.6 mg/dL (8.5-10.1); Chloride 105 mmol/L (98-107); Cholesterol 140 mg/dL (200); Creatinine, Serum 0.88 mg/dL (0.55-1.02); EST Glomerular Filtration Rate 66 mL/min (>60); Est Glom Filt Rate - Afr Amer 80 mL/min (>60); Globulin 3.3 g/dL (2.2-4.2); Glucose 143 mg/dL (74-106); High Density Lipoprotein 42 mg/dL; Potassium 3.6 mmol/L (3.5-5.1); Sodium Level 140 mmol/L (136-145); Thyroid Stim Hormone (TSH) 3.02 uIU/mL (0.358-3.74); Triglycerides 119 mg/dL; Very Low Density Lipoprotein 24 mg/dL (5-40)
== END ==
PROVIDERS: Family Provider Family Medicine; PCP Family Medicine; Referring Provider Family Medicine; Visit Provider Family Medicine
DX: E78.5 Hyperlipidemia, unspecified (principal); E03.9 Hypothyroidism, unspecified; Z79.899 Other long term (current) drug therapy
CPT/HCPCS: 36415; 80053; 80061; 84443

== ENCOUNTER 2020-12-13 20:08 | Emergency (ER) | payer MEDICARE, SELFPAY ==
[2018-11-18 09:15] VITALS: BMI 24.8
[2020-12-13 20:08] VITALS: BP 201/103; PULSE 62; RESP 26; TEMP 36.1; O2SAT 94; BMI 28.3
--- NOTE | 2020-12-13 20:19 | EKG12_ITS ---
Test Reason : CP Blood Pressure : / mmHG Vent. Rate : 059 BPM Atrial Rate : 059 BPM P-R Int : 146 ms QRS Dur : 094 ms QT Int : 480 ms P-R-T Axes : 043 014 113 degrees QTc Int : 475 ms Sinus bradycardia with sinus arrhythmia Left ventricular hypertrophy Nonspecific ST and T wave abnormality Abnormal ECG Confirmed by TA JONES, VISH ([id number]), news editor HELIO LEE ([id number]) on 12/15/2020 10:31:46 AM Referred By: DOUG Confirmed By:VISH CHAPPELL MD
--- NOTE | 2020-12-13 20:30 | RAD_ITS ---
STUDY: X-RAY CHEST REASON FOR EXAM: Female, 85 years old. CHEST PAIN. TECHNIQUE: Single AP portable view of the chest. COMPARISON: 10/04/2018 FINDINGS: Cardiac silhouette enlarged. Pulmonary vascularity unremarkable. Aorta atherosclerotic. No focal airspace opacities. No pleural effusions. Upper abdomen unremarkable. Osseous structures intact. No pneumothorax. RAD/Chest 1 View (Portable) IMPRESSION: No acute cardiopulmonary process identified. Electronically Signed: Buzz Mccormick MD at 21:06 EST Tel , Service support ,
[2020-12-13 20:41] LABS: Absolute Lymphocyte Count 1.69 X10^3/uL (0.83-4.51); Absolute Neutrophil Count 5.3 X10^3/uL (2.0-7.7); Basophil# 0.07 X10^3/uL; Basophil% 0.9 % (0-1); Eosinophil# 0.13 X10^3/uL; Eosinophils% 1.6 % (0-5); Hematocrit 41.6 % (37-47); Hemoglobin 13.9 g/dL (12.0-15.0); Lymphocyte # 1.69 X10^3/ul (4.0); Lymphocyte % 21.4 % (19-41); Mean Corp Hgb Conc 33.4 g/dL (32-36); Mean Corpuscular Hgb 28.7 pg (27.0-32.0); Mean Corpuscular Volume 85.8 fL (81-99); Monocyte# 0.66 X10^3/uL; Monocyte% 8.3 % (0-10); NRBC Flagged by Analyzer 0 % (0-5); Neutrophil # 5.34 X10^3/uL (2.7-7.7); Neutrophil % 67.5 % (47-70); Platelet Count 157 K/mm3 (150-450); RBC Distribution Width CV 12.8 % (11.6-14.6); RBC Distribution Width SD 39.4 fl (35.1-43.9); Red Blood Count 4.85 M/mm3 (4.2-5.4); White Blood Count 7.9 K/mm3 (4.4-11.0)
--- NOTE | 2020-12-13 20:41 | ED.VIS.GEN ---
History of Present Illness Chief Complaint: Chest Pain Informant: Patient Onset: Today Maximum Severity: Mild Narrative: Patient presents complaining of substernal chest discomfort that began about an hour ago and lasted until EMS arrived and gave her what she believes was aspirin nitroglycerin, she indicates she has no history of CA PE or DVT she was resting comfortably at home when she began having the chest discomfort, she has a history of hypertension and irritable bowel and diarrhea she notes her blood pressure was high today in the 200 range and that she took her blood pressure medicines she presents the blood pressure about 200, she no longer has chest pain she has no complaints she has had no fever no cough she has no history of CA PE or DVT no coronavirus exposures eating and drinking well she is able to execute all of her daily activities and does not usually experience chest discomfort Past Medical History - Allergies and Home Meds Allergies/Adverse Reactions: Allergies fentanyl Allergy (Verified 12/13/20 20:17) Other morphine Allergy (Verified 12/13/20 20:24) Anaphylaxis tamoxifen Allergy (Verified 12/13/20 20:17) Anaphylaxis amlodipine Adverse Reaction (Verified 12/13/20 20:17) Upset Stomach codeine Adverse Reaction (Verified 12/13/20 20:17) Upset Stomach gabapentin Adverse Reaction (Verified 12/13/20 20:17) Upset Stomach lisinopril Adverse Reaction (Verified 12/13/20 20:17) Upset Stomach niacin Adverse Reaction (Verified 12/13/20 20:17) Upset Stomach primidone Adverse Reaction (Verified 12/13/20 20:17) Upset Stomach proparacaine Adverse Reaction (Verified 12/13/20 20:17) Upset Stomach Primary Care Physician: Gianni Richardson MD [Primary Care Provider] - Past Medical History: - Surgical History: hysterectomy, tonsillectomy, - - lumpectomy with axillary nodes dissection; Facial surgery after facial laceration post fall Smoking Status: Never smoker - Family History Maternal Family History: Family History (Last Updated 10/04/18 @ 06:[address] Maxx Hanks MD) Mother Hypertension CVA (cerebral vascular accident) Family History: Reports: No pertinent history Review of Systems ROS: - Includes as above General: Denies: Chills, Fever, Sweats Eyes: Denies: Visual changes - bilaterally, Diplopia ENT: Denies: Rhinorrhea, Sore throat Cardiovascular: Reports: Chest pain. Denies: Palpitations Respiratory: Denies: Dyspnea, Cough, Dyspnea on exertion Gastrointestinal: Denies: Abdominal pain, Nausea, Vomiting, Diarrhea, Melena, Hematochezia Genitourinary: Denies: Dysuria, Hematuria, Frequency Musculoskeletal: Denies: Back pain, Extremity Pain Skin: Denies: Rash, Wounds Neurological: Denies: Headache, Weakness, Numbness Physical Exam Vital Signs/Narrative: Vital Signs Temp Pulse Resp BP Pulse Ox 12/13/20 20:08 97.0 F L 62 26 H 201/103 H 94 General: Well nourished, Well developed, No Acute Distress Head: Normocephalic, Atraumatic Eyes: Perrl, EOMI ENT: Moist mucous membranes, No rhinorrhea Neck: Supple, Nontender Cardiovascular: Regular rate, Regular rhythm, No murmurs Respiratory: No distress, CTA bilaterally, Chest nontender Abdomen: Soft, Nontender, Nondistended, Normal bowel sounds Back: Nontender, Normal Inspection Extremities: Nontender, No edema Skin: Normal color, No rash Neurological: Alert, Oriented x3, Cranial nerves II-XII grossly intact, Normal Strength, Normal Sensation Psychological: Normal affect, Normal Mood Diagnostic/Tx/Re-eval - Medical Decision Making Her vital signs were marked for a blood pressure of 190/80 she is resting comfortably in the bed she is in no distress, her EKG shows a sinus bradycardia rate 60 no acute injury pattern appreciated some LVH at this time given all the above we will give her 1 dose of clonidine to lower her blood pressure obtain ED screening labs and proceed from there The patient's ED screening evaluation 1 view chest x-ray to my read is unremarkable all labs are unremarkable on reevaluation she remains asymptomatic we discussed the differential with her we discussed inpatient versus outpatient management her grandson is in the room with her they discussed things neither 1 want her admitted she wants to go home to follow-up outpatient providers and return for change in symptoms and understands that extensive differential related to unspecified chest pain potential life-threatening causes but again wants to be discharged to follow with outpatient providers. Final impression chest pain resolved etiology unclear, Disposition Home patient declined admission ED Disposition - Plan for ED Patient: Diagnosis: Chest pain Instructions: ED Chest Pain, Uncertain Cause Referrals: Gianni Richardson MD [Primary Care Provider] -
[2020-12-13] MEDS: Clonidine HCl 0.1 MG, Clonidine HCl 0.2 MG 0.3 MG PO (20:47)
[2020-12-13 20:59] LABS: Anion Gap 3 (5-15); BUN 15 mg/dL (7-18); BUN/Creat Ratio 13.8 RATIO (10-20); Calcium,Total 9.1 mg/dL (8.5-10.1); Chloride 103 mmol/L (98-107); Creatinine, Serum 1.09 mg/dL (0.55-1.02); EST Glomerular Filtration Rate 51 mL/min (>60); Est Glom Filt Rate - Afr Amer 62 mL/min (>60); Estimated Creatinine Clearance 33.77 ml/min; Glucose 116 mg/dL (74-106); Potassium 3.8 mmol/L (3.5-5.1); Sodium Level 137 mmol/L (136-145)
[2020-12-13 21:00] LABS: D-Dimer Quantitative (DVT/PE) 0.38 FEU/ug/m (0.27-0.49)
[2020-12-13 21:10] LABS: BNP,B-Type NATRIURETIC PEPTIDE 193.3 pg/mL (0-100)
[2020-12-13 21:15] VITALS: BP 188/106; PULSE 63; RESP 14; O2SAT 94
--- NOTE | 2020-12-13 21:47 | ED.RN ---
spoke with nurse at [facility] for pt update.
--- NOTE | 2020-12-13 22:22 | ED.RN ---
THIS RN SPOKE WITH JOSE GONZALES FROM [facility]. RETUEN REPORT GIVEN, NO ADDITIONAL QUESTIONS. JOSE AWARE THAT ADIA VILLARREAL WILL BE TAKING PATIENT BACK TO FACILITY.
[2020-12-13 22:23] VITALS: BP 163/101; PULSE 57; RESP 18; O2SAT 94
== END 2020-12-13 22:35 | disposition home or self-care (01) ==
LOC: ED 20:32
PROVIDERS: Emergency Provider Emergency Medicine; PCP Family Medicine
DX: R07.9 Chest pain, unspecified (principal); I10 Essential (primary) hypertension; Z79.82 Long term (current) use of aspirin
CPT/HCPCS: 71045; 80048; 83880; 84484; 85025; 85379; 93005; 99285; A4216

== ENCOUNTER → 2021-03-16 16:20 | Outpatient (REF) | payer MEDICARE, SELFPAY | PROVIDERS: PCP Family Medicine; Visit Provider Specialist | DX: R53.83 Other fatigue (principal); I10 Essential (primary) hypertension; R19.7 Diarrhea, unspecified; R68.83 Chills (without fever); R35.0 Frequency of micturition; R63.0 Anorexia; R53.1 Weakness; Z79.899 Other long term (current) drug therapy | CPT/HCPCS: 87804 ==

== ENCOUNTER 2021-03-21 15:16 | Inpatient (IN) | payer MEDICARE, SELFPAY ==
[2021-03-21] VITALS (11 sets, daily range): BP systolic 176–206; BP diastolic 69–105; PULSE 49–84; RESP 16–18; TEMP 36.6–37.1; O2SAT 86–99; BMI 28.6; BMI 27.1
--- NOTE | 2021-03-21 15:38 | EKG12_ITS ---
Test Reason : SOB Blood Pressure : / mmHG Vent. Rate : 058 BPM Atrial Rate : 058 BPM P-R Int : 156 ms QRS Dur : 092 ms QT Int : 516 ms P-R-T Axes : 064 022 103 degrees QTc Int : 506 ms Sinus bradycardia with sinus arrhythmia Possible Left atrial enlargement Left ventricular hypertrophy with repolarization abnormality Prolonged QT Abnormal ECG Confirmed by ESTEPHANIA JONES, KARI ([id number]), metropolitan editor HELIO LEE ([id number]) on 03/24/2021 11:26:19 A M Referred By: NAZ Confirmed By:JEREMY BEST MD
--- NOTE | 2021-03-21 15:39 | EX.ED.DYSGE1 ---
HPI History of Present Illness Chief Complaint: Shortness of Breath Informant: patient and SNF Narrative Narrative: Patient is a 85-year-old female presenting from assisted living for worsening shortness of breath and generalized malaise. Patient states she has been feeling for the past week or so. Today she is more short of breath and her O2 saturation was 91%. She does not wear oxygen normally. In the ER patient went down to 86% just getting undressed. She denies any cough. She denies any chest pain. She denies any GI upset. She has any black or bloody stools. Denies any swelling of the lower extremities. She denies any fever or chills. Patient states she took her morning medications today like she normally does. No other complaints at this time. Prior similar symptoms: No PFSH FOR[facility]LY [facility], [facility] Medical History (Updated 03/21/21 @ 17:[address] Yola Beltran, ) Anxiety Markham's palsy Chronic rhinitis Depressive disorder GERD (gastroesophageal reflux disease) Hyperlipidemia Hypertension Hypertensive retinopathy, right eye Hypothyroid Osteoarthritis Home Medications PreserVision AREDS-2 1 ea PO BID 10/04/18 [History Last Taken Unknown] acetaminophen 650 mg PO Q4H PRN PRN 10/04/18 [History Last Taken Unknown] aspirin 81 mg PO DAILY 10/04/18 [History Last Taken Unknown] levothyroxine 25 mcg PO DAILY 10/04/18 [History Last Taken Unknown] nystatin [Nyamyc] 1 applic TOPICAL BID PRN PRN 10/04/18 [History Last Taken Unknown] rosuvastatin 5 mg PO QHS 10/04/18 [History Last Taken Unknown] Icy Hot 35.4 g TP Q6H PRN PRN 11/18/18 [History Last Taken Unknown] loperamide [Anti-Diarrhea] 2 mg PO BID PRN PRN 11/18/18 [History Last Taken Unknown] valsartan 320 mg PO DAILY #30 tab 11/19/18 [Rx Last Taken Unknown] L.acidoph, paracasei,B. lactis 1 ea PO DAILY 12/13/20 [History Last Taken Unknown] celecoxib 200 mg PO DAILY 12/13/20 [History Last Taken Unknown] diphenhydramine HCl 25 mg PO TID PRN PRN 12/13/20 [History Last Taken Unknown] loratadine 10 mg PO DAILY 12/13/20 [History Last Taken Unknown] mirabegron 50 mg PO DAILY 12/13/20 [History Last Taken Unknown] pantoprazole 40 mg PO DAILY 12/13/20 [History Last Taken Unknown] psyllium husk 0.52 gm PO DAILY 12/13/20 [History Last Taken Unknown] sertraline 100 mg PO DAILY 12/13/20 [History Last Taken Unknown] trazodone 50 mg PO QHS 12/13/20 [History Last Taken Unknown] carboxymethylcellulose sodium [Artificial Tears (cmc)] 1 drp EACH EYE BID 03/21/21 [History Last Taken Unknown] Allergy/AdvReac Type Severity Reaction Status Date / Time fentanyl Allergy Other Verified 03/21/21 16:02 morphine Allergy Anaphylaxis Verified 03/21/21 16:02 tamoxifen Allergy Anaphylaxis Verified 03/21/21 16:02 amlodipine AdvReac Upset Verified 03/21/21 16:02 Stomach codeine AdvReac Upset Verified 03/21/21 16:02 Stomach gabapentin AdvReac Upset Verified 03/21/21 16:02 Stomach lisinopril AdvReac Upset Verified 03/21/21 16:02 Stomach niacin AdvReac Upset Verified 03/21/21 16:02 Stomach primidone AdvReac Upset Verified 03/21/21 16:02 Stomach proparacaine AdvReac Upset Verified 03/21/21 16:02 Stomach Family History (Updated 10/04/18 @ 06:[address] Maxx Hanks MD) Mother Hypertension CVA (cerebral vascular accident) Social History Smoking Status: Never smoker ROS [facility] ED Constitutional Constitutional ED: Reports other Details: generalized weakness ; Denies chills, fever(s) or malaise Eyes Eyes: Denies blurry vision or loss of vision ENT ENT ED: Denies rhinorrhea or sore throat Cardiovascular Cardiovascular: Denies chest pain or dizziness Respiratory/Chest Respiratory/Chest: Reports dyspnea; Denies cough Gastrointestinal Gastrointestinal: Denies nausea or vomiting Genitourinary Genitourinary ED: Denies dysuria or hematuria Musculoskeletal Musculoskeletal: Denies arthralgias or myalgias Integumentary Denies rash or wounds Neurologic Neurologic: Denies focal weakness or headache(s) Psychiatric Psychiatric: Denies anxiety or behavioral changes EXAM Physical Exam Const Vital Signs: 03/21/21 15:22 03/21/21 15:27 03/21/21 15:31 Temperature 98.0 F 98.0 F Temperature Source Oral Oral Pulse Rate 62 62 Respiratory Rate 16 16 Respiratory Effort Respiratory Depth Respiratory Pattern Blood Pressure 206/104 H 206/104 H Blood Pressure Mean 138 138 Pulse Ox 93 97 86 Oxygen Delivery Method Room Air Nasal Cannula Room Air Oxygen Flow Rate (L/min) 2 03/21/21 15:38 03/21/21 16:05 03/21/21 17:17 Temperature 98.3 F Temperature Source Oral Pulse Rate 68 Respiratory Rate 18 Respiratory Effort Short of Breath Respiratory Depth Normal Respiratory Pattern Normal Blood Pressure 187/105 H Blood Pressure Mean 132 Pulse Ox 97 96 Oxygen Delivery Method Nasal Cannula Room Air Nasal Cannula Oxygen Flow Rate (L/min) 2 2 Positive well nourished, well developed and no apparent distress General Appearance ED: well developed HEENT Reports normocephalic and moist mucous membranes atraumatic Nose: no nasal discharge General Ear: hearing grossly impaired External Ear: external ears normal Mouth ED: Yes moist mucous membranes abnormal Mouth: moist mucous membranes abnormal Eyes PERRL and EOMs intact bilaterally Neck full ROM, supple, no meningeal signs and no JVD Chest Wall inspection of chest normal Resp normal respiratory effort, normal air movement and clear to auscultation bilaterally Auscultation: Negative for rhonchi or wheezes Cardio regular rate and regular rhythm Heart Sounds: murmur diastolic GI normal to inspection, nondistended, normoactive bowel sounds Extremity normal to inspection and full ROM Neuro oriented x3 and no focal motor deficits Sensorium / Orientation: alert Psych mental status grossly normal and thought process normal Skin no rashes or lesions noted and no wounds MDM MDM Lab Data Attestation: I reviewed the patient's lab results. Lab results narrative: Patient evaluated for worsening shortness of breath and malaise. She is hypoxic in the ER and placed on nasal cannula. She states she does feel better with this. Patient is hypertensive however her blood pressure does improve slightly without any intervention. She denies any chest pain. Have a lower suspicion for PE. Her D-dimer is normal per age adjustment. I do not think a CTA is indicated at this time. Chest x-ray shows a questionable infiltrate. Given her hypoxia and x-ray findings should be treated as community-acquired pneumonia and admitted to the hospital. Her white blood cell count is normal. She does not meet criteria for sepsis. Patient started on Rocephin and azithromycin in the ER. Her BNP is elevated at 713. She does not appear fluid overloaded on physical exam however this is above her baseline. We will discuss this with hospitalist. Patient admitted to the hospital service in stable condition. She is agreeable this plan of care. Labs: Laboratory Results - last 24 hr 03/21/21 03/21/21 03/21/21 15:52 15:52 15:52 WBC 9.4 RBC 4.77 Hgb 13.3 Hct 40.7 MCV 85.3 MCH 27.9 MCHC 32.7 RDW Std Deviation 40.9 RDW Coeff of Michel 13.2 Plt Count 168 MPV 10.3 Immature Gran % (Auto) 0.500 Neut % (Auto) 79.7 H Lymph % (Auto) 10.2 L Chester % (Auto) 8.0 Eos % (Auto) 1.0 Baso % (Auto) 0.6 Absolute Neuts (auto) 7.5 Absolute Lymphs (auto) 0.96 Nucleated RBC % 0 D-Dimer Quant (PE/DVT) Sodium 139 Potassium 3.4 L Chloride 103 Carbon Dioxide 30.0 Anion Gap 6 BUN 10 Creatinine 0.69 Estim Creat Clear Calc 35.26 Est GFR (MDRD) Af Amer 104 Est GFR (MDRD) Non-Af 86 BUN/Creatinine Ratio 14.5 Glucose 105 Calcium 8.6 Total Bilirubin 0.70 AST 10 L ALT 13 Alkaline Phosphatase 81 Troponin I < 0.015 B-Natriuretic Peptide 713.1 H Total Protein 6.9 Albumin 3.7 Globulin 3.2 Albumin/Globulin Ratio 1.2 03/21/21 15:52 WBC RBC Hgb Hct MCV MCH MCHC RDW Std Deviation RDW Coeff of Michel Plt Count MPV Immature Gran % (Auto) Neut % (Auto) Lymph % (Auto) Chester % (Auto) Eos % (Auto) Baso % (Auto) Absolute Neuts (auto) Absolute Lymphs (auto) Nucleated RBC % D-Dimer Quant (PE/DVT) 0.61 H* Sodium Potassium Chloride Carbon Dioxide Anion Gap BUN Creatinine Estim Creat Clear Calc Est GFR (MDRD) Af Amer Est GFR (MDRD) Non-Af BUN/Creatinine Ratio Glucose Calcium Total Bilirubin AST ALT Alkaline Phosphatase Troponin I B-Natriuretic Peptide Total Protein Albumin Globulin Albumin/Globulin Ratio Radiography Chest X-Ray - ED: 1 View, Read by ED Physician, Read by Radiologist and Right Infiltrate Diagnostic Testing: Radiology Impression Chest X-Ray 03/21/21 15:54 IMPRESSION: Question early changes of inflammatory disease in the right lower lobe. Clinical correlation recommended Electronically Signed: Rocky rFeitas MD at 16:08 EDT , Service support , Rhythm Strip Rhythm Strip: Sinus Rhythm Rate: 58 Ectopy: None EKG Initial EKG: Attestation: I personally reviewed and interpreted this EKG as follows: Interpretation: Sinus Bradycardia Comments: Sinus bradycardia rate of 58 with sinus arrhythmia Normal axis Prolonged QTC at a rate of 506 Normal ND interval Flattened T waves throughout with no acute ischemic changes Discharge Plan Triage Chief Complaint: Shortness of Breath ED Provider: Yola Beltran Dx/Rx/DC Orders Clinical Impression: Right lower lobe pneumonia, Hypoxia Primary Care Provider: Gianni Richardson Disposition Disposition: Acute Care Hospital [facility]
--- NOTE | 2021-03-21 15:54 | RAD_ITS ---
STUDY: X-RAY CHEST REASON FOR EXAM: Female, 85 years old. sob TECHNIQUE: AP portable COMPARISON: 12/13/2020 FINDINGS: There is mild prominence of interstitial markings in the right lower lobe with subtle areas of increased density is new finding since prior exam possibly representing evolving inflammatory disease... There is no demonstrated pleural abnormality. Heart is enlarged.. Normal mediastinum. Small calcified right hilar node. Normal visualized pulmonary arteries. Mildly calcified aortic arch and descending thoracic aorta. Normal visualized thoracic spine. Normal visualized ribs, and clavicles. There are degenerative changes of the shoulders and postop changes on the right. There is no demonstrated abnormality of the visualized soft tissue structures of the upper abdomen. RAD/Chest 1 View (Portable) IMPRESSION: Question early changes of inflammatory disease in the right lower lobe. Clinical correlation recommended Electronically Signed: Rocky Freitas MD at 16:08 EDT , Service support ,
[2021-03-21 16:18] LABS: Absolute Lymphocyte Count 0.96 X10^3/uL (0.83-4.51); Absolute Neutrophil Count 7.5 X10^3/uL (2.0-7.7); Basophil# 0.06 X10^3/uL; Basophil% 0.6 % (0-1); Eosinophil# 0.09 X10^3/uL; Hematocrit 40.7 % (37-47); Hemoglobin 13.3 g/dL (12.0-15.0); Lymphocyte # 0.96 X10^3/ul (0.83-4.51); Lymphocyte % 10.2 % (19-41); Mean Corp Hgb Conc 32.7 g/dL (32-36); Mean Corpuscular Hgb 27.9 pg (27.0-32.0); Mean Corpuscular Volume 85.3 fL (81-99); Mean Platelet Vol. 10.3 fl (6.2-12.0); Monocyte# 0.75 X10^3/uL; NRBC Flagged by Analyzer 0 % (0-5); Neutrophil # 7.47 X10^3/uL (2.7-7.7); Neutrophil % 79.7 % (47-70); Platelet Count 168 K/mm3 (150-450); RBC Distribution Width CV 13.2 % (11.6-14.6); RBC Distribution Width SD 40.9 fl (35.1-43.9); Red Blood Count 4.77 M/mm3 (4.2-5.4); White Blood Count 9.4 K/mm3 (4.4-11.0)
[2021-03-21 16:27] LABS: D-Dimer Quantitative (DVT/PE) 0.61 FEU/ug/m (0.27-0.49)
[2021-03-21 16:43] LABS: ALB/GLOB Ratio 1.2 RATIO (0.9-2.4); AST(SGOT) 10 U/L (15-37); Alanine Aminotransfer ALT/SGPT 13 U/L (13-56); Albumin, Serum 3.7 g/dL (3.2-5.0); Alkaline Phosphatase 81 U/L (45-117); Anion Gap 6 (5-15); BUN 10 mg/dL (7-18); BUN/Creat Ratio 14.5 RATIO (10-20); Calcium,Total 8.6 mg/dL (8.5-10.1); Chloride 103 mmol/L (98-107); Creatinine, Serum 0.69 mg/dL (0.55-1.02); EST Glomerular Filtration Rate 86 mL/min (>60); Est Glom Filt Rate - Afr Amer 104 mL/min (>60); Estimated Creatinine Clearance 35.26 ml/min; Globulin 3.2 g/dL (2.2-4.2); Glucose 105 mg/dL (74-106); Potassium 3.4 mmol/L (3.5-5.1); Protein, Total 6.9 g/dL (6.4-8.2); Sodium Level 139 mmol/L (136-145)
[2021-03-21 16:57] LABS: BNP,B-Type NATRIURETIC PEPTIDE 713.1 pg/mL (0-100)
--- NOTE | 2021-03-21 16:59 | HP.PCM.HOS_ITS ---
HPI - General General Date of Admission: 03/21/21 HPI Narrative EMA AYALA, is a 85 F with a PMH as outlined who presents form her assisted living facility with shortness of breath. She felt quite unwell, and was hypoxic down to 86% on room air. She denied any associated orthopnea but admitted to [facility]. She denied any palpitations, swelling in her lower extremities or any chest pain and denied any long distance travel or history of DVT or PE. COVID was negative, and covid test done at facility was also negative. She denied any fever, chills, nausea, vomiting or diarrhea. Review of systems was otherwise negative. Vitals sshowed BP of 206/104, Temp of 98F, WV of 62 and RR of 16. CBC showed wbc of 9.4 and Hb of 13.3, platelets of 168. D dimer was 0/61,a nd EKG showed no acute ST changes. Chemistry was significant for potassium of 3.4 but was otherwise normal. Chest x-ray showed questionable early changes of inflammatory disease in the right lower lobe. BNP was elevated in the 700s. She is being admitted to be managed for acute hypoxic respiratory insufficiency due to community-acquired pneumonia and acute heart failure of unknown EF. [facility] Medical History (Updated 03/22/21 @ 07:[address] Lizandro Barone MD) Anxiety Markham's palsy Breast cancer Chronic rhinitis Depressive disorder GERD (gastroesophageal reflux disease) Hyperlipidemia Hypertension Hypertensive retinopathy, right eye Hypothyroid Kidney stones Osteoarthritis Seizures Home Medications PreserVision AREDS-2 1 ea PO BID 10/04/18 [History Last Taken 03/21/21] aspirin 81 mg PO DAILY 10/04/18 [History Last Taken 03/21/21] levothyroxine 25 mcg PO DAILY 10/04/18 [History Last Taken 03/21/21] nystatin [Nyamyc] 1 applic TOPICAL BID PRN PRN 10/04/18 [History Last Taken Unknown] rosuvastatin 5 mg PO QHS 10/04/18 [History Last Taken 03/20/21] Icy Hot 35.4 g TP Q6H PRN PRN 11/18/18 [History Last Taken Unknown] L.acidoph, paracasei,B. lactis 1 ea PO DAILY 12/13/20 [History Last Taken 03/21/21] celecoxib 200 mg PO DAILY 12/13/20 [History Last Taken 03/21/21] diphenhydramine HCl 25 mg PO TID PRN PRN 12/13/20 [History Last Taken Unknown] mirabegron 50 mg PO DAILY 12/13/20 [History Last Taken 03/20/21] pantoprazole 40 mg PO DAILY 12/13/20 [History Last Taken 03/21/21] psyllium husk 0.52 gm PO DAILY 12/13/20 [History Last Taken 03/21/21] trazodone 50 mg PO QHS 12/13/20 [History Last Taken 03/20/21] acetaminophen [Tylenol Arthritis] 650 mg PO Q12H 03/21/21 [History Last Taken 03/21/21] carboxymethylcellulose sodium [Artificial Tears (cmc)] 1 drp EACH EYE BID 03/21/21 [History Last Taken Unknown] fluticasone propionate [Flonase] 2 spray INTRANASAL DAILY 03/21/21 [History Last Taken Unknown] metoprolol tartrate 100 mg PO BID 03/21/21 [History Last Taken 03/21/21] sertraline 100 mg PO DAILY 03/21/21 [History Last Taken 03/21/21] valsartan 320 mg PO DAILY 03/21/21 [History Last Taken 03/21/21] Allergy/AdvReac Type Severity Reaction Status Date / Time fentanyl Allergy seizures Verified 03/21/21 18:35 morphine Allergy Anaphylaxis Verified 03/21/21 16:02 proparacaine Allergy eye Verified 03/21/21 18:35 swelling tamoxifen Allergy Anaphylaxis Verified 03/21/21 16:02 amlodipine AdvReac Upset Verified 03/21/21 16:02 Stomach codeine AdvReac Upset Verified 03/21/21 16:02 Stomach gabapentin AdvReac Upset Verified 03/21/21 16:02 Stomach lisinopril AdvReac Upset Verified 03/21/21 16:02 Stomach niacin AdvReac Upset Verified 03/21/21 16:02 Stomach primidone AdvReac Upset Verified 03/21/21 16:02 Stomach Family History (Updated 10/04/18 @ 06:[address] Maxx Hanks MD) Mother Hypertension CVA (cerebral vascular accident) Surgical History (Updated 03/21/21 @ 19:15 by Codi Mena) H/O: hysterectomy S/P lumpectomy, left breast Social History Smoking Status: Never smoker ROS Constitutional Constitutional: Reports malaise and weakness; Denies anorexia, change in weight, chills or fever(s) Eyes Eyes: Denies change in vision ENT HEENT: Denies abnormal hearing or headache(s) Cardiovascular Cardiovascular: Reports dyspnea on exertion and paroxysmal nocturnal dyspnea; Denies chest pain, edema, lightheadedness, orthopnea, palpitations or rapid hea rt rate Respiratory/Chest Respiratory/Chest: Reports shortness of breath at rest and shortness of breath with exertion; Denies cough, dyspnea or hemoptysis Gastrointestinal Gastrointestinal: Denies abdominal pain, constipation or hematemesis Genitourinary Genitourinary: Denies burning urination or dysuria Musculoskeletal Musculoskeletal: Denies arthralgias Neurologic Neurologic: Denies abnormal gait, confusion, dizziness, focal weakness, headache(s) or seizures Psychiatric Psychiatric: Denies anxiety or depression Endocrine Endocrinology: Denies change in body appearance Hematologic/Lymphatic Hematologic/Lymphatic: Denies anemia or easy bleeding Allergic/Immunologic Allergic/Immunologic: Denies asthma Vital Signs Vital Signs Vital Signs: 03/21/21 15:22 03/21/21 15:27 03/21/21 15:31 Temperature 98.0 F 98.0 F Temperature Source Oral Oral Pulse Rate 62 62 Respiratory Rate 16 16 Respiratory Effort Respiratory Depth Respiratory Pattern Blood Pressure 206/104 H 206/104 H Blood Pressure Mean 138 138 Pulse Ox 93 97 86 Oxygen Delivery Method Room Air Nasal Cannula Room Air Oxygen Flow Rate (L/min) 2 03/21/21 15:38 03/21/21 16:05 Temperature Temperature Source Pulse Rate Respiratory Rate Respiratory Effort Short of Breath Respiratory Depth Normal Respiratory Pattern Normal Blood Pressure Blood Pressure Mean Pulse Ox 97 Oxygen Delivery Method Nasal Cannula Room Air Oxygen Flow Rate (L/min) 2 Physical Exam Const alert and oriented x3 General Appearance: cooperative HEENT normocephalic, head/scalp atraumatic, hearing grossly normal bilaterally and moist oral mucous membranes Eyes PERRL, EOMs intact bilaterally and conjunctivae normal Neck no lymphadenopathy Resp No no use of accessory muscles Resp Narrative: diminished breath sounds bibasally, few crackles. On 3L of oxygen by nasal canula Cardio regular rate, regular rhythm, S1 normal heart sound and S2 normal heart sound Cardio Narrative: grade 2-3 systolic murmur loudest in the aortic region GI normal to inspection, nondistended, normoactive bowel sounds, soft to palpation, non-tender and non-distended Extremity normal to inspection, full ROM and no clubbing, cyanosis or edema Peripheral Pulses: Yes pulses 2+ throughout Skin no rashes or lesions noted Neuro oriented x3 Sensorium / Orientation: awake and alert Psych affect normal Lab / Micro Data Result Diagrams: 03/22/21 05:04 03/22/21 05:04 Labs: Laboratory Results - last 24 hr 03/21/21 03/21/21 03/21/21 15:52 15:52 15:52 WBC 9.4 RBC 4.77 Hgb 13.3 Hct 40.7 MCV 85.3 MCH 27.9 MCHC 32.7 RDW Std Deviation 40.9 RDW Coeff of Michel 13.2 Plt Count 168 MPV 10.3 Immature Gran % (Auto) 0.500 Neut % (Auto) 79.7 H Lymph % (Auto) 10.2 L Mcnairy % (Auto) 8.0 Eos % (Auto) 1.0 Baso % (Auto) 0.6 Absolute Neuts (auto) 7.5 Absolute Lymphs (auto) 0.96 Nucleated RBC % 0 D-Dimer Quant (PE/DVT) Sodium 139 Potassium 3.4 L Chloride 103 Carbon Dioxide 30.0 Anion Gap 6 BUN 10 Creatinine 0.69 Estim Creat Clear Calc 35.26 Est GFR (MDRD) Af Amer 104 Est GFR (MDRD) Non-Af 86 BUN/Creatinine Ratio 14.5 Glucose 105 Calcium 8.6 Total Bilirubin 0.70 AST 10 L ALT 13 Alkaline Phosphatase 81 Troponin I < 0.015 B-Natriuretic Peptide 713.1 H Total Protein 6.9 Albumin 3.7 Globulin 3.2 Albumin/Globulin Ratio 1.2 03/21/21 15:52 WBC RBC Hgb Hct MCV MCH MCHC RDW Std Deviation RDW Coeff of Michel Plt Count MPV Immature Gran % (Auto) Neut % (Auto) Lymph % (Auto) Mcnairy % (Auto) Eos % (Auto) Baso % (Auto) Absolute Neuts (auto) Absolute Lymphs (auto) Nucleated RBC % D-Dimer Quant (PE/DVT) 0.61 H* Sodium Potassium Chloride Carbon Dioxide Anion Gap BUN Creatinine Estim Creat Clear Calc Est GFR (MDRD) Af Amer Est GFR (MDRD) Non-Af BUN/Creatinine Ratio Glucose Calcium Total Bilirubin AST ALT Alkaline Phosphatase Troponin I B-Natriuretic Peptide Total Protein Albumin Globulin Albumin/Globulin Ratio Micro: Microbiology 03/21/21 15:49 SARS-CoV-2 Antigen (Rapid) - Final Interface Orders Radiology Impression Chest X-Ray 03/21/21 15:54 IMPRESSION: Question early changes of inflammatory disease in the right lower lobe. Clinical correlation recommended Electronically Signed: Rocky Freitas MD at 16:08 EDT , Service support , Assessment & Plan Assessment/Plan (1) Right lower lobe pneumonia: (2) Hypoxia: (3) Heart failure: PLAN: #Acute hypoxic respiratory insufficiency due to acute heart failure with unknown EF and community acquired pneumonia * admit to PCU * titrate oxygen to maintain sats >90% * Diuresed with IV Lasix 40 mg twice daily. * Fluid restrictions thousand 500 cc daily. * Monitor intake and output. * Breathing treatments of bronchodilators. * Started on IV ceftriaxone and azithromycin in the ED. We will continue. * Chest CT showed questionable early changes of inflammatory disease in the right lower lobe. * Of note, D-dimer was 0.61 which is below her age cutoff. * COVID test was negative * order 2D echo; no echo on file * #Acute on chronic heart failure with unknown EF: As above #Community-acquired pneumonia: As under respiratory insufficiency #Hypertension: Continue BP meds-metoprolol and valsartan #History of seizure disorder: stable. not on any seizure meds #History of Breast cancer: stable #Hypothyroidism: On Synthroid #Depression: On trazodone and sertraline DVT prophylaxis: Lovenox CODE STATUS: full code * Patient counseled about difference between Full code, DNR CCA and DNRCC. Patient elected to be full code. * total face to face time 16 mins Visit Charges Inpatient E&M: 77004 Init Hosp L3 Procedures Hospitalists Procedures: 45995 Advncd Care Plan 30 Min
[2021-03-21 17:11] LABS: Bacteria 0 SEEN /hpf (None Seen); Mucous, Urine 0 SEEN /hpf (<or=2+); Squamous Epithelial Cells - UA 0 SEEN /hpf (5-10); White Blood Cells 0 SEEN /hpf (0-5)
[2021-03-21 17:25] LABS: Color, Urine Yellow (Yellow); Glucose, Dipstick Normal (Normal); Ketone-Dipstick Negative (Negative); Leukocyte Esterase-Dipstick Negative /ul (Negative); Nitrite-Dipstick Negative (Negative); Occult Blood-Urine Negative /ul (Negative); Protein-Dipstick 100 mg/dl (Negative); Urine Bilirubin Dipstick Negative (Negative); Urine Clarity Clear (Clear); Urine Urobilinogen 1 mg/dl (Normal)
[2021-03-21 17:42] LABS: Red Blood Cells-Urine 0-5 SEEN /hpf (0-5)
--- NOTE | 2021-03-21 17:56 | ED.RN ---
POA DAUGHTER LUCIANA WOULD LIKE TO BE CALLED THIS EVENING WITH ANY UPDATES. [phone]
[2021-03-21] MEDS: Furosemide 40 MG/4 ML Vial IV (18:06)
[2021-03-21] MEDS: Potassium Chloride Oral Tablet 20 MEQ 40 MEQ PO (19:59)
[2021-03-21] MEDS: Ipratropium/Albuterol Sulfate 3 ML AMPUL.NEB INHALATION (20:33)
[2021-03-21] MEDS: Glycerin/Hypromellose/PEG400 15 ml Bottle 1 DRP EACH EYE (21:46)
[2021-03-21] MEDS: Atorvastatin Calcium 10 MG Tablet PO (21:46)
[2021-03-21] MEDS: Acetaminophen 325 MG Tablet 650 MG PO (21:46)
[2021-03-21] MEDS: Metoprolol Tartrate 100 MG Tablet PO (21:46)
[2021-03-21] MEDS: Multivitamin (Healthy Eyes) Capsule 1 CAP PO (21:46)
[2021-03-21] MEDS: traZODone 50 MG Tablet PO (21:46)
[2021-03-22] VITALS (16 sets, daily range): BP systolic 166–186; BP diastolic 74–88; PULSE 49–67; RESP 12–18; TEMP 36.1–36.8; O2SAT 92–97
[2021-03-22 05:23] LABS: Absolute Lymphocyte Count 1.37 X10^3/uL (0.83-4.51); Absolute Neutrophil Count 5.5 X10^3/uL (2.0-7.7); Basophil# 0.05 X10^3/uL; Basophil% 0.7 % (0-1); Eosinophils% 1.3 % (0-5); Hematocrit 39.6 % (37-47); Lymphocyte # 1.37 X10^3/ul (0.83-4.51); Lymphocyte % 17.9 % (19-41); Mean Corp Hgb Conc 32.8 g/dL (32-36); Mean Corpuscular Hgb 28.6 pg (27.0-32.0); Mean Platelet Vol. 10.4 fl (6.2-12.0); Monocyte# 0.63 X10^3/uL; Monocyte% 8.2 % (0-10); NRBC Flagged by Analyzer 0 % (0-5); Neutrophil # 5.48 X10^3/uL (2.7-7.7); Neutrophil % 71.6 % (47-70); Platelet Count 158 K/mm3 (150-450); RBC Distribution Width CV 13.2 % (11.6-14.6); RBC Distribution Width SD 41.9 fl (35.1-43.9); Red Blood Count 4.55 M/mm3 (4.2-5.4); White Blood Count 7.7 K/mm3 (4.4-11.0)
[2021-03-22] MEDS: Levothyroxine 25 MCG TABLET PO (05:26)
--- NOTE | 2021-03-22 05:55 | ECHOD_ITS ---
Reason For Study: CHF Procedure This was a 2D Doppler, Color Flow transthoracic echocardiogram. Exam performed portable in patient room. Left Ventricle Normal LV size. Mild concentric left ventricular hypertrophy. The estimated ejection fraction is 55 %. Stage 3 diastolic dysfunction. No regional wall motion abnormalities noted. Right Ventricle Normal RV size. Normal systolic function. Atria Normal left atrium. Normal right atrium. Mitral Valve Bileaflet diffuse mitral valve thickening. Mild (1+) eccentric mitral valve insufficiency. Tricuspid Valve Normal tricuspid valve. Mild to moderate (1-2+) tricuspid valve insufficiency. Pulmonary artery systolic pressure is 66 mmHg. Moderate pulmonary hypertension. Aortic Valve Trisinus/trileaflet aortic valve. Mild focal aortic valve calcification. Pulmonic Valve Normal pulmonic valve. Mild (1+) pulmonic valve insufficiency. Great Vessels Normal aortic root. The pulmonary artery is normal size. Normal inferior vena cava. Pericardium/Pleural No pericardial effusion. MMode/2D Measurements & Calculations LVIDd: 4.5 cm IVSd: 1.2 cm Ao root diam: 3.8 cm LVIDs: 3.2 cm LVPWd: 1.3 cm RVDd: 3.9 cm FS: 28.7 % LAV(MOD-bp): 55.7 ml LA A4 area: 19.9 cm2 LA dimension(2D): 3.6 cm LAV(MOD-bp) Indexed: 32.3 ml/m2 LAV(MOD-sp2): 52.6 ml LAV(MOD-sp4): 58.2 ml RA A4 area: 14.9 cm2 Time Measurements MV dec time: 0.13 sec Doppler Measurements & Calculations MV E max ino: 107.6 cm/sec Lat Peak E' Ino: 2.3 cm/sec Med Peak E' Ino: 2.8 cm/sec MV A max ino: 38.6 cm/sec E/E' lat: 46.3 E/E' med: 38.8 MV E/A: 2.8 Ao V2 max: 102.9 cm/sec LV V1 max: 74.8 cm/sec PA V2 max: 69.2 cm/sec Ao max P.2 mmHg LV V1 max P.2 mmHg PI end-d ino: 80.1 cm/sec TR max ino: 396.7 cm/sec TR max P.9 mmHg ECHO/Echo Complete Interpretation Summary Normal LV size. The estimated ejection fraction is 55 %. Bileaflet diffuse mitral valve thickening. Mild (1+) eccentric mitral valve insufficiency. Mild focal aortic valve calcification. Pulmonary artery systolic pressure is 66 mmHg. Moderate pulmonary hypertension. Stage 3 diastolic dysfunction. Mild concentric left ventricular hypertrophy. Ordering Physician: Nadja Jaiver Referring Physician: WIN STEPAN Performed By: Jessica Rosen SHAHEED, RVT
[2021-03-22 05:57] LABS: Anion Gap 3 (5-15); BUN 12 mg/dL (7-18); BUN/Creat Ratio 15.7 RATIO (10-20); Calcium,Total 8.6 mg/dL (8.5-10.1); Chloride 104 mmol/L (98-107); Creatinine, Serum 0.76 mg/dL (0.55-1.02); EST Glomerular Filtration Rate 77 mL/min (>60); Est Glom Filt Rate - Afr Amer 93 mL/min (>60); Estimated Creatinine Clearance 35.26 ml/min; Glucose 96 mg/dL (74-106); Potassium 3.5 mmol/L (3.5-5.1); Sodium Level 140 mmol/L (136-145); Thyroid Stim Hormone (TSH) 2.91 uIU/mL (0.358-3.74)
--- NOTE | 2021-03-22 07:35 | PN.HOSP_ITS ---
Subjective Subjective History taken from patient, patient's daughter on phone and grandson present in the room. Patient got short of breath progressively worse for last 1 week. Generalized weakness, cough for 3 days mainly dry. Leg swelling, decreased functional capacity. Objective Data Objective Data Vital Signs: Vital Signs Temp Pulse Resp BP Pulse Ox 97.8 F 49 L 16 170/76 H 96 03/22/21 05:25 03/22/21 07:00 03/22/21 05:25 03/22/21 05:25 03/22/21 05:25 Oxygen Flow Rate (L/min) 2 Oxygen Delivery Method Nasal Cannula Weight: 153 lb 6.4 oz Body Mass Index (BMI) 27.1 Intake & Output: Intake and Output for Last 24 Hours 03/20/21 03/21/21 03/22/21 23:59 23:59 23:59 Intake Total 305 / 425 180 / 180 Balance 305 / 425 180 / 180 Lab / Micro Data Result Diagrams: 03/22/21 05:04 03/22/21 05:04 Labs: Laboratory Results - last 24 hr 03/21/21 03/21/21 03/21/21 15:52 15:52 15:52 WBC 9.4 RBC 4.77 Hgb 13.3 Hct 40.7 MCV 85.3 MCH 27.9 MCHC 32.7 RDW Std Deviation 40.9 RDW Coeff of Michel 13.2 Plt Count 168 MPV 10.3 Immature Gran % (Auto) 0.500 Neut % (Auto) 79.7 H Lymph % (Auto) 10.2 L [place] % (Auto) 8.0 Eos % (Auto) 1.0 Baso % (Auto) 0.6 Absolute Neuts (auto) 7.5 Absolute Lymphs (auto) 0.96 Nucleated RBC % 0 D-Dimer Quant (PE/DVT) Sodium 139 Potassium 3.4 L Chloride 103 Carbon Dioxide 30.0 Anion Gap 6 BUN 10 Creatinine 0.69 Estim Creat Clear Calc 35.26 Est GFR (MDRD) Af Amer 104 Est GFR (MDRD) Non-Af 86 BUN/Creatinine Ratio 14.5 Glucose 105 Calcium 8.6 Total Bilirubin 0.70 AST 10 L ALT 13 Alkaline Phosphatase 81 Troponin I < 0.015 B-Natriuretic Peptide 713.1 H Total Protein 6.9 Albumin 3.7 Globulin 3.2 Albumin/Globulin Ratio 1.2 TSH Urine Color Urine Clarity Urine pH Ur Specific [place] Urine Protein Urine Glucose (UA) Urine Ketones Urine Occult Blood Urine Nitrite Urine Bilirubin Urine Urobilinogen Ur Leukocyte Esterase Urine RBC Urine WBC Ur Squamous Epith Cells Urine Bacteria Urine Mucus 03/21/21 03/21/21 03/21/21 15:52 16:57 20:16 WBC RBC Hgb Hct MCV MCH MCHC RDW Std Deviation RDW Coeff of Michel Plt Count MPV Immature Gran % (Auto) Neut % (Auto) Lymph % (Auto) [place] % (Auto) Eos % (Auto) Baso % (Auto) Absolute Neuts (auto) Absolute Lymphs (auto) Nucleated RBC % D-Dimer Quant (PE/DVT) 0.61 H* Sodium Potassium Chloride Carbon Dioxide Anion Gap BUN Creatinine Estim Creat Clear Calc Est GFR (MDRD) Af Amer Est GFR (MDRD) Non-Af BUN/Creatinine Ratio Glucose Calcium Total Bilirubin AST ALT Alkaline Phosphatase Troponin I < 0.015 B-Natriuretic Peptide Total Protein Albumin Globulin Albumin/Globulin Ratio TSH Urine Color Yellow Urine Clarity Clear Urine pH 7.0 Ur Specific [place] 1.010 Urine Protein 100 H Urine Glucose (UA) Normal Urine Ketones Negative Urine Occult Blood Negative Urine Nitrite Negative Urine Bilirubin Negative Urine Urobilinogen 1 H Ur Leukocyte Esterase Negative Urine RBC 0-5 SEEN Urine WBC 0 SEEN Ur Squamous Epith Cells 0 SEEN Urine Bacteria 0 SEEN Urine Mucus 0 SEEN 03/21/21 03/22/21 03/22/21 23:09 05:04 05:04 WBC 7.7 RBC 4.55 Hgb 13.0 Hct 39.6 MCV 87.0 MCH 28.6 MCHC 32.8 RDW Std Deviation 41.9 RDW Coeff of Michel 13.2 Plt Count 158 MPV 10.4 Immature Gran % (Auto) 0.300 Neut % (Auto) 71.6 H Lymph % (Auto) 17.9 L [place] % (Auto) 8.2 Eos % (Auto) 1.3 Baso % (Auto) 0.7 Absolute Neuts (auto) 5.5 Absolute Lymphs (auto) 1.37 Nucleated RBC % 0 D-Dimer Quant (PE/DVT) Sodium 140 Potassium 3.5 Chloride 104 Carbon Dioxide 33.0 H Anion Gap 3 L BUN 12 Creatinine 0.76 Estim Creat Clear Calc 35.26 Est GFR (MDRD) Af Amer 93 Est GFR (MDRD) Non-Af 77 BUN/Creatinine Ratio 15.7 Glucose 96 Calcium 8.6 Total Bilirubin AST ALT Alkaline Phosphatase Troponin I < 0.015 B-Natriuretic Peptide Total Protein Albumin Globulin Albumin/Globulin Ratio TSH 2.91 Urine Color Urine Clarity Urine pH Ur Specific [place] Urine Protein Urine Glucose (UA) Urine Ketones Urine Occult Blood Urine Nitrite Urine Bilirubin Urine Urobilinogen Ur Leukocyte Esterase Urine RBC Urine WBC Ur Squamous Epith Cells Urine Bacteria Urine Mucus Micro: Microbiology 03/21/21 15:49 Interface Orders SARS-CoV-2 Antigen (Rapid) - Final Radiography Diagnostic Testing: Radiology Impression Chest X-Ray 03/21/21 15:54 IMPRESSION: Question early changes of inflammatory disease in the right lower lobe. Clinical correlation recommended Electronically Signed: Rocky Freitas MD at 16:08 EDT , Service support , Rhythm Strip Rhythm Strip: Sinus Rhythm Rate: 58 Ectopy: None Physical Exam Narrative General: Alert, Oriented x3, Cooperative HEENT: Atraumatic, PERRLA, EOMI, Normocephalic Oral: No Gingival or Mucosal Lesions/ Ulcerations Neck: Supple, No JVD, Negative Carotid Bruits Lungs: Air entry diminished in bilateral lung bases. Occasional crackles at bilateral lung bases, mild dyspnea at rest Cardiovascular: Sinus bradycardia, normal S1, Normal S2, systolic murmur LSB Abdomen: Bowel Sounds Present, Soft, Non Tender, Non-Distended : No renal angle tenderness. No suprapubic tenderness. Extremities: Bilateral leg edema, Capillary Refill Less than 3 Seconds Skin: No rashes, No breakdown Musculoskeletal: No Tenderness to Palpation of Joints or Extremities Neurological: Cranial nerves II-XII grossly intact, Deep Tendon Reflexes 2+/4 and Symmetrical, Neuro grossly intact Psych/Mental Status: Normal Affect, Appropriate. Assessment & Plan Assessment/Plan (1) Heart failure: QUALIFIERS: Heart failure chronicity: acute on chronic Heart failure type: diastolic Qualified Code(s): I50.33 - Acute on chronic diastolic (congestive) heart failure PLAN: This is 85-year-old female was admitted with mild shortness of breath, dry cough for for about 1 week. Chest x-ray shows bilateral pulmonary congestion. EKG normal sinus rhythm. Admitted with clinical diagnosis of acute on chronic diastolic heart failure. ? #Acute hypoxic respiratory insufficiency due to acute on chronic diastolic heart failure: Patient is admitted in PCU. personnel monitor shows sinus bradycardia. Intake and output shows positive for 300 mL but she had also had bowel movement but clinically shortness of breath is improved. Lost about 7 harmony nds. Heart failure core measures including intake and output, fluid restriction less than 1500 mL, daily weight monitoring, kidney and electrolytes monitoring. Echo shows EF 55%, mild eccentric MR, moderate pulmonary hypertension and stage III diastolic dysfunction. D-dimer low as per her age. BNP elevated. Serial troponins negative # Early right lower lobe community-acquired pneumonia: On IV ceftriaxone and azithromycin. Covid test is negative. Urinary antigens are negative. #Sinus bradycardia with hypertension: Continue BP meds-metoprolol and valsartan. Metoprolol dose decreased to 25 mg twice daily with holding parameters. 1 dose of HCTZ 12.5 mg daily. #History of seizure disorder: Continue current seizure medications #Breast cancer: No active issues #Hypothyroidism: On Synthroid #Depression: On trazodone and sertraline DVT prophylaxis: Lovenox CODE STATUS: DNRCC-Arrest with no intubation. Total time of the visit including total time spent in counseling or coordination of care, (more than 50% of the total time, spent in obtaining medical information from nurses and other ancillary care providers,explaining to the patient about labs, imaging, diagnosis and management), discussed with the daughter on the phone, review of labs and imaging is 30 minutes. Microbiology Past 72 Hours 03/22/21 09:00 Urine, Clean Catch Legionella Antigen - Final 03/22/21 09:00 Urine, Clean Catch Streptococcus pneumoniae Antigen (M - Final 03/21/21 15:49 Interface Orders SARS-CoV-2 Antigen (Rapid) - Final Laboratory Results 03/21/21 16:57: Urine Color Yellow, Urine Clarity Clear, Urine pH 7.0, Ur Specific [place] 1.010, Urine Protein 100 H, Urine Glucose (UA) Normal, Urine Ketones Negative, Urine Occult Blood Negative, Urine Nitrite Negative, Urine Bilirubin Negative, Urine Urobilinogen 1 H, Ur Leukocyte Esterase Negative, Urine RBC 0-5 SEEN, Urine WBC 0 SEEN, Ur Squamous Epith Cells 0 SEEN, Urine Bacteria 0 SEEN, Urine Mucus 0 SEEN 03/21/21 20:16: Troponin I < 0.015 03/21/21 23:09: Troponin I < 0.015 03/22/21 05:04: WBC 7.7, RBC 4.55, Hgb 13.0, Hct 39.6, MCV 87.0, MCH 28.6, MCHC 32.8, RDW Std Deviation 41.9, RDW Coeff of Michel 13.2, Plt Count 158, MPV 10.4, Immature Gran % (Auto) 0.300, Neut % (Auto) 71.6 H, Lymph % (Auto) 17.9 L, [place] % (Auto) 8.2, Eos % (Auto) 1.3, Baso % (Auto) 0.7, Absolute Neuts (auto) 5.5, Absolute Lymphs (auto) 1.37, Nucleated RBC % 0 03/22/21 05:04: Sodium 140, Potassium 3.5, Chloride 104, Carbon Dioxide 33.0 H, Anion Gap 3 L, BUN 12, Creatinine 0.76, Estim Creat Clear Calc 35.26, Est GFR (MDRD) Af Amer 93, Est GFR (MDRD) Non-Af 77, BUN/Creatinine Ratio 15.7, Glucose 96, Calcium 8.6, TSH 2.91 Clinical Impression(s) from Imaging Studies Chest X-Ray 03/21/21 15:54 IMPRESSION: Question early changes of inflammatory disease in the right lower lobe. Clinical correlation recommended Electronically Signed: Rocky Freitas MD at 16:08 EDT , Service support , Echocardiogram 03/22/21 05:55 Interpretation Summary Normal LV size. The estimated ejection fraction is 55 %. Bileaflet diffuse mitral valve thickening. Mild (1+) eccentric mitral valve insufficiency. Mild focal aortic valve calcification. Pulmonary artery systolic pressure is 66 mmHg. Moderate pulmonary hypertension. Stage 3 diastolic dysfunction. Mild concentric left ventricular hypertrophy. Visit Charges Inpatient E&M: 00381 Subs Hosp L3
[2021-03-22] MEDS: Furosemide 40 MG/4 ML Vial IV (08:35)
[2021-03-22] MEDS: Enoxaparin 40 MG/0.4 ML Syringe SC (08:36)
[2021-03-22] MEDS: Glycerin/Hypromellose/PEG400 15 ml Bottle 1 DRP EACH EYE ×2 (08:37→20:28)
[2021-03-22] MEDS: Sertraline 100 MG Tablet PO (08:38)
[2021-03-22] MEDS: Acetaminophen 325 MG Tablet 650 MG PO ×2 (08:38→21:28)
[2021-03-22] MEDS: Pantoprazole Sodium 40 MG Tablet PO (08:39)
[2021-03-22] MEDS: Mirabegron 50 MG TAB.ER.24H PO (08:39)
[2021-03-22] MEDS: Aspirin 81 MG TAB.CHEW PO (08:39)
[2021-03-22] MEDS: Celecoxib 200 MG Capsule PO (08:39)
[2021-03-22] MEDS: Losartan Potassium 100 MG Tablet PO (08:39)
[2021-03-22] MEDS: Multivitamin (Healthy Eyes) Capsule 1 CAP PO ×2 (08:39→20:28)
[2021-03-22] MEDS: Loratadine 10 MG Tablet PO (08:39)
[2021-03-22] MEDS: 0.9% Saline Lock 10 ML Syringe IV ×2 (08:43→21:28)
[2021-03-22] MEDS: Ceftriaxone 1 GM/50 ML BAG IV (10:15)
--- NOTE | 2021-03-22 15:45 | CASEMGMT ---
JOSELUIS sent updates to [place]. Shona Peres [employer]
[2021-03-22] MEDS: Fluticasone 0.05% 1 SPRAY NASAL.SRY 2 SPRAY NASAL (16:33)
[2021-03-22] MEDS: HYDROCHLOROTHIAZIDE 12.5 MG CAPSULE PO (16:34)
[2021-03-22] MEDS: Atorvastatin Calcium 10 MG Tablet PO (20:28)
[2021-03-22] MEDS: traZODone 50 MG Tablet PO (21:28)
[2021-03-23] VITALS (12 sets, daily range): BP systolic 148–188; BP diastolic 77–82; PULSE 61–90; RESP 16–18; TEMP 36.4–36.7; O2SAT 90–97
[2021-03-23] MEDS: Levothyroxine 25 MCG TABLET PO (05:16)
[2021-03-23 05:38] LABS: Absolute Lymphocyte Count 1.31 X10^3/uL (0.83-4.51); Absolute Neutrophil Count 4.9 X10^3/uL (2.0-7.7); Basophil# 0.05 X10^3/uL; Basophil% 0.7 % (0-1); Eosinophil# 0.16 X10^3/uL; Eosinophils% 2.2 % (0-5); Hematocrit 40.9 % (37-47); Hemoglobin 13.1 g/dL (12.0-15.0); Lymphocyte # 1.31 X10^3/ul (0.83-4.51); Lymphocyte % 18.3 % (19-41); Mean Corpuscular Hgb 27.9 pg (27.0-32.0); Mean Corpuscular Volume 87.2 fL (81-99); Mean Platelet Vol. 10.3 fl (6.2-12.0); Monocyte# 0.72 X10^3/uL; Monocyte% 10.1 % (0-10); NRBC Flagged by Analyzer 0 % (0-5); Neutrophil # 4.87 X10^3/uL (2.7-7.7); Neutrophil % 68.1 % (47-70); Platelet Count 146 K/mm3 (150-450); RBC Distribution Width CV 13.2 % (11.6-14.6); RBC Distribution Width SD 41.4 fl (35.1-43.9); Red Blood Count 4.69 M/mm3 (4.2-5.4); White Blood Count 7.2 K/mm3 (4.4-11.0)
[2021-03-23 06:17] LABS: Anion Gap 7 (5-15); BUN 13 mg/dL (7-18); BUN/Creat Ratio 16.8 RATIO (10-20); Calcium,Total 8.8 mg/dL (8.5-10.1); Chloride 103 mmol/L (98-107); Creatinine, Serum 0.77 mg/dL (0.55-1.02); EST Glomerular Filtration Rate 76 mL/min (>60); Est Glom Filt Rate - Afr Amer 91 mL/min (>60); Estimated Creatinine Clearance 35.26 ml/min; Glucose 104 mg/dL (74-106); Magnesium 1.8 mg/dL (1.6-2.6); Potassium 3.1 mmol/L (3.5-5.1); Sodium Level 140 mmol/L (136-145)
[2021-03-23] MEDS: Potassium Chloride Oral Tablet 20 MEQ 40 MEQ PO (06:39)
[2021-03-23] MEDS: Enoxaparin 40 MG/0.4 ML Syringe SC (09:37)
[2021-03-23] MEDS: Losartan Potassium 100 MG Tablet PO (09:37)
[2021-03-23] MEDS: Aspirin 81 MG TAB.CHEW PO (09:38)
[2021-03-23] MEDS: Multivitamin (Healthy Eyes) Capsule 1 CAP PO ×2 (09:38→22:35)
[2021-03-23] MEDS: Metoprolol Tartrate 25 MG Tablet PO ×2 (09:38→22:36)
[2021-03-23] MEDS: Celecoxib 200 MG Capsule PO (09:38)
[2021-03-23] MEDS: Loratadine 10 MG Tablet PO (09:38)
[2021-03-23] MEDS: Mirabegron 50 MG TAB.ER.24H PO (09:38)
[2021-03-23] MEDS: Pantoprazole Sodium 40 MG Tablet PO (09:38)
[2021-03-23] MEDS: Sertraline 100 MG Tablet PO (09:39)
[2021-03-23] MEDS: Fluticasone 0.05% 1 SPRAY NASAL.SRY 2 SPRAY NASAL (09:39)
[2021-03-23] MEDS: Acetaminophen 325 MG Tablet 650 MG PO ×2 (09:40→22:36)
[2021-03-23] MEDS: Glycerin/Hypromellose/PEG400 15 ml Bottle 1 DRP EACH EYE ×2 (09:41→22:35)
[2021-03-23] MEDS: Furosemide 40 MG/4 ML Vial IV (09:41)
[2021-03-23] MEDS: Ceftriaxone 1 GM/50 ML BAG IV (09:42)
[2021-03-23] MEDS: Loperamide 2 MG Capsule PO (10:17)
--- NOTE | 2021-03-23 16:34 | PCM.PN.HOSP ---
Subjective Subjective Patient shortness of breath is better but he still feels weak and dyspnea on exertion. quality assurance monitor final shows sinus rhythm with PVCs Objective Data Objective Data Vital Signs: Vital Signs Temp Pulse Resp BP Pulse Ox 97.9 F 86 16 148/82 H 97 03/23/21 15:20 03/23/21 15:20 03/23/21 15:20 03/23/21 15:20 03/23/21 15:20 Oxygen Flow Rate (L/min) 2 Oxygen Delivery Method Room Air Weight: 153 lb 6.397 oz Body Mass Index (BMI) 27.1 Intake & Output: Intake and Output for Last 24 Hours 03/21/21 03/22/21 03/23/21 23:59 23:59 23:59 Intake Total 305 / 425 755 / 875 715 / 715 Output Total 650 / 650 Balance 305 / 425 105 / 225 715 / 715 Lab / Micro Data Result Diagrams: 03/23/21 05:18 03/23/21 05:18 Labs: Laboratory Results - last 24 hr 03/23/21 03/23/21 05:18 05:18 WBC 7.2 RBC 4.69 Hgb 13.1 Hct 40.9 MCV 87.2 MCH 27.9 MCHC 32.0 RDW Std Deviation 41.4 RDW Coeff of Michel 13.2 Plt Count 146 L MPV 10.3 Immature Gran % (Auto) 0.600 Neut % (Auto) 68.1 Lymph % (Auto) 18.3 L [place] % (Auto) 10.1 H Eos % (Auto) 2.2 Baso % (Auto) 0.7 Absolute Neuts (auto) 4.9 Absolute Lymphs (auto) 1.31 Nucleated RBC % 0 Sodium 140 Potassium 3.1 L Chloride 103 Carbon Dioxide 30.0 Anion Gap 7 BUN 13 Creatinine 0.77 Estim Creat Clear Calc 35.26 Est GFR (MDRD) Af Amer 91 Est GFR (MDRD) Non-Af 76 BUN/Creatinine Ratio 16.8 Glucose 104 Calcium 8.8 Magnesium 1.8 Micro: Microbiology 03/22/21 09:00 Urine, Clean Catch Legionella Antigen - Final 03/22/21 09:00 Urine, Clean Catch Streptococcus pneumoniae Antigen (M - Final 03/21/21 15:49 Interface Orders SARS-CoV-2 Antigen (Rapid) - Final Rhythm Strip Rhythm Strip: Sinus Rhythm Rate: 58 Ectopy: None Physical Exam Narrative Physical exam General: Alert, Oriented x3, Cooperative HEENT: Atraumatic, PERRLA, EOMI, Normocephalic Oral: No Gingival or Mucosal Lesions/ Ulcerations Neck: Supple, No JVD, Negative Carotid Bruits Lungs: Air entry diminished in bilateral lung bases. Mild dyspnea at rest, worse on exertion Cardiovascular: Sinus bradycardia, normal S1, Normal S2, systolic murmur over LLSB Abdomen: Bowel Sounds Present, Soft, Non Tender, Non-Distended : No renal angle tenderness. No suprapubic tenderness. Extremities: Bilateral leg edema, improved. Capillary Refill Less than 3 Seconds Skin: No rashes, No breakdown Musculoskeletal: No Tenderness to Palpation of Joints or Extremities Neurological: Cranial nerves II-XII grossly intact, Deep Tendon Reflexes 2+/4 and Symmetrical, Neuro grossly intact Psych/Mental Status: Normal Affect, Appropriate. Assessment & Plan Assessment/Plan (1) Heart failure: QUALIFIERS: Heart failure chronicity: acute on chronic Heart failure type: diastolic Qualified Code(s): I50.33 - Acute on chronic diastolic (congestive) heart failure PLAN: This is 85-year-old female was admitted with mild shortness of breath, dry cough for for about 1 week. Chest x-ray shows bilateral pulmonary congestion. EKG normal sinus rhythm. Admitted with clinical diagnosis of acute on chronic diastolic heart failure. ? #Acute hypoxic respiratory insufficiency due to acute on chronic diastolic heart failure: Patient is admitted in PCU. quality assurance monitor final shows sinus bradycardia. Intake and output shows positive for 300 mL but she had also had bowel movement but clinically shortness of breath is improved. Lost about 7 pounds. Heart failure core measures including intake and output, fluid restriction less than 1500 mL, daily weight monitoring, kidney and electrolytes monitoring. Echo shows EF 55%, mild eccentric MR, moderate pulmonary hypertension and stage III diastolic dysfunction. D-dimer low as per her age. BNP elevated. Serial troponins negative 03/23: Continue diuretic. Mild hypokalemia, potassium replaced. Continue magnesium sulfate. Blood pressure is controlled. # Early right lower lobe community-acquired pneumonia: On IV ceftriaxone and azithromycin. Covid test is negative. Urinary antigens are negative. #Sinus bradycardia with hypertension: Continue BP meds-metoprolol and valsartan. Metoprolol dose decreased to 25 mg twice daily with holding parameters. #History of seizure disorder: Continue current seizure medications #Breast cancer: No active issues #Hypothyroidism: On Synthroid #Depression: On trazodone and sertraline DVT prophylaxis: Lovenox CODE STATUS: DNRCC-Arrest with no intubation. Total time of the visit including total time spent in counseling or coordination of care, (more than 50% of the total time, spent in obtaining medical information from nurses and other ancillary care providers,explaining to the patient about labs, imaging, diagnosis and management), discussed with the daughter on the phone, review of labs and imaging is 30 minutes. Microbiology Past 72 Hours 03/22/21 09:00 Urine, Clean Catch Legionella Antigen - Final 03/22/21 09:00 Urine, Clean Catch Streptococcus pneumoniae Antigen (M - Final 03/21/21 15:49 Interface Orders SARS-CoV-2 Antigen (Rapid) - Final Laboratory Results 03/21/21 16:57: Urine Color Yellow, Urine Clarity Clear, Urine pH 7.0, Ur Specific [place] 1.010, Urine Protein 100 H, Urine Glucose (UA) Normal, Urine Ketones Negative, Urine Occult Blood Negative, Urine Nitrite Negative, Urine Bilirubin Negative, Urine Urobilinogen 1 H, Ur Leukocyte Esterase Negative, Urine RBC 0-5 SEEN, Urine WBC 0 SEEN, Ur Squamous Epith Cells 0 SEEN, Urine Bacteria 0 SEEN, Urine Mucus 0 SEEN 03/21/21 20:16: Troponin I < 0.015 03/21/21 23:09: Troponin I < 0.015 03/22/21 05:04: WBC 7.7, RBC 4.55, Hgb 13.0, Hct 39.6, MCV 87.0, MCH 28.6, MCHC 32.8, RDW Std Deviation 41.9, RDW Coeff of Michel 13.2, Plt Count 158, MPV 10.4, Immature Gran % (Auto) 0.300, Neut % (Auto) 71.6 H, Lymph % (Auto) 17.9 L, [place] % (Auto) 8.2, Eos % (Auto) 1.3, Baso % (Auto) 0.7, Absolute Neuts (auto) 5.5, Absolute Lymphs (auto) 1.37, Nucleated RBC % 0 03/22/21 05:04: Sodium 140, Potassium 3.5, Chloride 104, Carbon Dioxide 33.0 H, Anion Gap 3 L, BUN 12, Creatinine 0.76, Estim Creat Clear Calc 35.26, Est GFR (MDRD) Af Amer 93, Est GFR (MDRD) Non-Af 77, BUN/Creatinine Ratio 15.7, Glucose 96, Calcium 8.6, TSH 2.91 Clinical Impression(s) from Imaging Studies Chest X-Ray 03/21/21 15:54 IMPRESSION: Question early changes of inflammatory disease in the right lower lobe. Clinical correlation recommended Electronically Signed: Rocky Freitas MD at 16:08 EDT , Service support , Echocardiogram 03/22/21 05:55 Interpretation Summary Normal LV size. The estimated ejection fraction is 55 %. Bileaflet diffuse mitral valve thickening. Mild (1+) eccentric mitral valve insufficiency. Mild focal aortic valve calcification. Pulmonary artery systolic pressure is 66 mmHg. Moderate pulmonary hypertension. Stage 3 diastolic dysfunction. Mild concentric left ventricular hypertrophy. Visit Charges Inpatient E&M: 39257 Subs Hosp L2
[2021-03-23] MEDS: Magnesium Chloride 64 MG Delay Rel.Tablet 128 MG PO ×2 (17:28→22:38)
[2021-03-23] MEDS: 0.9% Saline Lock 10 ML Syringe IV (22:35)
[2021-03-23] MEDS: traZODone 50 MG Tablet PO (22:35)
[2021-03-23] MEDS: Atorvastatin Calcium 10 MG Tablet PO (22:36)
[2021-03-24] VITALS (7 sets, daily range): BP systolic 156–169; BP diastolic 78–99; PULSE 59–88; RESP 17–18; TEMP 36.3–36.8; O2SAT 94–98
[2021-03-24] MEDS: Levothyroxine 25 MCG TABLET PO (05:34)
[2021-03-24 07:53] LABS: Anion Gap 8 (5-15); BUN 13 mg/dL (7-18); BUN/Creat Ratio 16.3 RATIO (10-20); Calcium,Total 9.2 mg/dL (8.5-10.1); Chloride 103 mmol/L (98-107); EST Glomerular Filtration Rate 73 mL/min (>60); Est Glom Filt Rate - Afr Amer 88 mL/min (>60); Estimated Creatinine Clearance 44.08 ml/min; Glucose 99 mg/dL (74-106); Potassium 3.5 mmol/L (3.5-5.1); Sodium Level 141 mmol/L (136-145)
[2021-03-24] MEDS: 0.9% Saline Lock 10 ML Syringe IV (08:29)
[2021-03-24] MEDS: Furosemide 40 MG/4 ML Vial IV (08:29)
[2021-03-24] MEDS: Ceftriaxone 1 GM/50 ML BAG IV (08:33)
[2021-03-24] MEDS: Celecoxib 200 MG Capsule PO (08:35)
[2021-03-24] MEDS: Aspirin 81 MG TAB.CHEW PO (08:35)
[2021-03-24] MEDS: Glycerin/Hypromellose/PEG400 15 ml Bottle 1 DRP EACH EYE (08:35)
[2021-03-24] MEDS: Multivitamin (Healthy Eyes) Capsule 1 CAP PO (08:36)
[2021-03-24] MEDS: Metoprolol Tartrate 25 MG Tablet PO (08:36)
[2021-03-24] MEDS: Loratadine 10 MG Tablet PO (08:36)
[2021-03-24] MEDS: Losartan Potassium 100 MG Tablet PO (08:36)
[2021-03-24] MEDS: Fluticasone 0.05% 1 SPRAY NASAL.SRY 2 SPRAY NASAL (08:36)
[2021-03-24] MEDS: Enoxaparin 40 MG/0.4 ML Syringe SC (08:37)
[2021-03-24] MEDS: Mirabegron 50 MG TAB.ER.24H PO (08:37)
[2021-03-24] MEDS: Acetaminophen 325 MG Tablet 650 MG PO (08:38)
[2021-03-24] MEDS: Magnesium Chloride 64 MG Delay Rel.Tablet 128 MG PO (08:38)
[2021-03-24] MEDS: Pantoprazole Sodium 40 MG Tablet PO (08:38)
[2021-03-24] MEDS: Sertraline 100 MG Tablet PO (08:38)
--- NOTE | 2021-03-24 10:01 | CASEMGMT ---
SW was notified by [facility] RN that patient's daughter said [facility] can patient patient up today at 1p if d/c'd. SW then received a call from Nadine RN at [facility] and she said the same. SW told her SW will notify the physician. She said their nascar driver will have to bring her clothes also. SW told her SW will let her know as soon as SW hears from physician. SW notified physician. Physician does plan on sending patient today. JOSELUIS will notify Nadine at [facility] and patient's daughter. Plan: d/c back to [facility]. [facility] will transport Shona RIOS
--- NOTE | 2021-03-24 10:08 | PCM.DC ---
Discharge Instructions Diet Discharge Diet: Low fat / Low cholesterol and 2000 mg Sodium Diet Activity Discharge Activity: Return to Normal Activity and May Not Drive Dressing / Incision Call your doctor if you observe: Fever of 101 or Higher, Coldness, Increased Pain, Numbness or Tingling, Inability to urinate, Inability to have a bowel movement, Using more than one pad per hour, Shortness of breath, Dizziness, Fainting spells, Swelling in the ankles, Prolonged hiccupping, Increased palpitations (irregular heartbeat), Calf discomfort and Uncontrolled pain Follow Up Care Test Results: Test results from this visit will be discussed in further detail at your follow-up appointment, if applicable. Discharge Plan Admission Admit Date/Time: 03/21/21 19:26 Primary Reason for Your Visit: CHF exacerbation Attending Provider: Lizandro Barone Primary Care Provider: Gianni Richardson Instructions Patient Instructions: ED Heart Failure, Congestive (CHF) Additional Instructions / Restrictions: BMP, magnesium and phosphorus in 1 week with PCP. Discharge Orders/Prescriptions Prescriptions: New furosemide [Lasix] 40 mg tablet 40 mg PO DAILY Qty: 30 RF: 0 spironolactone 25 mg tablet 12.5 mg PO DAILY Qty: 30 RF: 0 levofloxacin 500 mg tablet 500 mg PO DAILY Qty: 3 RF: 0 Continued aspirin 81 MG tablet,chewable 81 mg PO DAILY RF: 0 levothyroxine 25 MCG tablet 25 mcg PO DAILY RF: 0 nystatin [Nyamyc] 1 APPLIC bottle 1 applic topical BID PRN PRN (Reason: skin) RF: 0 rosuvastatin 5 MG tablet 5 mg PO QHS RF: 0 PreserVision AREDS-2 1 EACH capsule 1 ea PO BID RF: 0 Icy Hot 35.4 GM cream 35.4 g TP Q6H PRN PRN (Reason: muscle pain) RF: 0 celecoxib 200 MG capsule 200 mg PO DAILY RF: 0 diphenhydramine HCl 25 MG capsule 25 mg PO TID PRN PRN (Reason: allergy) RF: 0 psyllium husk 0.52 GM capsule 0.52 gm PO DAILY RF: 0 mirabegron 50 MG tablet extended release 24 hr 50 mg PO DAILY RF: 0 L.acidoph, paracasei,B. lactis 1 EACH capsule 1 ea PO DAILY RF: 0 trazodone 50 MG tablet 50 mg PO QHS RF: 0 pantoprazole 40 MG tablet 40 mg PO DAILY RF: 0 Artificial Tears (cmc) 1 % Drops 1 drp EACH EYE BID RF: 0 metoprolol tartrate 100 mg tablet 100 mg PO BID RF: 0 sertraline 100 mg tablet 100 mg PO DAILY RF: 0 acetaminophen 650 mg Tablet Extended Release 650 mg PO Q12H RF: 0 fluticasone propionate 50 mcg/actuation [place],Suspension 2 spray INTRANASAL DAILY RF: 0 valsartan 320 MG tablet 320 mg PO DAILY RF: 0 Referrals / Follow Up: Qasim Mistry MD [STAFF PHYSICIAN] - Within 1 Month (For heart failure) Gianni Richardson MD [Primary Care Provider] - In 1 Week Disposition Disposition (needs filled in before D/C Order can be placed): NonSkilled HI/Intermed Care
--- NOTE | 2021-03-24 10:18 | PCM.DC.SUM ---
Providers Date of Admission: 03/21/21 Primary Care Physician: Dr. Gianni Richardson MD Reason For Visit: ACUTE ON CHRONIC HEART FAILURE Diagnosis Discharge Diagnosis (1) Heart failure: Status: Acute Code(s): I50.9 - Heart failure, unspecified Qualifiers: Heart failure chronicity: acute on chronic Heart failure type: diastolic Qualified Code(s): I50.33 - Acute on chronic diastolic (congestive) heart failure Medications at Discharge Home Medications PreserVision AREDS-2 1 ea PO BID 10/04/18 aspirin 81 mg PO DAILY 10/04/18 levothyroxine 25 mcg PO DAILY 10/04/18 nystatin [Nyamyc] 1 applic TOPICAL BID PRN PRN 10/04/18 rosuvastatin 5 mg PO QHS 10/04/18 Icy Hot 35.4 g TP Q6H PRN PRN 11/18/18 L.acidoph, paracasei,B. lactis 1 ea PO DAILY 12/13/20 celecoxib 200 mg PO DAILY 12/13/20 diphenhydramine HCl 25 mg PO TID PRN PRN 12/13/20 mirabegron 50 mg PO DAILY 12/13/20 pantoprazole 40 mg PO DAILY 12/13/20 psyllium husk 0.52 gm PO DAILY 12/13/20 trazodone 50 mg PO QHS 12/13/20 Artificial Tears (cmc) 1 drp EACH EYE BID 03/21/21 acetaminophen 650 mg PO Q12H 03/21/21 fluticasone propionate 2 spray INTRANASAL DAILY 03/21/21 metoprolol tartrate 100 mg PO BID 03/21/21 sertraline 100 mg PO DAILY 03/21/21 valsartan 320 mg PO DAILY 03/21/21 furosemide [Lasix] 40 mg PO DAILY #30 tab 03/24/21 levofloxacin 500 mg PO DAILY #3 tab 03/24/21 spironolactone 12.5 mg PO DAILY #30 tab 03/24/21 Hospital Course Summary of Care Provided Hospital Course: ?This is 85-year-old female was admitted with mild shortness of breath, dry cough for for about 1 week.? Chest x-ray shows bilateral pulmonary congestion.? EKG normal sinus rhythm.? Admitted with clinical diagnosis of acute on chronic diastolic heart failure. ? #Acute hypoxic respiratory insufficiency due to acute on chronic diastolic heart failure: Patient was admitted in PCU.? 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 Intake and output shows positive for 300 mL but she had also had bowel movement but clinically shortness of breath is improved.? Lost about 7 pounds.? Heart failure core measures including intake and output, fluid restriction less than 1500 mL, daily weight monitoring, kidney and electrolytes monitoring.? Echo shows EF 55%, mild eccentric MR, moderate pulmonary hypertension and stage III diastolic dysfunction.? D-dimer low as per her age.? BNP elevated.??Serial troponins negative Patient is discharged on Lasix 40 mg daily and spironolactone. Continue monitoring electrolytes weekly in [facility]. #? Early right lower lobe community-acquired pneumonia: On IV ceftriaxone and azithromycin.? Covid test is negative.? Urinary antigens are negative. Patient is discharged on Levaquin to complete a total of 7 days. ? #Sinus bradycardia with hypertension: Continue BP meds-metoprolol and valsartan. #History of seizure disorder: Continue current seizure medications #Breast cancer: No active issues #Hypothyroidism: On Synthroid #Depression: On trazodone and sertraline DVT prophylaxis: Lovenox CODE STATUS: DNRCC-Arrest with no intubation. Discharge medication reconciliation done. Discharge follow-up instructions completed. Discharge process discussed with the patient and all questions were answered to patient's satisfaction. Discharge to SNF. Total time spent, exact 35 minutes on discharge meds reconciliation, examination, coordination of care with nurses and ancillary staff, review of imaging and blood test and discussion with the patient on follow-up instructions Physical Exam Narrative Seen and examined. Shortness of breath has resolved. Patient is comfortable sitting in the chair. No chest pain. Physical exam General: Alert, Oriented x3, Cooperative HEENT: Atraumatic, PERRLA, EOMI, Normocephalic Oral: No Gingival or Mucosal Lesions/ Ulcerations Neck: Supple, No JVD, Negative Carotid Bruits Lungs: Air entry diminished in bilateral lung bases. Mild dyspnea at rest, worse on exertion Cardiovascular: Sinus bradycardia, normal S1, Normal S2, systolic murmur over LLSB Abdomen: Bowel Sounds Present, Soft, Non Tender, Non-Distended : No renal angle tenderness. No suprapubic tenderness. Extremities: Bilateral leg edema, improved. Capillary Refill Less than 3 Seconds Skin: No rashes, No breakdown Musculoskeletal: No Tenderness to Palpation of Joints or Extremities Neurological: Cranial nerves II-XII grossly intact, Deep Tendon Reflexes 2+/4 and Symmetrical, Neuro grossly intact Psych/Mental Status: Normal Affect, Appropriate. ABG / Lab / Microbiology Data Result Diagrams: 03/23/21 05:18 03/24/21 05:53 Laboratory: Laboratory Results - last 24 hr 03/24/21 05:53 Sodium 141 Potassium 3.5 Chloride 103 Carbon Dioxide 30.0 Anion Gap 8 BUN 13 Creatinine 0.80 Estim Creat Clear Calc 44.08 Est GFR (MDRD) Af Amer 88 Est GFR (MDRD) Non-Af 73 BUN/Creatinine Ratio 16.3 Glucose 99 Calcium 9.2 Microbiology: Microbiology 03/22/21 09:00 Urine, Clean Catch Legionella Antigen - Final 03/22/21 09:00 Urine, Clean Catch Streptococcus pneumoniae Antigen (M - Final 03/21/21 15:49 Interface Orders SARS-CoV-2 Antigen (Rapid) - Final D/C Instructions Discharge Diet: Low fat / Low cholesterol and 2000 mg Sodium Diet Discharge Activity: Return to Normal Activity and May Not Drive Call your doctor if you observe: Fever of 101 or Higher, Coldness, Increased Pain, Numbness or Tingling, Inability to urinate, Inability to have a bowel movement, Using more than one pad per hour, Shortness of breath, Dizziness, Fainting spells, Swelling in the ankles, Prolonged hiccupping, Increased palpitations (irregular heartbeat), Calf discomfort and Uncontrolled pain Meaningful Use Info Meaningful Use Diagnoses (Choose all that apply): CHF CHF LORIE/ARB ordered at discharge?: Yes Documented LVEF (%): 55 Discharge Plan Admission Admit Date/Time: 03/21/21 19:26 Primary Reason for Your Visit: CHF exacerbation Attending Provider: Lizandro Barone Primary Care Provider: Gianni Richardson Instructions Patient Instructions: ED Heart Failure, Congestive (CHF) Additional Instructions / Restrictions: Patient Problems: Altered Health Status related to Hospitalization Patient Goals: *Optimal Level of Health *Keep Appointments *Medication Compliance *Remain SafeBMP, magnesium and phosphorus in 1 week with PCP. Discharge Orders/Prescriptions Prescriptions: New furosemide [Lasix] 40 mg tablet 40 mg PO DAILY Qty: 30 RF: 0 spironolactone 25 mg tablet 12.5 mg PO DAILY Qty: 30 RF: 0 levofloxacin 500 mg tablet 500 mg PO DAILY Qty: 3 RF: 0 Continued aspirin 81 MG tablet,chewable 81 mg PO DAILY RF: 0 levothyroxine 25 MCG tablet 25 mcg PO DAILY RF: 0 nystatin [Nyamyc] 1 APPLIC bottle 1 applic topical BID PRN PRN (Reason: skin) RF: 0 rosuvastatin 5 MG tablet 5 mg PO QHS RF: 0 PreserVision AREDS-2 1 EACH capsule 1 ea PO BID RF: 0 Icy Hot 35.4 GM cream 35.4 g TP Q6H PRN PRN (Reason: muscle pain) RF: 0 celecoxib 200 MG capsule 200 mg PO DAILY RF: 0 diphenhydramine HCl 25 MG capsule 25 mg PO TID PRN PRN (Reason: allergy) RF: 0 psyllium husk 0.52 GM capsule 0.52 gm PO DAILY RF: 0 mirabegron 50 MG tablet extended release 24 hr 50 mg PO DAILY RF: 0 L.acidoph, paracasei,B. lactis 1 EACH capsule 1 ea PO DAILY RF: 0 trazodone 50 MG tablet 50 mg PO QHS RF: 0 pantoprazole 40 MG tablet 40 mg PO DAILY RF: 0 Artificial Tears (cmc) 1 % Drops 1 drp EACH EYE BID RF: 0 metoprolol tartrate 100 mg tablet 100 mg PO BID RF: 0 sertraline 100 mg tablet 100 mg PO DAILY RF: 0 acetaminophen 650 mg Tablet Extended Release 650 mg PO Q12H RF: 0 fluticasone propionate 50 mcg/actuation Elsa,Suspension 2 spray INTRANASAL DAILY RF: 0 valsartan 320 MG tablet 320 mg PO DAILY RF: 0 Referrals / Follow Up: Qasim Mistry MD [STAFF PHYSICIAN] - Within 1 Month (For heart failure) Gianni Richardson MD [Primary Care Provider] - In 1 Week Disposition Disposition (needs filled in before D/C Order can be placed): NonSkilled NH/Intermed Care Visit Charges Inpatient E&M: [id number] [facility]
--- NOTE | 2021-03-24 10:26 | PHA.DC.MR ---
Pharmacy Service has performed discharge medication reconciliation for this patient. The patient's discharge medication list was reviewed for discrepancies and discrepancies were resolved. Home Medications PreserVision AREDS-2 1 ea PO BID 10/04/18 aspirin 81 mg PO DAILY 10/04/18 levothyroxine 25 mcg PO DAILY 10/04/18 nystatin [Nyamyc] 1 applic TOPICAL BID PRN PRN 10/04/18 rosuvastatin 5 mg PO QHS 10/04/18 Icy Hot 35.4 g TP Q6H PRN PRN 11/18/18 L.acidoph, paracasei,B. lactis 1 ea PO DAILY 12/13/20 celecoxib 200 mg PO DAILY 12/13/20 diphenhydramine HCl 25 mg PO TID PRN PRN 12/13/20 mirabegron 50 mg PO DAILY 12/13/20 pantoprazole 40 mg PO DAILY 12/13/20 psyllium husk 0.52 gm PO DAILY 12/13/20 trazodone 50 mg PO QHS 12/13/20 Artificial Tears (cmc) 1 drp EACH EYE BID 03/21/21 acetaminophen 650 mg PO Q12H 03/21/21 fluticasone propionate 2 spray INTRANASAL DAILY 03/21/21 metoprolol tartrate 100 mg PO BID 03/21/21 sertraline 100 mg PO DAILY 03/21/21 valsartan 320 mg PO DAILY 03/21/21 furosemide [Lasix] 40 mg PO DAILY #30 tab 03/24/21 levofloxacin 500 mg PO DAILY #3 tab 03/24/21 spironolactone 12.5 mg PO DAILY #30 tab 03/24/21
--- NOTE | 2021-03-24 10:30 | CASEMGMT ---
Patient's discharge is in the computer. JOSELUIS faxed instructions to [facility]. JOSELUIS called Nadine at [facility] back and let her know patient will be ready to go at . She will have the truck driver helper bring in clothes and he will give them to a volunteer at main entrance to bring up to patient. JOSELUIS notified RN of this plan. JOSELUIS also called patient's daughter and let her know. Plan: d/c back to [facility] [place]. [facility] transported. Shona RIOS
--- NOTE | 2021-03-24 11:10 | NURSING ---
called [facility] for report, spoke with Nadine. [facility] to be here @ 1300 to picker patient.
== END 2021-03-24 12:14 | disposition intermediate care facility (04) | DRG 291 ==
LOC: ED 16:13 → PCU 17:19
PROVIDERS: Admitting Provider Student in an Organized Health Care Education/Training Program; Emergency Provider Emergency Medicine; PCP Family Medicine; Visit Provider Internal Medicine
DX: I11.0 Hypertensive heart disease with heart failure (principal); J18.9 Pneumonia, unspecified organism; I50.33 Acute on chronic diastolic (congestive) heart failure; E78.5 Hyperlipidemia, unspecified; K21.9 Gastro-esophageal reflux disease without esophagitis; E03.9 Hypothyroidism, unspecified; M19.90 Unspecified osteoarthritis, unspecified site; G51.0 Bell's palsy; H35.031 Hypertensive retinopathy, right eye; J31.0 Chronic rhinitis; F41.9 Anxiety disorder, unspecified; R09.02 Hypoxemia; F32.9 Major depressive disorder, single episode, unspecified; Z79.899 Other long term (current) drug therapy; Z79.82 Long term (current) use of aspirin; Z79.51 Long term (current) use of inhaled steroids; G40.909 Epilepsy, unspecified, not intractable, without status epilepticus; Z66 Do not resuscitate
CPT/HCPCS: 36415; 71045; 80048; 80053; 81001; 83735; 83880; 84443; 84484; 85025; 85379; 87426; 87449; 93005; 93306; 94640; 97110; 97162; 97166; 97530; 97535; 97802; 99285; A4216; J0696; J1940

== ENCOUNTER → 2021-03-31 10:00 | Outpatient (REF) | payer MEDICARE, SELFPAY ==
[2021-03-21 19:05] VITALS: BMI 27.1
[2021-03-31 10:53] LABS: Anion Gap 6 (5-15); BUN 12 mg/dL (7-18); BUN/Creat Ratio 14.4 RATIO (10-20); Calcium,Total 8.7 mg/dL (8.5-10.1); Chloride 104 mmol/L (98-107); Creatinine, Serum 0.84 mg/dL (0.55-1.02); EST Glomerular Filtration Rate 69 mL/min (>60); Est Glom Filt Rate - Afr Amer 84 mL/min (>60); Glucose 122 mg/dL (74-106); Magnesium 1.8 mg/dL (1.6-2.6); Phosphorus 3.2 mg/dL (2.5-4.9); Potassium 3.4 mmol/L (3.5-5.1); Sodium Level 142 mmol/L (136-145)
== END ==
PROVIDERS: PCP Family Medicine; Visit Provider Family Medicine
DX: I11.0 Hypertensive heart disease with heart failure (principal); I50.9 Heart failure, unspecified; R53.83 Other fatigue; Z79.899 Other long term (current) drug therapy
CPT/HCPCS: 36415; 80048; 83735; 84100

== ENCOUNTER → 2021-05-01 05:00 | Outpatient (REF) | payer MEDICARE, SELFPAY ==
[2021-03-21 19:05] VITALS: BMI 27.1
[2021-05-01 08:09] LABS: Anion Gap 8 (5-15); BUN 14 mg/dL (7-18); Calcium,Total 8.5 mg/dL (8.5-10.1); Chloride 101 mmol/L (98-107); Creatinine, Serum 0.93 mg/dL (0.55-1.02); EST Glomerular Filtration Rate 61 mL/min (>60); Est Glom Filt Rate - Afr Amer 74 mL/min (>60); Glucose 87 mg/dL (74-106); Potassium 3.8 mmol/L (3.5-5.1); Sodium Level 141 mmol/L (136-145)
== END ==
PROVIDERS: PCP Family Medicine; Visit Provider Family Medicine
DX: I50.9 Heart failure, unspecified (principal); Z79.899 Other long term (current) drug therapy
CPT/HCPCS: 36415; 80048

== ENCOUNTER → 2021-05-09 05:00 | Outpatient (REF) | payer MEDICARE, SELFPAY ==
[2021-03-21 19:05] VITALS: BMI 27.1
[2021-05-09 08:12] LABS: Cholesterol 122 mg/dL (200); High Density Lipoprotein 37 mg/dL; Potassium 3.8 mmol/L (3.5-5.1); Thyroid Stim Hormone (TSH) 3.84 uIU/mL (0.358-3.74); Triglycerides 149 mg/dL; Very Low Density Lipoprotein 30 mg/dL (5-40)
== END ==
PROVIDERS: PCP Family Medicine; Visit Provider Family Medicine
DX: E78.5 Hyperlipidemia, unspecified (principal); E03.9 Hypothyroidism, unspecified
CPT/HCPCS: 36415; 80061; 84132; 84443

== ENCOUNTER → 2021-07-20 14:05 | Outpatient (REF) | payer MEDICARE, SELFPAY ==
[2021-07-21 09:08] LABS: Bacteria 0 SEEN /hpf (None Seen); Mucous, Urine 0 SEEN /hpf (<or=2+); Red Blood Cells-Urine 0 SEEN /hpf (0-5); White Blood Cells 0 SEEN /hpf (0-5)
[2021-07-21 09:43] LABS: Color, Urine Yellow (Yellow); Glucose, Dipstick Normal (Normal); Ketone-Dipstick Negative (Negative); Leukocyte Esterase-Dipstick Negative /ul (Negative); Nitrite-Dipstick Negative (Negative); Occult Blood-Urine Negative /ul (Negative); Protein-Dipstick Negative (Negative); Urine Bilirubin Dipstick Negative (Negative); Urine Clarity Sl. Cloudy (Clear); Urine Urobilinogen Normal (Normal)
[2021-07-21 09:49] LABS: Squamous Epithelial Cells - UA 0-5 SEEN /hpf (5-10)
== END ==
PROVIDERS: PCP Family Medicine; Visit Provider Family Medicine
DX: R35.0 Frequency of micturition (principal); R39.81 Functional urinary incontinence
CPT/HCPCS: 81001; 87086; 87088

== ENCOUNTER → 2023-02-21 | Outpatient (REF) | payer MEDICARE, SELFPAY ==
[2023-02-21 08:09] LABS: ALB/GLOB Ratio 1.2 RATIO (0.9-2.4); AST(SGOT) 23 U/L (15-37); Alanine Aminotransfer ALT/SGPT 24 U/L (13-56); Albumin, Serum 3.7 g/dL (3.2-5.0); Alkaline Phosphatase 92 U/L (45-117); Anion Gap 3 (5-15); BUN 14 mg/dL (7-18); BUN/Creat Ratio 14.4 RATIO (10-20); Calcium,Total 8.7 mg/dL (8.5-10.1); Chloride 105 mmol/L (98-107); Cholesterol 150 mg/dL (200); Creatinine, Serum 0.97 mg/dL (0.55-1.02); EST Glomerular Filtration Rate 58 mL/min (>60); Est Glom Filt Rate - Afr Amer 70 mL/min (>60); Globulin 3.1 g/dL (2.2-4.2); Glucose 100 mg/dL (74-106); High Density Lipoprotein 29 mg/dL; Protein, Total 6.8 g/dL (6.4-8.2); Sodium Level 136 mmol/L (136-145); Thyroid Stim Hormone (TSH) 2.63 uIU/mL (0.358-3.74); Triglycerides 177 mg/dL; Very Low Density Lipoprotein 35 mg/dL (5-40)
== END ==
PROVIDERS: PCP Family Medicine
DX: E78.5 Hyperlipidemia, unspecified (principal); E03.9 Hypothyroidism, unspecified
CPT/HCPCS: 36415; 80053; 80061; 84443